=== PATIENT | male | born 1975 | race Hispanic/Latino ===

== ENCOUNTER → 2023-07-23 | Outpatient (CLI) | payer OTHER ==
[~2023-07-23] MED LIST: ACET-2079 PO; AEC81 PO; AMLO5TAB4 PO; AMOX500C2 PO; ATOR40TA69 PO; CLOP-31 PO; GABA100C PO; INSLAN SQ
== END | disposition home or self-care (01) ==
LOC: WHH 08:14
PROVIDERS: ATTEND Podiatrist Foot & Ankle Surgery
DX: T87.89 Other complications of amputation stump (principal); E11.621 Type 2 diabetes mellitus with foot ulcer; L97.519 Non-pressure chronic ulcer of other part of right foot with unspecified severity; I10 Essential (primary) hypertension; E11.69 Type 2 diabetes mellitus with other specified complication; M86.071 Acute hematogenous osteomyelitis, right ankle and foot; E11.65 Type 2 diabetes mellitus with hyperglycemia; E78.5 Hyperlipidemia, unspecified; E11.52 Type 2 diabetes mellitus with diabetic peripheral angiopathy with gangrene; I96 Gangrene, not elsewhere classified; E11.40 Type 2 diabetes mellitus with diabetic neuropathy, unspecified; Z79.82 Long term (current) use of aspirin; Z79.899 Other long term (current) drug therapy; Z79.01 Long term (current) use of anticoagulants; Z87.891 Personal history of nicotine dependence; Y83.5 Amputation of limb(s) as the cause of abnormal reaction of the patient, or of later complication, without mention of misadventure at the time of the procedure
CPT/HCPCS: 99215; A4450

== ENCOUNTER → 2023-08-13 | Outpatient (CLI) | payer OTHER | END | disposition home or self-care (01) | LOC: WHH 07:59 | PROVIDERS: ATTEND Podiatrist Foot & Ankle Surgery | DX: T87.89 Other complications of amputation stump (principal); E11.621 Type 2 diabetes mellitus with foot ulcer; L97.511 Non-pressure chronic ulcer of other part of right foot limited to breakdown of skin; E11.69 Type 2 diabetes mellitus with other specified complication; M86.071 Acute hematogenous osteomyelitis, right ankle and foot; E11.65 Type 2 diabetes mellitus with hyperglycemia; E11.52 Type 2 diabetes mellitus with diabetic peripheral angiopathy with gangrene; I96 Gangrene, not elsewhere classified; E11.40 Type 2 diabetes mellitus with diabetic neuropathy, unspecified; I10 Essential (primary) hypertension; E78.5 Hyperlipidemia, unspecified; Z79.82 Long term (current) use of aspirin; Z79.899 Other long term (current) drug therapy; Z79.01 Long term (current) use of anticoagulants; Z87.891 Personal history of nicotine dependence; Y83.5 Amputation of limb(s) as the cause of abnormal reaction of the patient, or of later complication, without mention of misadventure at the time of the procedure | CPT/HCPCS: 99214 ==

== ENCOUNTER 2025-05-24 09:43 | Inpatient (IN) | payer SELFPAY ==
[~2025-05-24] VITALS: Ht 175.3 cm; Wt 110.5 kg
[2025-05-24 10:48] LABS: NUCLEATED RED BLOOD CELLS 0.0 % (0.0-0.19); PLATELET COUNT (AUTO) 205.0 K/uL (130-400); RED BLOOD CELL COUNT(AUTO) 4.37 MIL/uL (4.50-6.20); RED CELL DISTRIBUTION WIDTH 11.9 % (11.0-15.5); WHITE BLOOD COUNT (AUTO) 7.0 K/uL (4.8-10.8)
--- NOTE | 2025-05-24 10:53 | ERN ---
General Chief Complaint: Lower Extremity Pain/Injury Stated Complaint: BLE PAIN, SWELLING, GBW Time Seen by MD: 09:47 Source: patient History of Present Illness Initial Comments Mr. Fabian, 49-year-old male with past medical history of diabetes and cu rrently on 30 units glargine and 10 units NovoLog 3 times a day presented to the ED with complaints of severe bilateral lower leg pain and increased blurred vision of both eyes since 2 days. He reports tingling, numbness, pins and needle sensation on both the legs which is making him difficult to walk. Reports pain on the lower back which is radiating to both the legs. On examin ation straight leg positive, point tenderness on the lower lumbar area, weakness and swelling of both the lower legs. Reports no nausea, vomiting, increased urination or diarrhea. Timing/Duration: constant Severity: moderate Associated Symptoms: other (Blurred vision) Allergies: Coded Allergies: No Known Allergies (Unverified Allergy, Unknown, 07/08/23) Home Meds Active Scripts Acetaminophen with Codeine (Acetaminophen-Cod #3 Tablet) 300 Mg-30 Mg Tablet, 1 EACH PO Q8HR PRN for PAIN LEVEL 6 TO 10 for 7 Days, #10 TAB Prov:HELDER MULLINSCNP 07/15/23 Amoxicillin (Amoxicillin) 500 Mg Capsule, 500 MG PO TID for 10 Days, #30 CAP Prov:HELDER MULLINSCNP 07/15/23 Insulin Glargine,Hum.rec.anlog (Lantus) 100 Unit/Ml Inj, 12 UNITS SQ BID for 30 Days, #1 VIAL 2 Refills Prov:HELDER MULLINSP 07/15/23 Gabapentin (Neurontin) 100 Mg Capsule, 100 MG PO TID for 30 Days, #90 CAP Prov:HELDER MULLINSCNP 07/15/23 Aspirin (ASPIRIN 81 MG ECTAB) 81 Mg Ectab, 81 MG PO DAILY for 30 Days, #30 TAB.EC 2 Refills Prov:HELDER MULLINSCNP 07/15/23 Clopidogrel Bisulfate (Plavix) 75 Mg Tablet, 75 MG PO DAILY for 30 Days, #30 TAB 2 Refills Prov:HELDER MULLINSP 07/15/23 Atorvastatin Calcium (LIPITOR) 40 Mg Tablet, 40 MG PO HS for 30 Days, #30 TAB Prov:HELDER MULLINS AGACNP 07/15/23 Amlodipine Besylate (Norvasc 5Mg Tab) 5 Mg Tablet, 10 MG PO Q24H for 30 Days, #30 TAB Prov:HELDER MULLINS AGACNP 07/15/23 Past Medical History Past Medical History: Diabetes-Type II Past Surgical History: Other Surgical History Other: RT FOOT GREAT TOE AMP Constitutional: (-) chills, (-) diaphoresis, (-) fever, (-) malaise, (-) weakness, (-) other documentation EENTM: (+) blurred vision Respiratory: (-) cough, (-) short of breath, (-) stridor, (-) wheezing, (-) other documentation Cardiovascular: (+) edema Gastrointestinal/Abdominal: (+) abdominal pain Musculoskeletal: (+) back pain Neuro: (+) numbness Review of Systems: was completed Physical Exam General Appearance: (+) moderate distress Orientation: (+) alert, (+) oriented x 3 Eye: bilateral eye normal inspection, bilateral eye EOMI, bilateral eye photophobia Heart: (+) regular, (+) no gallop Vascular: (+) edema Gastrointestinal: (+) soft, (+) bowel sound present, (+) tender Rectal: (+) deferred Back: (+) vertebral tenderness Back Comment Straight leg test positive, tenderness on the lower lumbar region that is radiating to bilateral lower limbs Extremities: (+) calf tenderness, (+) swelling Extremities Comment Right toe amputated Neurologic/Psychiatric: (+) normal speech Skin: (+) normal color Results Laboratory and Microbiology Lab and Micro Result MDM Differential diagnosis: Uncontrolled hyperglycemia due to diabetes mellitus associated with peripheral neuropathy, lumbar spondylosis, uncontrolled hypertension and peripheral vascular disease The patient is a 49M, with history of diabetes, peripheral vascular disease, hypertension presented initially with bilateral lower limb edema and pain, blurred vision. In the ED his blood glucose levels were in 474. We ordered CBC, CMP, HbA1c and urinalysis We ordered x-ray lumbar spine We started him on 5 units IV insulin and 1 L 0.9 NS bolus. He will be admitted inpatient for further workup under the care of hospitalist ED Course DX & DISP Disposition: Inpatient Decision to Admit Time: 14:18 Departure Impression: Primary Impression: Uncontrolled diabetes mellitus with peripheral autonomic neuropathy Critical Time: 45 minutes Condition: Stable Referrals: BENJAMIN STEWART MD (PCP) STACI DAVIS MD May 24, 2025 10:53 YOLANDA MIRELES MD May 24, 2025 14:18
[2025-05-24 11:01] LABS: CREATININE 1.8 mg/dL (0.5-1.3); GLOMERULAR FILTR. RATE CALC 45.0 mL/min (>90); SODIUM SERUM 127.0 mmol/L (136-145); UREA NITROGEN, BLOOD 30.0 mg/dL (7-18)
[2025-05-24] MEDS: 0.9%NACL 1000ML 1,000 ML IV ONE (11:08)
[2025-05-24 11:11] LABS: GLUCOSE,RANDOM 520.0 mg/dL (70-105)
--- NOTE | 2025-05-24 11:38 | HMCIMG ---
EXAM: CR Lumbar Spine, 3 View. CLINICAL HISTORY: straight leg positive and lumbar pain COMPARISON: None provided. FINDINGS: BONES: No acute fracture or aggressive appearing osseous lesion. ALIGNMENT: Alignment is within normal limits. No significant scoliosis. DISCS / DEGENERATIVE CHANGES: The disc spaces are preserved. SOFT TISSUES: The soft tissues are unremarkable. Left iliac vascular stent IMPRESSION: No acute lumbar spine abnormality evident. If there is clinical concern for nerve root compression, MRI is suggested. /[place]
--- NOTE | 2025-05-24 12:24 | HP ---
[facility] HISTORY AND PHYSICAL Date of Service: May 24, 2025 Time of Service: 12:24 HISTORY OF PRESENT ILLNESS: This is a 49-year-old male with past medical history of hypertension, diabetes mellitus type 2 presented to hospital secondary to blurry vision. Patient states he has noted that he has been having vision blurriness for the past two months. He is unable to see from his left eye and does symptoms got worse two days ago. The is able to somewhat see from from his right eye but is not able to see centrally. He wears glasses at home. He has not seen hand bobbin cleaner. He saw his primary care provider who is recommended him to go to the emergency room for further evaluation. Additionally has a history of hypertension and currently has not been prescribed any antihypertensives. He takes Lantus 30 units at night and NovoLog 10 units with meals. Additionally states that he has been having lower back pain and has noted swelling in the lower extremities bilaterally. He has noted indent kerr from his socks and shoes. Denies any shortness of breath, chest pain, fever, chills. He has a history of peripheral vascular disease and had a previous history of stent placement. He has not followed up with the Cardiology recently. Furthermore patient endorses episodes of unsteady gait at home. He currently ambulates independently and does not use a cane or a walker. Patient has noted pain in the left lower quadrant which has been present chronically. Denied any changes in his bowel. Denied any melena, hematochezia, hematemesis. Denied any changes in his urination. Secondary to non improving symptoms patient was thereafter referred to the ED for further evaluation. Labs were notable for white count of 7.0, hemoglobin was 13.8, platelet count was 205 K, sodium was 127, potassium was 4.8, creatinine was 1.8, blood glucose was 520, On presentation to the ED patient's temperature was 97.9, heart rate was in the 80s, respiratory rate was 18, blood pressure was 180/93 Patient underwent lumbar x-ray which showed no abnormality. ER physician tried contacting Ophthalmology but they were unable to reach the hand bobbin cleaner. REVIEW OF SYSTEMS CONSTITUTIONAL: Denies fevers, chills, or night sweats. No unintentional weight loss reported. NEUROLOGICAL: Denies headache, amaurosis fugax, motor weakness, sensory deficit, vertigo/spinning sensation, or tremors. Positive for gait abnormality ENT: No hearing loss, otalgia, otorrhea, rhinitis, rhinorrhea, hoarseness, or sore throat. CARDIOVASCULAR: Denies any exertional angina, dyspnea on exertion, orthopnea, paroxysmal nocturnal dyspnea, palpitations, life-threatening arrhythmias, claudication. PULMONARY: Denies any shortness of breath, cough, phlegm/sputum, hemoptysis, pleuritic chest pain. GASTROINTESTINAL: Denies any type of dysphagia to either liquids or solids. Denies nausea, vomiting, pyrosis, early satiety, abdominal pain, diarrhea, constipation, or changes in stool consistency or caliber. Denies coffee-ground emesis, hematemesis, hematochezia, or melanotic stools. GENITOURINARY: Denies frequency, urgency, nocturia, hematuria or incontinence (Storage/Irritative symptoms.) Low urinary stream, straining to void, urinary intermittency or hesitancy, splitting of the voiding stream, terminal dribbling. ENDOCRINOLOGIC: Denies polyuria, polydipsia, polyphagia or heat/cold intolerances. HEMATOLOGIC: Denies thrombophilia/previous clots, or coagulopathy/bleeding disorders. ONCOLOGIC: Denies personal history of malignancy. DERMATOLOGIC: Denies rashes or pruritus. PSYCHIATRIC: Denies any suicidal or homicidal ideation. Denies hallucinations. Musculoskeletal: positive for pain in the lower extremity, positive for lower back pain PAST MEDICAL HISTORY: Hypertension, diabetes mellitus type two PAST SURGICAL HISTORY: History of right foot great toe amputation, history of peripheral angiogram, history of iliac stent placement PAST SOCIAL HISTORY: Denied any smoking, alcohol, drug use. The patient works with [employer] FAMILY HISTORY: Denied any pertinent family history Coded Allergies: No Known Allergies (Unverified Allergy, Unknown, 07/08/23) PHYSICAL EXAM GENERAL APPEARANCE: The patient is awake, alert, and oriented, in no acute cardiopulmonary distress. NEUROLOGICAL: Cranial nerves II-XII grossly intact. Motor is 5/5 in bilateral upper and lower extremities proximal to distal. No sensory deficits. HEENT: Face is symmetric. Pupils are equal and reactive. Extraocular movements are intact. Patient was unable to see from the left eye. Visual acuity on the right eye was 20/40, visual acuity in both eyes was 20 NECK: Supple. No JVD. No thyromegaly. No submental, submandibular, pre- /postauricular, occipital or supraclavicular lymphadenopathy. CHEST: Normal chest expansion. No Telemetry. LUNGS: Absence of any rales, rhonchi or any wheezing. CARDIOVASCULAR: Regular. S1 and S2 normal. No appreciable rubs, murmurs or gallops. ABDOMEN: Soft, mild tenderness in the l left lower quadrant, and nondistended. There is no rebound, voluntary guarding, or rigidity. : Deferred. No Crowe. EXTREMITIES: Non-edematous and not cyanotic. No clubbing. Good capillary refill. SKIN: No skin breakdown. Vital Sign (Last 24 Hours) 05/24/25 12:17 Temp 97.9 Pulse 80 Resp 11 B/P (MAP) 197/112 Pulse Ox 99 O2 Delivery Room Air* O2 Flow Rate 0 FiO2 21 LABS: Laboratory: Test 05/24/25 10:34 05/24/25 09:48 Range/Units White Blood Count 7.0 4.8-10.8 K/uL Red Blood Count 4.37 L 4.50-6.20 MIL/uL Hemoglobin 13.8 L 14.0-18.0 g/dL Hematocrit 40.1 L 42-54 % Mean Corpuscular Volume 91.8 79-99 fL Mean Corpuscular Hemoglobin 31.6 27.0-33.0 pg Mean Corpuscular Hemoglobin Concent 34.4 32.0-36.0 g/dL Red Cell Distribution Width 11.9 11.0-15.5 % Platelet Count 205 130-400 K/uL Mean Platelet Volume 11.8 H 7.5-10.5 fL Nucleated Red Blood Cells 0.0 0.0-0.19 % Sodium Level 127 L 136-145 mmol/L Potassium Level 4.8 3.5-5.1 mmol/L Chloride Level 94 L 101-111 mmol/L Carbon Dioxide Level 30 21-32 mmol/L Blood Urea Nitrogen 30 H 7-18 mg/dL Creatinine 1.8 H 0.5-1.3 mg/dL Glomerular Filtration Rate Calc 45 >90 mL/min Random Glucose 520 *H 70-105 mg/dL Hemoglobin A1c 12.2 H 4.0-6.0 % Estimated Average Glucose (eAG) 303 H 70-126 mg/dL Total Calcium 8.0 L 8.5-10.1 mg/dL Whole Blood Glucose 476 *H 70-110 MG/DL Bedside Glucose Comment Notified Nurse Current Medications Medications (Trade) Dose Ordered Sig/Darcie Route PRN Reason Start Time Stop Time Status Last Admin Dose Admin Amlodipine Besylate (NorvASC 5MG TAB) 5 mg DAILY PO 05/25/25 09:00 06/24/25 08:59 UNV Famotidine (Pepcid 20mg Vial) 20 mg BID IV 05/24/25 21:00 06/23/25 20:59 UNV Hydralazine HCl (APRESOLine 20MG INJ) 10 mg Q6H PRN IV ADMINISTER FOR SBP > 180 05/24/25 12:30 06/23/25 12:29 UNV Hydromorphone HCl (DiLAUDid 0.5MG INJ) 0.5 mg Q6H PRN IVP SEVERE PAIN (7-10) 05/24/25 12:30 05/29/25 12:29 UNV Insulin Human Regular (humuLIN R 100 UNIT/ML 3ML) INSULIN SLIDING SCAL... 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 Patient will be started on sliding scale insulin and Lantus. We will request Endocrinology consultation. -in reference to hypertension. Patient to be started on amlodipine. Start hydralazine 10 mg q.6 hours for systolic blood pressure greater than 180. Obtain echocardiogram - in reference to lower extremity edema. Obtain a urine protein creatinine ratio to assess for nephrotic syndrome. Obtain echocardiogram. We will request consultation with the Nephrology -obtain patient's home medications which will be reconciled once available -Obtain a CT pelvis -obtain MRI of the lower lumbar spine -obtain PT evaluation -patient was instructed not to drive until he is evaluated by Ophthalmology. -further orders per hospitalization course -obtain a arterial Doppler of the lower Advanced Care Planning Which of the following were discussed: Hospice care: Yes __ No _x_ Therapeutic options: Yes __ No __ Advance directives: Yes __ No __ Other discussions: Discussed with who?: patient (Patient, family or surrogates) Voluntary nature of this service was explained to the patient? Yes _x_ No __ Amount of time spent: 25 minutes KILO Alanis MD, MD May 24, 2025 12:24
[2025-05-24 12:27] LABS: APPEARANCE,URINE CLEAR (CLEAR); GLUCOSE, URINE (UA) >=1000 mg/dL (NEGATIVE); LEUKOCYTE ESTERASE ,URINE NEGATIVE Leu/uL (NEGATIVE); NITRATE,URINE NEGATIVE (NEGATIVE); OCCULT BLOOD,URINE MODERATE (NEGATIVE)
[2025-05-24 12:33] LABS: ADD UA MICROSCOPIC YES; AMPHET/METH SCREEN,URINE NEGATIVE (NEGATIVE); BARBITURATE SCREEN, URINE NEGATIVE (NEGATIVE); CANNABINOID SCREEN,URINE NEGATIVE (NEGATIVE); COCAINE SCREEN,URINE NEGATIVE (NEGATIVE)
--- NOTE | 2025-05-24 12:57 | HMCIMG ---
EXAM: CT Head Without IV contrast. CLINICAL HISTORY: weakness TECHNIQUE: Axial computed tomography images of the head/brain without intravenous contrast. COMPARISON: None provided. FINDINGS: BRAIN: No evidence of acute hemorrhage. No mass lesion. No CT evidence for acute territorial infarct. No midline shift or extra-axial collections. VENTRICLES: No hydrocephalus. ORBITS: The orbits are unremarkable. SINUSES AND MASTOIDS: The paranasal sinuses and mastoid air cells are clear. BONES: No fracture. SOFT TISSUES: Unremarkable. IMPRESSION: No acute intracranial abnormality. /[place]
[2025-05-24] MEDS ORDERED: 0.9%NACL 1000ML 1,000 ML IV ONE (13:00)
--- NOTE | 2025-05-24 13:05 | HMCIMG ---
EXAM: CT SCAN OF THE ABDOMEN AND PELVIS WITHOUT CONTRAST Clinical statement: Left lower quadrant pain and lower back pain; evaluate abdomen and lumbar spine. STUDY PROTOCOL: CT radiation dose protocol was performed in accordance with the principles of ALARA. A multislice CT scan of the abdomen and pelvis was performed without intravenous contrast. Sections were obtained from the diaphragms to the inguinal region. RADIATION DOSE: CTDIvol 19.90 mGy; DLP 1365.70 mGycm. CONTRAST: No intravenous contrast administered. COMPARISON: None provided. FINDINGS: LUNG BASE: No pleural effusion, collapse, or consolidation in the visualized lung bases. Mild thickening of the posterior pleura of the left lower lobe. LIVER: Normal morphology and attenuation with smooth margins. No focal hepatic lesion or calcification. No intrahepatic or extrahepatic biliary dilatation. Vance hepatis structures are unremarkable. GALL BLADDER: Gallbladder wall thickness and contour are normal. The gallbladder is contracted with a possible tiny calculus measuring approximately 1 mm (series 2, image 28/129). No pericholecystic fat stranding is seen on this noncontrast study. The cystic duct and surrounding fat appear normal. PANCREAS: Normal in size, contour, and attenuation. No pancreatic ductal dilatation or peripancreatic inflammatory change. SPLEEN: Normal size and attenuation. A small accessory spleen is present. No acute splenic abnormality. KIDNEYS: Both kidneys are normal in size, shape, position, and attenuation. No renal mass, calculus, or hydronephrosis. Mild perinephric fat stranding bilaterally. A simple cyst measuring approximately 1.1 cm is noted in the lower pole of the left kidney. No evidence of obstructive uropathy. GIT /T/ PERITONEAL CAVITY: Stomach is distended but otherwise unremarkable. Gastroesophageal junction, pylorus, and duodenum appear normal. Jejunal and ileal loops are normal in caliber and distribution with preserved wall thickness and mucosal pattern. No CT evidence of acute appendicitis. Scattered sigmoid diverticulosis is present without adjacent inflammatory stranding or abscess. Rectum and colonic loops are well distended with fecal material, consistent with constipation. No free intraperitoneal fluid or free air. Mesenteric fat and omentum are unremarkable. LYMPHNODES: No pathologically enlarged abdominopelvic lymph nodes are identified. RETROPERITONEUM: Both adrenal glands are normal in morphology and attenuation. The abdominal aorta and IVC are normal in course and caliber with mild atherosclerotic calcification in the aortoiliac segment. A vascular stent is present in the left common iliac vein. PELVIS: Urinary bladder shows normal wall thickness and contour. Prostate appears normal on CT. No pelvic mass or free fluid. MUSCULOSKELETAL: Early degenerative changes in the dorsolumbar spine with multilevel endplate osteophytic spurring. Mild reduction in L5S1 disc height with a small posterior disc protrusion measuring approximately 3 mm at L5S1. No acute fracture or listhesis. OTHER: Extra-abdominal and paraspinal soft tissues are unremarkable. Tiny fat-containing umbilical hernia. IMPRESSION: * No CT evidence of acute intra-abdominal pathology such as appendicitis, diverticulitis, bowel obstruction, or obstructive uropathy to clearly explain left lower quadrant pain. Clinical management should be guided by examination and laboratory findings. * Scattered sigmoid diverticulosis without CT evidence of diverticulitis. These changes can be a source of chronic left-sided abdominal symptoms; if symptoms persist or there are red-flag features (e.g., anemia, change in bowel habits, weight loss), gastroenterology evaluation and consideration of colonoscopy are advised. * Constipation with fecal loading of the colon and rectum, which may contribute to the patients abdominal pain; treatment should be tailored to clinical assessment and bowel habit history. * Degenerative changes of the lower lumbar spine with mild L5S1 disc height loss and a small posterior disc protrusion at L5S1, which may contribute to lower back pain and possibly radicular symptoms if present. Correlation with neurologic examination is recommended, and lumbar spine MRI may be considered if there is radiculopathy or persistent, function-limiting pain. * Mild bilateral perinephric fat stranding with a small simple left renal cyst (1.1 cm) and no hydronephrosis or stones. Findings are nonspecific and more in keeping with mild chronic or incidental change; correlation with urine studies and clinical features is recommended if there is concern for renal infection. * Contracted gallbladder with a possible tiny calculus. There is no CT evidence of acute cholecystitis on this noncontrast study; if biliary-type symptoms develop, targeted right upper quadrant ultrasound could be considered for further evaluation. * Mild atherosclerotic calcification of the aortoiliac segment with a left common iliac vein stent, and tiny fat-containing umbilical hernia, both likely incidental in the context of the current presentation. /[place]
[2025-05-24 13:08] LABS: CREATININE,URINE RANDOM 65.49 mg/dL (30-135)
[2025-05-24 13:09] LABS: SQUAMOUS EPITHELIAL CELL,UR None Seen /HPF (0-2)
[2025-05-24 13:33] LABS: PROTEIN,URINE RANDOM 523.6 mg/dL (0-11.9)
[2025-05-24] MEDS: amLODIPine 5 MG TAB PO ONE (13:50)
[2025-05-24 14:45] VITALS: BP 182/105; PULSE 81; RESP 20; TEMP 98.1; O2SAT 98
[2025-05-24 15:12] LABS: ASPARTATE AMINOTRANSFERASE 19 U/L (10-37); TOTAL PROTEIN, SERUM 6.8 g/dL (6.0-8.3)
--- NOTE | 2025-05-24 15:21 | HMCIMG ---
EXAM: US for Deep Venous Thrombosis, bilateral Lower Extremity. CLINICAL HISTORY: Leg Pain and Swelling TECHNIQUE: Real-time ultrasound scan of the veins of the bilateral lower extremity with color Doppler flow, spectral waveform analysis and compression. COMPARISON: None provided. FINDINGS: DEEP VEINS: The common femoral, superficial femoral, and popliteal veins are echolucent and compressible. There is normal color Doppler flow throughout. The visualized calf veins appear patent. SOFT TISSUES: No popliteal fossa cyst or other abnormalities. IMPRESSION: 1. No evidence of deep venous thrombosis in the bilateral lower extremities. /[place]
--- NOTE | 2025-05-24 15:36 | HMCIMG ---
EXAM: US Duplex Bilateral Carotid and Vertebral Arteries. CLINICAL HISTORY: Assess for carotid stenosis. TECHNIQUE: Real-time ultrasound scan of the bilateral carotid and vertebral arteries, 2-D hutson scale, with color Doppler flow and spectral waveform analysis. COMPARISON: None provided. FINDINGS: RIGHT COMMON CAROTID ARTERY: Peak systolic velocity approximately 72 cm/s. No occlusion or hemodynamically significant stenosis. RIGHT INTERNAL CAROTID ARTERY: Peak systolic velocity approximately 70 cm/s with ICA/CCA ratio of 1.0. No occlusion or hemodynamically significant stenosis. RIGHT EXTERNAL CAROTID ARTERY: Peak systolic velocity approximately 108 cm/s. No occlusion. RIGHT VERTEBRAL ARTERY: Antegrade flow with peak systolic velocity approximately 32 cm/s. RIGHT ICA/CCA RATIO: Approximately 1.0. LEFT COMMON CAROTID ARTERY: Peak systolic velocity approximately 69 cm/s. No occlusion or hemodynamically significant stenosis. LEFT INTERNAL CAROTID ARTERY: Peak systolic velocity approximately 73 cm/s with ICA/CCA ratio of approximately 1.1. No occlusion or hemodynamically significant stenosis. LEFT EXTERNAL CAROTID ARTERY: Peak systolic velocity approximately 135 cm/s. No occlusion. LEFT VERTEBRAL ARTERY: Antegrade flow with peak systolic velocity approximately 39 cm/s. LEFT ICA/CCA RATIO: Approximately 1.1. SOFT TISSUES: No incidental abnormalities. IMPRESSION: * No hemodynamically significant carotid artery stenosis by Doppler velocity criteria or ICA/CCA ratios. * Bilateral vertebral arteries demonstrate normal antegrade flow without hemodynamically significant stenosis. /[place]
[2025-05-24 16:00] VITALS: BP 159/94; PULSE 81; RESP 22; TEMP 97.5
--- NOTE | 2025-05-24 16:02 | HMCIMG ---
EXAM: US Duplex bilateral Lower Extremity Arteries. CLINICAL HISTORY: Assess for peripheral vascular disease. TECHNIQUE: Real-time ultrasound scan of the arteries of the bilateral lower extremities with 2-D hutson scale, color Doppler flow and spectral waveform analysis. COMPARISON: None provided. FINDINGS: RIGHT LOWER EXTREMITY: COMMON FEMORAL ARTERY: Peak systolic velocity approximately 115 cm/sec with triphasic waveform. No occlusion or hemodynamically significant stenosis. SUPERFICIAL FEMORAL ARTERY: Proximal peak systolic velocity approximately 65 cm/sec and distal peak systolic velocity approximately 70 cm/sec with triphasic waveforms. No occlusion or hemodynamically significant stenosis. POPLITEAL ARTERY: Peak systolic velocity approximately 71 cm/sec with triphasic waveform. No occlusion or hemodynamically significant stenosis. CALF ARTERIES: Posterior tibial artery distal peak systolic velocity approximately 59 cm/sec with triphasic waveform. Dorsalis pedis artery peak systolic velocity approximately 79 cm/sec with triphasic waveform. No occlusion or hemodynamically significant stenosis. LEFT LOWER EXTREMITY: COMMON FEMORAL ARTERY: Peak systolic velocity approximately 103 cm/sec with triphasic waveform. No occlusion or hemodynamically significant stenosis. SUPERFICIAL FEMORAL ARTERY: Proximal peak systolic velocity approximately 109 cm/sec, mid peak systolic velocity approximately 121 cm/sec, and distal peak systolic velocity approximately 40 cm/sec with predominantly triphasic waveforms. No focal velocity elevation to suggest hemodynamically significant stenosis. POPLITEAL ARTERY: Proximal peak systolic velocity approximately 50 cm/sec and distal peak systolic velocity approximately 78 cm/sec with triphasic waveforms. No occlusion or hemodynamically significant stenosis. CALF ARTERIES: Posterior tibial artery peak systolic velocity approximately 53 cm/sec and anterior tibial/distal peak systolic velocity approximately 64 cm/sec with triphasic waveforms. Dorsalis pedis artery peak systolic velocity approximately 100 cm/sec with triphasic waveform. No occlusion or hemodynamically significant stenosis. IMPRESSION: * Multifocal atherosclerotic changes of the bilateral lower extremity arteries without duplex evidence of hemodynamically significant stenosis or occlusion. /[place]
[2025-05-24 19:52] VITALS: BP 132/78; PULSE 80; RESP 20; TEMP 98.5
[2025-05-24 20:00] VITALS: O2SAT 98
[2025-05-24] MEDS: FAMOTIDINE 20MG VIAL IV SCH (20:57)
[2025-05-24 23:42] VITALS: BP 155/89; PULSE 78; RESP 20; TEMP 98
[2025-05-25] VITALS (7 sets, daily range): BP systolic 113–182; BP diastolic 56–100; PULSE 76–87; RESP 18–22; TEMP 97.8–98.1; O2SAT 98
[2025-05-25 04:33] LABS: IMMATURE GRANULOCYTE ABSOLUTE 0.02 K/uL (0-1); NUCLEATED RED BLOOD CELLS 0.0 % (0.0-0.19); PLATELET COUNT (AUTO) 189 K/uL (130-400); RED BLOOD CELL COUNT(AUTO) 4.20 MIL/uL (4.50-6.20); RED CELL DISTRIBUTION WIDTH 11.6 % (11.0-15.5); WHITE BLOOD COUNT (AUTO) 6.8 K/uL (4.8-10.8)
[2025-05-25 05:05] LABS: ASPARTATE AMINOTRANSFERASE 15.0 U/L (10-37); CREATININE 1.4 mg/dL (0.5-1.3); GLOMERULAR FILTR. RATE CALC 61.0 mL/min (>90); GLUCOSE,RANDOM 192.0 mg/dL (70-105); PHOSPHORUS 4.1 mg/dL (2.5-4.9); SODIUM SERUM 137.0 mmol/L (136-145); TOTAL PROTEIN, SERUM 6.2 g/dL (6.0-8.3); UREA NITROGEN, BLOOD 25.0 mg/dL (7-18)
--- NOTE | 2025-05-25 05:14 | CONS ---
CONSULT NOTE: Endocrinology Consult Chief complaint:blurry vision Reason for consult:uncontrolled dm-2 DOS:05/25/25 HISTORY OF PRESENT ILLNESS: This is a 49-year-old male with past medical history of hypertension, diabetes mellitus type 2 presented to hospital secondary to blurry vision. Patient states he has noted that he has been having vision blurriness for the past two months. He is unable to see from his left eye and does symptoms got worse two days ago. The is able to somewhat see from from his right eye but is not able to see centrally. He wears glasses at home. He has not seen die finisher. He saw his primary care provider who is recommended him to go to the emergency room for further evaluation. Additionally has a history of hypertension and currently has not been taking antihypertensives. He takes Lantus 30 units at night and NovoLog 10 units with meals. Labs were notable for white count of 7.0, hemoglobin was 13.8, platelet count was 205 K, sodium was 127, potassium was 4.8, creatinine was 1.8, blood glucose was 520, On presentation to the ED patient's temperature was 97.9, heart rate was in the 80s, respiratory rate was 18, blood pressure was 180/93 Patient underwent lumbar x-ray which showed no abnormality. Home diabetic regimen: glargine 30 units daily and novolog 10 units qac before meals. Hba1c 12.2% reports that he was recently diagnosed with diabetic retinopathy and planning eye injections. glucose runs >200 mg/dl. REVIEW OF SYSTEMS CONSTITUTIONAL: Denies fevers, chills, or night sweats. No unintentional weight loss reported. NEUROLOGICAL: Denies headache, amaurosis fugax, motor weakness, sensory deficit, vertigo/spinning sensation, or tremors. Positive for gait abnormality ENT: No hearing loss, otalgia, otorrhea, rhinitis, rhinorrhea, hoarseness, or sore throat. CARDIOVASCULAR: Denies any exertional angina, dyspnea on exertion, orthopnea, paroxysmal nocturnal dyspnea, palpitations, life-threatening arrhythmias, claudication. PULMONARY: Denies any shortness of breath, cough, phlegm/sputum, hemoptysis, pleuritic chest pain. GASTROINTESTINAL: Denies any type of dysphagia to either liquids or solids. Denies nausea, vomiting, pyrosis, early satiety, abdominal pain, diarrhea, constipation, or changes in stool consistency or caliber. Denies coffee-ground emesis, hematemesis, hematochezia, or melanotic stools. GENITOURINARY: Denies frequency, urgency, nocturia, hematuria or incontinence (Storage/Irritative symptoms.) Low urinary stream, straining to void, urinary intermittency or hesitancy, splitting of the voiding stream, terminal dribbling. ENDOCRINOLOGIC: Denies polyuria, polydipsia, polyphagia or heat/cold intolerances. HEMATOLOGIC: Denies thrombophilia/previous clots, or coagulopathy/bleeding disorders. ONCOLOGIC: Denies personal history of malignancy. DERMATOLOGIC: Denies rashes or pruritus. PSYCHIATRIC: Denies any suicidal or homicidal ideation. Denies hallucinations. Musculoskeletal: positive for pain in the lower extremity, positive for lower back pain PAST MEDICAL HISTORY: Hypertension, diabetes mellitus type two PAST SURGICAL HISTORY: History of right foot great toe amputation, history of peripheral angiogram, history of iliac stent placement PAST SOCIAL HISTORY: Denied any smoking, alcohol, drug use. 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 NEUROLOGICAL: Cranial nerves II-XII grossly intact. Motor is 5/5 in bilateral upper and lower extremities proximal to distal. No sensory deficits. HEENT: Face is symmetric. Pupils are equal and reactive. Extraocular movements are intact. Patient was unable to see from the left eye. Visual acuity on the right eye was 20/40, visual acuity in both eyes was 20 NECK: Supple. No JVD. No thyromegaly. No submental, submandibular, pre- /postauricular, occipital or supraclavicular lymphadenopathy. CHEST: Normal chest expansion. No Telemetry. LUNGS: Absence of any rales, rhonchi or any wheezing. CARDIOVASCULAR: Regular. S1 and S2 normal. No appreciable rubs, murmurs or gallops. ABDOMEN: Soft, mild tenderness in the l left lower quadrant, and nondistended. There is no rebound, voluntary guarding, or rigidity. : Deferred. No Crowe. EXTREMITIES: Non-edematous and not cyanotic. No clubbing. Good capillary refill. SKIN: No skin breakdown. ASSESSMENT: Symptomatic hyperglycemia POA no dka. hyperglycemia is improving now and insulin adjusted. Home diabetic regimen: glargine 30 units daily and novolog 10 units qac before meals. Hba1c 12.2% reports that he was recently diagnosed with diabetic retinopathy and planning eye injections. glucose runs >200 mg/dl. Uncontrolled diabetes mellitus type 2 with hemoglobin A1c of 12.2 Lower back pain with concern for radiculopathy Proteinuria Acute kidney injury or underlying chronic kidney disease likely from diabetic nephropathy Bilateral lower extremities edema History of May-Thurner syndrome Blurred vision bilaterally differential secondary to diabetic retinopathy versus symptomatic hyperglycemia Hypertensive urgency PLAN: start Lantus 30 units daily and adjust for fasting glucose. start Regular insulin 8 units three times before meals and adjust for post- prandial glucose. adjust ssi to medium dose sliding scale insulin. Monitor glucose q x 6 hourly. Continue carb consistent diet. Keep glucose less than 180 mg/dl. Thanks for allowing me to participate in patient care and will continue to follow up. Vital Signs 05/24/25 20:00 O2 Flow Rate 0 FiO2 21 Hematology Labs: Test 05/25/25 04:22 Range/Units White Blood Count 6.8 4.8-10.8 K/uL Red Blood Count 4.20 L 4.50-6.20 MIL/uL Hemoglobin 13.2 L 14.0-18.0 g/dL Hematocrit 38.1 L 42-54 % Mean Corpuscular Volume 90.7 79-99 fL Mean Corpuscular Hemoglobin 31.4 27.0-33.0 pg Mean Corpuscular Hemoglobin Concent 34.6 32.0-36.0 g/dL Red Cell Distribution Width 11.6 11.0-15.5 % Platelet Count 189 130-400 K/uL Mean Platelet Volume 11.4 H 7.5-10.5 fL Immature Granulocyte % (Auto) 0.3 0-1 % Neutrophils (%) (Auto) 58.1 40.0-77.0 % Lymphocytes (%) (Auto) 22.2 21.0-51.0 % Monocytes (%) (Auto) 12.5 3.0-13.0 % Eosinophils (%) (Auto) 5.9 0.0-8.0 % Basophils (%) (Auto) 1.0 0.0-5.0 % Neutrophils # (Auto) 3.9 1.8-7.7 K/uL Lymphocytes # (Auto) 1.5 1.0-4.8 K/uL Monocytes # (Auto) 0.9 0.1-1.0 K/uL Eosinophils # (Auto) 0.40 0.00-0.70 K/uL Basophils # (Auto) 0.07 0.00-0.20 K/uL Absolute Immature Granulocyte (auto 0.02 0-1 K/uL Nucleated Red Blood Cells 0.0 0.0-0.19 % Chemistry Labs: Test 05/25/25 04:22 05/24/25 23:54 05/24/25 13:06 05/24/25 10:39 Range/Units Sodium Level 137 136-145 mmol/L Potassium Level 3.6 3.5-5.1 mmol/L Chloride Level 102 101-111 mmol/L Carbon Dioxide Level 29 21-32 mmol/L Blood Urea Nitrogen 25 H 7-18 mg/dL Creatinine 1.4 H 0.5-1.3 mg/dL Glomerular Filtration Rate Calc 61 >90 mL/min Random Glucose 192 #H 70-105 mg/dL Uric Acid 6.6 2.6-7.2 mg/dL Total Calcium 8.0 L 8.5-10.1 mg/dL Phosphorus Level 4.1 2.5-4.9 mg/dL Total Bilirubin 0.2 0.2-1.0 mg/dL Aspartate Amino Transf (AST/SGOT) 15 10-37 U/L Alanine Aminotransferase (ALT/SGPT) 19 # 12-78 U/L Alkaline Phosphatase 89 # 50-136 U/L Total Protein 6.2 6.0-8.3 g/dL Albumin 1.8 L 3.5-5.0 g/dL Thyroid Stimulating Hormone (TSH) 3.73 # 0.36-3.74 uIU/mL Whole Blood Glucose 332 H 70-110 MG/DL Bedside Glucose Comment Notified Nurse Whole Blood Ketones Quantitative 0.1 0.0-0.6 mmol/L Direct Bilirubin < 0.1 0.0-0.3 mg/dL Total Creatine Kinase 78 21-232 U/L B-Type Natriuretic Peptide 144 H 0-100 pg/mL Test 05/24/25 10:34 Range/Units Hemoglobin A1c 12.2 H 4.0-6.0 % Estimated Average Glucose (eAG) 303 H 70-126 mg/dL Current Medications Medications (Trade) Dose Ordered Sig/Darcie Route Start Time Stop Time Status Last Admin Dose Admin Amlodipine Besylate (NorvASC 5MG TAB) 5 mg DAILY PO 05/25/25 09:00 06/24/25 08:59 Famotidine (Pepcid 20mg Vial) 20 mg Q24H IV 05/24/25 21:00 06/23/25 20:59 05/24/25 20:57 20 MG Insulin Human Regular (humuLIN R 100 UNIT/ML 3ML) INSULIN SLIDING SCAL... Q6H6 SQ 05/24/25 18:00 06/23/25 17:59 05/25/25 00:07 7 UNIT Vitamin B Complex/ Vit C/Folic Acid (Nephrovite Tablet) 1 cap DAILY PO 05/25/25 09:00 06/24/25 08:59 ANITRA CARTER MD May 25, 2025 05:14
[2025-05-25] MEDS: PoTASSium chl 10% ELIXIR 20MEQ 20 MEQ/15 ML UDCUP PO ONE (06:37)
--- NOTE | 2025-05-25 07:55 | CONS ---
NEPHROLOGY CONSULTATION REASON FOR CONSULTATION: Acute renal failure, hyponatremia, and severe hypertension. HISTORY OF PRESENT ILLNESS: This patient has multiple medical problems, underlying diabetes, hypertension, admitted with blurry vision. He is found to have severe hypertension. He does not take his medicine. He has been on insulin also. The patient has unsteadiness also. The patient is generally weak. He has been found to have low sodium as well as multiple other comorbidities including blurry vision. PAST MEDICAL HISTORY: Diabetes, hypertension. PAST SURGICAL HISTORY: Right foot amputation, peripheral angiogram, and iliac stent. FAMILY HISTORY: Family history is negative for present contact. SOCIAL HISTORY: The patient has no smoking or alcohol abuse reported to me. REVIEW OF SYSTEMS: CONSTITUTIONAL: Generalized weakness. No fever, chills, or rigors. HEENT: With no headache. No oral ulcer, sore throat or difficulty swallowing. Has visual blurring though present. RESPIRATORY: No cough, expectoration, or hemoptysis. CARDIOVASCULAR: No orthopnea or PND. Shortness of breath has been present. GASTROINTESTINAL: Negative for nausea, vomiting. No diarrhea reported. GENITOURINARY: Negative for hematuria. DERMATOLOGIC: No rashes, pruritus or skin lesion. ENDOCRINE: No polyuria, polydipsia or polyphagia. PSYCHIATRIC: Negative for anxiety, depression, or hallucinations. LYMPHATIC AND HEMATOPOIETIC: No bleeding tendencies or swelling noted in lymph node areas. MUSCULOSKELETAL: With no joint swelling, redness, or inflammation. Other systemic review is unchanged, unremarkable from the past. PHYSICAL EXAMINATION: GENERAL: Pale, in no other distress or deformities, lying in bed. VITAL SIGNS: Blood pressure has been high up to 197/112, pulse 80, respiratory rate is 12. HEENT: Head is atraumatic, normocephalic. Pupils are round and reactive. Sclerae are anicteric. Conjunctivae not pale. Oral mucosa is not dry. NECK: Supple. No mass or bruits. No thyromegaly. Neck has no bruits. CHEST: Shows diminished breath sounds at both bases, prolonged respiration. Percussion note being resonant to percussion in all areas. No crackles. CARDIAC: Regular rhythm. No rub, no S3, no S4. No parasternal heave. There is a grade 2/6 ejection systolic murmur. ABDOMEN: Soft. No guarding or tenderness. Bowel sounds are present. No free fluid. EXTREMITIES: With no edema. No cyanosis, clubbing. BACK: No tenderness or back deformities. LYMPHATIC: With no lymph node swelling in the neck. NEUROLOGIC: Unchanged, nonfocal. No cranial nerve palsy. LABORATORY DATA: We have reviewed available labs in detail. Hemoglobin is 13.8, white cell count is 40, platelet count is normal. Sugar was elevated up to 400. Creatinine elevated up to 1.8, BUN elevated up to 130, sodium low up to 127. The patient has a very low albumin of 2.1 and urine has shown marked proteinuria. Old records have been reviewed. IMAGING STUDIES: Imaging studies are personally reviewed. The patient has undergone venous Doppler studies with no acute findings. The patient has a carotid artery ultrasound done with no significant stenosis. Abdominopelvic CT has been done with no acute finding. There is a lumbar spinal degenerative changes. There are some renal cysts detected. CT head was reviewed. PROBLEMS: * Acute renal failure. * Hyponatremia. * Severe hypertension with hypertensive urgency. * Diabetes with nephropathy. * Proteinuria. * Underlying noncompliance. * Uncontrolled diabetes. * Hypoalbuminemia. * Mild anemia. * Peripheral vascular disease. PLAN: * The patient will get a urine [id number] ratio. * The patient will be on insulin. * The patient will get control of hypertension. Amlodipine started meanwhile. * We will do uric acid, TSH for hyponatremia, and serum osmolality. * We will get further cardiac workup. * Continued monitoring of renal function and electrolytes. * IV Dilaudid 0.5 q. 6 h. can be used for pain. * Intake, output, and weight and electrolytes will be monitored. * Nonsteroidal drug will be avoided. * Dose of medicine to be adjusted. * Dietary consults should be done. Condition remains guarded. Overall prognosis is guarded. Thank you for the challenging consultation. We have discussed with the team physician. We have reviewed the old records, external records in detail, and we have ordered the followup labs and electrolytes. Thank you for this patient. TID: [id number] RECEIPT: [id number]
[2025-05-25] MEDS: Vitamin B Complex/Vit C/Folic Acid PO SCH (09:46)
[2025-05-25] MEDS: ENOXAPARIN SODIUM 30 MG/0.3 ML SQ SCH (09:49)
[2025-05-25] MEDS: amLODIPine 5 MG TAB PO SCH (09:49)
--- NOTE | 2025-05-25 11:20 | NUR ---
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 Pt states he is moving to [place] to live with cousin Cheyanne Bales at [place]. Will live at [id number]. Pt reports difficulty completing ADLS, legs are weak when ambulating. No DME or in home care services. No insurance, was screened by [facility]. PCP is Brendon Damon and uses [facility] for rx needs. DCP is home with cousin. Family to transport. SON RICKEY GOMEZ [phone]
--- NOTE | 2025-05-25 12:06 | PN ---
[facility] PROGRESS NOTE Date of Service: May 25, 2025 Time of Service: 12:02 SUBJECTIVE: 05/25 the patient has been seen and examined at bedside, case discussed with the RN, no acute events overnight, at the time my visit the patient is comfortably in bed, alert oriented x3, following commands, still admits blurry vision of the (per my discussion with the patient this has been ongoing for the last few weeks. He was seen at the office of sheet folder Dr. Donald Damon, as outpatient due to blurry vision to the left eye, he was advised to go to the emergency room, however the patient did not seek medical attention because he was afraid about COVID. Patient did not seek evaluation by weatherization installer as an outpatient). He denies headache, no chest pain, no shortness a breath, no nausea, no vomiting, no abdominal discomfort. At the time of admission blood glucose was greater than 400, patient placed on insulin glargine 20 units subcutaneously daily, blood glucose better, in the range of 180-200. Consultation with the pet care worker requested, input noted and appreciated. Patient with proteinuria, concern for nephrotic syndrome, nephrology c onsultation requested, follow input recommendation. Follow a.m. labs. We will downgraded the patient to the medical floor. Patient has been advised not to drive or use heavy machinery until he gets evaluated by weatherization installer upon discharge due to high risk for injuries and accidents secondary to his blurry vision. Patient alert oriented x3, he agreed and understood the information provided. Radiology tests reviewed, discussed findings with the patient. REVIEW OF SYSTEMS CONSTITUTIONAL: Denies fevers, chills, or night sweats. No unintentional weight loss reported. NEUROLOGICAL: Denies headache, amaurosis fugax, motor weakness, sensory deficit, vertigo/spinning sensation, or tremors. Positive for gait abnormality ENT: No hearing loss, otalgia, otorrhea, rhinitis, rhinorrhea, hoarseness, or sore throat. CARDIOVASCULAR: Denies any exertional angina, dyspnea on exertion, orthopnea, paroxysmal nocturnal dyspnea, palpitations, life-threatening arrhythmias, claudication. PULMONARY: Denies any shortness of breath, cough, phlegm/sputum, hemoptysis, pleuritic chest pain. GASTROINTESTINAL: Denies any type of dysphagia to either liquids or solids. Denies nausea, vomiting, pyrosis, early satiety, abdominal pain, diarrhea, constipation, or changes in stool consistency or caliber. Denies coffee-ground emesis, hematemesis, hematochezia, or melanotic stools. GENITOURINARY: Denies frequency, urgency, nocturia, hematuria or incontinence (Storage/Irritative symptoms.) Low urinary stream, straining to void, urinary intermittency or hesitancy, splitting of the voiding stream, terminal dribbling. ENDOCRINOLOGIC: Denies polyuria, polydipsia, polyphagia or heat/cold intolera nces. HEMATOLOGIC: Denies thrombophilia/previous clots, or coagulopathy/bleeding disorders. ONCOLOGIC: Denies personal history of malignancy. DERMATOLOGIC: Denies rashes or pruritus. PSYCHIATRIC: Denies any suicidal or homicidal ideation. Denies hallucinations. Musculoskeletal: positive for pain in the lower extremity, positive for lower back pain PHYSICAL EXAM GENERAL APPEARANCE: The patient is awake, alert, and oriented, in no acute cardiopulmonary distress. NEUROLOGICAL: Cranial nerves II-XII grossly intact. Motor is 5/5 in bilateral upper and lower extremities proximal to distal. No sensory deficits. HEENT: Face is symmetric. Pupils are equal and reactive. Extraocular movements are intact. Patient was unable to see from the left eye. Visual acuity on the right eye was 20/40, visual acuity in both eyes was 20 NECK: Supple. No JVD. No thyromegaly. No submental, submandibular, pre- /postauricular, occipital or supraclavicular lymphadenopathy. CHEST: Normal chest expansion. No Telemetry. LUNGS: Absence of any rales, rhonchi or any wheezing. CARDIOVASCULAR: Regular. S1 and S2 normal. No appreciable rubs, murmurs or gallops. ABDOMEN: Soft, mild tenderness in the l left lower quadrant, and nondistended. There is no rebound, voluntary guarding, or rigidity. : Deferred. No Crowe. EXTREMITIES: Non-edematous and not cyanotic. No clubbing. Good capillary refill. SKIN: No skin breakdown. Vital Signs (last 8hr) Date Time Temp Pulse Resp B/P (MAP) Pulse Ox O2 Delivery O2 Flow Rate FiO2 05/25/25 07:00 97.9 77 20 113/85 96 Room Air LABS: Laboratory: Test 05/25/25 11:56 05/25/25 04:22 05/24/25 23:54 05/24/25 13:06 Range/Units Whole Blood Glucose 223 H 70-110 MG/DL White Blood Count 6.8 4.8-10.8 K/uL Red Blood Count 4.20 L 4.50-6.20 MIL/uL Hemoglobin 13.2 L 14.0-18.0 g/dL Hematocrit 38.1 L 42-54 % Mean Corpuscular Volume 90.7 79-99 fL Mean Corpuscular Hemoglobin 31.4 27.0-33.0 pg Mean Corpuscular Hemoglobin Concent 34.6 32.0-36.0 g/dL Red Cell Distribution Width 11.6 11.0-15.5 % Platelet Count 189 130-400 K/uL Mean Platelet Volume 11.4 H 7.5-10.5 fL Immature Granulocyte % (Auto) 0.3 0-1 % Neutrophils (%) (Auto) 58.1 40.0-77.0 % Lymphocytes (%) (Auto) 22.2 21.0-51.0 % Monocytes (%) (Auto) 12.5 3.0-13.0 % Eosinophils (%) (Auto) 5.9 0.0-8.0 % Basophils (%) (Auto) 1.0 0.0-5.0 % Neutrophils # (Auto) 3.9 1.8-7.7 K/uL Lymphocytes # (Auto) 1.5 1.0-4.8 K/uL Monocytes # (Auto) 0.9 0.1-1.0 K/uL Eosinophils # (Auto) 0.40 0.00-0.70 K/uL Basophils # (Auto) 0.07 0.00-0.20 K/uL Absolute Immature Granulocyte (auto 0.02 0-1 K/uL Nucleated Red Blood Cells 0.0 0.0-0.19 % Sodium Level 137 136-145 mmol/L Potassium Level 3.6 3.5-5.1 mmol/L Chloride Level 102 101-111 mmol/L Carbon Dioxide Level 29 21-32 mmol/L Blood Urea Nitrogen 25 H 7-18 mg/dL Creatinine 1.4 H 0.5-1.3 mg/dL Glomerular Filtration Rate Calc 61 >90 mL/min Random Glucose 192 #H 70-105 mg/dL Uric Acid 6.6 2.6-7.2 mg/dL Total Calcium 8.0 L 8.5-10.1 mg/dL Phosphorus Level 4.1 2.5-4.9 mg/dL Total Bilirubin 0.2 0.2-1.0 mg/dL Aspartate Amino Transf (AST/SGOT) 15 10-37 U/L Alanine Aminotransferase (ALT/SGPT) 19 # 12-78 U/L Alkaline Phosphatase 89 # 50-136 U/L Total Protein 6.2 6.0-8.3 g/dL Albumin 1.8 L 3.5-5.0 g/dL Thyroid Stimulating Hormone (TSH) 3.73 # 0.36-3.74 uIU/mL Bedside Glucose Comment Notified Nurse Whole Blood Ketones Quantitative 0.1 0.0-0.6 mmol/L Direct Bilirubin < 0.1 0.0-0.3 mg/dL Test 05/24/25 11:59 05/24/25 10:39 05/24/25 10:34 Range/Units Urine Color YELLOW YELLOW Urine Appearance CLEAR CLEAR Urine pH 6.0 5.0-8.0 Urine Specific [place] 1.015 1.001-1.031 Urine Protein >=300 H NEGATIVE mg/dL Urine Glucose (UA) >=1000 H NEGATIVE mg/dL Urine Ketones NEGATIVE NEGATIVE mg/dL Urine Occult Blood MODERATE H NEGATIVE Urine Nitrate NEGATIVE NEGATIVE Urine Bilirubin NEGATIVE NEGATIVE mg/dL Urine Urobilinogen 0.2 0.2-1.0 mg/dL Urine Leukocyte Esterase NEGATIVE NEGATIVE Maria M/uL Urine RBC 6-10 H 0-1 /HPF Urine WBC 0-1 0-1 /HPF Urine Squamous Epithelial Cells None Seen 0-2 /HPF Urine Bacteria None Seen None Seen /HPF Urine Random Creatinine 65.49 30-135 mg/dL Urine Random Total Protein 523.6 H 0-11.9 mg/dL Urine Random Sodium 42 40-220 mmol/l Urine Random Potassium 30 25-125 mmol/L Urine Random Chloride 55 L 110-250 mmol/L Urine Opiates Screen NEGATIVE NEGATIVE Urine Barbiturates Screen NEGATIVE NEGATIVE Urine Phencyclidine Screen NEGATIVE NEGATIVE Urine Amphetamines Screen NEGATIVE NEGATIVE Urine Benzodiazepines Screen NEGATIVE NEGATIVE Urine Cocaine Screen NEGATIVE NEGATIVE Urine Marijuana (THC) Screen NEGATIVE NEGATIVE Total Creatine Kinase 78 21-232 U/L B-Type Natriuretic Peptide 144 H 0-100 pg/mL Hemoglobin A1c 12.2 H 4.0-6.0 % Estimated Average Glucose (eAG) 303 H 70-126 mg/dL Current Medications Medications (Trade) Dose Ordered Sig/Darcie Route PRN Reason Start Time Stop Time Status Last Admin Dose Admin Amlodipine Besylate (NorvASC 5MG TAB) 5 mg DAILY PO 05/25/25 09:00 06/24/25 08:59 05/25/25 09:49 5 MG Enoxaparin Sodium (Lovenox) 30 mg DAILY SQ 05/25/25 09:00 06/24/25 08:59 05/25/25 09:49 30 MG Famotidine (Pepcid 20mg Vial) 20 mg Q24H IV 05/24/25 21:00 06/23/25 20:59 05/24/25 20:57 20 MG Hydralazine HCl (APRESOLine 20MG INJ) 10 mg Q6H PRN IV ADMINISTER FOR SBP > 180 05/24/25 12:30 06/23/25 12:29 05/24/25 15:08 10 MG Hydromorphone HCl (DiLAUDid 0.5MG INJ) 0.5 mg Q6H PRN IVP SEVERE PAIN (7-10) 05/24/25 12:30 05/29/25 12:29 05/24/25 15:05 0.5 MG Insulin Glargine (LANtus 100 UNITS/ML 10 ML VIAL) 20 units DAILY SQ 05/25/25 09:00 06/24/25 08:59 05/25/25 09:47 20 UNITS Insulin Human Regular (humuLIN R 100 UNIT/ML 3ML) 5 unit TIDAC SQ 05/25/25 07:30 06/24/25 07:29 05/25/25 06:35 5 UNIT Insulin Human Regular (humuLIN R 100 UNIT/ML 3ML) INSULIN SLIDING SCAL... ACHS SQ 05/25/25 07:30 06/24/25 07:29 05/25/25 06:36 2 UNIT Insulin Human Regular (humuLIN R 100 UNIT/ML 3ML) INSULIN SLIDING SCAL... Q6H6 SQ 05/24/25 18:00 05/25/25 05:19 DC 05/25/25 00:07 7 UNIT Ondansetron HCl (zoFRAN 4MG INJ) 4 mg Q6H PRN IVP NAUSEA/VOMITING 05/24/25 12:30 1/1/26 12:29 Vitamin B Complex/ Vit C/Folic Acid (Nephrovite Tablet) 1 cap DAILY PO 05/25/25 09:00 06/24/25 08:59 05/25/25 09:46 1 CAP DIAGNOSTICS / RADIOLOGY: [ ] ASSESSMENT: Symptomatic hyperglycemia POA Uncontrolled diabetes mellitus type 2 with hemoglobin A1c of 12.2 Lower back pain with concern for radiculopathy Proteinuria Acute kidney injury or underlying chronic kidney disease likely from diabetic nephropathy Bilateral lower extremities edema 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 He was seen at the office of sheet folder Dr. Donald Damon, as outpatient due to blurry vision to the left eye, he was advised to go to the emergency room, however the patient did not seek medical attention because he was afraid about COVID. Patient did not seek evaluation by weatherization installer as an outpatient). He denies headache, no chest pain, no shortness a breath, no nausea, no vomiting, no abdominal discomfort. At the time of admission blood glucose was greater than 400, patient placed on insulin glargine 20 units subcutaneously daily, blood glucose better, in the range of 180-200. Consultation with the pet care worker requested, input noted and appreciated. Patient with proteinuria, concern for nephrotic syndrome, nephrology consultation requested, follow input recommendation. Follow a.m. labs. We will downgraded the patient to the medical floor. Patient has been advised not to drive or use heavy machinery until he gets evaluated by weatherization installer upon discharge due to high risk for injuries and accidents secondary to his blurry vision. Patient alert oriented x3, he agreed and understood the information provided. NEURO: Minimize central acting medications as possible. Fall Precautions. Well lighted room through the day and minimize interruptions through the night to prevent acute delirium. PULMONARY: Supplemental 02 as needed BiPAP as necessary, for respiratory distress Titrate Fio2 to keep Spo2 > or = 90% DuoNebs and CPT as needed IS hourly while awake for pulmonary hygiene prn Out of bed to chair as tolerated Maintain aspiration precautions at all times CARDIOVASCULAR: Follow hemodynamics. Vital signs per facility protocol GI & NUTRITION: Continue nutritional support Aspirations precautions Prokinetic agents and laxatives as needed KIDNEYS & ELECTROLYTES: Strict monitoring of intake and output Daily weights Avoid nephrotoxic agents Monitor electrolytes and replace as needed Goal urine output of 30mL/hr or 0.5mL/kg/hr Medications to be dosed according to renal function. Avoid contrast if possible ENDOCRINE: Maintain blood glucose between 100-180 at all times. Insulin sliding scale for blood glucose management Hypoglycemia and hyperglycemia protocol in place INFECTIOUS DISEASE: Trend temperature, WBC and procalcitonin level Follow cultures, deescalate antibiotics as soon as possible. Panculture if new onset fever HEMATOLOGY & COAGULATION: Monitor H&H. Keep Hgb > 7 Transfuse 1 unit of PRBC for Hgb < 7 Transfuse 1 pack of platelets of platelets < 20, 000 Watch for any signs and symptoms of bleeding SKIN: Pressure ulcer prevention per facility protocol Specialty mattress as needed ORTHO/REHAB Continue PT/OT PRN: MEDICATIONS Tylenol 650 mg po every 4 hrs for fever zofran 4 mg IV every 6 hrs for n/v Hydralazine 5 mg IV every 4 hrs systolic pressure > 160 bowel regiment: lactulose 20 gm PO BID PRN constipation Supportive measures: Continue GI and DVT prophylaxis Disposition: Pending improvement in clinical condition All questions answered time spent: > 35 min JANETTE THAYER MD May 25, 2025 12:06
--- NOTE | 2025-05-25 15:01 | PN ---
NEPHROLOGY PROGRESS NOTE Date/Time Patient Seen: May 25, 2025 SUBJECTIVE: This is a 49-year-old male with past medical history of hypertension, diabetes mellitus type 2 presented to hospital secondary to blurry vision He is found to have severe hypertension. He does not take his medicine. He has been on insulin also. The patient has unsteadiness also. The patient is generally weak. He has been found to have low sodium as well as multiple other comorbidities including blurry vision. Pending MRI of the lumbar spine. We has been consulted for renal failure Renal function is improving Electrolytes are stable. Imaging studies were noted He was seen in the medical floor, in no acute distress REVIEW OF SYSTEMS: GENERAL: Negative for any nausea, vomiting, fevers, chills, or weight loss. NEUROLOGIC: Negative for any blurry vision, blind spots, double vision, facial asymmetry, dysphagia, dysarthria, hemiparesis, hemisensory deficits, vertigo, ataxia. HEENT: Negative for any head trauma, neck trauma, neck stiffness, photophobia, phonophobia, sinusitis, rhinitis. CARDIAC: Negative for any chest pain, dyspnea on exertion, paroxysmal nocturnal dyspnea, peripheral edema. PULMONARY: Negative for any shortness of breath, wheezing, COPD, or TB exposure. GASTROINTESTINAL: Negative for any abdominal pain, nausea, vomiting, bright red blood per rectum, melena. GENITOURINARY: Negative for any dysuria, hematuria, incontinence. INTEGUMENTARY: Negative for any rashes, cuts, insect bites. RHEUMATOLOGIC: Negative for any joint pains, photosensitive rashes, history of vasculitis or kidney problems. HEMATOLOGIC: Negative for any abnormal bruising, frequent infections or bleeding. Vital Signs (last 8hr) Date Time Temp Pulse Resp B/P (MAP) Pulse Ox O2 Delivery O2 Flow Rate FiO2 05/25/25 13:37 98 Room Air* 0 21 05/25/25 12:13 98.1 81 20 182/98 98 Room Air 05/25/25 07:00 97.9 77 20 113/85 96 Room Air PHYSICAL EXAM: GENERAL: Alert and oriented x 3. No acute distress. Well-nourished. EYES: EOMI. Anicteric. HENT: Moist mucous membranes. No scleral icterus. No cervical lymphadenopathy. LUNGS: Clear to auscultation bilaterally. No accessory muscle use. CARDIOVASCULAR: Regular rate and rhythm. No murmur. No JVD. ABDOMEN: Soft, non-tender and non-distended. No palpable masses. EXTREMITIES: No edema. Non-tender. SKIN: No rashes or lesions. Warm. NEUROLOGIC: No focal neurological deficits. CN II-XII grossly intact, but not individually tested. PSYCHIATRIC: Cooperative. Appropriate mood and affect. Current Medications Medications (Trade) Dose Ordered Sig/Darcie Route PRN Reason Start Time Stop Time Status Last Admin Dose Admin Amlodipine Besylate (NorvASC 5MG TAB) 5 mg DAILY PO 05/25/25 09:00 06/24/25 08:59 05/25/25 09:49 5 MG Enoxaparin Sodium (Lovenox) 30 mg DAILY SQ 05/25/25 09:00 06/24/25 08:59 05/25/25 09:49 30 MG Famotidine (Pepcid 20mg Vial) 20 mg Q24H IV 05/24/25 21:00 06/23/25 20:59 05/24/25 20:57 20 MG Hydralazine HCl (APRESOLine 20MG INJ) 10 mg Q6H PRN IV ADMINISTER FOR SBP > 180 05/24/25 12:30 06/23/25 12:29 05/24/25 15:08 10 MG Hydromorphone HCl (DiLAUDid 0.5MG INJ) 0.5 mg Q6H PRN IVP SEVERE PAIN (7-10) 05/24/25 12:30 05/29/25 12:29 05/24/25 15:05 0.5 MG Insulin Glargine (LANtus 100 UNITS/ML 10 ML VIAL) 20 units DAILY SQ 05/25/25 09:00 06/24/25 08:59 05/25/25 09:47 20 UNITS Insulin Human Regular (humuLIN R 100 UNIT/ML 3ML) 5 unit TIDAC SQ 05/25/25 07:30 06/24/25 07:29 05/25/25 12:55 5 UNIT Insulin Human Regular (humuLIN R 100 UNIT/ML 3ML) INSULIN SLIDING SCAL... ACHS SQ 05/25/25 07:30 06/24/25 07:29 05/25/25 13:00 4 UNIT Insulin Human Regular (humuLIN R 100 UNIT/ML 3ML) INSULIN SLIDING SCAL... Q6H6 SQ 05/24/25 18:00 05/25/25 05:19 DC 05/25/25 00:07 7 UNIT Ondansetron HCl (zoFRAN 4MG INJ) 4 mg Q6H PRN IVP NAUSEA/VOMITING 05/24/25 12:30 06/23/25 12:29 Vitamin B Complex/ Vit C/Folic Acid (Nephrovite Tablet) 1 cap DAILY PO 05/25/25 09:00 06/24/25 08:59 05/25/25 09:46 1 [facility] LABORATORY: [ ] Hematology Labs: Test 05/25/25 04:22 Range/Units White Blood Count 6.8 4.8-10.8 K/uL Red Blood Count 4.20 L 4.50-6.20 MIL/uL Hemoglobin 13.2 L 14.0-18.0 g/dL Hematocrit 38.1 L 42-54 % Mean Corpuscular Volume 90.7 79-99 fL Mean Corpuscular Hemoglobin 31.4 27.0-33.0 pg Mean Corpuscular Hemoglobin Concent 34.6 32.0-36.0 g/dL Red Cell Distribution Width 11.6 11.0-15.5 % Platelet Count 189 130-400 K/uL Mean Platelet Volume 11.4 H 7.5-10.5 fL Immature Granulocyte % (Auto) 0.3 0-1 % Neutrophils (%) (Auto) 58.1 40.0-77.0 % Lymphocytes (%) (Auto) 22.2 21.0-51.0 % Monocytes (%) (Auto) 12.5 3.0-13.0 % Eosinophils (%) (Auto) 5.9 0.0-8.0 % Basophils (%) (Auto) 1.0 0.0-5.0 % Neutrophils # (Auto) 3.9 1.8-7.7 K/uL Lymphocytes # (Auto) 1.5 1.0-4.8 K/uL Monocytes # (Auto) 0.9 0.1-1.0 K/uL Eosinophils # (Auto) 0.40 0.00-0.70 K/uL Basophils # (Auto) 0.07 0.00-0.20 K/uL Absolute Immature Granulocyte (auto 0.02 0-1 K/uL Nucleated Red Blood Cells 0.0 0.0-0.19 % Chemistry Labs: Test 05/25/25 11:56 05/25/25 04:22 05/24/25 23:54 05/24/25 13:06 Range/Units Whole Blood Glucose 223 H 70-110 MG/DL Sodium Level 137 136-145 mmol/L Potassium Level 3.6 3.5-5.1 mmol/L Chloride Level 102 101-111 mmol/L Carbon Dioxide Level 29 21-32 mmol/L Blood Urea Nitrogen 25 H 7-18 mg/dL Creatinine 1.4 H 0.5-1.3 mg/dL Glomerular Filtration Rate Calc 61 >90 mL/min Random Glucose 192 #H 70-105 mg/dL Uric Acid 6.6 2.6-7.2 mg/dL Total Calcium 8.0 L 8.5-10.1 mg/dL Phosphorus Level 4.1 2.5-4.9 mg/dL Total Bilirubin 0.2 0.2-1.0 mg/dL Aspartate Amino Transf (AST/SGOT) 15 10-37 U/L Alanine Aminotransferase (ALT/SGPT) 19 # 12-78 U/L Alkaline Phosphatase 89 # 50-136 U/L Total Protein 6.2 6.0-8.3 g/dL Albumin 1.8 L 3.5-5.0 g/dL Thyroid Stimulating Hormone (TSH) 3.73 # 0.36-3.74 uIU/mL Bedside Glucose Comment Notified Nurse Whole Blood Ketones Quantitative 0.1 0.0-0.6 mmol/L Direct Bilirubin < 0.1 0.0-0.3 mg/dL Test 05/24/25 10:39 05/24/25 10:34 Range/Units Total Creatine Kinase 78 21-232 U/L B-Type Natriuretic Peptide 144 H 0-100 pg/mL Hemoglobin A1c 12.2 H 4.0-6.0 % Estimated Average Glucose (eAG) 303 H 70-126 mg/dL DIAGNOSTICS / RADIOLOGY: [address] [address] IMAGING REPORT Signed PATIENT: QASIM GOMEZ MR#: [id number] : 1975 SEX: M AGE: 49 LOCATION: [facility] ORDER 1217 [facility] REPORT#: [id number] SERVICE 1210 REASON: assess for DVT ORDERING PHYSICIAN: KILO MAHAN MD PROCEDURE: VENOUS MARIAJOSE - US VENOUS DOPPLER BILATERAL EXAM: US for Deep Venous Thrombosis, bilateral Lower Extremity. CLINICAL HISTORY: Leg Pain and Swelling TECHNIQUE: Real-time ultrasound scan of the veins of the bilateral lower extremity with color Doppler flow, spectral waveform analysis and compression. COMPARISON: None provided. FINDINGS: DEEP VEINS: The common femoral, superficial femoral, and popliteal veins are echolucent and compressible. There is normal color Doppler flow throughout. The visualized calf veins appear patent. SOFT TISSUES: No popliteal fossa cyst or other abnormalities. IMPRESSION: 1. No evidence of deep venous thrombosis in the bilateral lower extremities. /[place] DICTATED BY: JERICHO DICKERSON Jr., MD DATE: 05/24/251619 ELECTRONICALLY SIGNED BY: JERICHO DICKERSON Jr., MD DATE: 05/24/251619 PATIENT: QASIM GOMEZ MR#: [id number] : 1975 SEX: M AGE: 49 LOCATION: [facility] ORDER 16 STATUS: ADM IN [facility] REPORT#: [id number] SERVICE 1210 REASON: Assess for carotid stenosis ORDERING PHYSICIAN: KILO MAHAN MD PROCEDURE: CAROTID - US CAROTID DUPLEX EXAM: US Duplex Bilateral Carotid and Vertebral Arteries. CLINICAL HISTORY: Assess for carotid stenosis. TECHNIQUE: Real-time ultrasound scan of the bilateral carotid and vertebral arteries, 2-D hutson scale, with color Doppler flow and spectral waveform analysis. COMPARISON: None provided. FINDINGS: RIGHT COMMON CAROTID ARTERY: Peak systolic velocity approximately 72 cm/s. No occlusion or hemodynamically significant stenosis. RIGHT INTERNAL CAROTID ARTERY: Peak systolic velocity approximately 70 cm/s with ICA/CCA ratio of 1.0. No occlusion or hemodynamically significant stenosis. RIGHT EXTERNAL CAROTID ARTERY: Peak systolic velocity approximately 108 cm/s. No occlusion. RIGHT VERTEBRAL ARTERY: Antegrade flow with peak systolic velocity approximately 32 cm/s. RIGHT ICA/CCA RATIO: Approximately 1.0. LEFT COMMON CAROTID ARTERY: Peak systolic velocity approximately 69 cm/s. No occlusion or hemodynamically significant stenosis. LEFT INTERNAL CAROTID ARTERY: Peak systolic velocity approximately 73 cm/s with ICA/CCA ratio of approximately 1.1. No occlusion or hemodynamically significant stenosis. LEFT EXTERNAL CAROTID ARTERY: Peak systolic velocity approximately 135 cm/s. No occlusion. LEFT VERTEBRAL ARTERY: Antegrade flow with peak systolic velocity approximately 39 cm/s. LEFT ICA/CCA RATIO: Approximately 1.1. SOFT TISSUES: No incidental abnormalities. IMPRESSION: * No hemodynamically significant carotid artery stenosis by Doppler velocity criteria or ICA/CCA ratios. * Bilateral vertebral arteries demonstrate normal antegrade flow without hemodynamically significant stenosis. /[place] DICTATED BY: AIRAM BINGHAM DO DATE: 05/24/251634 ELECTRONICALLY SIGNED BY: AIRAM BINGHAM DO DATE: 05/24/251634 PATIENT: QASIM GOMEZ MR#: [id number] : 1975 SEX: M AGE: 49 LOCATION: [facility] ORDER 1217 STATUS: ADM IN [facility] REPORT#: [id number] SERVICE 1210 REASON: assess for PVD ORDERING PHYSICIAN: KILO MAHAN MD PROCEDURE: ART B LE - US ARTERIAL BILAT LOW EXT DUPL EXAM: US Duplex bilateral Lower Extremity Arteries. CLINICAL HISTORY: Assess for peripheral vascular disease. TECHNIQUE: Real-time ultrasound scan of the arteries of the bilateral lower extremities with 2-D hutson scale, color Doppler flow and spectral waveform analysis. COMPARISON: None provided. FINDINGS: RIGHT LOWER EXTREMITY: COMMON FEMORAL ARTERY: Peak systolic velocity approximately 115 cm/sec with triphasic waveform. No occlusion or hemodynamically significant stenosis. SUPERFICIAL FEMORAL ARTERY: Proximal peak systolic velocity approximately 65 cm/sec and distal peak systolic velocity approximately 70 cm/sec with triphasic waveforms. No occlusion or hemodynamically significant stenosis. POPLITEAL ARTERY: Peak systolic velocity approximately 71 cm/sec with triphasic waveform. No occlusion or hemodynamically significant stenosis. CALF ARTERIES: Posterior tibial artery distal peak systolic velocity approximately 59 cm/sec with triphasic waveform. Dorsalis pedis artery peak systolic velocity approximately 79 cm/sec with triphasic waveform. No occlusion or hemodynamically significant stenosis. LEFT LOWER EXTREMITY: COMMON FEMORAL ARTERY: Peak systolic velocity approximately 103 cm/sec with triphasic waveform. No occlusion or hemodynamically significant stenosis. SUPERFICIAL FEMORAL ARTERY: Proximal peak systolic velocity approximately 109 cm/sec, mid peak systolic velocity approximately 121 cm/sec, and distal peak systolic velocity approximately 40 cm/sec with predominantly triphasic waveforms. No focal velocity elevation to suggest hemodynamically significant stenosis. POPLITEAL ARTERY: Proximal peak systolic velocity approximately 50 cm/sec and distal peak systolic velocity approximately 78 cm/sec with triphasic waveforms. No occlusion or hemodynamically significant stenosis. CALF ARTERIES: Posterior tibial artery peak systolic velocity approximately 53 cm/sec and anterior tibial/distal peak systolic velocity approximately 64 cm/sec with triphasic waveforms. Dorsalis pedis artery peak systolic velocity approximately 100 cm/sec with triphasic waveform. No occlusion or hemodynamically significant stenosis. IMPRESSION: * Multifocal atherosclerotic changes of the bilateral lower extremity arteries without duplex evidence of hemodynamically significant stenosis or occlusion. /[place] DICTATED BY: THIERNO NEVILLE MD DATE: 05/24/251700 ELECTRONICALLY SIGNED BY: THIERNO NEVILLE MD DATE: 05/24/251700 PATIENT: QASIM GOMEZ MR#: [id number] : 1975 SEX: M AGE: 49 LOCATION: [facility] ORDER 1217 STATUS: ADM IN REPORT#: [id number] SERVICE 1210 REASON: LLQ pain. Also assess lumbar spine ORDERING PHYSICIAN: KILO MAHAN MD PROCEDURE: ABD PEL WO - CT ABDOMEN/PELVIS W/O CONTRAST EXAM: CT SCAN OF THE ABDOMEN AND PELVIS WITHOUT CONTRAST Clinical statement: Left lower quadrant pain and lower back pain; evaluate abdomen and lumbar spine. STUDY PROTOCOL: CT radiation dose protocol was performed in accordance with the principles of ALARA. A multislice CT scan of the abdomen and pelvis was performed without intravenous contrast. Sections were obtained from the diaphragms to the inguinal region. RADIATION DOSE: CTDIvol 19.90 mGy; DLP 1365.70 mGycm. CONTRAST: No intravenous contrast administered. COMPARISON: None provided. FINDINGS: LUNG BASE: No pleural effusion, collapse, or consolidation in the visualized lung bases. Mild thickening of the posterior pleura of the left lower lobe. LIVER: Normal morphology and attenuation with smooth margins. No focal hepatic lesion or calcification. No intrahepatic or extrahepatic biliary dilatation. Vance hepatis structures are unremarkable. GALL BLADDER: Gallbladder wall thickness and contour are normal. The gallbladder is contracted with a possible tiny calculus measuring approximately 1 mm (series 2, image 28/129). No pericholecystic fat stranding is seen on this noncontrast study. The cystic duct and surrounding fat appear normal. PANCREAS: Normal in size, contour, and attenuation. No pancreatic ductal dilatation or peripancreatic inflammatory change. SPLEEN: Normal size and attenuation. A small accessory spleen is present. No acute splenic abnormality. KIDNEYS: Both kidneys are normal in size, shape, position, and attenuation. No renal mass, calculus, or hydronephrosis. Mild perinephric fat stranding bilaterally. A simple cyst measuring approximately 1.1 cm is noted in the lower pole of the left kidney. No evidence of obstructive uropathy. GIT /T/ PERITONEAL CAVITY: Stomach is distended but otherwise unremarkable. Gastroesophageal junction, pylorus, and duodenum appear normal. Jejunal and ileal loops are normal in caliber and distribution with preserved wall thickness and mucosal pattern. No CT evidence of acute appendicitis. Scattered sigmoid diverticulosis is present without adjacent inflammatory stranding or abscess. Rectum and colonic loops are well distended with fecal material, consistent with constipation. No free intraperitoneal fluid or free air. Mesenteric fat and omentum are unremarkable. LYMPHNODES: No pathologically enlarged abdominopelvic lymph nodes are identified. RETROPERITONEUM: Both adrenal glands are normal in morphology and attenuation. The abdominal aorta and IVC are normal in course and caliber with mild atherosclerotic calcification in the aortoiliac segment. A vascular stent is present in the left common iliac vein. PELVIS: Urinary bladder shows normal wall thickness and contour. Prostate appears normal on CT. No pelvic mass or free fluid. MUSCULOSKELETAL: Early degenerative changes in the dorsolumbar spine with multilevel endplate osteophytic spurring. Mild reduction in L5S1 disc height with a small posterior disc protrusion measuring approximately 3 mm at L5S1. No acute fracture or listhesis. OTHER: Extra-abdominal and paraspinal soft tissues are unremarkable. Tiny fat-containing umbilical hernia. IMPRESSION: * No CT evidence of acute intra-abdominal pathology such as appendicitis, diverticulitis, bowel obstruction, or obstructive uropathy to clearly explain left lower quadrant pain. Clinical management should be guided by examination and laboratory findings. * Scattered sigmoid diverticulosis without CT evidence of diverticulitis. These changes can be a source of chronic left-sided abdominal symptoms; if symptoms persist or there are red-flag features (e.g., anemia, change in bowel habits, weight loss), gastroenterology evaluation and consideration of colonoscopy are advised. * Constipation with fecal loading of the colon and rectum, which may contribute to the patients abdominal pain; treatment should be tailored to clinical assessment and bowel habit history. * Degenerative changes of the lower lumbar spine with mild L5S1 disc height loss and a small posterior disc protrusion at L5S1, which may contribute to lower back pain and possibly radicular symptoms if present. Correlation with neurologic examination is recommended, and lumbar spine MRI may be considered if there is radiculopathy or persistent, function-limiting pain. * Mild bilateral perinephric fat stranding with a small simple left renal cyst (1.1 cm) and no hydronephrosis or stones. Findings are nonspecific and more in keeping with mild chronic or incidental change; correlation with urine studies and clinical features is recommended if there is concern for renal infection. * Contracted gallbladder with a possible tiny calculus. There is no CT evidence of acute cholecystitis on this noncontrast study; if biliary-type symptoms develop, targeted right upper quadrant ultrasound could be considered for further evaluation. * Mild atherosclerotic calcification of the aortoiliac segment with a left common iliac vein stent, and tiny fat-containing umbilical hernia, both likely incidental in the context of the current presentation. /[place] DICTATED BY: AUSTIN DOMINGUEZ MD DATE: 05/24/251403 ELECTRONICALLY SIGNED BY: AUSTIN DOMINGUEZ MD DATE: 05/24/251403 PATIENT: QASIM GOMEZ MR#: [id number] : 1975 SEX: M AGE: 49 LOCATION: [facility] ORDER 1154 STATUS: ADM IN REPORT#: [id number] SERVICE 1153 REASON: weakness ORDERING PHYSICIAN: KILO MAHAN MD PROCEDURE: HEAD WO - CT HEAD/BRAIN W/O CONTRAST EXAM: CT Head Without IV contrast. CLINICAL HISTORY: weakness TECHNIQUE: Axial computed tomography images of the head/brain without intravenous contrast. COMPARISON: None provided. FINDINGS: BRAIN: No evidence of acute hemorrhage. No mass lesion. No CT evidence for acute territorial infarct. No midline shift or extra-axial collections. VENTRICLES: No hydrocephalus. ORBITS: The orbits are unremarkable. SINUSES AND MASTOIDS: The paranasal sinuses and mastoid air cells are clear. BONES: No fracture. SOFT TISSUES: Unremarkable. IMPRESSION: No acute intracranial abnormality. /[place] DICTATED BY: AIRAM BINGHAM DO DATE: 05/24/25 135 ELECTRONICALLY SIGNED BY: AIRAM BINGHAM DO DATE: 05/24/25 135 PATIENT: QASIM GOMEZ MR#: [id number] : 1975 SEX: M AGE: 49 LOCATION: [facility] ORDER 1038 STATUS: REG ER REPORT#: [id number] SERVICE 1032 REASON: straight leg positive and lumbar pain ORDERING PHYSICIAN: STACI DAVIS MD PROCEDURE: LUMB 2 3VW - LUMBAR SPINE 2-3VWS EXAM: CR Lumbar Spine, 3 View. CLINICAL HISTORY: straight leg positive and lumbar pain COMPARISON: None provided. FINDINGS: BONES: No acute fracture or aggressive appearing osseous lesion. ALIGNMENT: Alignment is within normal limits. No significant scoliosis. DISCS / DEGENERATIVE CHANGES: The disc spaces are preserved. SOFT TISSUES: The soft tissues are unremarkable. Left iliac vascular stent IMPRESSION: No acute lumbar spine abnormality evident. If there is clinical concern for nerve root compression, MRI is suggested. 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 We have reviewed external records in detail Require close monitoring of renal function and electrolytes Order CBC, CMP, plasma renin activity, aldosterone and electrolytes in am BiPAP as necessary, for respiratory distress Monitor blood pressure adjust medication doses as needed Avoid hypotensive episodes May use Dilaudid 0.5 mg IV every 6 hours as needed for severe pain Monitor blood sugars Strict intake, output, and daily weight should be monitored Please renally adjust medications Avoid nephrotoxic and nonsteroidal drugs Avoid contrast if possible Will continue to monitor renal function, anemia, electrolytes Treatment plan discussed with patient Questions were answered We have discussed with the other team physicians in detail about the care plan We will continue to monitor the patient closely ATTESTATION BY PHYSICIAN I have seen and examined the patient. I reviewed the documentation, medical decision making, and treatment plan as noted by the mid-level provider above. I agree with the findings and plan of care. EMA LOERA MD, [facility] May 25, 2025 15:01
--- NOTE | 2025-05-25 23:04 | HMCSR ---
APPROVED REPORT EXAM: Two-dimensional and M-mode echocardiogram with Doppler and color Doppler. INDICATION ICD: Assess for congestive heart failure 2D Dimensions RVDd 3.9 cm LVEF(%) 40.6 (>50%) LVED Vol(simp.) 113.0 mL IVSd 1.6 (0.7-1.1cm) FS(%) 20 % LVES Vol(simp.) 53.0 mL LVDd 4.9 (3.8-5.6cm) LA (2D) 4.6 (1.6-4.0cm) LVEF(%, simp.) 53 % PWd 1.2 (0.7-1.1cm) Ao Root(2D) 3.2 (2.0-3.7cm) LA ESV INDEX (BP) 30.26 mL/m2 IVSs 1.5 cm LVOT diam 2.4 (1.8-2.4cm) LVDs 3.9 (2.5-4.0cm) IVC diam 2.2 cm PWs 2.0 cm Deformation Strain Apical 4 -18.2 % Apical 2 -18.1 % Apical 3 -17.1 % Global Strain -17.8 % M-Mode Dimensions EPSS 1.1 cm LA (MM) 5.3 (1.6-4.0cm) Ao Root(MM) 3.8 (2.0-3.7cm) Aortic Valve AoV Vmax 1.1 m/s Ao Peak GR 5.2 mmHg LVOT Vmax 1.0 m/s AoV VTI 0.2 m Ao Mean GR 3.0 mmHg LVOT VTI 0.17 m JOSHUA (VMAX) 4.06 cm2 JOSHUA (VTI) 3.6 cm2 Mitral Valve MV E Vmax 64.9 cm/s DECEL Time 230 ms MV A Vmax 110.6 cm/s P 1/2 T 56 ms E/A ratio 0.6 MVA (PHT) 3.9 cm2 TDI E/E' Medial 12.8 E/E' Lateral 16.9 Medial E' Peak V 5.09 cm/s Lateral E' Peak V 3.85 cm/s Pulmonary Valve PV Vmax 1.4 m/s PV Mean GR 4.4 mmHg PV Peak GR 7.7 mmHg Tricuspid Valve TR Vmax 1.0 m/s RAP (EST) 3 mmHg RVSP 6.9 mmHg TR Peak GR 3.9 mmHg Left Ventricle The left ventricle is normal size. No regional wall motion abnormalities noted. Mild concentric left ventricular hypertrophy. Left ventricle systolic function is low normal, estimated LVEF is 50 to 55%. Stage I diastolic dysfunction. Right Ventricle The right ventricle is normal size. The right ventricular systolic function is normal. Atria The left atrium size is normal. The right atrium size is normal. Aortic Valve Aortic valve is trileaflet. The leaflets are mildly thickened and calcified. No aortic regurgitation is present. There is no aortic valvular stenosis. Mitral Valve Mild mitral annular calcification is noted. The leaflets are mildly thickened and calcified. Trace mitral regurgitation. There is no mitral valve stenosis. Tricuspid Valve The tricuspid valve is normal in structure. Trace tricuspid regurgitation. RVSP is normal. Pulmonic Valve Pulmonic valve is not well visualized. Great Vessels The aortic root is normal in size. The IVC is normal in size and collapses >50% with inspiration. Pericardium There is no pericardial effusion. Other Information Quality : Adequate Conclusion Mild concentric left ventricular hypertrophy. No regional wall motion abnormalities noted. Left ventricle systolic function is low normal, estimated LVEF is 50 to 55%. Stage I diastolic dysfunction. Trace mitral regurgitation. Trace tricuspid regurgitation. PASP is normal. There is no pericardial effusion.
[2025-05-26] VITALS (8 sets, daily range): BP systolic 137–169; BP diastolic 76–99; PULSE 77–84; RESP 18–20; TEMP 97.6–98.2; O2SAT 93–97
[2025-05-26 05:33] LABS: NUCLEATED RED BLOOD CELLS 0.0 % (0.0-0.19); PLATELET COUNT (AUTO) 183 K/uL (130-400); RED BLOOD CELL COUNT(AUTO) 4.14 MIL/uL (4.50-6.20); RED CELL DISTRIBUTION WIDTH 11.8 % (11.0-15.5); WHITE BLOOD COUNT (AUTO) 5.9 K/uL (4.8-10.8)
--- NOTE | 2025-05-26 05:34 | HMCIMG ---
EXAM: MR Lumbar Spine Without Intravenous Contrast. CLINICAL HISTORY: Assess for lumbar stenosis. TECHNIQUE: Magnetic resonance images of the lumbar spine in multiple planes. CONTRAST: None. COMPARISON: Radiograph dated 05/24/25. FINDINGS: For this examination, spinal levels were labeled assuming five non-rib bearing, lumbar-type vertebrae with the inferior labeled L5. No acute fracture. Normal lordotic curvature. Mild multilevel spondylosis is evident by small marginal osteophytes. Disc desiccation at the L5-S1 level. Normal vertebral body and disc heights. Normal marrow signal of the vertebrae. Conus medullaris terminates at the T12 level. No abnormal epidural masses. Small, simple cortical cyst in the lower pole of left kidney. Mild subcutaneous edema in the lower back. Individual spinal levels are described as follows: T12-L1: No disc bulge or herniation. No neural foraminal, lateral recess or spinal canal stenosis. L1-L2: No disc bulge or herniation. No neural foraminal, lateral recess or spinal canal stenosis. L2-L3: No disc bulge or herniation. No neural foraminal, lateral recess or spinal canal stenosis. L3-L4: No disc bulge or herniation. No neural foraminal, lateral recess or spinal canal stenosis. L4-L5: No disc bulge or herniation. No neural foraminal, lateral recess or spinal canal stenosis. L5-S1: 4 mm disc osteophyte complex bulge causing mild indentation on the anterior thecal sac. No neural foraminal or lateral recess stenosis. IMPRESSION: Mild multilevel spondylosis. Disc desiccation at the L5-S1 level. Mild indentation on the anterior thecal sac at the L5-S1 level. /[place]
[2025-05-26 05:49] LABS: ASPARTATE AMINOTRANSFERASE 17.0 U/L (10-37); CREATININE 1.3 mg/dL (0.5-1.3); GLOMERULAR FILTR. RATE CALC 67.0 mL/min (>90); GLUCOSE,RANDOM 219.0 mg/dL (70-105); SODIUM SERUM 136.0 mmol/L (136-145); TOTAL PROTEIN, SERUM 6.1 g/dL (6.0-8.3); UREA NITROGEN, BLOOD 22.0 mg/dL (7-18)
[2025-05-26 05:54] LABS: BASOPHILS % (MANUAL) 1 % (0-2); EOSINOPHILS % (MANUAL) 7 % (1-6); LYMPHOCYTES % (MANUAL) 20 % (22-44); MAN.DIFF COMMENT-IMPRESSION MANUAL DIFFERENTIAL; MONOCYTES % (MANUAL) 13 % (2-9); SEGMENTED NEUTROPHILS % 59 % (40-70)
--- NOTE | 2025-05-26 13:00 | PN ---
[facility] PROGRESS NOTE Date of Service: May 26, 2025 Time of Service: 12:58 SUBJECTIVE: 05/25 the patient has been seen and examined at bedside, case discussed with the RN, no acute events overnight, at the time my visit the patient is comfortably in bed, alert oriented x3, following commands, still admits blurry vision of the (per my discussion with the patient this has been ongoing for the last few weeks. He was seen at the office of executor of estate Dr. Donald Damon, as outpatient due to blurry vision to the left eye, he was advised to go to the emergency room, however the patient did not seek medical attention because he was afraid about COVID. Patient did not seek evaluation by coke loader as an outpatient). He denies headache, no chest pain, no shortness a breath, no nausea, no vomiting, no abdominal discomfort. At the time of admission blood glucose was greater than 400, patient placed on insulin glargine 20 units subcutaneously daily, blood glucose better, in the range of 180-200. Consultation with the head of business development requested, input noted and appreciated. Patient with proteinuria, concern for nephrotic syndrome, nephrology c onsultation requested, follow input recommendation. Follow a.m. labs. We will downgraded the patient to the medical floor. Patient has been advised not to drive or use heavy machinery until he gets evaluated by coke loader upon discharge due to high risk for injuries and accidents secondary to his blurry vision. Patient alert oriented x3, he agreed and understood the information provided. Radiology tests reviewed, discussed findings with the patient. 05/26 the patient has been seen and examined at bedside, discussed with the RN, no acute events overnight, patient admitted with hyperglycemia, blurry vision for last few weeks, at the time of my visit comfortably in bed, he feels very weak. No worsening of blurry vision noted. Complaining of mild headache. BP 151/98, afebrile, saturating normal on room air. All imaging tests to include echocardiogram, venous Doppler, carotid artery, CT head as well as CT abdomen and pelvis and lumbar spine MRI no major acute findings noted. Home medications reviewed and reconciled. Insulin Lantus increased to 30 units subcutaneously daily, continue insulin sliding scale. Anticipate discharge home in the next 24 hours. If patient goes home, advised not to drive or use heavy machines to two blurry vision, he needs to follow up as an outpatient with coke loader. Patient agreed and understood the information provided. REVIEW OF SYSTEMS CONSTITUTIONAL: Denies fevers, chills, or night sweats. No unintentional weight loss reported. NEUROLOGICAL: Denies headache, amaurosis fugax, motor weakness, sensory deficit, vertigo/spinning sensation, or tremors. Positive for gait abnormality ENT: No hearing loss, otalgia, otorrhea, rhinitis, rhinorrhea, hoarseness, or sore throat. CARDIOVASCULAR: Denies any exertional angina, dyspnea on exertion, orthopnea, paroxysmal nocturnal dyspnea, palpitations, life-threatening arrhythmias, claudication. PULMONARY: Denies any shortness of breath, cough, phlegm/sputum, hemoptysis, pleuritic chest pain. GASTROINTESTINAL: Denies any type of dysphagia to either liquids or solids. D enies nausea, vomiting, pyrosis, early satiety, abdominal pain, diarrhea, constipation, or changes in stool consistency or caliber. Denies coffee-ground emesis, hematemesis, hematochezia, or melanotic stools. GENITOURINARY: Denies frequency, urgency, nocturia, hematuria or incontinence (Storage/Irritative symptoms.) Low urinary stream, straining to void, urinary intermittency or hesitancy, splitting of the voiding stream, terminal dribbling. ENDOCRINOLOGIC: Denies polyuria, polydipsia, polyphagia or heat/cold intolerances. HEMATOLOGIC: Denies thrombophilia/previous clots, or coagulopathy/bleeding disorders. ONCOLOGIC: Denies personal history of malignancy. DERMATOLOGIC: Denies rashes or pruritus. PSYCHIATRIC: Denies any suicidal or homicidal ideation. Denies hallucinations. Musculoskeletal: positive for pain in the lower extremity, positive for lower back pain PHYSICAL EXAM GENERAL APPEARANCE: The patient is awake, alert, and oriented, in no acute cardiopulmonary distress. NEUROLOGICAL: Cranial nerves II-XII grossly intact. Motor is 5/5 in bilateral upper and lower extremities proximal to distal. No sensory deficits. HEENT: Face is symmetric. Pupils are equal and reactive. Extraocular movements are intact. Patient was unable to see from the left eye. Visual acuity on the right eye was 20/40, visual acuity in both eyes was 20 NECK: Supple. No JVD. No thyromegaly. No submental, submandibular, pre- /postauricular, occipital or supraclavicular lymphadenopathy. CHEST: Normal chest expansion. No Telemetry. LUNGS: Absence of any rales, rhonchi or any wheezing. CARDIOVASCULAR: Regular. S1 and S2 normal. No appreciable rubs, murmurs or gallops. ABDOMEN: Soft, mild tenderness in the l left lower quadrant, and nondistended. There is no rebound, voluntary guarding, or rigidity. : Deferred. No Crowe. EXTREMITIES: Non-edematous and not cyanotic. No clubbing. Good capillary refill. SKIN: No skin breakdown. Vital Signs (last 8hr) Date Time Temp Pulse Resp B/P (MAP) Pulse Ox O2 Delivery O2 Flow Rate FiO2 05/26/25 12:37 93 Room Air* 0 21 05/26/25 12:00 98.2 83 18 151/98 94 Room Air 21 05/26/25 08:00 97.9 82 19 155/91 93 Room Air 21 LABS: Laboratory: Test 05/26/25 12:29 05/26/25 05:28 05/25/25 04:22 05/24/25 23:54 Range/Units Whole Blood Glucose 309 H 70-110 MG/DL White Blood Count 5.9 4.8-10.8 K/uL Red Blood Count 4.14 L 4.50-6.20 MIL/uL Hemoglobin 13.0 L 14.0-18.0 g/dL Hematocrit 38.2 L 42-54 % Mean Corpuscular Volume 92.3 79-99 fL Mean Corpuscular Hemoglobin 31.4 27.0-33.0 pg Mean Corpuscular Hemoglobin Concent 34.0 32.0-36.0 g/dL Red Cell Distribution Width 11.8 11.0-15.5 % Platelet Count 183 130-400 K/uL Mean Platelet Volume 11.1 H 7.5-10.5 fL Segmented Neutrophils % 59 40-70 % Lymphocytes % (Manual) 20 L 22-44 % Monocytes % (Manual) 13 H 2-9 % Eosinophils % (Manual) 7 H 1-6 % Basophils % (Manual) 1 0-2 % Nucleated Red Blood Cells 0.0 0.0-0.19 % Differential Comment MANUAL DIFFERENTIAL White Cell Morphology Comment Platelet Morphology Comment See comments Red Blood Cell Morphology ANISO 1+ Sodium Level 136 136-145 mmol/L Potassium Level 3.7 3.5-5.1 mmol/L Chloride Level 102 101-111 mmol/L Carbon Dioxide Level 30 21-32 mmol/L Blood Urea Nitrogen 22 H 7-18 mg/dL Creatinine 1.3 0.5-1.3 mg/dL Glomerular Filtration Rate Calc 67 >90 mL/min Random Glucose 219 H 70-105 mg/dL Total Calcium 8.0 L 8.5-10.1 mg/dL Magnesium Level 1.80 1.80-2.40 mg/dL Total Bilirubin 0.3 0.2-1.0 mg/dL Aspartate Amino Transf (AST/SGOT) 17 10-37 U/L Alanine Aminotransferase (ALT/SGPT) 24 12-78 U/L Alkaline Phosphatase 85 50-136 U/L Total Protein 6.1 6.0-8.3 g/dL Albumin 1.9 L 3.5-5.0 g/dL Immature Granulocyte % (Auto) 0.3 0-1 % Neutrophils (%) (Auto) 58.1 40.0-77.0 % Lymphocytes (%) (Auto) 22.2 21.0-51.0 % Monocytes (%) (Auto) 12.5 3.0-13.0 % Eosinophils (%) (Auto) 5.9 0.0-8.0 % Basophils (%) (Auto) 1.0 0.0-5.0 % Neutrophils # (Auto) 3.9 1.8-7.7 K/uL Lymphocytes # (Auto) 1.5 1.0-4.8 K/uL Monocytes # (Auto) 0.9 0.1-1.0 K/uL Eosinophils # (Auto) 0.40 0.00-0.70 K/uL Basophils # (Auto) 0.07 0.00-0.20 K/uL Absolute Immature Granulocyte (auto 0.02 0-1 K/uL Uric Acid 6.6 2.6-7.2 mg/dL Phosphorus Level 4.1 2.5-4.9 mg/dL Thyroid Stimulating Hormone (TSH) 3.73 # 0.36-3.74 uIU/mL Bedside Glucose Comment Notified Nurse Test 05/24/25 13:06 Range/Units Whole Blood Ketones Quantitative 0.1 0.0-0.6 mmol/L Direct Bilirubin < 0.1 0.0-0.3 mg/dL Current Medications Medications (Trade) Dose Ordered Sig/Darcie Route PRN Reason Start Time Stop Time Status Last Admin Dose Admin Acetaminophen/ Codeine Phosphate (TYLenol-coDEINE TAB) 1 tab Q6H6 PRN PO PAIN6-10 05/26/25 13:00 06/25/25 12:59 UNV Amlodipine Besylate (NorvASC 5MG TAB) 5 mg DAILY PO 05/25/25 09:00 05/26/25 12:57 DC 05/26/25 09:10 5 MG Amlodipine Besylate (NorvASC 5MG TAB) 10 mg Q24H PO 05/26/25 13:00 06/25/25 12:59 UNV Amoxicillin (Amoxicillin 500mg Cap) 500 mg TID PO 05/26/25 14:00 06/05/25 13:59 UNV Aspirin (Aspirin 81mg Ec Tab) 81 mg DAILY PO 05/27/25 09:00 06/26/25 08:59 UNV Atorvastatin Calcium (LIPItor 40MG) 40 mg HS PO 05/26/25 21:00 06/25/25 20:59 UNV Clopidogrel Bisulfate (plaVIX 75MG) 75 mg DAILY PO 05/27/25 09:00 06/26/25 08:59 UNV Enoxaparin Sodium (Lovenox) 30 mg DAILY SQ 05/25/25 09:00 06/24/25 08:59 05/26/25 09:11 30 MG Famotidine (Pepcid 20mg Vial) 20 mg Q24H IV 05/24/25 21:00 06/23/25 20:59 05/25/25 20:36 20 MG Gabapentin (NEURontin 100 mg CAP) 100 mg TID PO 05/26/25 14:00 06/25/25 13:59 UNV Hydralazine HCl (APRESOLine 20MG INJ) 10 mg Q6H PRN IV ADMINISTER FOR SBP > 180 05/24/25 12:30 06/23/25 12:29 05/24/25 15:08 10 MG Hydromorphone HCl (DiLAUDid 0.5MG INJ) 0.5 mg Q6H PRN IVP SEVERE PAIN (7-10) 05/24/25 12:30 05/29/25 12:29 05/26/25 09:18 0.5 MG Insulin Glargine (LANtus 100 UNITS/ML 10 ML VIAL) 20 units DAILY SQ 05/25/25 09:00 05/25/25 19:40 DC 05/25/25 09:47 20 UNITS Insulin Glargine (LANtus 100 UNITS/ML 10 ML VIAL) 30 units DAILY SQ 05/26/25 09:00 06/25/25 08:59 05/26/25 09:14 30 UNITS Insulin Human Regular (humuLIN R 100 UNIT/ML 3ML) 5 unit TIDAC SQ 05/25/25 07:30 05/25/25 19:40 DC 05/25/25 16:50 5 UNIT Insulin Human Regular (humuLIN R 100 UNIT/ML 3ML) 8 unit TIDAC SQ 05/26/25 07:30 05/26/25 12:55 DC 05/26/25 12:36 8 UNIT Insulin Human Regular (humuLIN R 100 UNIT/ML 3ML) 12 unit TIDAC SQ 05/26/25 17:00 06/25/25 16:59 Insulin Human Regular (humuLIN R 100 UNIT/ML 3ML) INSULIN SLIDING SCAL... ACHS SQ 05/25/25 07:30 06/24/25 07:29 05/26/25 12:35 12 UNIT Insulin Human Regular (humuLIN R 100 UNIT/ML 3ML) INSULIN SLIDING SCAL... Q6H6 SQ 05/24/25 18:00 05/25/25 05:19 DC 05/25/25 00:07 7 UNIT Ondansetron HCl (zoFRAN 4MG INJ) 4 mg Q6H PRN IVP NAUSEA/VOMITING 05/24/25 12:30 06/23/25 12:29 Vitamin B Complex/ Vit C/Folic Acid (Nephrovite Tablet) 1 cap DAILY PO 05/25/25 09:00 06/24/25 08:59 05/26/25 09:10 1 CAP DIAGNOSTICS / RADIOLOGY: [ ] ASSESSMENT: Symptomatic hyperglycemia POA Uncontrolled diabetes mellitus type 2 with hemoglobin A1c of 12.2 Lower back pain with concern for radiculopathy Proteinuria Acute kidney injury or underlying chronic kidney disease likely from diabetic nephropathy Bilateral lower extremities edema 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 No worsening of blurry vision noted. Complaining of mild headache. BP 151/98, afebrile, saturating normal on room air. All imaging tests to include echocardiogram, venous Doppler, carotid artery, CT head as well as CT abdomen and pelvis and lumbar spine MRI no major acute findings noted. Home medications reviewed and reconciled. Insulin Lantus increased to 30 units subcutaneously daily, continue insulin sliding scale. Anticipate discharge home in the next 24 hours. If patient goes home, advised not to drive or use heavy machines to two blurry vision, he needs to follow up as an outpatient with coke loader. Patient agreed and understood the information provided. NEURO: Minimize central acting medications as possible. Fall Precautions. Well lighted room through the day and minimize interruptions through the night to prevent acute delirium. PULMONARY: Supplemental 02 as needed BiPAP as necessary, for respiratory distress Titrate Fio2 to keep Spo2 > or = 90% DuoNebs and CPT as needed IS hourly while awake for pulmonary hygiene prn Out of bed to chair as tolerated Maintain aspiration precautions at all times CARDIOVASCULAR: Follow hemodynamics. Vital signs per facility protocol GI & NUTRITION: Continue nutritional support Aspirations precautions Prokinetic agents and laxatives as needed KIDNEYS & ELECTROLYTES: Strict monitoring of intake and output Daily weights Avoid nephrotoxic agents Monitor electrolytes and replace as needed Goal urine output of 30mL/hr or 0.5mL/kg/hr Medications to be dosed according to renal function. Avoid contrast if possible ENDOCRINE: Maintain blood glucose between 100-180 at all times. Insulin sliding scale for blood glucose management Hypoglycemia and hyperglycemia protocol in place INFECTIOUS DISEASE: Trend temperature, WBC and procalcitonin level Follow cultures, deescalate antibiotics as soon as possible. Panculture if new onset fever HEMATOLOGY & COAGULATION: Monitor H&H. Keep Hgb > 7 Transfuse 1 unit of PRBC for Hgb < 7 Transfuse 1 pack of platelets of platelets < 20, 000 Watch for any signs and symptoms of bleeding SKIN: Pressure ulcer prevention per facility protocol Specialty mattress as needed ORTHO/REHAB Continue PT/OT PRN: MEDICATIONS Tylenol 650 mg po every 4 hrs for fever zofran 4 mg IV every 6 hrs for n/v Hydralazine 5 mg IV every 4 hrs systolic pressure > 160 bowel regiment: lactulose 20 gm PO BID PRN constipation Supportive measures: Continue GI and DVT prophylaxis Disposition: Pending improvement in clinical condition All questions answered time spent: > 35 min JANETTE THAYER MD May 26, 2025 13:00
[2025-05-26] MEDS ORDERED: AMOXICILLIN 500 MG CAPSULE PO SCH (14:00)
--- NOTE | 2025-05-26 14:34 | PN ---
NEPHROLOGY PROGRESS NOTE Date/Time Patient Seen: May 26, 2025 SUBJECTIVE: This is a 49-year-old male with past medical history of hypertension, diabetes mellitus type 2 presented to hospital secondary to blurry vision He is found to have severe hypertension. He does not take his medicine. He has been on insulin also. The patient has unsteadiness also. The patient is generally weak. He has been found to have low sodium as well as multiple other comorbidities including blurry vision. We has been consulted for renal failure Renal function and electrolytes are stable. UPCR noted He continues to be followed by endocrinology Imaging studies were noted He was seen in the medical floor, in no acute distress REVIEW OF SYSTEMS: GENERAL: Negative for any nausea, vomiting, fevers, chills, or weight loss. NEUROLOGIC: Negative for any blurry vision, blind spots, double vision, facial asymmetry, dysphagia, dysarthria, hemiparesis, hemisensory deficits, vertigo, ataxia. HEENT: Negative for any head trauma, neck trauma, neck stiffness, photophobia, phonophobia, sinusitis, rhinitis. CARDIAC: Negative for any chest pain, dyspnea on exertion, paroxysmal nocturnal dyspnea, peripheral edema. PULMONARY: Negative for any shortness of breath, wheezing, COPD, or TB exposure. GASTROINTESTINAL: Negative for any abdominal pain, nausea, vomiting, bright red blood per rectum, melena. GENITOURINARY: Negative for any dysuria, hematuria, incontinence. INTEGUMENTARY: Negative for any rashes, cuts, insect bites. RHEUMATOLOGIC: Negative for any joint pains, photosensitive rashes, history of vasculitis or kidney problems. HEMATOLOGIC: Negative for any abnormal bruising, frequent infections or bleeding. Vital Signs (last 8hr) Date Time Temp Pulse Resp B/P (MAP) Pulse Ox O2 Delivery O2 Flow Rate FiO2 05/26/25 12:37 93 Room Air* 0 21 05/26/25 12:00 98.2 83 18 151/98 94 Room Air 21 05/26/25 08:00 97.9 82 19 155/91 93 Room Air 21 PHYSICAL EXAM: GENERAL: Alert and oriented x 3. No acute distress. Well-nourished. EYES: EOMI. Anicteric. HENT: Moist mucous membranes. No scleral icterus. No cervical lymphadenopathy. LUNGS: Clear to auscultation bilaterally. No accessory muscle use. CARDIOVASCULAR: Regular rate and rhythm. No murmur. No JVD. ABDOMEN: Soft, non-tender and non-distended. No palpable masses. EXTREMITIES: No edema. Non-tender. SKIN: No rashes or lesions. Warm. NEUROLOGIC: No focal neurological deficits. CN II-XII grossly intact, but not individually tested. PSYCHIATRIC: Cooperative. Appropriate mood and affect. Current Medications Medications (Trade) Dose Ordered Sig/Darcie Route PRN Reason Start Time Stop Time Status Last Admin Dose Admin Amlodipine Besylate (NorvASC 5MG TAB) 5 mg DAILY PO 05/25/25 09:00 06/24/25 08:59 05/25/25 09:49 5 MG Enoxaparin Sodium (Lovenox) 30 mg DAILY SQ 05/25/25 09:00 06/24/25 08:59 05/25/25 09:49 30 MG Famotidine (Pepcid 20mg Vial) 20 mg Q24H IV 05/24/25 21:00 06/23/25 20:59 05/24/25 20:57 20 MG Hydralazine HCl (APRESOLine 20MG INJ) 10 mg Q6H PRN IV ADMINISTER FOR SBP > 180 05/24/25 12:30 06/23/25 12:29 05/24/25 15:08 10 MG Hydromorphone HCl (DiLAUDid 0.5MG INJ) 0.5 mg Q6H PRN IVP SEVERE PAIN (7-10) 05/24/25 12:30 05/29/25 12:29 05/24/25 15:05 0.5 MG Insulin Glargine (LANtus 100 UNITS/ML 10 ML VIAL) 20 units DAILY SQ 05/25/25 09:00 06/24/25 08:59 05/25/25 09:47 20 UNITS Insulin Human Regular (humuLIN R 100 UNIT/ML 3ML) 5 unit TIDAC SQ 05/25/25 07:30 06/24/25 07:29 05/25/25 12:55 5 UNIT Insulin Human Regular (humuLIN R 100 UNIT/ML 3ML) INSULIN SLIDING SCAL... ACHS SQ 05/25/25 07:30 06/24/25 07:29 05/25/25 13:00 4 UNIT Insulin Human Regular (humuLIN R 100 UNIT/ML 3ML) INSULIN SLIDING SCAL... Q6H6 SQ 05/24/25 18:00 05/25/25 05:19 DC 05/25/25 00:07 7 UNIT Ondansetron HCl (zoFRAN 4MG INJ) 4 mg Q6H PRN IVP NAUSEA/VOMITING 05/24/25 12:30 06/23/25 12:29 Vitamin B Complex/ Vit C/Folic Acid (Nephrovite Tablet) 1 cap DAILY PO 05/25/25 09:00 06/24/25 08:59 05/25/25 09:46 1 CAP LABORATORY: [ ] Hematology Labs: Test 05/26/25 05:28 05/25/25 04:22 Range/Units White Blood Count 5.9 4.8-10.8 K/uL Red Blood Count 4.14 L 4.50-6.20 MIL/uL Hemoglobin 13.0 L 14.0-18.0 g/dL Hematocrit 38.2 L 42-54 % Mean Corpuscular Volume 92.3 79-99 fL Mean Corpuscular Hemoglobin 31.4 27.0-33.0 pg Mean Corpuscular Hemoglobin Concent 34.0 32.0-36.0 g/dL Red Cell Distribution Width 11.8 11.0-15.5 % Platelet Count 183 130-400 K/uL Mean Platelet Volume 11.1 H 7.5-10.5 fL Segmented Neutrophils % 59 40-70 % Lymphocytes % (Manual) 20 L 22-44 % Monocytes % (Manual) 13 H 2-9 % Eosinophils % (Manual) 7 H 1-6 % Basophils % (Manual) 1 0-2 % Nucleated Red Blood Cells 0.0 0.0-0.19 % Differential Comment MANUAL DIFFERENTIAL White Cell Morphology Comment Platelet Morphology Comment See comments Red Blood Cell Morphology ANISO 1+ Immature Granulocyte % (Auto) 0.3 0-1 % Neutrophils (%) (Auto) 58.1 40.0-77.0 % Lymphocytes (%) (Auto) 22.2 21.0-51.0 % Monocytes (%) (Auto) 12.5 3.0-13.0 % Eosinophils (%) (Auto) 5.9 0.0-8.0 % Basophils (%) (Auto) 1.0 0.0-5.0 % Neutrophils # (Auto) 3.9 1.8-7.7 K/uL Lymphocytes # (Auto) 1.5 1.0-4.8 K/uL Monocytes # (Auto) 0.9 0.1-1.0 K/uL Eosinophils # (Auto) 0.40 0.00-0.70 K/uL Basophils # (Auto) 0.07 0.00-0.20 K/uL Absolute Immature Granulocyte (auto 0.02 0-1 K/uL Chemistry Labs: Test 05/26/25 12:29 05/26/25 05:28 05/25/25 04:22 05/24/25 23:54 Range/Units Whole Blood Glucose 309 H 70-110 MG/DL Sodium Level 136 136-145 mmol/L Potassium Level 3.7 3.5-5.1 mmol/L Chloride Level 102 101-111 mmol/L Carbon Dioxide Level 30 21-32 mmol/L Blood Urea Nitrogen 22 H 7-18 mg/dL Creatinine 1.3 0.5-1.3 mg/dL Glomerular Filtration Rate Calc 67 >90 mL/min Random Glucose 219 H 70-105 mg/dL Total Calcium 8.0 L 8.5-10.1 mg/dL Magnesium Level 1.80 1.80-2.40 mg/dL Total Bilirubin 0.3 0.2-1.0 mg/dL Aspartate Amino Transf (AST/SGOT) 17 10-37 U/L Alanine Aminotransferase (ALT/SGPT) 24 12-78 U/L Alkaline Phosphatase 85 50-136 U/L Total Protein 6.1 6.0-8.3 g/dL Albumin 1.9 L 3.5-5.0 g/dL Uric Acid 6.6 2.6-7.2 mg/dL Phosphorus Level 4.1 2.5-4.9 mg/dL Thyroid Stimulating Hormone (TSH) 3.73 # 0.36-3.74 uIU/mL Bedside Glucose Comment Notified Nurse DIAGNOSTICS / RADIOLOGY: [place] [id number] [address] IMAGING REPORT Signed PATIENT: QASIM GOMEZ MR#: [id number] : 1975 SEX: M AGE: 49 LOCATION: [facility] ORDER 1217 STATUS: ADM IN [facility] REPORT#: [id number] SERVICE 1210 REASON: Asssess for lumbar stenosis ORDERING PHYSICIAN: KILO MAHAN MD PROCEDURE: L SPN WO - MR SPINAL CANAL, LUMBAR WO CON EXAM: MR Lumbar Spine Without Intravenous Contrast. CLINICAL HISTORY: Assess for lumbar stenosis. TECHNIQUE: Magnetic resonance images of the lumbar spine in multiple planes. CONTRAST: None. COMPARISON: Radiograph dated 05/24/25. FINDINGS: For this examination, spinal levels were labeled assuming five non-rib bearing, lumbar-type vertebrae with the inferior labeled L5. No acute fracture. Normal lordotic curvature. Mild multilevel spondylosis is evident by small marginal osteophytes. Disc desiccation at the L5-S1 level. Normal vertebral body and disc heights. Normal marrow signal of the vertebrae. Conus medullaris terminates at the T12 level. No abnormal epidural masses. Small, simple cortical cyst in the lower pole of left kidney. Mild subcutaneous edema in the lower back. Individual spinal levels are described as follows: T12-L1: No disc bulge or herniation. No neural foraminal, lateral recess or spinal canal stenosis. L1-L2: No disc bulge or herniation. No neural foraminal, lateral recess or spinal canal stenosis. L2-L3: No disc bulge or herniation. No neural foraminal, lateral recess or spinal canal stenosis. L3-L4: No disc bulge or herniation. No neural foraminal, lateral recess or spinal canal stenosis. L4-L5: No disc bulge or herniation. No neural foraminal, lateral recess or spinal canal stenosis. L5-S1: 4 mm disc osteophyte complex bulge causing mild indentation on the anterior thecal sac. No neural foraminal or lateral recess stenosis. IMPRESSION: Mild multilevel spondylosis. Disc desiccation at the L5-S1 level. Mild indentation on the anterior thecal sac at the L5-S1 level. /[place] DICTATED BY: JERICHO DICKERSON Jr., MD DATE: 05/26/25632 ELECTRONICALLY SIGNED BY: JERICHO DICKERSON Jr., MD DATE: 05/26/25632 PATIENT: QASIM GOMEZ MR#: [id number] : 1975 SEX: M AGE: 49 LOCATION: [facility] ORDER 1217 STATUS: ADM IN [facility] REPORT#: [id number] SERVICE 0000 REASON: assess for CHF ORDERING PHYSICIAN: KILO MAHAN MD PROCEDURE: ECHO CMP - ECHO 2-D COMPLETE APPROVED REPORT EXAM: Two-dimensional and M-mode echocardiogram with Doppler and color Doppler. INDICATION ICD: Assess for congestive heart failure 2D Dimensions RVDd 3.9 cm LVEF(%) 40.6 (>50%) LVED Vol(simp.) 113.0 mL IVSd 1.6 (0.7-1.1cm) FS(%) 20 % LVES Vol(simp.) 53.0 mL LVDd 4.9 (3.8-5.6cm) LA (2D) 4.6 (1.6-4.0cm) LVEF(%, simp.) 53 % PWd 1.2 (0.7-1.1cm) Ao Root(2D) 3.2 (2.0-3.7cm) LA ESV INDEX (BP) 30.26 mL/m2 IVSs 1.5 cm LVOT diam 2.4 (1.8-2.4cm) LVDs 3.9 (2.5-4.0cm) IVC diam 2.2 cm PWs 2.0 cm Deformation Strain Apical 4 -18.2 % Apical 2 -18.1 % Apical 3 -17.1 % Global Strain -17.8 % M-Mode Dimensions EPSS 1.1 cm LA (MM) 5.3 (1.6-4.0cm) Ao Root(MM) 3.8 (2.0-3.7cm) Aortic Valve AoV Vmax 1.1 m/s Ao Peak GR 5.2 mmHg LVOT Vmax 1.0 m/s AoV VTI 0.2 m Ao Mean GR 3.0 mmHg LVOT VTI 0.17 m JOSHUA (VMAX) 4.06 cm2 JOSHUA (VTI) 3.6 cm2 Mitral Valve MV E Vmax 64.9 cm/s DECEL Time 230 ms MV A Vmax 110.6 cm/s P 1/2 T 56 ms E/A ratio 0.6 MVA (PHT) 3.9 cm2 TDI E/E' Medial 12.8 E/E' Lateral 16.9 Medial E' Peak V 5.09 cm/s Lateral E' Peak V 3.85 cm/s Pulmonary Valve PV Vmax 1.4 m/s PV Mean GR 4.4 mmHg PV Peak GR 7.7 mmHg Tricuspid Valve TR Vmax 1.0 m/s RAP (EST) 3 mmHg RVSP 6.9 mmHg TR Peak GR 3.9 mmHg Left Ventricle The left ventricle is normal size. No regional wall motion abnormalities noted. Mild concentric left ventricular hypertrophy. Left ventricle systolic function is low normal, estimated LVEF is 50 to 55%. Stage I diastolic dysfunction. Right Ventricle The right ventricle is normal size. The right ventricular systolic function is normal. Atria The left atrium size is normal. The right atrium size is normal. Aortic Valve Aortic valve is trileaflet. The leaflets are mildly thickened and calcified. No aortic regurgitation is present. There is no aortic valvular stenosis. Mitral Valve Mild mitral annular calcification is noted. The leaflets are mildly thickened and calcified. Trace mitral regurgitation. There is no mitral valve stenosis. Tricuspid Valve The tricuspid valve is normal in structure. Trace tricuspid regurgitation. RVSP is normal. Pulmonic Valve Pulmonic valve is not well visualized. Great Vessels The aortic root is normal in size. The IVC is normal in size and collapses >50% with inspiration. Pericardium There is no pericardial effusion. Other Information Quality : Adequate Conclusion Mild concentric left ventricular hypertrophy. No regional wall motion abnormalities noted. Left ventricle systolic function is low normal, estimated LVEF is 50 to 55%. Stage I diastolic dysfunction. Trace mitral regurgitation. Trace tricuspid regurgitation. PASP is normal. There is no pericardial effusion. DICTATED BY: HUMBERTO CABALLERO MD DATE: 05/25/25912 ELECTRONICALLY SIGNED BY: HUMBERTO CABALLERO MD DATE: 05/25/252303 PATIENT: QASIM GOMEZ MR#: [id number] : 1975 SEX: M AGE: 49 LOCATION: [facility] ORDER 1217 STATUS: ADM IN [facility] REPORT#: [id number] SERVICE 1210 REASON: assess for DVT ORDERING PHYSICIAN: KILO MAHAN MD PROCEDURE: VENOUS MARIAJOSE - US VENOUS DOPPLER BILATERAL EXAM: US for Deep Venous Thrombosis, bilateral Lower Extremity. CLINICAL HISTORY: Leg Pain and Swelling TECHNIQUE: Real-time ultrasound scan of the veins of the bilateral lower extremity with color Doppler flow, spectral waveform analysis and compression. COMPARISON: None provided. FINDINGS: DEEP VEINS: The common femoral, superficial femoral, and popliteal veins are echolucent and compressible. There is normal color Doppler flow throughout. The visualized calf veins appear patent. SOFT TISSUES: No popliteal fossa cyst or other abnormalities. IMPRESSION: 1. No evidence of deep venous thrombosis in the bilateral lower extremities. /[place] DICTATED BY: JERICHO DICKERSON Jr., MD DATE: 05/24/251619 ELECTRONICALLY SIGNED BY: JERICHO DICKERSON Jr., MD DATE: 05/24/251619 PATIENT: QASIM GOMEZ MR#: [id number] : 1975 SEX: M AGE: 49 LOCATION: [facility] ORDER 16 STATUS: ADM IN [facility] REPORT#: [id number] SERVICE 1210 REASON: Assess for carotid stenosis ORDERING PHYSICIAN: KILO MAHAN MD PROCEDURE: CAROTID - US CAROTID DUPLEX EXAM: US Duplex Bilateral Carotid and Vertebral Arteries. CLINICAL HISTORY: Assess for carotid stenosis. TECHNIQUE: Real-time ultrasound scan of the bilateral carotid and vertebral arteries, 2-D hutson scale, with color Doppler flow and spectral waveform analysis. COMPARISON: None provided. FINDINGS: RIGHT COMMON CAROTID ARTERY: Peak systolic velocity approximately 72 cm/s. No occlusion or hemodynamically significant stenosis. RIGHT INTERNAL CAROTID ARTERY: Peak systolic velocity approximately 70 cm/s with ICA/CCA ratio of 1.0. No occlusion or hemodynamically significant stenosis. RIGHT EXTERNAL CAROTID ARTERY: Peak systolic velocity approximately 108 cm/s. No occlusion. RIGHT VERTEBRAL ARTERY: Antegrade flow with peak systolic velocity approximately 32 cm/s. RIGHT ICA/CCA RATIO: Approximately 1.0. LEFT COMMON CAROTID ARTERY: Peak systolic velocity approximately 69 cm/s. No occlusion or hemodynamically significant stenosis. LEFT INTERNAL CAROTID ARTERY: Peak systolic velocity approximately 73 cm/s with ICA/CCA ratio of approximately 1.1. No occlusion or hemodynamically significant stenosis. LEFT EXTERNAL CAROTID ARTERY: Peak systolic velocity approximately 135 cm/s. No occlusion. LEFT VERTEBRAL ARTERY: Antegrade flow with peak systolic velocity approximately 39 cm/s. LEFT ICA/CCA RATIO: Approximately 1.1. SOFT TISSUES: No incidental abnormalities. IMPRESSION: * No hemodynamically significant carotid artery stenosis by Doppler velocity criteria or ICA/CCA ratios. * Bilateral vertebral arteries demonstrate normal antegrade flow without hemodynamically significant stenosis. /[place] DICTATED BY: AIRAM BINGHAM DO DATE: 05/24/251634 ELECTRONICALLY SIGNED BY: AIRAM BINGHAM DO DATE: 05/24/251634 PATIENT: QASIM GOEMZ MR#: [id number] : 1975 SEX: M AGE: 49 LOCATION: [facility] ORDER 1217 STATUS: ADM IN [facility] REPORT#: [id number] SERVICE 1210 REASON: assess for PVD ORDERING PHYSICIAN: KILO MAHAN MD PROCEDURE: ART B LE - US ARTERIAL BILAT LOW EXT DUPL EXAM: US Duplex bilateral Lower Extremity Arteries. CLINICAL HISTORY: Assess for peripheral vascular disease. TECHNIQUE: Real-time ultrasound scan of the arteries of the bilateral lower extremities with 2-D hutson scale, color Doppler flow and spectral waveform analysis. COMPARISON: None provided. FINDINGS: RIGHT LOWER EXTREMITY: COMMON FEMORAL ARTERY: Peak systolic velocity approximately 115 cm/sec with triphasic waveform. No occlusion or hemodynamically significant stenosis. SUPERFICIAL FEMORAL ARTERY: Proximal peak systolic velocity approximately 65 cm/sec and distal peak systolic velocity approximately 70 cm/sec with triphasic waveforms. No occlusion or hemodynamically significant stenosis. POPLITEAL ARTERY: Peak systolic velocity approximately 71 cm/sec with triphasic waveform. No occlusion or hemodynamically significant stenosis. CALF ARTERIES: Posterior tibial artery distal peak systolic velocity approximately 59 cm/sec with triphasic waveform. Dorsalis pedis artery peak systolic velocity approximately 79 cm/sec with triphasic waveform. No occlusion or hemodynamically significant stenosis. LEFT LOWER EXTREMITY: COMMON FEMORAL ARTERY: Peak systolic velocity approximately 103 cm/sec with triphasic waveform. No occlusion or hemodynamically significant stenosis. SUPERFICIAL FEMORAL ARTERY: Proximal peak systolic velocity approximately 109 cm/sec, mid peak systolic velocity approximately 121 cm/sec, and distal peak systolic velocity approximately 40 cm/sec with predominantly triphasic waveforms. No focal velocity elevation to suggest hemodynamically significant stenosis. POPLITEAL ARTERY: Proximal peak systolic velocity approximately 50 cm/sec and distal peak systolic velocity approximately 78 cm/sec with triphasic waveforms. No occlusion or hemodynamically significant stenosis. CALF ARTERIES: Posterior tibial artery peak systolic velocity approximately 53 cm/sec and anterior tibial/distal peak systolic velocity approximately 64 cm/sec with triphasic waveforms. Dorsalis pedis artery peak systolic velocity approximately 100 cm/sec with triphasic waveform. No occlusion or hemodynamically significant stenosis. IMPRESSION: * Multifocal atherosclerotic changes of the bilateral lower extremity arteries without duplex evidence of hemodynamically significant stenosis or occlusion. /[place] DICTATED BY: THIERNO NEVILLE MD DATE: 05/24/251700 ELECTRONICALLY SIGNED BY: THIERNO NEVILLE MD DATE: 05/24/251700 PATIENT: QASIM GOMEZ MR#: [id number] : 1975 SEX: M AGE: 49 LOCATION: [facility] ORDER 1217 STATUS: ADM IN REPORT#: [id number] SERVICE 1210 REASON: LLQ pain. Also assess lumbar spine ORDERING PHYSICIAN: KILO MAHAN MD PROCEDURE: ABD PEL WO - CT ABDOMEN/PELVIS W/O CONTRAST EXAM: CT SCAN OF THE ABDOMEN AND PELVIS WITHOUT CONTRAST Clinical statement: Left lower quadrant pain and lower back pain; evaluate abdomen and lumbar spine. STUDY PROTOCOL: CT radiation dose protocol was performed in accordance with the principles of ALARA. A multislice CT scan of the abdomen and pelvis was performed without intravenous contrast. Sections were obtained from the diaphragms to the inguinal region. RADIATION DOSE: CTDIvol 19.90 mGy; DLP 1365.70 mGycm. CONTRAST: No intravenous contrast administered. COMPARISON: None provided. FINDINGS: LUNG BASE: No pleural effusion, collapse, or consolidation in the visualized lung bases. Mild thickening of the posterior pleura of the left lower lobe. LIVER: Normal morphology and attenuation with smooth margins. No focal hepatic lesion or calcification. No intrahepatic or extrahepatic biliary dilatation. Vance hepatis structures are unremarkable. GALL BLADDER: Gallbladder wall thickness and contour are normal. The gallbladder is contracted with a possible tiny calculus measuring approximately 1 mm (series 2, image 28/129). No pericholecystic fat stranding is seen on this noncontrast study. The cystic duct and surrounding fat appear normal. PANCREAS: Normal in size, contour, and attenuation. No pancreatic ductal dilatation or peripancreatic inflammatory change. SPLEEN: Normal size and attenuation. A small accessory spleen is present. No acute splenic abnormality. KIDNEYS: Both kidneys are normal in size, shape, position, and attenuation. No renal mass, calculus, or hydronephrosis. Mild perinephric fat stranding bilaterally. A simple cyst measuring approximately 1.1 cm is noted in the lower pole of the left kidney. No evidence of obstructive uropathy. GIT /T/ PERITONEAL CAVITY: Stomach is distended but otherwise unremarkable. Gastroesophageal junction, pylorus, and duodenum appear normal. Jejunal and ileal loops are normal in caliber and distribution with preserved wall thickness and mucosal pattern. No CT evidence of acute appendicitis. Scattered sigmoid diverticulosis is present without adjacent inflammatory stranding or abscess. Rectum and colonic loops are well distended with fecal material, consistent with constipation. No free intraperitoneal fluid or free air. Mesenteric fat and omentum are unremarkable. LYMPHNODES: No pathologically enlarged abdominopelvic lymph nodes are identified. RETROPERITONEUM: Both adrenal glands are normal in morphology and attenuation. The abdominal aorta and IVC are normal in course and caliber with mild atherosclerotic calcification in the aortoiliac segment. A vascular stent is present in the left common iliac vein. PELVIS: Urinary bladder shows normal wall thickness and contour. Prostate appears normal on CT. No pelvic mass or free fluid. MUSCULOSKELETAL: Early degenerative changes in the dorsolumbar spine with multilevel endplate osteophytic spurring. Mild reduction in L5S1 disc height with a small posterior disc protrusion measuring approximately 3 mm at L5S1. No acute fracture or listhesis. OTHER: Extra-abdominal and paraspinal soft tissues are unremarkable. Tiny fat-containing umbilical hernia. IMPRESSION: * No CT evidence of acute intra-abdominal pathology such as appendicitis, diverticulitis, bowel obstruction, or obstructive uropathy to clearly explain left lower quadrant pain. Clinical management should be guided by examination and laboratory findings. * Scattered sigmoid diverticulosis without CT evidence of diverticulitis. These changes can be a source of chronic left-sided abdominal symptoms; if symptoms persist or there are red-flag features (e.g., anemia, change in bowel habits, weight loss), gastroenterology evaluation and consideration of colonoscopy are advised. * Constipation with fecal loading of the colon and rectum, which may contribute to the patients abdominal pain; treatment should be tailored to clinical assessment and bowel habit history. * Degenerative changes of the lower lumbar spine with mild L5S1 disc height loss and a small posterior disc protrusion at L5S1, which may contribute to lower back pain and possibly radicular symptoms if present. Correlation with neurologic examination is recommended, and lumbar spine MRI may be considered if there is radiculopathy or persistent, function-limiting pain. * Mild bilateral perinephric fat stranding with a small simple left renal cyst (1.1 cm) and no hydronephrosis or stones. Findings are nonspecific and more in keeping with mild chronic or incidental change; correlation with urine studies and clinical features is recommended if there is concern for renal infection. * Contracted gallbladder with a possible tiny calculus. There is no CT evidence of acute cholecystitis on this noncontrast study; if biliary-type symptoms develop, targeted right upper quadrant ultrasound could be considered for further evaluation. * Mild atherosclerotic calcification of the aortoiliac segment with a left common iliac vein stent, and tiny fat-containing umbilical hernia, both likely incidental in the context of the current presentation. /[place] DICTATED BY: AUSTIN DOMINGUEZ MD DATE: 05/24/251403 ELECTRONICALLY SIGNED BY: AUSTIN DOMINGUEZ MD DATE: 05/24/251403 PATIENT: QASIM GOMEZ MR#: [id number] : 1975 SEX: M AGE: 49 LOCATION: [facility] ORDER 1154 STATUS: ADM IN REPORT#: [id number] SERVICE 1153 REASON: weakness ORDERING PHYSICIAN: KILO MAHAN MD PROCEDURE: HEAD WO - CT HEAD/BRAIN W/O CONTRAST EXAM: CT Head Without IV contrast. CLINICAL HISTORY: weakness TECHNIQUE: Axial computed tomography images of the head/brain without intravenous contrast. COMPARISON: None provided. FINDINGS: BRAIN: No evidence of acute hemorrhage. No mass lesion. No CT evidence for acute territorial infarct. No midline shift or extra-axial collections. VENTRICLES: No hydrocephalus. ORBITS: The orbits are unremarkable. SINUSES AND MASTOIDS: The paranasal sinuses and mastoid air cells are clear. BONES: No fracture. SOFT TISSUES: Unremarkable. IMPRESSION: No acute intracranial abnormality. /[place] DICTATED BY: AIRAM BINGHAM DO DATE: 05/24/25 1356 ELECTRONICALLY SIGNED BY: AIRAM BINGHAM DO DATE: 05/24/25 1356 PATIENT: QASIM GOMEZ MR#: [id number] : 1975 SEX: M AGE: 49 LOCATION: [facility] ORDER 1038 STATUS: REG REPORT#: [id number] SERVICE 1032 REASON: straight leg positive and lumbar pain ORDERING PHYSICIAN: STACI DAVIS MD PROCEDURE: LUMB 2 3VW - LUMBAR SPINE 2-3VWS EXAM: CR Lumbar Spine, 3 View. CLINICAL HISTORY: straight leg positive and lumbar pain COMPARISON: None provided. FINDINGS: BONES: No acute fracture or aggressive appearing osseous lesion. ALIGNMENT: Alignment is within normal limits. No significant scoliosis. DISCS / DEGENERATIVE CHANGES: The disc spaces are preserved. SOFT TISSUES: The soft tissues are unremarkable. Left iliac vascular stent IMPRESSION: No acute lumbar spine abnormality evident. If there is clinical concern for nerve root compression, MRI is suggested. /[place] DICTATED BY: AIRAM BINGHAM DO DATE: 05/24/25 1238 ELECTRONICALLY SIGNED BY: AIRAM BINGHAM DO DATE: 05/24/25 1238 ASSESSMENT: Symptomatic hyperglycemia Uncontrolled diabetes mellitus type 2 Lower back pain Proteinuria Acute on chronic kidney disease Diabetic nephropathy Bilateral lower extremities edema History of May-Thurner syndrome Blurred vision bilaterally Hypertensive urgency PLAN: Labs, diagnostic, radiologic exams reviewed and interpreted by myself and supervising physician. We have reviewed external records in detail Check orthostatic vital signs daily Pending plasma renin activity and aldosterone Require close monitoring of renal function and electrolytes Order CBC, CMP, and electrolytes in am BiPAP as necessary, for respiratory distress Monitor blood pressure adjust medication doses as needed Avoid hypotensive episodes May use Dilaudid 0.5 mg IV every 6 hours as needed for severe pain Monitor blood sugars Strict intake, output, and daily weight should be monitored Please renally adjust medications Avoid nephrotoxic and nonsteroidal drugs Avoid contrast if possible Will continue to monitor renal function, anemia, electrolytes Treatment plan discussed with patient Questions were answered We have discussed with the other team physicians in detail about the care plan We will continue to monitor the patient closely ATTESTATION BY PHYSICIAN I have seen and examined the patient. I reviewed the documentation, medical decision making, and treatment plan as noted by the mid-level provider above. I agree with the findings and plan of care. EMA LOERA MD, [facility] May 26, 2025 14:34
--- NOTE | 2025-05-26 17:36 | NUR ---
REFUSED MED PT WAS OFFERED PEPCID WITH SCHEDULED MEDICATIONS BUT REFUSED. THE PT WAS EDUCATED ON PURPOSE OF MEDICATION.
--- NOTE | 2025-05-26 20:31 | PN ---
Endocrinology progress note DOS:05/26/25 subjective: Home diabetic regimen: glargine 30 units daily and novolog 10 units qac before meals. Hba1c 12.2% reports that he was recently diagnosed with diabetic retinopathy and planning eye injections. glucose runs >200 mg/dl. PAST MEDICAL HISTORY: Hypertension, diabetes mellitus type two PAST SURGICAL HISTORY: History of right foot great toe amputation, history of peripheral angiogram, history of iliac stent placement PAST SOCIAL HISTORY: Denied any smoking, alcohol, drug use. 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 hyperglycemia is improving now and insulin adjusted. Home diabetic regimen: glargine 30 units daily and novolog 10 units qac before meals. Hba1c 12.2% reports that he was recently diagnosed with diabetic retinopathy and planning eye injections. glucose runs >200 mg/dl. Uncontrolled diabetes mellitus type 2 with hemoglobin A1c of 12.2 Lower back pain with concern for radiculopathy Proteinuria Acute kidney injury or underlying chronic kidney disease likely from diabetic nephropathy Bilateral lower extremities edema History of May-Thurner syndrome Blurred vision bilaterally differential secondary to diabetic retinopathy versus symptomatic hyperglycemia Hypertensive urgency PLAN: adjust Lantus to 40 units daily and adjust for fasting glucose. adjust Regular insulin to 12 units three times before meals and adjust for post-prandial glucose. adjust ssi to medium dose sliding scale insulin. Monitor glucose q x 6 hourly. Continue carb consistent diet. Keep glucose less than 180 mg/dl. Vitals/Labs Vital Signs Date Time Temp Pulse Resp B/P (MAP) Pulse Ox O2 Delivery O2 Flow Rate FiO2 05/26/25 20:00 98.1 77 18 147/88 97 Room Air 05/26/25 16:00 21 05/26/25 12:37 0 Laboratory Tests 05/26/25 05:28 Medications Current Medications Insulin Human Regular 5 unit ONCE ONCE IV Last administered on 05/24/25at 11:17; Start 05/24/25 at 11:00; Stop 05/24/25 at 11:01; Status DC Sodium Chloride 1,000 ml @ 0 mls/hr ONCE ONCE IV Last administered on 05/24/25at 11:08; Start 05/24/25 at 11:00; Stop 05/24/25 at 11:01; Status DC Famotidine 20 mg Q24H IV Last administered on 05/25/25at 20:36; Start 05/24/25 at 21:00; Stop 06/23/25 at 20:59 Amlodipine Besylate 5 mg ONCE ONCE PO Last administered on 05/24/25at 13:50; Start 05/24/25 at 12:30; Stop 05/24/25 at 12:31; Status DC Amlodipine Besylate 5 mg DAILY PO Last administered on 05/26/25at 09:10; Start 05/25/25 at 09:00; Stop 05/26/25 at 12:57; Status DC Hydralazine HCl 10 mg Q6H PRN IV Last administered on 05/24/25at 15:08; Start 05/24/25 at 12:30; Stop 06/23/25 at 12:29 Insulin Human Regular INSULIN SLIDING SCAL... Q6H6 SQ Last administered on 05/25/25at 00:07; Start 05/24/25 at 18:00; Stop 05/25/25 at 05:19; Status DC Hydromorphone HCl 0.5 mg Q6H PRN IVP Last administered on 05/26/25at 09:18; Start 05/24/25 at 12:30; Stop 05/29/25 at 12:29 Ondansetron HCl 4 mg Q6H PRN IVP; Start 05/24/25 at 12:30; Stop 06/23/25 at 12:29 Sodium Chloride 1,000 ml @ 75 mls/hr [id number] ONCE IV; Start 05/24/25 at 13:00; Stop 05/24/25 at 12:41; Status DC Insulin Glargine 15 units ONCE ONCE SQ Last administered on 05/24/25at 13:52; Start 05/24/25 at 13:30; Stop 05/24/25 at 13:31; Status DC Vitamin B Complex/ Vit C/Folic Acid 1 cap DAILY PO Last administered on 05/26/25at 09:10; Start 05/25/25 at 09:00; Stop 06/24/25 at 08:59 Insulin Glargine 20 units DAILY SQ Last administered on 05/25/25at 09:47; Start 05/25/25 at 09:00; Stop 05/25/25 at 19:40; Status DC Insulin Human Regular 5 unit TIDAC SQ Last administered on 05/25/25at 16:50; Start 05/25/25 at 07:30; Stop 05/25/25 at 19:40; Status DC Insulin Human Regular INSULIN SLIDING SCAL... ACHS SQ Last administered on 05/26/25at 20:26; Start 05/25/25 at 07:30; Stop 06/24/25 at 07:29 Potassium Chloride 20 meq ONCE ONCE PO Last administered on 05/25/25at 06:37; Start 05/25/25 at 06:00; Stop 05/25/25 at 06:01; Status DC Enoxaparin Sodium 30 mg DAILY SQ Last administered on 05/26/25at 09:11; Start 05/25/25 at 09:00; Stop 06/24/25 at 08:59 Insulin Glargine 30 units DAILY SQ Last administered on 05/26/25at 09:14; Start 05/26/25 at 09:00; Stop 06/25/25 at 08:59 Insulin Human Regular 8 unit TIDAC SQ Last administered on 05/26/25at 12:36; Start 05/26/25 at 07:30; Stop 05/26/25 at 12:55; Status DC Insulin Human Regular 12 unit TIDAC SQ Last administered on 05/26/25at 17:36; Start 05/26/25 at 17:00; Stop 06/25/25 at 16:59 Acetaminophen/ Codeine Phosphate 1 tab Q6H PRN PO; Start 05/26/25 at 13:00; Stop 06/25/25 at 12:59 Amlodipine Besylate 10 mg DAILY PO; Start 05/27/25 at 09:00; Stop 06/26/25 at 08:59 Amoxicillin 500 mg TID PO; Start 05/26/25 at 14:00; Stop 05/26/25 at 13:20; Status DC Aspirin 81 mg DAILY PO; Start 05/27/25 at 09:00; Stop 06/26/25 at 08:59 Atorvastatin Calcium 40 mg HS PO Last administered on 05/26/25at 20:17; Start 05/26/25 at 21:00; Stop 06/25/25 at 20:59 Clopidogrel Bisulfate 75 mg DAILY PO; Start 05/27/25 at 09:00; Stop 06/26/25 at 08:59 Gabapentin 100 mg TID PO Last administered on 05/26/25at 20:14; Start 05/26/25 at 14:00; Stop 06/25/25 at 13:59 Hydralazine HCl 5 mg Q6H PRN IV; Start 05/26/25 at 13:00; Stop 06/25/25 at 12:59 ANITRA CARTER MD May 26, 2025 20:31
[2025-05-27] VITALS (10 sets, daily range): BP systolic 136–173; BP diastolic 76–99; PULSE 58–85; RESP 17–18; TEMP 97.5–98.5; O2SAT 94–98
--- NOTE | 2025-05-27 00:14 | NUR ---
ELEVATED BLOOD PRESSURE BLOOD PRESSURE AT 2400 WAS 169/104. HYDRALAZINE 5 MG WAS GIVEN WITH A RECHECK OF BLOOD PRESSURE OF 142/86.
[2025-05-27 04:01] LABS: NUCLEATED RED BLOOD CELLS 0.0 % (0.0-0.19); PLATELET COUNT (AUTO) 186.0 K/uL (130-400); RED BLOOD CELL COUNT(AUTO) 4.23 MIL/uL (4.50-6.20); RED CELL DISTRIBUTION WIDTH 11.9 % (11.0-15.5); WHITE BLOOD COUNT (AUTO) 6.3 K/uL (4.8-10.8)
[2025-05-27 04:16] LABS: PHOSPHORUS 4.2 mg/dL (2.5-4.9)
[2025-05-27] MEDS: ASPIRIN 81 MG EC TAB PO SCH (09:11)
[2025-05-27] MEDS: amLODIPine 5 MG TAB PO SCH (09:11)
--- NOTE | 2025-05-27 12:43 | PN ---
NEPHROLOGY PROGRESS NOTE Date/Time Patient Seen: May 27, 2025 SUBJECTIVE: This is a 49-year-old male with past medical history of hypertension, diabetes mellitus type 2 presented to hospital secondary to blurry vision He is found to have severe hypertension. He does not take his medicine. He has been on insulin also. The patient has unsteadiness also. The patient is generally weak. He has been found to have low sodium as well as multiple other comorbidities including blurry vision. We has been consulted for renal failure Renal function and electrolytes are stable. Continues to complain of lower extremity edema UPCR noted He continues to be followed by endocrinology Imaging studies were noted He was seen in the medical floor, in no acute distress REVIEW OF SYSTEMS: GENERAL: Negative for any nausea, vomiting, fevers, chills, or weight loss. NEUROLOGIC: Negative for any blurry vision, blind spots, double vision, facial asymmetry, dysphagia, dysarthria, hemiparesis, hemisensory deficits, vertigo, ataxia. HEENT: Negative for any head trauma, neck trauma, neck stiffness, photophobia, phonophobia, sinusitis, rhinitis. CARDIAC: Negative for any chest pain, dyspnea on exertion, paroxysmal nocturnal dyspnea, peripheral edema. PULMONARY: Negative for any shortness of breath, wheezing, COPD, or TB exposure. GASTROINTESTINAL: Negative for any abdominal pain, nausea, vomiting, bright red blood per rectum, melena. GENITOURINARY: Negative for any dysuria, hematuria, incontinence. INTEGUMENTARY: Negative for any rashes, cuts, insect bites. RHEUMATOLOGIC: Negative for any joint pains, photosensitive rashes, history of vasculitis or kidney problems. HEMATOLOGIC: Negative for any abnormal bruising, frequent infections or bleeding. Vital Signs (last 8hr) Date Time Temp Pulse Resp B/P (MAP) Pulse Ox O2 Delivery O2 Flow Rate FiO2 05/27/25 12:39 97.5 76 18 144/89 93 Room Air 05/27/25 12:24 97.5 76 18 144/89 93 Room Air 05/27/25 08:03 94 Room Air* 0 21 05/27/25 07:00 97.7 79 18 146/93 94 Room Air PHYSICAL EXAM: GENERAL: Alert and oriented x 3. No acute distress. Well-nourished. EYES: EOMI. Anicteric. HENT: Moist mucous membranes. No scleral icterus. No cervical lymphadenopathy. LUNGS: Clear to auscultation bilaterally. No accessory muscle use. CARDIOVASCULAR: Regular rate and rhythm. No murmur. No JVD. ABDOMEN: Soft, non-tender and non-distended. No palpable masses. EXTREMITIES: No edema. Non-tender. SKIN: No rashes or lesions. Warm. NEUROLOGIC: No focal neurological deficits. CN II-XII grossly intact, but not individually tested. PSYCHIATRIC: Cooperative. Appropriate mood and affect. Current Medications Medications (Trade) Dose Ordered Sig/Darcie Route PRN Reason Start Time Stop Time Status Last Admin Dose Admin Amlodipine Besylate (NorvASC 5MG TAB) 5 mg DAILY PO 05/25/25 09:00 06/24/25 08:59 05/25/25 09:49 5 MG Enoxaparin Sodium (Lovenox) 30 mg DAILY SQ 05/25/25 09:00 06/24/25 08:59 05/25/25 09:49 30 MG Famotidine (Pepcid 20mg Vial) 20 mg Q24H IV 05/24/25 21:00 06/23/25 20:59 05/24/25 20:57 20 MG Hydralazine HCl (APRESOLine 20MG INJ) 10 mg Q6H PRN IV ADMINISTER FOR SBP > 180 05/24/25 12:30 06/23/25 12:29 05/24/25 15:08 10 MG Hydromorphone HCl (DiLAUDid 0.5MG INJ) 0.5 mg Q6H PRN IVP SEVERE PAIN (7-10) 05/24/25 12:30 05/29/25 12:29 05/24/25 15:05 0.5 MG Insulin Glargine (LANtus 100 UNITS/ML 10 ML VIAL) 20 units DAILY SQ 05/25/25 09:00 06/24/25 08:59 05/25/25 09:47 20 UNITS Insulin Human Regular (humuLIN R 100 UNIT/ML 3ML) 5 unit TIDAC SQ 05/25/25 07:30 06/24/25 07:29 05/25/25 12:55 5 UNIT Insulin Human Regular (humuLIN R 100 UNIT/ML 3ML) INSULIN SLIDING SCAL... ACHS SQ 05/25/25 07:30 06/24/25 07:29 05/25/25 13:00 4 UNIT Insulin Human Regular (humuLIN R 100 UNIT/ML 3ML) INSULIN SLIDING SCAL... Q6H6 SQ 05/24/25 18:00 05/25/25 05:19 DC 05/25/25 00:07 7 UNIT Ondansetron HCl (zoFRAN 4MG INJ) 4 mg Q6H PRN IVP NAUSEA/VOMITING 05/24/25 12:30 06/23/25 12:29 Vitamin B Complex/ Vit C/Folic Acid (Nephrovite Tablet) 1 cap DAILY PO 05/25/25 09:00 06/24/25 08:59 05/25/25 09:46 1 CAP LABORATORY: [ ] Hematology Labs: Test 05/27/25 03:47 05/26/25 05:28 Range/Units White Blood Count 6.3 4.8-10.8 K/uL Red Blood Count 4.23 L 4.50-6.20 MIL/uL Hemoglobin 13.2 L 14.0-18.0 g/dL Hematocrit 38.2 L 42-54 % Mean Corpuscular Volume 90.3 79-99 fL Mean Corpuscular Hemoglobin 31.2 27.0-33.0 pg Mean Corpuscular Hemoglobin Concent 34.6 32.0-36.0 g/dL Red Cell Distribution Width 11.9 11.0-15.5 % Platelet Count 186 130-400 K/uL Mean Platelet Volume 11.3 H 7.5-10.5 fL Nucleated Red Blood Cells 0.0 0.0-0.19 % Segmented Neutrophils % 59 40-70 % Lymphocytes % (Manual) 20 L 22-44 % Monocytes % (Manual) 13 H 2-9 % Eosinophils % (Manual) 7 H 1-6 % Basophils % (Manual) 1 0-2 % Differential Comment MANUAL DIFFERENTIAL White Cell Morphology Comment Platelet Morphology Comment See comments Red Blood Cell Morphology ANISO 1+ Chemistry Labs: Test 05/27/25 11:21 05/27/25 03:47 05/26/25 05:28 Range/Units Whole Blood Glucose 249 H 70-110 MG/DL Phosphorus Level 4.2 2.5-4.9 mg/dL Magnesium Level 1.90 1.80-2.40 mg/dL Sodium Level 136 136-145 mmol/L Potassium Level 3.7 3.5-5.1 mmol/L Chloride Level 102 101-111 mmol/L Carbon Dioxide Level 30 21-32 mmol/L Blood Urea Nitrogen 22 H 7-18 mg/dL Creatinine 1.3 0.5-1.3 mg/dL Glomerular Filtration Rate Calc 67 >90 mL/min Random Glucose 219 H 70-105 mg/dL Total Calcium 8.0 L 8.5-10.1 mg/dL Total Bilirubin 0.3 0.2-1.0 mg/dL Aspartate Amino Transf (AST/SGOT) 17 10-37 U/L Alanine Aminotransferase (ALT/SGPT) 24 12-78 U/L Alkaline Phosphatase 85 50-136 U/L Total Protein 6.1 6.0-8.3 g/dL Albumin 1.9 L 3.5-5.0 g/dL DIAGNOSTICS / RADIOLOGY: [address] [place] [id number] IMAGING REPORT Signed PATIENT: QASIM GOMEZ MR#: [id number] : 1975 SEX: M AGE: 49 LOCATION: [facility] ORDER 1217 STATUS: ADM IN HEALTH - [facility] REPORT#: [id number] SERVICE 1210 REASON: Asssess for lumbar stenosis ORDERING PHYSICIAN: KILO MAHAN MD PROCEDURE: L SPN WO - MR SPINAL CANAL, LUMBAR WO CON EXAM: MR Lumbar Spine Without Intravenous Contrast. CLINICAL HISTORY: Assess for lumbar stenosis. TECHNIQUE: Magnetic resonance images of the lumbar spine in multiple planes. CONTRAST: None. COMPARISON: Radiograph dated 05/24/25. FINDINGS: For this examination, spinal levels were labeled assuming five non-rib bearing, lumbar-type vertebrae with the inferior labeled L5. No acute fracture. Normal lordotic curvature. Mild multilevel spondylosis is evident by small marginal osteophytes. Disc desiccation at the L5-S1 level. Normal vertebral body and disc heights. Normal marrow signal of the vertebrae. Conus medullaris terminates at the T12 level. No abnormal epidural masses. Small, simple cortical cyst in the lower pole of left kidney. Mild subcutaneous edema in the lower back. Individual spinal levels are described as follows: T12-L1: No disc bulge or herniation. No neural foraminal, lateral recess or spinal canal stenosis. L1-L2: No disc bulge or herniation. No neural foraminal, lateral recess or spinal canal stenosis. L2-L3: No disc bulge or herniation. No neural foraminal, lateral recess or spinal canal stenosis. L3-L4: No disc bulge or herniation. No neural foraminal, lateral recess or spinal canal stenosis. L4-L5: No disc bulge or herniation. No neural foraminal, lateral recess or spinal canal stenosis. L5-S1: 4 mm disc osteophyte complex bulge causing mild indentation on the anterior thecal sac. No neural foraminal or lateral recess stenosis. IMPRESSION: Mild multilevel spondylosis. Disc desiccation at the L5-S1 level. Mild indentation on the anterior thecal sac at the L5-S1 level. /[place] DICTATED BY: JERICHO DICKERSON Jr., MD DATE: 05/26/25632 ELECTRONICALLY SIGNED BY: JERICHO DICKERSON Jr., MD DATE: 05/26/25632 PATIENT: QASIM GOMEZ MR#: [id number] : 1975 SEX: M AGE: 49 LOCATION: [facility] ORDER 16 STATUS: ADM IN HEALTH - [facility] REPORT#: [id number] SERVICE 0000 REASON: assess for CHF ORDERING PHYSICIAN: KILO MAHAN MD PROCEDURE: ECHO CMP - ECHO 2-D COMPLETE APPROVED REPORT EXAM: Two-dimensional and M-mode echocardiogram with Doppler and color Doppler. INDICATION ICD: Assess for congestive heart failure 2D Dimensions RVDd 3.9 cm LVEF(%) 40.6 (>50%) LVED Vol(simp.) 113.0 mL IVSd 1.6 (0.7-1.1cm) FS(%) 20 % LVES Vol(simp.) 53.0 mL LVDd 4.9 (3.8-5.6cm) LA (2D) 4.6 (1.6-4.0cm) LVEF(%, simp.) 53 % PWd 1.2 (0.7-1.1cm) Ao Root(2D) 3.2 (2.0-3.7cm) LA ESV INDEX (BP) 30.26 mL/m2 IVSs 1.5 cm LVOT diam 2.4 (1.8-2.4cm) LVDs 3.9 (2.5-4.0cm) IVC diam 2.2 cm PWs 2.0 cm Deformation Strain Apical 4 -18.2 % Apical 2 -18.1 % Apical 3 -17.1 % Global Strain -17.8 % M-Mode Dimensions EPSS 1.1 cm LA (MM) 5.3 (1.6-4.0cm) Ao Root(MM) 3.8 (2.0-3.7cm) Aortic Valve AoV Vmax 1.1 m/s Ao Peak GR 5.2 mmHg LVOT Vmax 1.0 m/s AoV VTI 0.2 m Ao Mean GR 3.0 mmHg LVOT VTI 0.17 m JOSHUA (VMAX) 4.06 cm2 JOSHUA (VTI) 3.6 cm2 Mitral Valve MV E Vmax 64.9 cm/s DECEL Time 230 ms MV A Vmax 110.6 cm/s P 1/2 T 56 ms E/A ratio 0.6 MVA (PHT) 3.9 cm2 TDI E/E' Medial 12.8 E/E' Lateral 16.9 Medial E' Peak V 5.09 cm/s Lateral E' Peak V 3.85 cm/s Pulmonary Valve PV Vmax 1.4 m/s PV Mean GR 4.4 mmHg PV Peak GR 7.7 mmHg Tricuspid Valve TR Vmax 1.0 m/s RAP (EST) 3 mmHg RVSP 6.9 mmHg TR Peak GR 3.9 mmHg Left Ventricle The left ventricle is normal size. No regional wall motion abnormalities noted. Mild concentric left ventricular hypertrophy. Left ventricle systolic function is low normal, estimated LVEF is 50 to 55%. Stage I diastolic dysfunction. Right Ventricle The right ventricle is normal size. The right ventricular systolic function is normal. Atria The left atrium size is normal. The right atrium size is normal. Aortic Valve Aortic valve is trileaflet. The leaflets are mildly thickened and calcified. No aortic regurgitation is present. There is no aortic valvular stenosis. Mitral Valve Mild mitral annular calcification is noted. The leaflets are mildly thickened and calcified. Trace mitral regurgitation. There is no mitral valve stenosis. Tricuspid Valve The tricuspid valve is normal in structure. Trace tricuspid regurgitation. RVSP is normal. Pulmonic Valve Pulmonic valve is not well visualized. Great Vessels The aortic root is normal in size. The IVC is normal in size and collapses >50% with inspiration. Pericardium There is no pericardial effusion. Other Information Quality : Adequate Conclusion Mild concentric left ventricular hypertrophy. No regional wall motion abnormalities noted. Left ventricle systolic function is low normal, estimated LVEF is 50 to 55%. Stage I diastolic dysfunction. Trace mitral regurgitation. Trace tricuspid regurgitation. PASP is normal. There is no pericardial effusion. DICTATED BY: HUMBERTO CABALLERO MD DATE: 05/25/25912 ELECTRONICALLY SIGNED BY: HUMBERTO CABALLERO MD DATE: 05/25/252303 PATIENT: QASIM GOMEZ MR#: [id number] : 1975 SEX: M AGE: 49 LOCATION: [facility] ORDER 1217 STATUS: ADM IN HEALTH - [facility] REPORT#: [id number] SERVICE 1210 REASON: assess for DVT ORDERING PHYSICIAN: KILO MAHAN MD PROCEDURE: VENOUS MARIAJOSE - US VENOUS DOPPLER BILATERAL EXAM: US for Deep Venous Thrombosis, bilateral Lower Extremity. CLINICAL HISTORY: Leg Pain and Swelling TECHNIQUE: Real-time ultrasound scan of the veins of the bilateral lower extremity with color Doppler flow, spectral waveform analysis and compression. COMPARISON: None provided. FINDINGS: DEEP VEINS: The common femoral, superficial femoral, and popliteal veins are echolucent and compressible. There is normal color Doppler flow throughout. The visualized calf veins appear patent. SOFT TISSUES: No popliteal fossa cyst or other abnormalities. IMPRESSION: 1. No evidence of deep venous thrombosis in the bilateral lower extremities. /[place] DICTATED BY: JERICHO DICKERSON Jr., MD DATE: 05/24/251619 ELECTRONICALLY SIGNED BY: JERICHO DICKERSON Jr., MD DATE: 05/24/251619 PATIENT: QASIM GOMEZ MR#: [id number] : 1975 SEX: M AGE: 49 LOCATION: [facility] ORDER 16 STATUS: ADM IN HEALTH - [facility] REPORT#: [id number] SERVICE 1210 REASON: Assess for carotid stenosis ORDERING PHYSICIAN: KILO MAHAN MD PROCEDURE: CAROTID - US CAROTID DUPLEX EXAM: US Duplex Bilateral Carotid and Vertebral Arteries. CLINICAL HISTORY: Assess for carotid stenosis. TECHNIQUE: Real-time ultrasound scan of the bilateral carotid and vertebral arteries, 2-D hutson scale, with color Doppler flow and spectral waveform analysis. COMPARISON: None provided. FINDINGS: RIGHT COMMON CAROTID ARTERY: Peak systolic velocity approximately 72 cm/s. No occlusion or hemodynamically significant stenosis. RIGHT INTERNAL CAROTID ARTERY: Peak systolic velocity approximately 70 cm/s with ICA/CCA ratio of 1.0. No occlusion or hemodynamically significant stenosis. RIGHT EXTERNAL CAROTID ARTERY: Peak systolic velocity approximately 108 cm/s. No occlusion. RIGHT VERTEBRAL ARTERY: Antegrade flow with peak systolic velocity approximately 32 cm/s. RIGHT ICA/CCA RATIO: Approximately 1.0. LEFT COMMON CAROTID ARTERY: Peak systolic velocity approximately 69 cm/s. No occlusion or hemodynamically significant stenosis. LEFT INTERNAL CAROTID ARTERY: Peak systolic velocity approximately 73 cm/s with ICA/CCA ratio of approximately 1.1. No occlusion or hemodynamically significant stenosis. LEFT EXTERNAL CAROTID ARTERY: Peak systolic velocity approximately 135 cm/s. No occlusion. LEFT VERTEBRAL ARTERY: Antegrade flow with peak systolic velocity approximately 39 cm/s. LEFT ICA/CCA RATIO: Approximately 1.1. SOFT TISSUES: No incidental abnormalities. IMPRESSION: * No hemodynamically significant carotid artery stenosis by Doppler velocity criteria or ICA/CCA ratios. * Bilateral vertebral arteries demonstrate normal antegrade flow without hemodynamically significant stenosis. /[place] DICTATED BY: AIRAM BINGHAM DO DATE: 05/24/251634 ELECTRONICALLY SIGNED BY: AIRAM BINGHAM DO DATE: 05/24/251634 PATIENT: QASIM GOMEZ MR#: [id number] : 1975 SEX: M AGE: 49 LOCATION: [facility] ORDER 1217 STATUS: ADM IN HEALTH - [facility] REPORT#: [id number] SERVICE 1210 REASON: assess for PVD ORDERING PHYSICIAN: KILO MAHAN MD PROCEDURE: ART B LE - US ARTERIAL BILAT LOW EXT DUPL EXAM: US Duplex bilateral Lower Extremity Arteries. CLINICAL HISTORY: Assess for peripheral vascular disease. TECHNIQUE: Real-time ultrasound scan of the arteries of the bilateral lower extremities with 2-D hutson scale, color Doppler flow and spectral waveform analysis. COMPARISON: None provided. FINDINGS: RIGHT LOWER EXTREMITY: COMMON FEMORAL ARTERY: Peak systolic velocity approximately 115 cm/sec with triphasic waveform. No occlusion or hemodynamically significant stenosis. SUPERFICIAL FEMORAL ARTERY: Proximal peak systolic velocity approximately 65 cm/sec and distal peak systolic velocity approximately 70 cm/sec with triphasic waveforms. No occlusion or hemodynamically significant stenosis. POPLITEAL ARTERY: Peak systolic velocity approximately 71 cm/sec with triphasic waveform. No occlusion or hemodynamically significant stenosis. CALF ARTERIES: Posterior tibial artery distal peak systolic velocity approximately 59 cm/sec with triphasic waveform. Dorsalis pedis artery peak systolic velocity approximately 79 cm/sec with triphasic waveform. No occlusion or hemodynamically significant stenosis. LEFT LOWER EXTREMITY: COMMON FEMORAL ARTERY: Peak systolic velocity approximately 103 cm/sec with triphasic waveform. No occlusion or hemodynamically significant stenosis. SUPERFICIAL FEMORAL ARTERY: Proximal peak systolic velocity approximately 109 cm/sec, mid peak systolic velocity approximately 121 cm/sec, and distal peak systolic velocity approximately 40 cm/sec with predominantly triphasic waveforms. No focal velocity elevation to suggest hemodynamically significant stenosis. POPLITEAL ARTERY: Proximal peak systolic velocity approximately 50 cm/sec and distal peak systolic velocity approximately 78 cm/sec with triphasic waveforms. No occlusion or hemodynamically significant stenosis. CALF ARTERIES: Posterior tibial artery peak systolic velocity approximately 53 cm/sec and anterior tibial/distal peak systolic velocity approximately 64 cm/sec with triphasic waveforms. Dorsalis pedis artery peak systolic velocity approximately 100 cm/sec with triphasic waveform. No occlusion or hemodynamically significant stenosis. IMPRESSION: * Multifocal atherosclerotic changes of the bilateral lower extremity arteries without duplex evidence of hemodynamically significant stenosis or occlusion. /[place] DICTATED BY: THIERNO NEVILLE MD DATE: 05/24/251700 ELECTRONICALLY SIGNED BY: THIERNO NEVILLE MD DATE: 05/24/251700 PATIENT: QASIM GOMEZ MR#: [id number] : 1975 SEX: M AGE: 49 LOCATION: [facility] ORDER 1217 STATUS: ADM IN REPORT#: [id number] SERVICE 1210 REASON: LLQ pain. Also assess lumbar spine ORDERING PHYSICIAN: KILO MAHAN MD PROCEDURE: ABD PEL WO - CT ABDOMEN/PELVIS W/O CONTRAST EXAM: CT SCAN OF THE ABDOMEN AND PELVIS WITHOUT CONTRAST Clinical statement: Left lower quadrant pain and lower back pain; evaluate abdomen and lumbar spine. STUDY PROTOCOL: CT radiation dose protocol was performed in accordance with the principles of ALARA. A multislice CT scan of the abdomen and pelvis was performed without intravenous contrast. Sections were obtained from the diaphragms to the inguinal region. RADIATION DOSE: CTDIvol 19.90 mGy; DLP 1365.70 mGycm. CONTRAST: No intravenous contrast administered. COMPARISON: None provided. FINDINGS: LUNG BASE: No pleural effusion, collapse, or consolidation in the visualized lung bases. Mild thickening of the posterior pleura of the left lower lobe. LIVER: Normal morphology and attenuation with smooth margins. No focal hepatic lesion or calcification. No intrahepatic or extrahepatic biliary dilatation. Vance hepatis structures are unremarkable. GALL BLADDER: Gallbladder wall thickness and contour are normal. The gallbladder is contracted with a possible tiny calculus measuring approximately 1 mm (series 2, image 28/129). No pericholecystic fat stranding is seen on this noncontrast study. The cystic duct and surrounding fat appear normal. PANCREAS: Normal in size, contour, and attenuation. No pancreatic ductal dilatation or peripancreatic inflammatory change. SPLEEN: Normal size and attenuation. A small accessory spleen is present. No acute splenic abnormality. KIDNEYS: Both kidneys are normal in size, shape, position, and attenuation. No renal mass, calculus, or hydronephrosis. Mild perinephric fat stranding bilaterally. A simple cyst measuring approximately 1.1 cm is noted in the lower pole of the left kidney. No evidence of obstructive uropathy. GIT /T/ PERITONEAL CAVITY: Stomach is distended but otherwise unremarkable. Gastroesophageal junction, pylorus, and duodenum appear normal. Jejunal and ileal loops are normal in caliber and distribution with preserved wall thickness and mucosal pattern. No CT evidence of acute appendicitis. Scattered sigmoid diverticulosis is present without adjacent inflammatory stranding or abscess. Rectum and colonic loops are well distended with fecal material, consistent with constipation. No free intraperitoneal fluid or free air. Mesenteric fat and omentum are unremarkable. LYMPHNODES: No pathologically enlarged abdominopelvic lymph nodes are identified. RETROPERITONEUM: Both adrenal glands are normal in morphology and attenuation. The abdominal aorta and IVC are normal in course and caliber with mild atherosclerotic calcification in the aortoiliac segment. A vascular stent is present in the left common iliac vein. PELVIS: Urinary bladder shows normal wall thickness and contour. Prostate appears normal on CT. No pelvic mass or free fluid. MUSCULOSKELETAL: Early degenerative changes in the dorsolumbar spine with multilevel endplate osteophytic spurring. Mild reduction in L5S1 disc height with a small posterior disc protrusion measuring approximately 3 mm at L5S1. No acute fracture or listhesis. OTHER: Extra-abdominal and paraspinal soft tissues are unremarkable. Tiny fat-containing umbilical hernia. IMPRESSION: * No CT evidence of acute intra-abdominal pathology such as appendicitis, diverticulitis, bowel obstruction, or obstructive uropathy to clearly explain left lower quadrant pain. Clinical management should be guided by examination and laboratory findings. * Scattered sigmoid diverticulosis without CT evidence of diverticulitis. These changes can be a source of chronic left-sided abdominal symptoms; if symptoms persist or there are red-flag features (e.g., anemia, change in bowel habits, weight loss), gastroenterology evaluation and consideration of colonoscopy are advised. * Constipation with fecal loading of the colon and rectum, which may contribute to the patients abdominal pain; treatment should be tailored to clinical assessment and bowel habit history. * Degenerative changes of the lower lumbar spine with mild L5S1 disc height loss and a small posterior disc protrusion at L5S1, which may contribute to lower back pain and possibly radicular symptoms if present. Correlation with neurologic examination is recommended, and lumbar spine MRI may be considered if there is radiculopathy or persistent, function-limiting pain. * Mild bilateral perinephric fat stranding with a small simple left renal cyst (1.1 cm) and no hydronephrosis or stones. Findings are nonspecific and more in keeping with mild chronic or incidental change; correlation with urine studies and clinical features is recommended if there is concern for renal infection. * Contracted gallbladder with a possible tiny calculus. There is no CT evidence of acute cholecystitis on this noncontrast study; if biliary-type symptoms develop, targeted right upper quadrant ultrasound could be considered for further evaluation. * Mild atherosclerotic calcification of the aortoiliac segment with a left common iliac vein stent, and tiny fat-containing umbilical hernia, both likely incidental in the context of the current presentation. /[place] DICTATED BY: AUSTIN DOMINGUEZ MD DATE: 05/24/251403 ELECTRONICALLY SIGNED BY: AUSTIN DOMINGUEZ MD DATE: 05/24/251403 PATIENT: QASIM GOMEZ MR#: [id number] : 1975 SEX: M AGE: 49 LOCATION: [facility] ORDER 53 STATUS: ADM IN REPORT#: [id number] SERVICE 1153 REASON: weakness ORDERING PHYSICIAN: KILO MAHAN MD PROCEDURE: HEAD WO - CT HEAD/BRAIN W/O CONTRAST EXAM: CT Head Without IV contrast. CLINICAL HISTORY: weakness TECHNIQUE: Axial computed tomography images of the head/brain without intravenous contrast. COMPARISON: None provided. FINDINGS: BRAIN: No evidence of acute hemorrhage. No mass lesion. No CT evidence for acute territorial infarct. No midline shift or extra-axial collections. VENTRICLES: No hydrocephalus. ORBITS: The orbits are unremarkable. SINUSES AND MASTOIDS: The paranasal sinuses and mastoid air cells are clear. BONES: No fracture. SOFT TISSUES: Unremarkable. IMPRESSION: No acute intracranial abnormality. /[place] DICTATED BY: AIRAM BINGHAM DO DATE: 05/24/25 135 ELECTRONICALLY SIGNED BY: AIRAM BINGHAM DO DATE: 05/24/251355 PATIENT: QASIM GOMEZ MR#: [id number] : 1975 SEX: M AGE: 49 LOCATION: [facility] ORDER 1038 STATUS: REG ER REPORT#: [id number] SERVICE 1032 REASON: straight leg positive and lumbar pain ORDERING PHYSICIAN: STACI DAVIS MD PROCEDURE: LUMB 2 3VW - LUMBAR SPINE 2-3VWS EXAM: CR Lumbar Spine, 3 View. CLINICAL HISTORY: straight leg positive and lumbar pain COMPARISON: None provided. FINDINGS: BONES: No acute fracture or aggressive appearing osseous lesion. ALIGNMENT: Alignment is within normal limits. No significant scoliosis. DISCS / DEGENERATIVE CHANGES: The disc spaces are preserved. SOFT TISSUES: The soft tissues are unremarkable. Left iliac vascular stent IMPRESSION: No acute lumbar spine abnormality evident. If there is clinical concern for nerve root compression, MRI is suggested. /[place] DICTATED BY: AIRAM BINGHAM DO DATE: 05/24/25 1238 ELECTRONICALLY SIGNED BY: AIRAM BINGHAM DO DATE: 05/24/25 1238 ASSESSMENT: Symptomatic hyperglycemia Uncontrolled diabetes mellitus type 2 Lower back pain Proteinuria Acute on chronic kidney disease Diabetic nephropathy Bilateral lower extremities edema History of May-Thurner syndrome Blurred vision bilaterally Hypertensive urgency PLAN: Labs, diagnostic, radiologic exams reviewed and interpreted by myself and supervising physician. We have reviewed external records in detail Start torsemide 20 mg po daily Check orthostatic vital signs daily Pending plasma renin activity and aldosterone Require close monitoring of renal function and electrolytes Order CBC, CMP, and electrolytes in am BiPAP as necessary, for respiratory distress Monitor blood pressure adjust medication doses as needed Avoid hypotensive episodes May use Dilaudid 0.5 mg IV every 6 hours as needed for severe pain Monitor blood sugars Strict intake, output, and daily weight should be monitored Please renally adjust medications Avoid nephrotoxic and nonsteroidal drugs Avoid contrast if possible Will continue to monitor renal function, anemia, electrolytes Treatment plan discussed with patient Questions were answered We have discussed with the other team physicians in detail about the care plan We will continue to monitor the patient closely ATTESTATION BY PHYSICIAN I have seen and examined the patient. I reviewed the documentation, medical decision making, and treatment plan as noted by the mid-level provider above. I agree with the findings and plan of care. EMA LOERA MD, [facility] May 27, 2025 12:43
--- NOTE | 2025-05-27 17:04 | PN ---
[facility] PROGRESS NOTE Date of Service: May 27, 2025 Time of Service: 16:59 SUBJECTIVE: Patient was evaluated today at bedside with his present. He continues to report inability to see from the left eye and blurred vision in the right eye, which has been ongoing for several weeks. He states he was recently diagnosed with diabetic retinopathy and is planning to start eye injections. He reports his home glucose readings have been consistently >200 mg/dL. He describes persistent bilateral lower extremity edema and numbness in both legs, and continues to feel very weak. He denies chest pain, shortness of breath, or abdominal discomfort, but does complain of mild headache. He is aware of his recent admission for symptomatic hyperglycemia and understands that his diabetes remains uncontrolled (recent hemoglobin A1c 12.2%). He acknowledges his history of hypertension, May-Thurner syndrome, proteinuria, and recent findings of acute kidney injury or possible underlying chronic kidney disease, likely secondary to diabetic nephropathy. He is aware of his prior right great toe amputation, peripheral angiogram, and iliac stent placement. He denies any smoking, alcohol, or drug use. 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 He understands the importance of not driving or operating heavy machinery due to his visual impairment and agrees to follow up with ophthalmology after discharge. All questions were addressed with both patient and at bedside. REVIEW OF SYSTEMS CONSTITUTIONAL: Denies fevers, chills, or night sweats. No unintentional weight loss reported. NEUROLOGICAL: Denies headache, amaurosis fugax, motor weakness, sensory deficit, vertigo/spinning sensation, or tremors. Positive for gait abnormality ENT: No hearing loss, otalgia, otorrhea, rhinitis, rhinorrhea, hoarseness, or sore throat. CARDIOVASCULAR: Denies any exertional angina, dyspnea on exertion, orthopnea, paroxysmal nocturnal dyspnea, palpitations, life-threatening arrhythmias, claudication. PULMONARY: Denies any shortness of breath, cough, phlegm/sputum, hemoptysis, pleuritic chest pain. GASTROINTESTINAL: Denies any type of dysphagia to either liquids or solids. Denies nausea, vomiting, pyrosis, early satiety, abdominal pain, diarrhea, constipation, or changes in stool consistency or caliber. Denies coffee-ground emesis, hematemesis, hematochezia, or melanotic stools. GENITOURINARY: Denies frequency, urgency, nocturia, hematuria or incontinence (Storage/Irritative symptoms.) Low urinary stream, straining to void, urinary intermittency or hesitancy, splitting of the voiding stream, terminal dribbling. ENDOCRINOLOGIC: Denies polyuria, polydipsia, polyphagia or heat/cold intolerances. HEMATOLOGIC: Denies thrombophilia/previous clots, or coagulopathy/bleeding disorders. ONCOLOGIC: Denies personal history of malignancy. DERMATOLOGIC: Denies rashes or pruritus. PSYCHIATRIC: Denies any suicidal or homicidal ideation. Denies hallucinations. Musculoskeletal: positive for pain in the lower extremity, positive for lower back pain PHYSICAL EXAM GENERAL APPEARANCE: The patient is awake, alert, and oriented, in no acute cardiopulmonary distress. NEUROLOGICAL: Cranial nerves II-XII grossly intact. Motor is 5/5 in bilateral upper and lower extremities proximal to distal. No sensory deficits. HEENT: Face is symmetric. Pupils are equal and reactive. Extraocular movements are intact. Patient was unable to see from the left eye. Visual acuity on the right eye was 20/40, visual acuity in both eyes was 20 NECK: Supple. No JVD. No thyromegaly. No submental, submandibular, pre-/postauricular, occipital or supraclavicular lymphadenopathy. CHEST: Normal chest expansion. No Telemetry. LUNGS: Absence of any rales, rhonchi or any wheezing. CARDIOVASCULAR: Regular. S1 and S2 normal. No appreciable rubs, murmurs or gallops. ABDOMEN: Soft, mild tenderness in the l left lower quadrant, and nondistended. There is no rebound, voluntary guarding, or rigidity. : Deferred. No Crowe. EXTREMITIES: Non-edematous and not cyanotic. No clubbing. Good capillary refill. SKIN: No skin breakdown. Vital Signs (last 8hr) Date Time Temp Pulse Resp B/P (MAP) Pulse Ox O2 Delivery O2 Flow Rate FiO2 05/27/25 12:39 97.5 76 18 144/89 93 Room Air 05/27/25 12:24 97.5 76 18 144/89 93 Room Air LABS: Laboratory: Test 05/27/25 11:21 05/27/25 03:47 05/26/25 05:28 Range/Units Whole Blood Glucose 249 H 70-110 MG/DL White Blood Count 6.3 4.8-10.8 K/uL Red Blood Count 4.23 L 4.50-6.20 MIL/uL Hemoglobin 13.2 L 14.0-18.0 g/dL Hematocrit 38.2 L 42-54 % Mean Corpuscular Volume 90.3 79-99 fL Mean Corpuscular Hemoglobin 31.2 27.0-33.0 pg Mean Corpuscular Hemoglobin Concent 34.6 32.0-36.0 g/dL Red Cell Distribution Width 11.9 11.0-15.5 % Platelet Count 186 130-400 K/uL Mean Platelet Volume 11.3 H 7.5-10.5 fL Nucleated Red Blood Cells 0.0 0.0-0.19 % Phosphorus Level 4.2 2.5-4.9 mg/dL Magnesium Level 1.90 1.80-2.40 mg/dL Segmented Neutrophils % 59 40-70 % Lymphocytes % (Manual) 20 L 22-44 % Monocytes % (Manual) 13 H 2-9 % Eosinophils % (Manual) 7 H 1-6 % Basophils % (Manual) 1 0-2 % Differential Comment MANUAL DIFFERENTIAL White Cell Morphology Comment Platelet Morphology Comment See comments Red Blood Cell Morphology ANISO 1+ Sodium Level 136 136-145 mmol/L Potassium Level 3.7 3.5-5.1 mmol/L Chloride Level 102 101-111 mmol/L Carbon Dioxide Level 30 21-32 mmol/L Blood Urea Nitrogen 22 H 7-18 mg/dL Creatinine 1.3 0.5-1.3 mg/dL Glomerular Filtration Rate Calc 67 >90 mL/min Random Glucose 219 H 70-105 mg/dL Total Calcium 8.0 L 8.5-10.1 mg/dL Total Bilirubin 0.3 0.2-1.0 mg/dL Aspartate Amino Transf (AST/SGOT) 17 10-37 U/L Alanine Aminotransferase (ALT/SGPT) 24 12-78 U/L Alkaline Phosphatase 85 50-136 U/L Total Protein 6.1 6.0-8.3 g/dL Albumin 1.9 L 3.5-5.0 g/dL Current Medications Medications (Trade) Dose Ordered Sig/Darcie Route PRN Reason Start Time Stop Time Status Last Admin Dose Admin Acetaminophen/ Codeine Phosphate (TYLenol-coDEINE TAB) 1 tab Q6H PRN PO MODERATE PAIN (4-6) 05/26/25 13:00 06/25/25 12:59 05/27/25 09:12 1 TAB Amlodipine Besylate (NorvASC 5MG TAB) 5 mg DAILY PO 05/25/25 09:00 05/26/25 12:57 DC 05/26/25 09:10 5 MG Amlodipine Besylate (NorvASC 5MG TAB) 10 mg DAILY PO 05/27/25 09:00 06/26/25 08:59 05/27/25 09:11 10 MG Amoxicillin (Amoxicillin 500mg Cap) 500 mg TID PO 05/26/25 14:00 05/26/25 13:20 DC Aspirin (Aspirin 81mg Ec Tab) 81 mg DAILY PO 05/27/25 09:00 06/26/25 08:59 05/27/25 09:11 81 MG Atorvastatin Calcium (LIPItor 40MG) 40 mg HS PO 05/26/25 21:00 06/25/25 20:59 05/26/25 20:17 40 MG Clopidogrel Bisulfate (plaVIX 75MG) 75 mg DAILY PO 05/27/25 09:00 06/26/25 08:59 05/27/25 09:11 75 MG Enoxaparin Sodium (Lovenox) 30 mg DAILY SQ 05/25/25 09:00 06/24/25 08:59 05/27/25 09:13 30 MG Famotidine (Pepcid 20mg Vial) 20 mg Q24H IV 05/24/25 21:00 06/23/25 20:59 05/25/25 20:36 20 MG Furosemide (LASix 20MG TAB) 20 mg DAILY PO 05/28/25 09:00 06/27/25 08:59 Gabapentin (NEURontin 100 mg CAP) 100 mg TID PO 05/26/25 14:00 06/25/25 13:59 05/27/25 15:24 100 MG Hydralazine HCl (APRESOLine 20MG INJ) 5 mg Q6H PRN IV ADMINISTER FOR SBP > 160 05/26/25 13:00 06/25/25 12:59 05/27/25 00:14 5 MG Hydralazine HCl (APRESOLine 20MG INJ) 10 mg Q6H PRN IV ADMINISTER FOR SBP > 180 05/24/25 12:30 06/23/25 12:29 05/24/25 15:08 10 MG Hydromorphone HCl (DiLAUDid 0.5MG INJ) 0.5 mg Q6H PRN IVP SEVERE PAIN (7-10) 05/24/25 12:30 05/29/25 12:29 05/27/25 05:51 0.5 MG Insulin Glargine (LANtus 100 UNITS/ML 10 ML VIAL) 20 units DAILY SQ 05/25/25 09:00 05/25/25 19:40 DC 05/25/25 09:47 20 UNITS Insulin Glargine (LANtus 100 UNITS/ML 10 ML VIAL) 30 units DAILY SQ 05/26/25 09:00 06/25/25 08:59 05/27/25 09:19 30 UNITS Insulin Human Regular (humuLIN R 100 UNIT/ML 3ML) 5 unit TIDAC SQ 05/25/25 07:30 05/25/25 19:40 DC 05/25/25 16:50 5 UNIT Insulin Human Regular (humuLIN R 100 UNIT/ML 3ML) 8 unit TIDAC SQ 05/26/25 07:30 05/26/25 12:55 DC 05/26/25 12:36 8 UNIT Insulin Human Regular (humuLIN R 100 UNIT/ML 3ML) 12 unit TIDAC SQ 05/26/25 17:00 06/25/25 16:59 05/27/25 11:52 12 UNIT Insulin Human Regular (humuLIN R 100 UNIT/ML 3ML) INSULIN SLIDING SCAL... ACHS SQ 05/25/25 07:30 06/24/25 07:29 05/27/25 11:52 6 UNIT Insulin Human Regular (humuLIN R 100 UNIT/ML 3ML) INSULIN SLIDING SCAL... Q6H6 SQ 05/24/25 18:00 05/25/25 05:19 DC 05/25/25 00:07 7 UNIT Ondansetron HCl (zoFRAN 4MG INJ) 4 mg Q6H PRN IVP NAUSEA/VOMITING 05/24/25 12:30 06/23/25 12:29 Vitamin B Complex/ Vit C/Folic Acid (Nephrovite Tablet) 1 cap DAILY PO 05/25/25 09:00 06/24/25 08:59 05/27/25 09:11 1 CAP DIAGNOSTICS / RADIOLOGY: [Imaging: CT Head: No acute abnormality. CT Lumbar Spine: No acute abnormality. MRI Lumbar Spine: Mild multilevel spondylosis, disc desiccation at least at L5- S1, mild bulging indenting the anterior thecal sac at L5-S1. ] ASSESSMENT: 1. Symptomatic hyperglycemia, POA No DKA. Hyperglycemia is improving with insulin adjustments. 2. Uncontrolled diabetes mellitus type 2 HgbA1c 12.2%. Home regimen: glargine 30 units daily, insulin aspart 10 units before meals. Glucose >200 mg/dL. Endocrinology recommends further insulin titration. 3. Diabetic retinopathy Recently diagnosed, planning for eye injections. Bilateral blurred vision, left eye with profound vision loss. 4. Lower back pain with concern for radiculopathy MRI shows mild multilevel spondylosis, disc desiccation at L5-S1, mild bulging indenting the anterior thecal sac at L5-S1. 5. Proteinuria 6. Acute kidney injury or underlying chronic kidney disease Likely from diabetic nephropathy. 7. Bilateral lower extremity edema and numbness Multifactorial: consider diabetic neuropathy, mild nerve root impingement at L5-S1, and history of May- Thurner syndrome. 8. Hypertensive urgency 9. History of right great toe amputation, peripheral angiogram, and iliac stent placement 10. No known drug allergies PLAN 1. Symptomatic Hyperglycemia / Uncontrolled Diabetes Mellitus (A1c 12.2%) - Increase insulin glargine (Lantus) to 40 units SQ daily; titrate based on fasting glucose. - Regular insulin 12 units TID before meals; titrate for post-prandial glucose. - Medium-dose sliding scale insulin; monitor glucose every 6 hours. - Continue carb-consistent diet; goal glucose <180 mg/dL. - Educate patient on insulin regimen and signs/symptoms of hypo/hyperglycemia. 2. Diabetic Retinopathy / Bilateral Blurred Vision - No driving or heavy machinery due to visual impairment. - Outpatient ophthalmology follow-up for planned eye injections. - Reinforce need for strict glycemic control to slow retinopathy progression. 3. Lower Back Pain with Concern for Radiculopathy - Continue pain management as needed (acetaminophen/codeine, gabapentin). - MRI lumbar spine: mild multilevel spondylosis, mild thecal sac indentation at L5-S1. - Continue PT/OT; monitor for progression of neurological symptoms. 4. Proteinuria / Acute Kidney Injury or Underlying CKD (likely diabetic nephropathy) - Strict I&O, daily weights. - Avoid nephrotoxic agents; dose medications per renal function. - Monitor renal function and electrolytes; avoid contrast. - Nephrology consult as indicated. 5. Bilateral Lower Extremity Edema and Numbness - Continue DVT prophylaxis (enoxaparin). - Elevate legs, encourage mobility as tolerated. - Monitor for skin breakdown; specialty mattress as needed. - Assess for progression of neuropathy. 6. History of May-Thurner Syndrome - Continue DVT prophylaxis. - Monitor for signs of venous insufficiency or new DVT. 7. Hypertensive Urgency - Continue antihypertensive therapy (amlodipine, hydralazine PRN for SBP >160). - Monitor BP closely; adjust regimen as needed. 8. Other Supportive/Preventive Measures - Continue GI prophylaxis (famotidine). - Continue statin and antiplatelet therapy as indicated. - Monitor for infection: trend temp, WBC, procalcitonin; deescalate antibiotics as appropriate. - Pressure ulcer prevention; maintain skin integrity. - Educate patient and family on all aspects of care and discharge planning. Disposition: Anticipate discharge home in next 24 hours if stable. All questions addressed with patient and . ATTESTATION BY PHYSICIAN I have seen and examined the patient. I reviewed the documentation, medical decision making, and treatment plan as noted by the mid-level provider above. I agree with the findings and plan of care. CALISTA VICKERS MD, [facility] May 27, 2025 17:03
[2025-05-27] MEDS: TORSEMIDE 20 MG TAB PO SCH (18:29)
--- NOTE | 2025-05-27 20:49 | PN ---
Endocrinology progress note DOS:05/27/25 subjective: Home diabetic regimen: glargine 30 units daily and novolog 10 units qac before meals. Hba1c 12.2% reports that he was recently diagnosed with diabetic retinopathy and planning eye injections. glucose runs >160 mg/dl. PAST MEDICAL HISTORY: Hypertension, diabetes mellitus type two PAST SURGICAL HISTORY: History of right foot great toe amputation, history of peripheral angiogram, history of iliac stent placement PAST SOCIAL HISTORY: Denied any smoking, alcohol, drug use. 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 hyperglycemia is improving now and insulin adjusted. Home diabetic regimen: glargine 30 units daily and novolog 10 units qac before meals. Hba1c 12.2% reports that he was recently diagnosed with diabetic retinopathy and planning eye injections. glucose runs >200 mg/dl. 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 decrease Regular insulin to 10 units three times before meals due to hypoglycemia and adjust for post-prandial glucose. adjust ssi to medium dose sliding scale insulin. Monitor glucose q x 6 hourly. Continue carb consistent diet. Keep glucose less than 180 mg/dl. Vitals/Labs Vital Signs Date Time Temp Pulse Resp B/P (MAP) Pulse Ox O2 Delivery O2 Flow Rate FiO2 05/27/25 19:57 98.1 58 17 136/76 93 Room Air 05/27/25 08:03 0 21 Laboratory Tests 05/27/25 03:47 Medications Current Medications Insulin Human Regular 5 unit ONCE ONCE IV Last administered on 05/24/25at 11:17; Start 05/24/25 at 11:00; Stop 05/24/25 at 11:01; Status DC Sodium Chloride 1,000 ml @ 0 mls/hr ONCE ONCE IV Last administered on 05/24/25at 11:08; Start 05/24/25 at 11:00; Stop 05/24/25 at 11:01; Status DC Famotidine 20 mg Q24H IV Last administered on 05/25/25at 20:36; Start 05/24/25 at 21:00; Stop 06/23/25 at 20:59 Amlodipine Besylate 5 mg ONCE ONCE PO Last administered on 05/24/25at 13:50; Start 05/24/25 at 12:30; Stop 05/24/25 at 12:31; Status DC Amlodipine Besylate 5 mg DAILY PO Last administered on 05/26/25at 09:10; Start 05/25/25 at 09:00; Stop 05/26/25 at 12:57; Status DC Hydralazine HCl 10 mg Q6H PRN IV Last administered on 05/24/25at 15:08; Start 05/24/25 at 12:30; Stop 06/23/25 at 12:29 Insulin Human Regular INSULIN SLIDING SCAL... Q6H6 SQ Last administered on 05/25/25at 00:07; Start 05/24/25 at 18:00; Stop 05/25/25 at 05:19; Status DC Hydromorphone HCl 0.5 mg Q6H PRN IVP Last administered on 05/27/25at 05:51; Start 05/24/25 at 12:30; Stop 05/29/25 at 12:29 Ondansetron HCl 4 mg Q6H PRN IVP; Start 05/24/25 at 12:30; Stop 06/23/25 at 12:29 Sodium Chloride 1,000 ml @ 75 mls/hr [id number] ONCE IV; Start 05/24/25 at 13:00; Stop 05/24/25 at 12:41; Status DC Insulin Glargine 15 units ONCE ONCE SQ Last administered on 05/24/25at 13:52; Start 05/24/25 at 13:30; Stop 05/24/25 at 13:31; Status DC Vitamin B Complex/ Vit C/Folic Acid 1 cap DAILY PO Last administered on 05/27/25at 09:11; Start 05/25/25 at 09:00; Stop 06/24/25 at 08:59 Insulin Glargine 20 units DAILY SQ Last administered on 05/25/25at 09:47; Start 05/25/25 at 09:00; Stop 05/25/25 at 19:40; Status DC Insulin Human Regular 5 unit TIDAC SQ Last administered on 05/25/25at 16:50; Start 05/25/25 at 07:30; Stop 05/25/25 at 19:40; Status DC Insulin Human Regular INSULIN SLIDING SCAL... ACHS SQ Last administered on 05/27/25at 11:52; Start 05/25/25 at 07:30; Stop 06/24/25 at 07:29 Potassium Chloride 20 meq ONCE ONCE PO Last administered on 05/25/25at 06:37; Start 05/25/25 at 06:00; Stop 05/25/25 at 06:01; Status DC Enoxaparin Sodium 30 mg DAILY SQ Last administered on 05/27/25at 09:13; Start 05/25/25 at 09:00; Stop 06/24/25 at 08:59 Insulin Glargine 30 units DAILY SQ Last administered on 05/27/25at 09:19; Start 05/26/25 at 09:00; Stop 06/25/25 at 08:59 Insulin Human Regular 8 unit TIDAC SQ Last administered on 05/26/25at 12:36; Start 05/26/25 at 07:30; Stop 05/26/25 at 12:55; Status DC Insulin Human Regular 12 unit TIDAC SQ Last administered on 05/27/25at 11:52; Start 05/26/25 at 17:00; Stop 06/25/25 at 16:59 Acetaminophen/ Codeine Phosphate 1 tab Q6H PRN PO Last administered on 05/27/25at 09:12; Start 05/26/25 at 13:00; Stop 06/25/25 at 12:59 Amlodipine Besylate 10 mg DAILY PO Last administered on 05/27/25at 09:11; Start 05/27/25 at 09:00; Stop 06/26/25 at 08:59 Amoxicillin 500 mg TID PO; Start 05/26/25 at 14:00; Stop 05/26/25 at 13:20; Status DC Aspirin 81 mg DAILY PO Last administered on 05/27/25at 09:11; Start 05/27/25 at 09:00; Stop 06/26/25 at 08:59 Atorvastatin Calcium 40 mg HS PO Last administered on 05/26/25at 20:17; Start 05/26/25 at 21:00; Stop 06/25/25 at 20:59 Clopidogrel Bisulfate 75 mg DAILY PO Last administered on 05/27/25at 09:11; Start 05/27/25 at 09:00; Stop 06/26/25 at 08:59 Gabapentin 100 mg TID PO Last administered on 05/27/25at 15:24; Start 05/26/25 at 14:00; Stop 06/25/25 at 13:59 Hydralazine HCl 5 mg Q6H PRN IV Last administered on 05/27/25at 00:14; Start 05/26/25 at 13:00; Stop 06/25/25 at 12:59 Furosemide 20 mg DAILY PO; Start 05/28/25 at 09:00; Stop 05/27/25 at 17:57; Status DC Furosemide 20 mg ONCE ONCE PO; Start 05/27/25 at 16:30; Stop 05/27/25 at 16:31; Status DC Torsemide 20 mg DAILY PO Last administered on 05/27/25at 18:29; Start 05/27/25 at 18:00; Stop 06/26/25 at 17:59 ANITRA CARTER MD May 27, 2025 20:49
[2025-05-28] VITALS (8 sets, daily range): BP systolic 131–169; BP diastolic 67–96; PULSE 70–81; RESP 18–20; TEMP 97.6–98.5; O2SAT 95
[2025-05-28 04:47] LABS: IMMATURE GRANULOCYTE ABSOLUTE 0.01 K/uL (0-1); NUCLEATED RED BLOOD CELLS 0.0 % (0.0-0.19); PLATELET COUNT (AUTO) 164 K/uL (130-400); RED BLOOD CELL COUNT(AUTO) 3.89 MIL/uL (4.50-6.20); RED CELL DISTRIBUTION WIDTH 11.7 % (11.0-15.5); WHITE BLOOD COUNT (AUTO) 4.9 K/uL (4.8-10.8)
[2025-05-28 04:56] LABS: ASPARTATE AMINOTRANSFERASE 16.0 U/L (10-37); CREATININE 1.6 mg/dL (0.5-1.3); GLOMERULAR FILTR. RATE CALC 52.0 mL/min (>90); GLUCOSE,RANDOM 265.0 mg/dL (70-105); PHOSPHORUS 4.0 mg/dL (2.5-4.9); SODIUM SERUM 137.0 mmol/L (136-145); TOTAL PROTEIN, SERUM 6.0 g/dL (6.0-8.3); UREA NITROGEN, BLOOD 19.0 mg/dL (7-18)
--- NOTE | 2025-05-28 09:34 | PN ---
[facility] PROGRESS NOTE Date of Service: May 28, 2025 Time of Service: 09:28 SUBJECTIVE: Patient was evaluated today at bedside with his present. He continues to report inability to see from the left eye and blurred vision in the right eye, which has been ongoing for several weeks. He states he was recently diagnosed with diabetic retinopathy and is planning to start eye injections. He reports his home glucose readings have been consistently >200 mg/dL. He describes persistent bilateral lower extremity edema and numbness in both legs, and continues to feel very weak. He denies chest pain, shortness of breath, or abdominal discomfort, but does complain of mild headache. He is aware of his recent admission for symptomatic hyperglycemia and understands that his diabetes remains uncontrolled (recent hemoglobin A1c 12.2%). He acknowledges his history of hypertension, May-Thurner syndrome, proteinuria, and recent findings of acute kidney injury or possible underlying chronic kidney disease, likely secondary to diabetic nephropathy. He is aware of his prior right great toe amputation, peripheral angiogram, and iliac stent placement. He denies any smoking, alcohol, or drug use. 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 He understands the importance of not driving or operating heavy machinery due to his visual impairment and agrees to follow up with ophthalmology after discharge. All questions were addressed with both patient and at bedside. 05/28/2025: Over the past 24 hours no major events reported. Patient continues to experience some blurred vision to bilateral eyes. Continues to complain of BLE edema, initiated on p.o. torsemide. He is being followed closely by Nephrology and Endocrinology. Morning labs reviewed, serum creatinine 1.6, glucometers ranging 206-256. REVIEW OF SYSTEMS CONSTITUTIONAL: Denies fevers, chills, or night sweats. No unintentional weight loss reported. NEUROLOGICAL: Denies headache, amaurosis fugax, motor weakness, sensory deficit, vertigo/spinning sensation, or tremors. Positive for gait abnormality ENT: No hearing loss, otalgia, otorrhea, rhinitis, rhinorrhea, hoarseness, or sore throat. CARDIOVASCULAR: Denies any exertional angina, dyspnea on exertion, orthopnea, paroxysmal nocturnal dyspnea, palpitations, life-threatening arrhythmias, claudication. PULMONARY: Denies any shortness of breath, cough, phlegm/sputum, hemoptysis, pleuritic chest pain. GASTROINTESTINAL: Denies any type of dysphagia to either liquids or solids. Denies nausea, vomiting, pyrosis, early satiety, abdominal pain, diarrhea, constipation, or changes in stool consistency or caliber. Denies coffee-ground emesis, hematemesis, hematochezia, or melanotic stools. GENITOURINARY: Denies frequency, urgency, nocturia, hematuria or incontinence (Storage/Irritative symptoms.) Low urinary stream, straining to void, urinary intermittency or hesitancy, splitting of the voiding stream, terminal dribbling. ENDOCRINOLOGIC: Denies polyuria, polydipsia, polyphagia or heat/cold intolerances. HEMATOLOGIC: Denies thrombophilia/previous clots, or coagulopathy/bleeding disorders. ONCOLOGIC: Denies personal history of malignancy. DERMATOLOGIC: Denies rashes or pruritus. PSYCHIATRIC: Denies any suicidal or homicidal ideation. Denies hallucinations. Musculoskeletal: positive for pain in the lower extremity, positive for lower back pain PHYSICAL EXAM GENERAL APPEARANCE: The patient is awake, alert, and oriented, in no acute cardiopulmonary distress. NEUROLOGICAL: Cranial nerves II-XII grossly intact. Motor is 5/5 in bilateral upper and lower extremities proximal to distal. No sensory deficits. HEENT: Face is symmetric. Pupils are equal and reactive. Extraocular movements are intact. Patient was unable to see from the left eye. Visual acuity on the right eye was 20/40, visual acuity in both eyes was 20 NECK: Supple. No JVD. No thyromegaly. No submental, submandibular, pre- /postauricular, occipital or supraclavicular lymphadenopathy. CHEST: Normal chest expansion. No Telemetry. LUNGS: Absence of any rales, rhonchi or any wheezing. CARDIOVASCULAR: Regular. S1 and S2 normal. No appreciable rubs, murmurs or gallops. ABDOMEN: Soft, mild tenderness in the l left lower quadrant, and nondistended. There is no rebound, voluntary guarding, or rigidity. : Deferred. No Crowe. EXTREMITIES: Non-edematous and not cyanotic. No clubbing. Good capillary refill. SKIN: No skin breakdown. Vital Signs (last 8hr) Date Time Temp Pulse Resp B/P (MAP) Pulse Ox O2 Delivery O2 Flow Rate FiO2 05/28/25 07:52 97.5 74 18 131/78 92 Room Air 05/28/25 04:24 97.9 70 18 164/93 97 Room Air LABS: Laboratory: Test 05/28/25 06:44 05/28/25 04:28 05/27/25 03:47 Range/Units Whole Blood Glucose 206 H 70-110 MG/DL Bedside Glucose Comment Notified Nurse White Blood Count 4.9 4.8-10.8 K/uL Red Blood Count 3.89 L 4.50-6.20 MIL/uL Hemoglobin 12.3 L 14.0-18.0 g/dL Hematocrit 36.1 L 42-54 % Mean Corpuscular Volume 92.8 79-99 fL Mean Corpuscular Hemoglobin 31.6 27.0-33.0 pg Mean Corpuscular Hemoglobin Concent 34.1 32.0-36.0 g/dL Red Cell Distribution Width 11.7 11.0-15.5 % Platelet Count 164 130-400 K/uL Mean Platelet Volume 11.3 H 7.5-10.5 fL Immature Granulocyte % (Auto) 0.2 0-1 % Neutrophils (%) (Auto) 54.9 40.0-77.0 % Lymphocytes (%) (Auto) 26.1 21.0-51.0 % Monocytes (%) (Auto) 13.1 H 3.0-13.0 % Eosinophils (%) (Auto) 4.9 0.0-8.0 % Basophils (%) (Auto) 0.8 0.0-5.0 % Neutrophils # (Auto) 2.7 1.8-7.7 K/uL Lymphocytes # (Auto) 1.3 1.0-4.8 K/uL Monocytes # (Auto) 0.6 0.1-1.0 K/uL Eosinophils # (Auto) 0.24 0.00-0.70 K/uL Basophils # (Auto) 0.04 0.00-0.20 K/uL Absolute Immature Granulocyte (auto 0.01 0-1 K/uL Nucleated Red Blood Cells 0.0 0.0-0.19 % Sodium Level 137 136-145 mmol/L Potassium Level 3.9 3.5-5.1 mmol/L Chloride Level 102 101-111 mmol/L Carbon Dioxide Level 31 21-32 mmol/L Blood Urea Nitrogen 19 H 7-18 mg/dL Creatinine 1.6 H 0.5-1.3 mg/dL Glomerular Filtration Rate Calc 52 >90 mL/min Random Glucose 265 H 70-105 mg/dL Total Calcium 8.0 L 8.5-10.1 mg/dL Phosphorus Level 4.0 2.5-4.9 mg/dL Total Bilirubin 0.2 0.2-1.0 mg/dL Aspartate Amino Transf (AST/SGOT) 16 10-37 U/L Alanine Aminotransferase (ALT/SGPT) 19 12-78 U/L Alkaline Phosphatase 86 50-136 U/L Total Protein 6.0 6.0-8.3 g/dL Albumin 1.8 L 3.5-5.0 g/dL Magnesium Level 1.90 1.80-2.40 mg/dL Current Medications Medications (Trade) Dose Ordered Sig/Darcie Route PRN Reason Start Time Stop Time Status Last Admin Dose Admin Acetaminophen/ Codeine Phosphate (TYLenol-coDEINE TAB) 1 tab Q6H PRN PO MODERATE PAIN (4-6) 05/26/25 13:00 06/25/25 12:59 05/27/25 09:12 1 TAB Amlodipine Besylate (NorvASC 5MG TAB) 5 mg DAILY PO 05/25/25 09:00 05/26/25 12:57 DC 05/26/25 09:10 5 MG Amlodipine Besylate (NorvASC 5MG TAB) 10 mg DAILY PO 05/27/25 09:00 06/26/25 08:59 05/28/25 08:09 10 MG Amoxicillin (Amoxicillin 500mg Cap) 500 mg TID PO 05/26/25 14:00 05/26/25 13:20 DC Aspirin (Aspirin 81mg Ec Tab) 81 mg DAILY PO 05/27/25 09:00 06/26/25 08:59 05/28/25 08:09 81 MG Atorvastatin Calcium (LIPItor 40MG) 40 mg HS PO 05/26/25 21:00 06/25/25 20:59 05/27/25 20:42 40 MG Clopidogrel Bisulfate (plaVIX 75MG) 75 mg DAILY PO 05/27/25 09:00 06/26/25 08:59 05/28/25 08:10 75 MG Enoxaparin Sodium (Lovenox) 30 mg DAILY SQ 05/25/25 09:00 06/24/25 08:59 05/28/25 08:21 30 MG Famotidine (Pepcid 20mg Vial) 20 mg Q24H IV 05/24/25 21:00 06/23/25 20:59 05/27/25 20:42 20 MG Furosemide (LASix 20MG TAB) 20 mg DAILY PO 05/28/25 09:00 05/27/25 17:57 DC Gabapentin (NEURontin 100 mg CAP) 100 mg TID PO 05/26/25 14:00 06/25/25 13:59 05/28/25 08:12 100 MG Hydralazine HCl (APRESOLine 20MG INJ) 5 mg Q6H PRN IV ADMINISTER FOR SBP > 160 05/26/25 13:00 06/25/25 12:59 05/27/25 00:14 5 MG Hydralazine HCl (APRESOLine 20MG INJ) 10 mg Q6H PRN IV ADMINISTER FOR SBP > 180 05/24/25 12:30 06/23/25 12:29 05/24/25 15:08 10 MG Hydromorphone HCl (DiLAUDid 0.5MG INJ) 0.5 mg Q6H PRN IVP SEVERE PAIN (7-10) 05/24/25 12:30 05/29/25 12:29 05/28/25 03:28 0.5 MG Insulin Glargine (LANtus 100 UNITS/ML 10 ML VIAL) 20 units DAILY SQ 05/25/25 09:00 05/25/25 19:40 DC 05/25/25 09:47 20 UNITS Insulin Glargine (LANtus 100 UNITS/ML 10 ML VIAL) 30 units DAILY SQ 05/26/25 09:00 05/28/25 07:17 DC 05/27/25 09:19 30 UNITS Insulin Glargine (LANtus 100 UNITS/ML 10 ML VIAL) 35 units DAILY SQ 05/28/25 09:00 06/27/25 08:59 05/28/25 08:09 35 UNITS Insulin Human Regular (humuLIN R 100 UNIT/ML 3ML) 5 unit TIDAC SQ 05/25/25 07:30 05/25/25 19:40 DC 05/25/25 16:50 5 UNIT Insulin Human Regular (humuLIN R 100 UNIT/ML 3ML) 8 unit TIDAC SQ 05/26/25 07:30 05/26/25 12:55 DC 05/26/25 12:36 8 UNIT Insulin Human Regular (humuLIN R 100 UNIT/ML 3ML) 10 unit TIDAC SQ 05/28/25 07:30 06/27/25 07:29 05/28/25 08:08 10 UNIT Insulin Human Regular (humuLIN R 100 UNIT/ML 3ML) 12 unit TIDAC SQ 05/26/25 17:00 05/27/25 20:50 DC 05/27/25 11:52 12 UNIT Insulin Human Regular (humuLIN R 100 UNIT/ML 3ML) INSULIN SLIDING SCAL... ACHS SQ 05/25/25 07:30 06/24/25 07:29 05/28/25 06:52 4 UNIT Insulin Human Regular (humuLIN R 100 UNIT/ML 3ML) INSULIN SLIDING SCAL... Q6H6 SQ 05/24/25 18:00 05/25/25 05:19 DC 05/25/25 00:07 7 UNIT Ondansetron HCl (zoFRAN 4MG INJ) 4 mg Q6H PRN IVP NAUSEA/VOMITING 05/24/25 12:30 06/23/25 12:29 Torsemide (Demadex) 20 mg DAILY PO 05/27/25 18:00 06/26/25 17:59 05/28/25 08:09 20 MG Vitamin B Complex/ Vit C/Folic Acid (Nephrovite Tablet) 1 cap DAILY PO 05/25/25 09:00 06/24/25 08:59 05/28/25 08:09 1 CAP DIAGNOSTICS / RADIOLOGY: [ ] ASSESSMENT: 1. Symptomatic hyperglycemia, POA No DKA. Hyperglycemia is improving with insulin adjustments. 2. Uncontrolled diabetes mellitus type 2 HgbA1c 12.2%. Home regimen: glargine 30 units daily, insulin aspart 10 units before meals. Glucose >200 mg/dL. Endocrinology recommends further insulin titration. 3. Diabetic retinopathy Recently diagnosed, planning for eye injections. Bilateral blurred vision, left eye with profound vision loss. 4. Lower back pain with concern for radiculopathy MRI shows mild multilevel spondylosis, disc desiccation at L5-S1, mild bulging indenting the anterior thecal sac at L5-S1. 5. Proteinuria 6. Acute kidney injury or underlying chronic kidney disease Likely from diabet ic nephropathy. 7. Bilateral lower extremity edema and numbness Multifactorial: consider diabetic neuropathy, mild nerve root impingement at L5-S1, and history of May- Thurner syndrome. 8. Hypertensive urgency 9. History of right great toe amputation, peripheral angiogram, and iliac stent placement 10. No known drug allergies PLAN 1. Symptomatic Hyperglycemia / Uncontrolled Diabetes Mellitus (A1c 12.2%) - continue Lantus 35 units SQ daily; titrate based on fasting glucose. - Regular insulin 10 units TID before meals; titrate for post-prandial glucose. - Medium-dose sliding scale insulin; monitor glucose every 6 hours. - Continue carb-consistent diet; goal glucose <180 mg/dL. - Educate patient on insulin regimen and signs/symptoms of hypo/hyperglycemia. - consultation with Endocrinology obtained, follow up with recommendations 2. Diabetic Retinopathy / Bilateral Blurred Vision - No driving or heavy machinery due to visual impairment. - Outpatient ophthalmology follow-up for planned eye injections. - Reinforce need for strict glycemic control to slow retinopathy progression. 3. Lower Back Pain with Concern for Radiculopathy - Continue pain management as needed (acetaminophen/codeine, gabapentin). - MRI lumbar spine: mild multilevel spondylosis, mild thecal sac indentation at L5-S1. - Continue PT/OT; monitor for progression of neurological symptoms. 4. Proteinuria / Acute Kidney Injury or Underlying CKD (likely diabetic nephropathy) - Strict I&O, daily weights. - Avoid nephrotoxic agents; dose medications per renal function. - Monitor renal function and electrolytes; avoid contrast. - Nephrology consult as indicated. 5. Bilateral Lower Extremity Edema and Numbness - continue p.o. torsemide - Continue DVT prophylaxis (enoxaparin). - Elevate legs, encourage mobility as tolerated. - Monitor for skin breakdown; specialty mattress as needed. - Assess for progression of neuropathy. 6. History of May-Thurner Syndrome - Continue DVT prophylaxis. - Monitor for signs of venous insufficiency or new DVT. 7. Hypertensive Urgency - Continue antihypertensive therapy (amlodipine, hydralazine PRN for SBP >160). - Monitor BP closely; adjust regimen as needed. 8. Other Supportive/Preventive Measures - Continue GI prophylaxis (famotidine). - Continue statin and antiplatelet therapy as indicated. - Monitor for infection: trend temp, WBC, procalcitonin; deescalate antibiotics as appropriate. - Pressure ulcer prevention; maintain skin integrity. - Educate patient and family on all aspects of care and discharge planning. LENNY BRINK PAC May 28, 2025 09:34
--- NOTE | 2025-05-28 14:47 | PN ---
NEPHROLOGY PROGRESS NOTE Date/Time Patient Seen: May 28, 2025 SUBJECTIVE: This is a 49-year-old male with past medical history of hypertension, diabetes mellitus type 2 presented to hospital secondary to blurry vision He is found to have severe hypertension. He does not take his medicine. He has been on insulin also. The patient has unsteadiness also. The patient is generally weak. He has been found to have low sodium as well as multiple other comorbidities including blurry vision. We has been consulted for renal failure Renal function and electrolytes are stable. Continues torsemide 20 mg PO daily UPCR noted He continues to be followed by endocrinology Imaging studies were noted He was seen in the medical floor, in no acute distress REVIEW OF SYSTEMS: GENERAL: Negative for any nausea, vomiting, fevers, chills, or weight loss. NEUROLOGIC: Negative for any blurry vision, blind spots, double vision, facial asymmetry, dysphagia, dysarthria, hemiparesis, hemisensory deficits, vertigo, ataxia. HEENT: Negative for any head trauma, neck trauma, neck stiffness, photophobia, phonophobia, sinusitis, rhinitis. CARDIAC: Negative for any chest pain, dyspnea on exertion, paroxysmal nocturnal dyspnea, peripheral edema. PULMONARY: Negative for any shortness of breath, wheezing, COPD, or TB exposure. GASTROINTESTINAL: Negative for any abdominal pain, nausea, vomiting, bright red blood per rectum, melena. GENITOURINARY: Negative for any dysuria, hematuria, incontinence. INTEGUMENTARY: Negative for any rashes, cuts, insect bites. RHEUMATOLOGIC: Negative for any joint pains, photosensitive rashes, history of vasculitis or kidney problems. HEMATOLOGIC: Negative for any abnormal bruising, frequent infections or bleeding. Vital Signs (last 8hr) Date Time Temp Pulse Resp B/P (MAP) Pulse Ox O2 Delivery O2 Flow Rate FiO2 05/28/25 12:17 98.1 80 18 138/67 100 Room Air 05/28/25 07:52 97.5 74 18 131/78 92 Room Air 05/28/25 07:10 95 Room Air* 0 21 PHYSICAL EXAM: GENERAL: Alert and oriented x 3. No acute distress. Well-nourished. EYES: EOMI. Anicteric. HENT: Moist mucous membranes. No scleral icterus. No cervical lymphadenopathy. LUNGS: Clear to auscultation bilaterally. No accessory muscle use. CARDIOVASCULAR: Regular rate and rhythm. No murmur. No JVD. ABDOMEN: Soft, non-tender and non-distended. No palpable masses. EXTREMITIES: No edema. Non-tender. SKIN: No rashes or lesions. Warm. NEUROLOGIC: No focal neurological deficits. CN II-XII grossly intact, but not individually tested. PSYCHIATRIC: Cooperative. Appropriate mood and affect. Current Medications Medications (Trade) Dose Ordered Sig/Darcie Route Start Time Stop Time Status Last Admin Dose Admin Amlodipine Besylate (NorvASC 5MG TAB) 5 mg DAILY PO 05/25/25 09:00 05/26/25 12:57 DC 05/26/25 09:10 5 MG Amlodipine Besylate (NorvASC 5MG TAB) 10 mg DAILY PO 05/27/25 09:00 06/26/25 08:59 05/28/25 08:09 10 MG Amoxicillin (Amoxicillin 500mg Cap) 500 mg TID PO 05/26/25 14:00 05/26/25 13:20 DC Aspirin (Aspirin 81mg Ec Tab) 81 mg DAILY PO 05/27/25 09:00 06/26/25 08:59 05/28/25 08:09 81 MG Atorvastatin Calcium (LIPItor 40MG) 40 mg HS PO 05/26/25 21:00 06/25/25 20:59 05/27/25 20:42 40 MG Clopidogrel Bisulfate (plaVIX 75MG) 75 mg DAILY PO 05/27/25 09:00 06/26/25 08:59 05/28/25 08:10 75 MG Enoxaparin Sodium (Lovenox) 30 mg DAILY SQ 05/25/25 09:00 06/24/25 08:59 05/28/25 08:21 30 MG Famotidine (Pepcid 20mg Vial) 20 mg Q24H IV 05/24/25 21:00 06/23/25 20:59 05/27/25 20:42 20 MG Furosemide (LASix 20MG TAB) 20 mg DAILY PO 05/28/25 09:00 05/27/25 17:57 DC Gabapentin (NEURontin 100 mg CAP) 100 mg TID PO 05/26/25 14:00 06/25/25 13:59 05/28/25 13:18 100 MG Insulin Glargine (LANtus 100 UNITS/ML 10 ML VIAL) 20 units DAILY SQ 05/25/25 09:00 05/25/25 19:40 DC 05/25/25 09:47 20 UNITS Insulin Glargine (LANtus 100 UNITS/ML 10 ML VIAL) 30 units DAILY SQ 05/26/25 09:00 05/28/25 07:17 DC 05/27/25 09:19 30 UNITS Insulin Glargine (LANtus 100 UNITS/ML 10 ML VIAL) 35 units DAILY SQ 05/28/25 09:00 06/27/25 08:59 05/28/25 08:09 35 UNITS Insulin Human Regular (humuLIN R 100 UNIT/ML 3ML) 5 unit TIDAC SQ 05/25/25 07:30 05/25/25 19:40 DC 05/25/25 16:50 5 UNIT Insulin Human Regular (humuLIN R 100 UNIT/ML 3ML) 8 unit TIDAC SQ 05/26/25 07:30 05/26/25 12:55 DC 05/26/25 12:36 8 UNIT Insulin Human Regular (humuLIN R 100 UNIT/ML 3ML) 10 unit TIDAC SQ 05/28/25 07:30 06/27/25 07:29 05/28/25 08:08 10 UNIT Insulin Human Regular (humuLIN R 100 UNIT/ML 3ML) 12 unit TIDAC SQ 05/26/25 17:00 05/27/25 20:50 DC 05/27/25 11:52 12 UNIT Insulin Human Regular (humuLIN R 100 UNIT/ML 3ML) INSULIN SLIDING SCAL... ACHS SQ 05/25/25 07:30 06/24/25 07:29 05/28/25 06:52 4 UNIT Insulin Human Regular (humuLIN R 100 UNIT/ML 3ML) INSULIN SLIDING SCAL... Q6H6 SQ 05/24/25 18:00 05/25/25 05:19 DC 05/25/25 00:07 7 UNIT Torsemide (Demadex) 20 mg DAILY PO 05/27/25 18:00 06/26/25 17:59 05/28/25 08:09 20 MG Vitamin B Complex/ Vit C/Folic Acid (Nephrovite Tablet) 1 cap DAILY PO 05/25/25 09:00 06/24/25 08:59 05/28/25 08:09 1 CAP LABORATORY: [ ] Hematology Labs: Test 05/28/25 04:28 Range/Units White Blood Count 4.9 4.8-10.8 K/uL Red Blood Count 3.89 L 4.50-6.20 MIL/uL Hemoglobin 12.3 L 14.0-18.0 g/dL Hematocrit 36.1 L 42-54 % Mean Corpuscular Volume 92.8 79-99 fL Mean Corpuscular Hemoglobin 31.6 27.0-33.0 pg Mean Corpuscular Hemoglobin Concent 34.1 32.0-36.0 g/dL Red Cell Distribution Width 11.7 11.0-15.5 % Platelet Count 164 130-400 K/uL Mean Platelet Volume 11.3 H 7.5-10.5 fL Immature Granulocyte % (Auto) 0.2 0-1 % Neutrophils (%) (Auto) 54.9 40.0-77.0 % Lymphocytes (%) (Auto) 26.1 21.0-51.0 % Monocytes (%) (Auto) 13.1 H 3.0-13.0 % Eosinophils (%) (Auto) 4.9 0.0-8.0 % Basophils (%) (Auto) 0.8 0.0-5.0 % Neutrophils # (Auto) 2.7 1.8-7.7 K/uL Lymphocytes # (Auto) 1.3 1.0-4.8 K/uL Monocytes # (Auto) 0.6 0.1-1.0 K/uL Eosinophils # (Auto) 0.24 0.00-0.70 K/uL Basophils # (Auto) 0.04 0.00-0.20 K/uL Absolute Immature Granulocyte (auto 0.01 0-1 K/uL Nucleated Red Blood Cells 0.0 0.0-0.19 % Chemistry Labs: Test 05/28/25 11:08 05/28/25 06:44 05/28/25 04:28 05/27/25 03:47 Range/Units Whole Blood Glucose 114 H 70-110 MG/DL Bedside Glucose Comment Notified Nurse Sodium Level 137 136-145 mmol/L Potassium Level 3.9 3.5-5.1 mmol/L Chloride Level 102 101-111 mmol/L Carbon Dioxide Level 31 21-32 mmol/L Blood Urea Nitrogen 19 H 7-18 mg/dL Creatinine 1.6 H 0.5-1.3 mg/dL Glomerular Filtration Rate Calc 52 >90 mL/min Random Glucose 265 H 70-105 mg/dL Total Calcium 8.0 L 8.5-10.1 mg/dL Phosphorus Level 4.0 2.5-4.9 mg/dL Total Bilirubin 0.2 0.2-1.0 mg/dL Aspartate Amino Transf (AST/SGOT) 16 10-37 U/L Alanine Aminotransferase (ALT/SGPT) 19 12-78 U/L Alkaline Phosphatase 86 50-136 U/L Total Protein 6.0 6.0-8.3 g/dL Albumin 1.8 L 3.5-5.0 g/dL Magnesium Level 1.90 1.80-2.40 mg/dL DIAGNOSTICS / RADIOLOGY: [address] [address] IMAGING REPORT Signed PATIENT: QASIM GOMEZ MR#: [id number] : 1975 SEX: M AGE: 49 LOCATION: LOCATED WITHIN [facility] ORDER 1217 STATUS: [facility] REPORT#: [id number] SERVICE 1210 REASON: Asssess for lumbar stenosis ORDERING PHYSICIAN: KILO MAHAN MD PROCEDURE: L SPN WO - MR SPINAL CANAL, LUMBAR WO CON EXAM: MR Lumbar Spine Without Intravenous Contrast. CLINICAL HISTORY: Assess for lumbar stenosis. TECHNIQUE: Magnetic resonance images of the lumbar spine in multiple planes. CONTRAST: None. COMPARISON: Radiograph dated 05/24/25. FINDINGS: For this examination, spinal levels were labeled assuming five non-rib bearing, lumbar-type vertebrae with the inferior labeled L5. No acute fracture. Normal lordotic curvature. Mild multilevel spondylosis is evident by small marginal osteophytes. Disc desiccation at the L5-S1 level. Normal vertebral body and disc heights. Normal marrow signal of the vertebrae. Conus medullaris terminates at the T12 level. No abnormal epidural masses. Small, simple cortical cyst in the lower pole of left kidney. Mild subcutaneous edema in the lower back. Individual spinal levels are described as follows: T12-L1: No disc bulge or herniation. No neural foraminal, lateral recess or spinal canal stenosis. L1-L2: No disc bulge or herniation. No neural foraminal, lateral recess or spinal canal stenosis. L2-L3: No disc bulge or herniation. No neural foraminal, lateral recess or spinal canal stenosis. L3-L4: No disc bulge or herniation. No neural foraminal, lateral recess or spinal canal stenosis. L4-L5: No disc bulge or herniation. No neural foraminal, lateral recess or spinal canal stenosis. L5-S1: 4 mm disc osteophyte complex bulge causing mild indentation on the anterior thecal sac. No neural foraminal or lateral recess stenosis. IMPRESSION: Mild multilevel spondylosis. Disc desiccation at the L5-S1 level. Mild indentation on the anterior thecal sac at the L5-S1 level. /[place] DICTATED BY: JERICHO DICKERSON Jr., MD DATE: 05/26/25632 ELECTRONICALLY SIGNED BY: JERICHO DICKERSON Jr., MD DATE: 05/26/25632 PATIENT: QASIM GOMEZ MR#: [id number] : 1975 SEX: M AGE: 49 LOCATION: [facility] ORDER 16 STATUS: [facility] REPORT#: [id number] SERVICE 0000 REASON: assess for CHF ORDERING PHYSICIAN: KILO MAHAN MD PROCEDURE: ECHO CMP - ECHO 2-D COMPLETE APPROVED REPORT EXAM: Two-dimensional and M-mode echocardiogram with Doppler and color Doppler. INDICATION ICD: Assess for congestive heart failure 2D Dimensions RVDd 3.9 cm LVEF(%) 40.6 (>50%) LVED Vol(simp.) 113.0 mL IVSd 1.6 (0.7-1.1cm) FS(%) 20 % LVES Vol(simp.) 53.0 mL LVDd 4.9 (3.8-5.6cm) LA (2D) 4.6 (1.6-4.0cm) LVEF(%, simp.) 53 % PWd 1.2 (0.7-1.1cm) Ao Root(2D) 3.2 (2.0-3.7cm) LA ESV INDEX (BP) 30.26 mL/m2 IVSs 1.5 cm LVOT diam 2.4 (1.8-2.4cm) LVDs 3.9 (2.5-4.0cm) IVC diam 2.2 cm PWs 2.0 cm Deformation Strain Apical 4 -18.2 % Apical 2 -18.1 % Apical 3 -17.1 % Global Strain -17.8 % M-Mode Dimensions EPSS 1.1 cm LA (MM) 5.3 (1.6-4.0cm) Ao Root(MM) 3.8 (2.0-3.7cm) Aortic Valve AoV Vmax 1.1 m/s Ao Peak GR 5.2 mmHg LVOT Vmax 1.0 m/s AoV VTI 0.2 m Ao Mean GR 3.0 mmHg LVOT VTI 0.17 m JOSHUA (VMAX) 4.06 cm2 JOSHUA (VTI) 3.6 cm2 Mitral Valve MV E Vmax 64.9 cm/s DECEL Time 230 ms MV A Vmax 110.6 cm/s P 1/2 T 56 ms E/A ratio 0.6 MVA (PHT) 3.9 cm2 TDI E/E' Medial 12.8 E/E' Lateral 16.9 Medial E' Peak V 5.09 cm/s Lateral E' Peak V 3.85 cm/s Pulmonary Valve PV Vmax 1.4 m/s PV Mean GR 4.4 mmHg PV Peak GR 7.7 mmHg Tricuspid Valve TR Vmax 1.0 m/s RAP (EST) 3 mmHg RVSP 6.9 mmHg TR Peak GR 3.9 mmHg Left Ventricle The left ventricle is normal size. No regional wall motion abnormalities noted. Mild concentric left ventricular hypertrophy. Left ventricle systolic function is low normal, estimated LVEF is 50 to 55%. Stage I diastolic dysfunction. Right Ventricle The right ventricle is normal size. The right ventricular systolic function is normal. Atria The left atrium size is normal. The right atrium size is normal. Aortic Valve Aortic valve is trileaflet. The leaflets are mildly thickened and calcified. No aortic regurgitation is present. There is no aortic valvular stenosis. Mitral Valve Mild mitral annular calcification is noted. The leaflets are mildly thickened and calcified. Trace mitral regurgitation. There is no mitral valve stenosis. Tricuspid Valve The tricuspid valve is normal in structure. Trace tricuspid regurgitation. RVSP is normal. Pulmonic Valve Pulmonic valve is not well visualized. Great Vessels The aortic root is normal in size. The IVC is normal in size and collapses >50% with inspiration. Pericardium There is no pericardial effusion. Other Information Quality : Adequate Conclusion Mild concentric left ventricular hypertrophy. No regional wall motion abnormalities noted. Left ventricle systolic function is low normal, estimated LVEF is 50 to 55%. Stage I diastolic dysfunction. Trace mitral regurgitation. Trace tricuspid regurgitation. PASP is normal. There is no pericardial effusion. DICTATED BY: HUMBERTO CABALLERO MD DATE: 05/25/25912 ELECTRONICALLY SIGNED BY: HUMBERTO CABALLERO MD DATE: 05/25/252303 PATIENT: QASIM GOMEZ MR#: [id number] : 1975 SEX: M AGE: 49 LOCATION: [facility] ORDER 1217 STATUS: [facility] REPORT#: [id number] SERVICE 1210 REASON: assess for DVT ORDERING PHYSICIAN: KILO MAHAN MD PROCEDURE: VENOUS MARIAJOSE - US VENOUS DOPPLER BILATERAL EXAM: US for Deep Venous Thrombosis, bilateral Lower Extremity. CLINICAL HISTORY: Leg Pain and Swelling TECHNIQUE: Real-time ultrasound scan of the veins of the bilateral lower extremity with color Doppler flow, spectral waveform analysis and compression. COMPARISON: None provided. FINDINGS: DEEP VEINS: The common femoral, superficial femoral, and popliteal veins are echolucent and compressible. There is normal color Doppler flow throughout. The visualized calf veins appear patent. SOFT TISSUES: No popliteal fossa cyst or other abnormalities. IMPRESSION: 1. No evidence of deep venous thrombosis in the bilateral lower extremities. /[place] DICTATED BY: JERICHO DICKERSON Jr., MD DATE: 05/24/251619 ELECTRONICALLY SIGNED BY: JERICHO DICKERSON Jr., MD DATE: 05/24/251619 PATIENT: QASIM GOMEZ MR#: [id number] : 1975 SEX: M AGE: 49 LOCATION: [facility] ORDER 16 STATUS: [facility] REPORT#: [id number] SERVICE 1210 REASON: Assess for carotid stenosis ORDERING PHYSICIAN: KILO MAHAN MD PROCEDURE: CAROTID - US CAROTID DUPLEX EXAM: US Duplex Bilateral Carotid and Vertebral Arteries. CLINICAL HISTORY: Assess for carotid stenosis. TECHNIQUE: Real-time ultrasound scan of the bilateral carotid and vertebral arteries, 2-D hutson scale, with color Doppler flow and spectral waveform analysis. COMPARISON: None provided. FINDINGS: RIGHT COMMON CAROTID ARTERY: Peak systolic velocity approximately 72 cm/s. No occlusion or hemodynamically significant stenosis. RIGHT INTERNAL CAROTID ARTERY: Peak systolic velocity approximately 70 cm/s with ICA/CCA ratio of 1.0. No occlusion or hemodynamically significant stenosis. RIGHT EXTERNAL CAROTID ARTERY: Peak systolic velocity approximately 108 cm/s. No occlusion. RIGHT VERTEBRAL ARTERY: Antegrade flow with peak systolic velocity approximately 32 cm/s. RIGHT ICA/CCA RATIO: Approximately 1.0. LEFT COMMON CAROTID ARTERY: Peak systolic velocity approximately 69 cm/s. No occlusion or hemodynamically significant stenosis. LEFT INTERNAL CAROTID ARTERY: Peak systolic velocity approximately 73 cm/s with ICA/CCA ratio of approximately 1.1. No occlusion or hemodynamically significant stenosis. LEFT EXTERNAL CAROTID ARTERY: Peak systolic velocity approximately 135 cm/s. No occlusion. LEFT VERTEBRAL ARTERY: Antegrade flow with peak systolic velocity approximately 39 cm/s. LEFT ICA/CCA RATIO: Approximately 1.1. SOFT TISSUES: No incidental abnormalities. IMPRESSION: * No hemodynamically significant carotid artery stenosis by Doppler velocity criteria or ICA/CCA ratios. * Bilateral vertebral arteries demonstrate normal antegrade flow without hemodynamically significant stenosis. /[place] DICTATED BY: AIRAM BINGHAM DO DATE: 05/24/251634 ELECTRONICALLY SIGNED BY: AIRAM BINGHAM DO DATE: 05/24/251634 PATIENT: QASIM GOMEZ MR#: [id number] : 1975 SEX: M AGE: 49 LOCATION: [facility] ORDER 1217 STATUS: [facility] REPORT#: [id number] SERVICE 1210 REASON: assess for PVD ORDERING PHYSICIAN: KILO MAHAN MD PROCEDURE: ART B LE - US ARTERIAL BILAT LOW EXT DUPL EXAM: US Duplex bilateral Lower Extremity Arteries. CLINICAL HISTORY: Assess for peripheral vascular disease. TECHNIQUE: Real-time ultrasound scan of the arteries of the bilateral lower extremities with 2-D hutson scale, color Doppler flow and spectral waveform analysis. COMPARISON: None provided. FINDINGS: RIGHT LOWER EXTREMITY: COMMON FEMORAL ARTERY: Peak systolic velocity approximately 115 cm/sec with triphasic waveform. No occlusion or hemodynamically significant stenosis. SUPERFICIAL FEMORAL ARTERY: Proximal peak systolic velocity approximately 65 cm/sec and distal peak systolic velocity approximately 70 cm/sec with triphasic waveforms. No occlusion or hemodynamically significant stenosis. POPLITEAL ARTERY: Peak systolic velocity approximately 71 cm/sec with triphasic waveform. No occlusion or hemodynamically significant stenosis. CALF ARTERIES: Posterior tibial artery distal peak systolic velocity approximately 59 cm/sec with triphasic waveform. Dorsalis pedis artery peak systolic velocity approximately 79 cm/sec with triphasic waveform. No occlusion or hemodynamically significant stenosis. LEFT LOWER EXTREMITY: COMMON FEMORAL ARTERY: Peak systolic velocity approximately 103 cm/sec with triphasic waveform. No occlusion or hemodynamically significant stenosis. SUPERFICIAL FEMORAL ARTERY: Proximal peak systolic velocity approximately 109 cm/sec, mid peak systolic velocity approximately 121 cm/sec, and distal peak systolic velocity approximately 40 cm/sec with predominantly triphasic waveforms. No focal velocity elevation to suggest hemodynamically significant stenosis. POPLITEAL ARTERY: Proximal peak systolic velocity approximately 50 cm/sec and distal peak systolic velocity approximately 78 cm/sec with triphasic waveforms. No occlusion or hemodynamically significant stenosis. CALF ARTERIES: Posterior tibial artery peak systolic velocity approximately 53 cm/sec and anterior tibial/distal peak systolic velocity approximately 64 cm/sec with triphasic waveforms. Dorsalis pedis artery peak systolic velocity approximately 100 cm/sec with triphasic waveform. No occlusion or hemodynamically significant stenosis. IMPRESSION: * Multifocal atherosclerotic changes of the bilateral lower extremity arteries without duplex evidence of hemodynamically significant stenosis or occlusion. /[place] DICTATED BY: THIERNO NEVILLE MD DATE: 05/24/251700 ELECTRONICALLY SIGNED BY: THIERNO NEVILLE MD DATE: 05/24/251700 PATIENT: QASIM GOMEZ MR#: [id number] : 1975 SEX: M AGE: 49 LOCATION: [facility] ORDER 1217 STATUS: ADM IN REPORT#: [id number] SERVICE 1210 REASON: LLQ pain. Also assess lumbar spine ORDERING PHYSICIAN: KILO MAHAN MD PROCEDURE: ABD PEL WO - CT ABDOMEN/PELVIS W/O CONTRAST EXAM: CT SCAN OF THE ABDOMEN AND PELVIS WITHOUT CONTRAST Clinical statement: Left lower quadrant pain and lower back pain; evaluate abdomen and lumbar spine. STUDY PROTOCOL: CT radiation dose protocol was performed in accordance with the principles of ALARA. A multislice CT scan of the abdomen and pelvis was performed without intravenous contrast. Sections were obtained from the diaphragms to the inguinal region. RADIATION DOSE: CTDIvol 19.90 mGy; DLP 1365.70 mGycm. CONTRAST: No intravenous contrast administered. COMPARISON: None provided. FINDINGS: LUNG BASE: No pleural effusion, collapse, or consolidation in the visualized lung bases. Mild thickening of the posterior pleura of the left lower lobe. LIVER: Normal morphology and attenuation with smooth margins. No focal hepatic lesion or calcification. No intrahepatic or extrahepatic biliary dilatation. Vance hepatis structures are unremarkable. GALL BLADDER: Gallbladder wall thickness and contour are normal. The gallbladder is contracted with a possible tiny calculus measuring approximately 1 mm (series 2, image 28/129). No pericholecystic fat stranding is seen on this noncontrast study. The cystic duct and surrounding fat appear normal. PANCREAS: Normal in size, contour, and attenuation. No pancreatic ductal dilatation or peripancreatic inflammatory change. SPLEEN: Normal size and attenuation. A small accessory spleen is present. No acute splenic abnormality. KIDNEYS: Both kidneys are normal in size, shape, position, and attenuation. No renal mass, calculus, or hydronephrosis. Mild perinephric fat stranding bilaterally. A simple cyst measuring approximately 1.1 cm is noted in the lower pole of the left kidney. No evidence of obstructive uropathy. GIT /T/ PERITONEAL CAVITY: Stomach is distended but otherwise unremarkable. Gastroesophageal junction, pylorus, and duodenum appear normal. Jejunal and ileal loops are normal in caliber and distribution with preserved wall thickness and mucosal pattern. No CT evidence of acute appendicitis. Scattered sigmoid diverticulosis is present without adjacent inflammatory stranding or abscess. Rectum and colonic loops are well distended with fecal material, consistent with constipation. No free intraperitoneal fluid or free air. Mesenteric fat and omentum are unremarkable. LYMPHNODES: No pathologically enlarged abdominopelvic lymph nodes are identified. RETROPERITONEUM: Both adrenal glands are normal in morphology and attenuation. The abdominal aorta and IVC are normal in course and caliber with mild atherosclerotic calcification in the aortoiliac segment. A vascular stent is present in the left common iliac vein. PELVIS: Urinary bladder shows normal wall thickness and contour. Prostate appears normal on CT. No pelvic mass or free fluid. MUSCULOSKELETAL: Early degenerative changes in the dorsolumbar spine with multilevel endplate osteophytic spurring. Mild reduction in L5S1 disc height with a small posterior disc protrusion measuring approximately 3 mm at L5S1. No acute fracture or listhesis. OTHER: Extra-abdominal and paraspinal soft tissues are unremarkable. Tiny fat-containing umbilical hernia. IMPRESSION: * No CT evidence of acute intra-abdominal pathology such as appendicitis, diverticulitis, bowel obstruction, or obstructive uropathy to clearly explain left lower quadrant pain. Clinical management should be guided by examination and laboratory findings. * Scattered sigmoid diverticulosis without CT evidence of diverticulitis. These changes can be a source of chronic left-sided abdominal symptoms; if symptoms persist or there are red-flag features (e.g., anemia, change in bowel habits, weight loss), gastroenterology evaluation and consideration of colonoscopy are advised. * Constipation with fecal loading of the colon and rectum, which may contribute to the patients abdominal pain; treatment should be tailored to clinical assessment and bowel habit history. * Degenerative changes of the lower lumbar spine with mild L5S1 disc height loss and a small posterior disc protrusion at L5S1, which may contribute to lower back pain and possibly radicular symptoms if present. Correlation with neurologic examination is recommended, and lumbar spine MRI may be considered if there is radiculopathy or persistent, function-limiting pain. * Mild bilateral perinephric fat stranding with a small simple left renal cyst (1.1 cm) and no hydronephrosis or stones. Findings are nonspecific and more in keeping with mild chronic or incidental change; correlation with urine studies and clinical features is recommended if there is concern for renal infection. * Contracted gallbladder with a possible tiny calculus. There is no CT evidence of acute cholecystitis on this noncontrast study; if biliary-type symptoms develop, targeted right upper quadrant ultrasound could be considered for further evaluation. * Mild atherosclerotic calcification of the aortoiliac segment with a left common iliac vein stent, and tiny fat-containing umbilical hernia, both likely incidental in the context of the current presentation. /[place] DICTATED BY: AUSTIN DOMINGUEZ MD DATE: 05/24/251403 ELECTRONICALLY SIGNED BY: AUSTIN DOMINGUEZ MD DATE: 05/24/251403 PATIENT: QASIM GOMEZ MR#: [id number] : 1975 SEX: M AGE: 49 LOCATION: [facility] ORDER 53 STATUS: ADM IN REPORT#: [id number] SERVICE 1153 REASON: weakness ORDERING PHYSICIAN: KILO MAHAN MD PROCEDURE: HEAD WO - CT HEAD/BRAIN W/O CONTRAST EXAM: CT Head Without IV contrast. CLINICAL HISTORY: weakness TECHNIQUE: Axial computed tomography images of the head/brain without intravenous contrast. COMPARISON: None provided. FINDINGS: BRAIN: No evidence of acute hemorrhage. No mass lesion. No CT evidence for acute territorial infarct. No midline shift or extra-axial collections. VENTRICLES: No hydrocephalus. ORBITS: The orbits are unremarkable. SINUSES AND MASTOIDS: The paranasal sinuses and mastoid air cells are clear. BONES: No fracture. SOFT TISSUES: Unremarkable. IMPRESSION: No acute intracranial abnormality. /[place] DICTATED BY: AIRAM BINGHAM DO DATE: 05/24/251355 ELECTRONICALLY SIGNED BY: AIRAM BINGHAM DO DATE: 05/24/251355 PATIENT: QASIM GOMEZ MR#: [id number] : 1975 SEX: M AGE: 49 LOCATION: [facility] ORDER 1038 STATUS: REG ER REPORT#: [id number] SERVICE 1032 REASON: straight leg positive and lumbar pain ORDERING PHYSICIAN: STACI DAVIS MD PROCEDURE: LUMB 2 3VW - LUMBAR SPINE 2-3VWS EXAM: CR Lumbar Spine, 3 View. CLINICAL HISTORY: straight leg positive and lumbar pain COMPARISON: None provided. FINDINGS: BONES: No acute fracture or aggressive appearing osseous lesion. ALIGNMENT: Alignment is within normal limits. No significant scoliosis. DISCS / DEGENERATIVE CHANGES: The disc spaces are preserved. SOFT TISSUES: The soft tissues are unremarkable. Left iliac vascular stent IMPRESSION: No acute lumbar spine abnormality evident. If there is clinical concern for nerve root compression, MRI is suggested. /[place] DICTATED BY: AIRAM BINGHAM DO DATE: 05/24/25 1238 ELECTRONICALLY SIGNED BY: AIRAM BINGHAM DO DATE: 05/24/25 1238 ASSESSMENT: Symptomatic hyperglycemia Uncontrolled diabetes mellitus type 2 Lower back pain Proteinuria Acute on chronic kidney disease Diabetic nephropathy Bilateral lower extremities edema History of May-Thurner syndrome Blurred vision bilaterally Hypertensive urgency PLAN: Labs, diagnostic, radiologic exams reviewed and interpreted by myself and supervising physician. We have reviewed external records in detail Continue with torsemide 20 mg po daily Check orthostatic vital signs daily Pending plasma renin activity and aldosterone Require close monitoring of renal function and electrolytes Order CBC, CMP, and electrolytes in am BiPAP as necessary, for respiratory distress Monitor blood pressure adjust medication doses as needed Avoid hypotensive episodes May use Dilaudid 0.5 mg IV every 6 hours as needed for severe pain Monitor blood sugars Strict intake, output, and daily weight should be monitored Please renally adjust medications Avoid nephrotoxic and nonsteroidal drugs Avoid contrast if possible Will continue to monitor renal function, anemia, electrolytes Treatment plan discussed with patient Questions were answered We have discussed with the other team physicians in detail about the care plan We will continue to monitor the patient closely ATTESTATION BY PHYSICIAN I have seen and examined the patient. I reviewed the documentation, medical decision making, and treatment plan as noted by the mid-level provider above. I agree with the findings and plan of care. EMA LOERA MD, [facility] May 28, 2025 14:47
--- NOTE | 2025-05-28 20:24 | PN ---
Endocrinology progress note DOS:05/28/25 subjective: Home diabetic regimen: glargine 30 units daily and novolog 10 units qac before meals. Hba1c 12.2% reports that he was recently diagnosed with diabetic retinopathy and planning eye injections. glucose are improving. PAST MEDICAL HISTORY: Hypertension, diabetes mellitus type two PAST SURGICAL HISTORY: History of right foot great toe amputation, history of peripheral angiogram, history of iliac stent placement PAST SOCIAL HISTORY: Denied any smoking, alcohol, drug use. The patient works with [employer] FAMILY HISTORY: Denied any pertinent family history Coded Allergies: No Known Allergies (Unverified Allergy, Unknown, 07/08/23) ASSESSMENT: Symptomatic hyperglycemia POA no dka. hyperglycemia is improving now and insulin adjusted. Home diabetic regimen: glargine 30 units daily and novolog 10 units qac before meals. Hba1c 12.2% reports that he was recently diagnosed with diabetic retinopathy and planning eye injections. glucose runs >200 mg/dl. 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 continue Regular insulin 10 units three times before meals adjust ssi to medium dose sliding scale insulin. Monitor glucose q x 6 hourly. Continue carb consistent diet. Keep glucose less than 180 mg/dl. Vitals/Labs Vital Signs Date Time Temp Pulse Resp B/P (MAP) Pulse Ox O2 Delivery O2 Flow Rate FiO2 05/28/25 16:00 98.4 81 18 148/79 97 Room Air 05/28/25 07:10 0 21 Laboratory Tests 05/28/25 04:28 Medications Current Medications Insulin Human Regular 5 unit ONCE ONCE IV Last administered on 05/24/25at 11:17; Start 05/24/25 at 11:00; Stop 05/24/25 at 11:01; Status DC Sodium Chloride 1,000 ml @ 0 mls/hr ONCE ONCE IV Last administered on 05/24/25at 11:08; Start 05/24/25 at 11:00; Stop 05/24/25 at 11:01; Status DC Famotidine 20 mg Q24H IV Last administered on 05/27/25at 20:42; Start 05/24/25 at 21:00; Stop 06/23/25 at 20:59 Amlodipine Besylate 5 mg ONCE ONCE PO Last administered on 05/24/25at 13:50; Start 05/24/25 at 12:30; Stop 05/24/25 at 12:31; Status DC Amlodipine Besylate 5 mg DAILY PO Last administered on 05/26/25at 09:10; Start 05/25/25 at 09:00; Stop 05/26/25 at 12:57; Status DC Hydralazine HCl 10 mg Q6H PRN IV Last administered on 05/24/25at 15:08; Start 05/24/25 at 12:30; Stop 06/23/25 at 12:29 Insulin Human Regular INSULIN SLIDING SCAL... Q6H6 SQ Last administered on 05/25/25at 00:07; Start 05/24/25 at 18:00; Stop 05/25/25 at 05:19; Status DC Hydromorphone HCl 0.5 mg Q6H PRN IVP Last administered on 05/28/25at 03:28; Start 05/24/25 at 12:30; Stop 05/29/25 at 12:29 Ondansetron HCl 4 mg Q6H PRN IVP; Start 05/24/25 at 12:30; Stop 06/23/25 at 12:29 Sodium Chloride 1,000 ml @ 75 mls/hr [id number] ONCE IV; Start 05/24/25 at 13:00; Stop 05/24/25 at 12:41; Status DC Insulin Glargine 15 units ONCE ONCE SQ Last administered on 05/24/25at 13:52; Start 05/24/25 at 13:30; Stop 05/24/25 at 13:31; Status DC Vitamin B Complex/ Vit C/Folic Acid 1 cap DAILY PO Last administered on 05/28/25at 08:09; Start 05/25/25 at 09:00; Stop 06/24/25 at 08:59 Insulin Glargine 20 units DAILY SQ Last administered on 05/25/25at 09:47; Start 05/25/25 at 09:00; Stop 05/25/25 at 19:40; Status DC Insulin Human Regular 5 unit TIDAC SQ Last administered on 05/25/25at 16:50; Start 05/25/25 at 07:30; Stop 05/25/25 at 19:40; Status DC Insulin Human Regular INSULIN SLIDING SCAL... ACHS SQ Last administered on 05/28/25at 06:52; Start 05/25/25 at 07:30; Stop 06/24/25 at 07:29 Potassium Chloride 20 meq ONCE ONCE PO Last administered on 05/25/25at 06:37; Start 05/25/25 at 06:00; Stop 05/25/25 at 06:01; Status DC Enoxaparin Sodium 30 mg DAILY SQ Last administered on 05/28/25at 08:21; Start 05/25/25 at 09:00; Stop 06/24/25 at 08:59 Insulin Glargine 30 units DAILY SQ Last administered on 05/27/25at 09:19; Start 05/26/25 at 09:00; Stop 05/28/25 at 07:17; Status DC Insulin Human Regular 8 unit TIDAC SQ Last administered on 05/26/25at 12:36; Start 05/26/25 at 07:30; Stop 05/26/25 at 12:55; Status DC Insulin Human Regular 12 unit TIDAC SQ Last administered on 05/27/25at 11:52; Start 05/26/25 at 17:00; Stop 05/27/25 at 20:50; Status DC Acetaminophen/ Codeine Phosphate 1 tab Q6H PRN PO Last administered on 05/28/25at 13:21; Start 05/26/25 at 13:00; Stop 06/25/25 at 12:59 Amlodipine Besylate 10 mg DAILY PO Last administered on 05/28/25at 08:09; Start 05/27/25 at 09:00; Stop 06/26/25 at 08:59 Amoxicillin 500 mg TID PO; Start 05/26/25 at 14:00; Stop 05/26/25 at 13:20; Status DC Aspirin 81 mg DAILY PO Last administered on 05/28/25at 08:09; Start 05/27/25 at 09:00; Stop 06/26/25 at 08:59 Atorvastatin Calcium 40 mg HS PO Last administered on 05/27/25at 20:42; Start 05/26/25 at 21:00; Stop 06/25/25 at 20:59 Clopidogrel Bisulfate 75 mg DAILY PO Last administered on 05/28/25at 08:10; Start 05/27/25 at 09:00; Stop 06/26/25 at 08:59 Gabapentin 100 mg TID PO Last administered on 05/28/25at 13:18; Start 05/26/25 at 14:00; Stop 06/25/25 at 13:59 Hydralazine HCl 5 mg Q6H PRN IV Last administered on 05/27/25at 00:14; Start 05/26/25 at 13:00; Stop 06/25/25 at 12:59 Furosemide 20 mg DAILY PO; Start 05/28/25 at 09:00; Stop 05/27/25 at 17:57; Status DC Furosemide 20 mg ONCE ONCE PO; Start 05/27/25 at 16:30; Stop 05/27/25 at 16:31; Status DC Torsemide 20 mg DAILY PO Last administered on 05/28/25at 08:09; Start 05/27/25 at 18:00; Stop 06/26/25 at 17:59 Insulin Human Regular 10 unit TIDAC SQ Last administered on 05/28/25at 08:08; Start 05/28/25 at 07:30; Stop 06/27/25 at 07:29 Insulin Glargine 35 units DAILY SQ Last administered on 05/28/25at 08:09; Start 05/28/25 at 09:00; Stop 06/27/25 at 08:59 ANITRA CARTER MD May 28, 2025 20:24
[2025-05-29] VITALS (8 sets, daily range): BP systolic 140–159; BP diastolic 71–108; PULSE 77–87; RESP 17–18; TEMP 97.8–98.3; O2SAT 97
[2025-05-29 05:46] LABS: CREATININE 1.4 mg/dL (0.5-1.3); GLOMERULAR FILTR. RATE CALC 61.0 mL/min (>90); GLUCOSE,RANDOM 165.0 mg/dL (70-105); SODIUM SERUM 138.0 mmol/L (136-145); UREA NITROGEN, BLOOD 20.0 mg/dL (7-18)
[2025-05-29 05:55] LABS: IMMATURE GRANULOCYTE ABSOLUTE 0.02 K/uL (0-1); NUCLEATED RED BLOOD CELLS 0.0 % (0.0-0.19); PLATELET COUNT (AUTO) 183 K/uL (130-400); RED BLOOD CELL COUNT(AUTO) 4.04 MIL/uL (4.50-6.20); RED CELL DISTRIBUTION WIDTH 11.7 % (11.0-15.5); WHITE BLOOD COUNT (AUTO) 7.0 K/uL (4.8-10.8)
--- NOTE | 2025-05-29 11:00 | PN ---
[facility] PROGRESS NOTE Date of Service: May 29, 2025 Time of Service: 10:58 SUBJECTIVE: Patient was evaluated today at bedside with his present. He continues to report inability to see from the left eye and blurred vision in the right eye, which has been ongoing for several weeks. He states he was recently diagnosed with diabetic retinopathy and is planning to start eye injections. He reports his home glucose readings have been consistently >200 mg/dL. He describes persistent bilateral lower extremity edema and numbness in both legs, and continues to feel very weak. He denies chest pain, shortness of breath, or abdominal discomfort, but does complain of mild headache. He is aware of his recent admission for symptomatic hyperglycemia and understands that his diabetes remains uncontrolled (recent hemoglobin A1c 12.2%). He acknowledges his history of hypertension, May-Thurner syndrome, proteinuria, and recent findings of acute kidney injury or possible underlying chronic kidney disease, likely secondary to diabetic nephropathy. He is aware of his prior right great toe amputation, peripheral angiogram, and iliac stent placement. He denies any smoking, alcohol, or drug use. 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 He understands the importance of not driving or operating heavy machinery due to his visual impairment and agrees to follow up with ophthalmology after discharge. All questions were addressed with both patient and at bedside. 05/28/2025: Over the past 24 hours no major events reported. Patient continues to experience some blurred vision to bilateral eyes. Continues to complain of BLE edema, initiated on p.o. torsemide. He is being followed closely by Nephrology and Endocrinology. Morning labs reviewed, serum creatinine 1.6, glucometers ranging 206-256. 05/29/2025: Patient reports improvement in BLE edema, remains on p.o. torsemide. Patient continues to be followed closely by Nephrology and Endocrinology. Morning labs serum creatinine improved to 1.4. REVIEW OF SYSTEMS CONSTITUTIONAL: Denies fevers, chills, or night sweats. No unintentional weight loss reported. NEUROLOGICAL: Denies headache, amaurosis fugax, motor weakness, sensory deficit, vertigo/spinning sensation, or tremors. Positive for gait abnormality ENT: No hearing loss, otalgia, otorrhea, rhinitis, rhinorrhea, hoarseness, or sore throat. CARDIOVASCULAR: Denies any exertional angina, dyspnea on exertion, orthopnea, paroxysmal nocturnal dyspnea, palpitations, life-threatening arrhythmias, claudication. PULMONARY: Denies any shortness of breath, cough, phlegm/sputum, hemoptysis, pleuritic chest pain. GASTROINTESTINAL: Denies any type of dysphagia to either liquids or solids. Denies nausea, vomiting, pyrosis, early satiety, abdominal pain, diarrhea, const ipation, or changes in stool consistency or caliber. Denies coffee-ground emesis, hematemesis, hematochezia, or melanotic stools. GENITOURINARY: Denies frequency, urgency, nocturia, hematuria or incontinence (Storage/Irritative symptoms.) Low urinary stream, straining to void, urinary intermittency or hesitancy, splitting of the voiding stream, terminal dribbling. ENDOCRINOLOGIC: Denies polyuria, polydipsia, polyphagia or heat/cold intolerances. HEMATOLOGIC: Denies thrombophilia/previous clots, or coagulopathy/bleeding disorders. ONCOLOGIC: Denies personal history of malignancy. DERMATOLOGIC: Denies rashes or pruritus. PSYCHIATRIC: Denies any suicidal or homicidal ideation. Denies hallucinations. Musculoskeletal: positive for pain in the lower extremity, positive for lower back pain PHYSICAL EXAM GENERAL APPEARANCE: The patient is awake, alert, and oriented, in no acute cardiopulmonary distress. NEUROLOGICAL: Cranial nerves II-XII grossly intact. Motor is 5/5 in bilateral upper and lower extremities proximal to distal. No sensory deficits. HEENT: Face is symmetric. Pupils are equal and reactive. Extraocular movements are intact. Patient was unable to see from the left eye. Visual acuity on the right eye was 20/40, visual acuity in both eyes was 20 NECK: Supple. No JVD. No thyromegaly. No submental, submandibular, pre- /postauricular, occipital or supraclavicular lymphadenopathy. CHEST: Normal chest expansion. No Telemetry. LUNGS: Absence of any rales, rhonchi or any wheezing. CARDIOVASCULAR: Regular. S1 and S2 normal. No appreciable rubs, murmurs or g allops. ABDOMEN: Soft, mild tenderness in the l left lower quadrant, and nondistended. There is no rebound, voluntary guarding, or rigidity. : Deferred. No Crowe. EXTREMITIES: Non-edematous and not cyanotic. No clubbing. Good capillary refill. SKIN: No skin breakdown. Vital Signs (last 8hr) Date Time Temp Pulse Resp B/P (MAP) Pulse Ox O2 Delivery O2 Flow Rate FiO2 05/29/25 08:00 97.9 87 18 159/108 97 Room Air 05/29/25 04:57 98.2 85 18 147/94 95 Room Air LABS: Laboratory: Test 05/29/25 10:50 05/29/25 05:16 05/29/25 04:59 05/28/25 04:28 Range/Units Whole Blood Glucose 212 H 70-110 MG/DL Bedside Glucose Comment Notified Nurse White Blood Count 7.0 4.8-10.8 K/uL Red Blood Count 4.04 L 4.50-6.20 MIL/uL Hemoglobin 12.8 L 14.0-18.0 g/dL Hematocrit 37.1 L 42-54 % Mean Corpuscular Volume 91.8 79-99 fL Mean Corpuscular Hemoglobin 31.7 27.0-33.0 pg Mean Corpuscular Hemoglobin Concent 34.5 32.0-36.0 g/dL Red Cell Distribution Width 11.7 11.0-15.5 % Platelet Count 183 130-400 K/uL Mean Platelet Volume 12.0 H 7.5-10.5 fL Immature Granulocyte % (Auto) 0.3 0-1 % Neutrophils (%) (Auto) 62.6 40.0-77.0 % Lymphocytes (%) (Auto) 20.2 L 21.0-51.0 % Monocytes (%) (Auto) 11.3 3.0-13.0 % Eosinophils (%) (Auto) 5.0 0.0-8.0 % Basophils (%) (Auto) 0.6 0.0-5.0 % Neutrophils # (Auto) 4.4 1.8-7.7 K/uL Lymphocytes # (Auto) 1.4 1.0-4.8 K/uL Monocytes # (Auto) 0.8 0.1-1.0 K/uL Eosinophils # (Auto) 0.35 0.00-0.70 K/uL Basophils # (Auto) 0.04 0.00-0.20 K/uL Absolute Immature Granulocyte (auto 0.02 0-1 K/uL Nucleated Red Blood Cells 0.0 0.0-0.19 % Sodium Level 138 136-145 mmol/L Potassium Level 3.7 3.5-5.1 mmol/L Chloride Level 102 101-111 mmol/L Carbon Dioxide Level 33 H 21-32 mmol/L Blood Urea Nitrogen 20 H 7-18 mg/dL Creatinine 1.4 H 0.5-1.3 mg/dL Glomerular Filtration Rate Calc 61 >90 mL/min Random Glucose 165 H 70-105 mg/dL Total Calcium 8.1 L 8.5-10.1 mg/dL Phosphorus Level 4.0 2.5-4.9 mg/dL Total Bilirubin 0.2 0.2-1.0 mg/dL Aspartate Amino Transf (AST/SGOT) 16 10-37 U/L Alanine Aminotransferase (ALT/SGPT) 19 12-78 U/L Alkaline Phosphatase 86 50-136 U/L Total Protein 6.0 6.0-8.3 g/dL Albumin 1.8 L 3.5-5.0 g/dL Current Medications Medications (Trade) Dose Ordered Sig/Darcie Route PRN Reason Start Time Stop Time Status Last Admin Dose Admin Acetaminophen/ Codeine Phosphate (TYLenol-coDEINE TAB) 1 tab Q6H PRN PO MODERATE PAIN (4-6) 05/26/25 13:00 06/25/25 12:59 05/28/25 13:21 1 TAB Amlodipine Besylate (NorvASC 5MG TAB) 5 mg DAILY PO 05/25/25 09:00 05/26/25 12:57 DC 05/26/25 09:10 5 MG Amlodipine Besylate (NorvASC 5MG TAB) 10 mg DAILY PO 05/27/25 09:00 06/26/25 08:59 05/29/25 08:56 10 MG Amoxicillin (Amoxicillin 500mg Cap) 500 mg TID PO 05/26/25 14:00 05/26/25 13:20 DC Aspirin (Aspirin 81mg Ec Tab) 81 mg DAILY PO 05/27/25 09:00 06/26/25 08:59 05/29/25 08:57 81 MG Atorvastatin Calcium (LIPItor 40MG) 40 mg HS PO 05/26/25 21:00 06/25/25 20:59 05/28/25 21:29 40 MG Clopidogrel Bisulfate (plaVIX 75MG) 75 mg DAILY PO 05/27/25 09:00 06/26/25 08:59 05/29/25 08:57 75 MG Enoxaparin Sodium (Lovenox) 30 mg DAILY SQ 05/25/25 09:00 06/24/25 08:59 05/29/25 08:57 30 MG Famotidine (Pepcid 20mg Vial) 20 mg Q24H IV 05/24/25 21:00 06/23/25 20:59 05/28/25 21:29 20 MG Furosemide (LASix 20MG TAB) 20 mg DAILY PO 05/28/25 09:00 05/27/25 17:57 DC Gabapentin (NEURontin 100 mg CAP) 100 mg TID PO 05/26/25 14:00 06/25/25 13:59 05/29/25 08:56 100 MG Hydralazine HCl (APRESOLine 20MG INJ) 5 mg Q6H PRN IV ADMINISTER FOR SBP > 160 05/26/25 13:00 06/25/25 12:59 05/27/25 00:14 5 MG Hydralazine HCl (APRESOLine 20MG INJ) 10 mg Q6H PRN IV ADMINISTER FOR SBP > 180 05/24/25 12:30 06/23/25 12:29 05/24/25 15:08 10 MG Hydromorphone HCl (DiLAUDid 0.5MG INJ) 0.5 mg Q6H PRN IVP SEVERE PAIN (7-10) 05/24/25 12:30 05/29/25 12:29 05/29/25 08:54 0.5 MG Insulin Glargine (LANtus 100 UNITS/ML 10 ML VIAL) 20 units DAILY SQ 05/25/25 09:00 05/25/25 19:40 DC 05/25/25 09:47 20 UNITS Insulin Glargine (LANtus 100 UNITS/ML 10 ML VIAL) 30 units DAILY SQ 05/26/25 09:00 05/28/25 07:17 DC 05/27/25 09:19 30 UNITS Insulin Glargine (LANtus 100 UNITS/ML 10 ML VIAL) 35 units DAILY SQ 05/28/25 09:00 06/27/25 08:59 05/29/25 08:48 35 UNITS Insulin Human Regular (humuLIN R 100 UNIT/ML 3ML) 5 unit TIDAC SQ 05/25/25 07:30 05/25/25 19:40 DC 05/25/25 16:50 5 UNIT Insulin Human Regular (humuLIN R 100 UNIT/ML 3ML) 8 unit TIDAC SQ 05/26/25 07:30 05/26/25 12:55 DC 05/26/25 12:36 8 UNIT Insulin Human Regular (humuLIN R 100 UNIT/ML 3ML) 8 unit TIDAC SQ 05/29/25 07:30 06/28/25 07:29 05/29/25 08:46 8 UNIT Insulin Human Regular (humuLIN R 100 UNIT/ML 3ML) 10 unit TIDAC SQ 05/28/25 07:30 05/29/25 06:36 DC 05/28/25 08:08 10 UNIT Insulin Human Regular (humuLIN R 100 UNIT/ML 3ML) 12 unit TIDAC SQ 05/26/25 17:00 05/27/25 20:50 DC 05/27/25 11:52 12 UNIT Insulin Human Regular (humuLIN R 100 UNIT/ML 3ML) INSULIN SLIDING SCAL... ACHS SQ 05/25/25 07:30 06/24/25 07:29 05/28/25 21:37 4 UNIT Insulin Human Regular (humuLIN R 100 UNIT/ML 3ML) INSULIN SLIDING SCAL... Q6H6 SQ 05/24/25 18:00 05/25/25 05:19 DC 05/25/25 00:07 7 UNIT Ondansetron HCl (zoFRAN 4MG INJ) 4 mg Q6H PRN IVP NAUSEA/VOMITING 05/24/25 12:30 06/23/25 12:29 Torsemide (Demadex) 20 mg DAILY PO 05/27/25 18:00 06/26/25 17:59 05/29/25 08:56 20 MG Vitamin B Complex/ Vit C/Folic Acid (Nephrovite Tablet) 1 cap DAILY PO 05/25/25 09:00 06/24/25 08:59 05/29/25 08:56 1 CAP DIAGNOSTICS / RADIOLOGY: [ ] ASSESSMENT: 1. Symptomatic hyperglycemia, POA No DKA. Hyperglycemia is improving with insulin adjustments. 2. Uncontrolled diabetes mellitus type 2 HgbA1c 12.2%. Home regimen: glargine 30 units daily, insulin aspart 10 units before meals. Glucose >200 mg/dL. Endocrinology recommends further insulin titration. 3. Diabetic retinopathy Recently diagnosed, planning for eye injections. Bilateral blurred vision, left eye with profound vision loss. 4. Lower back pain with concern for radiculopathy MRI shows mild multilevel spondylosis, disc desiccation at L5-S1, mild bulging indenting the anterior thecal sac at L5-S1. 5. Proteinuria 6. Acute kidney injury or underlying chronic kidney disease Likely from diabetic nephropathy. 7. Bilateral lower extremity edema and numbness Multifactorial: consider diabetic neuropathy, mild nerve root impingement at L5-S1, and history of May- Thurner syndrome. 8. Hypertensive urgency 9. History of right great toe amputation, peripheral angiogram, and iliac stent placement 10. No known drug allergies PLAN 1. Symptomatic Hyperglycemia / Uncontrolled Diabetes Mellitus (A1c 12.2%) - continue Lantus 35 units SQ daily; titrate based on fasting glucose. - Regular insulin 8 units TID before meals; titrate for post-prandial glucose. - Medium-dose sliding scale insulin; monitor glucose every 6 hours. - Continue carb-consistent diet; goal glucose <180 mg/dL. - Educate patient on insulin regimen and signs/symptoms of hypo/hyperglycemia. - consultation with Endocrinology obtained, follow up with recommendations 2. Diabetic Retinopathy / Bilateral Blurred Vision - No driving or heavy machinery due to visual impairment. - Outpatient ophthalmology follow-up for planned eye injections. - Reinforce need for strict glycemic control to slow retinopathy progression. 3. Lower Back Pain with Concern for Radiculopathy - Continue pain management as needed (acetaminophen/codeine, gabapentin). - MRI lumbar spine: mild multilevel spondylosis, mild thecal sac indentation at L5-S1. - Continue PT/OT; monitor for progression of neurological symptoms. 4. Proteinuria / Acute Kidney Injury or Underlying CKD (likely diabetic nephropathy) - Strict I&O, daily weights. - Avoid nephrotoxic agents; dose medications per renal function. - Monitor renal function and electrolytes; avoid contrast. - Nephrology consult as indicated. 5. Bilateral Lower Extremity Edema and Numbness - continue p.o. torsemide - Continue DVT prophylaxis (enoxaparin). - Elevate legs, encourage mobility as tolerated. - Monitor for skin breakdown; specialty mattress as needed. - Assess for progression of neuropathy. 6. History of May-Thurner Syndrome - Continue DVT prophylaxis. - Monitor for signs of venous insufficiency or new DVT. 7. Hypertensive Urgency - Continue antihypertensive therapy (amlodipine, hydralazine PRN for SBP >160). - Monitor BP closely; adjust regimen as needed. 8. Other Supportive/Preventive Measures - Continue GI prophylaxis (famotidine). - Continue statin and antiplatelet therapy as indicated. - Monitor for infection: trend temp, WBC, procalcitonin; deescalate antibiotics as appropriate. - Pressure ulcer prevention; maintain skin integrity. - Educate patient and family on all aspects of care and discharge planning. LENNY BRINK [facility] May 29, 2025 11:00
--- NOTE | 2025-05-29 11:25 | PN ---
Endocrinology progress note DOS:05/29/25 subjective: Home diabetic regimen: glargine 30 units daily and novolog 10 units qac before meals. Hba1c 12.2% reports that he was recently diagnosed with diabetic retinopathy and planning eye injections. glucose are improving. PAST MEDICAL HISTORY: Hypertension, diabetes mellitus type two PAST SURGICAL HISTORY: History of right foot great toe amputation, history of peripheral angiogram, history of iliac stent placement PAST SOCIAL HISTORY: Denied any smoking, alcohol, drug use. The patient works with [employer] FAMILY HISTORY: Denied any pertinent family history Coded Allergies: No Known Allergies (Unverified Allergy, Unknown, 07/08/23) ASSESSMENT: Symptomatic hyperglycemia POA no dka. hyperglycemia is improving now and insulin adjusted. Home diabetic regimen: glargine 30 units daily and novolog 10 units qac before meals. Hba1c 12.2% reports that he was recently diagnosed with diabetic retinopathy and planning eye injections. glucose runs >200 mg/dl. 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 continue Regular insulin 8 units three times before meals adjust ssi to medium dose sliding scale insulin. Monitor glucose q x 6 hourly. Continue carb consistent diet. Keep glucose less than 180 mg/dl. Vitals/Labs Vital Signs Date Time Temp Pulse Resp B/P (MAP) Pulse Ox O2 Delivery O2 Flow Rate FiO2 05/29/25 08:00 97.9 87 18 159/108 97 Room Air 05/28/25 20:00 0 21 Laboratory Tests 05/29/25 04:59 Medications Current Medications Insulin Human Regular 5 unit ONCE ONCE IV Last administered on 05/24/25at 11:17; Start 05/24/25 at 11:00; Stop 05/24/25 at 11:01; Status DC Sodium Chloride 1,000 ml @ 0 mls/hr ONCE ONCE IV Last administered on 05/24/25at 11:08; Start 05/24/25 at 11:00; Stop 05/24/25 at 11:01; Status DC Famotidine 20 mg Q24H IV Last administered on 05/28/25at 21:29; Start 05/24/25 at 21:00; Stop 06/23/25 at 20:59 Amlodipine Besylate 5 mg ONCE ONCE PO Last administered on 05/24/25at 13:50; Start 05/24/25 at 12:30; Stop 05/24/25 at 12:31; Status DC Amlodipine Besylate 5 mg DAILY PO Last administered on 05/26/25at 09:10; Start 05/25/25 at 09:00; Stop 05/26/25 at 12:57; Status DC Hydralazine HCl 10 mg Q6H PRN IV Last administered on 05/24/25at 15:08; Start 05/24/25 at 12:30; Stop 06/23/25 at 12:29 Insulin Human Regular INSULIN SLIDING SCAL... Q6H6 SQ Last administered on 05/25/25at 00:07; Start 05/24/25 at 18:00; Stop 05/25/25 at 05:19; Status DC Hydromorphone HCl 0.5 mg Q6H PRN IVP Last administered on 05/29/25at 08:54; Start 05/24/25 at 12:30; Stop 05/29/25 at 12:29 Ondansetron HCl 4 mg Q6H PRN IVP; Start 05/24/25 at 12:30; Stop 06/23/25 at 12:29 Sodium Chloride 1,000 ml @ 75 mls/hr [id number] ONCE IV; Start 05/24/25 at 13:00; Stop 05/24/25 at 12:41; Status DC Insulin Glargine 15 units ONCE ONCE SQ Last administered on 05/24/25at 13:52; Start 05/24/25 at 13:30; Stop 05/24/25 at 13:31; Status DC Vitamin B Complex/ Vit C/Folic Acid 1 cap DAILY PO Last administered on 05/29/25at 08:56; Start 05/25/25 at 09:00; Stop 06/24/25 at 08:59 Insulin Glargine 20 units DAILY SQ Last administered on 05/25/25at 09:47; Start 05/25/25 at 09:00; Stop 05/25/25 at 19:40; Status DC Insulin Human Regular 5 unit TIDAC SQ Last administered on 05/25/25at 16:50; Start 05/25/25 at 07:30; Stop 05/25/25 at 19:40; Status DC Insulin Human Regular INSULIN SLIDING SCAL... ACHS SQ Last administered on 05/28/25at 21:37; Start 05/25/25 at 07:30; Stop 06/24/25 at 07:29 Potassium Chloride 20 meq ONCE ONCE PO Last administered on 05/25/25at 06:37; Start 05/25/25 at 06:00; Stop 05/25/25 at 06:01; Status DC Enoxaparin Sodium 30 mg DAILY SQ Last administered on 05/29/25at 08:57; Start 05/25/25 at 09:00; Stop 06/24/25 at 08:59 Insulin Glargine 30 units DAILY SQ Last administered on 05/27/25at 09:19; Start 05/26/25 at 09:00; Stop 05/28/25 at 07:17; Status DC Insulin Human Regular 8 unit TIDAC SQ Last administered on 05/26/25at 12:36; Start 05/26/25 at 07:30; Stop 05/26/25 at 12:55; Status DC Insulin Human Regular 12 unit TIDAC SQ Last administered on 05/27/25at 11:52; Start 05/26/25 at 17:00; Stop 05/27/25 at 20:50; Status DC Acetaminophen/ Codeine Phosphate 1 tab Q6H PRN PO Last administered on 05/28/25at 13:21; Start 05/26/25 at 13:00; Stop 06/25/25 at 12:59 Amlodipine Besylate 10 mg DAILY PO Last administered on 05/29/25at 08:56; Start 05/27/25 at 09:00; Stop 06/26/25 at 08:59 Amoxicillin 500 mg TID PO; Start 05/26/25 at 14:00; Stop 05/26/25 at 13:20; Status DC Aspirin 81 mg DAILY PO Last administered on 05/29/25at 08:57; Start 05/27/25 at 09:00; Stop 06/26/25 at 08:59 Atorvastatin Calcium 40 mg HS PO Last administered on 05/28/25at 21:29; Start 05/26/25 at 21:00; Stop 06/25/25 at 20:59 Clopidogrel Bisulfate 75 mg DAILY PO Last administered on 05/29/25at 08:57; Start 05/27/25 at 09:00; Stop 06/26/25 at 08:59 Gabapentin 100 mg TID PO Last administered on 05/29/25at 08:56; Start 05/26/25 at 14:00; Stop 06/25/25 at 13:59 Hydralazine HCl 5 mg Q6H PRN IV Last administered on 05/27/25at 00:14; Start 05/26/25 at 13:00; Stop 06/25/25 at 12:59 Furosemide 20 mg DAILY PO; Start 05/28/25 at 09:00; Stop 05/27/25 at 17:57; Status DC Furosemide 20 mg ONCE ONCE PO; Start 05/27/25 at 16:30; Stop 05/27/25 at 16:31; Status DC Torsemide 20 mg DAILY PO Last administered on 05/29/25at 08:56; Start 05/27/25 at 18:00; Stop 06/26/25 at 17:59 Insulin Human Regular 10 unit TIDAC SQ Last administered on 05/28/25at 08:08; Start 05/28/25 at 07:30; Stop 05/29/25 at 06:36; Status DC Insulin Glargine 35 units DAILY SQ Last administered on 05/29/25at 08:48; Start 05/28/25 at 09:00; Stop 06/27/25 at 08:59 Insulin Human Regular 8 unit TIDAC SQ Last administered on 05/29/25at 08:46; Start 05/29/25 at 07:30; Stop 06/28/25 at 07:29 ANITRA CARTER MD May 29, 2025 11:25
--- NOTE | 2025-05-29 14:23 | PN ---
NEPHROLOGY PROGRESS NOTE Date/Time Patient Seen: May 29, 2025 SUBJECTIVE: This is a 49-year-old male with past medical history of hypertension, diabetes mellitus type 2 presented to hospital secondary to blurry vision He is found to have severe hypertension. He does not take his medicine. He has been on insulin also. The patient has unsteadiness also. The patient is generally weak. He has been found to have low sodium as well as multiple other comorbidities including blurry vision. We has been consulted for renal failure Renal function and electrolytes are stable. Continues torsemide 20 mg PO daily Urine output was noted Daily weights are noted He continues to be followed by endocrinology Imaging studies were noted He was seen in the medical floor, in no acute distress REVIEW OF SYSTEMS: GENERAL: Positive for lower extremity edema NEUROLOGIC: Negative for any blurry vision, blind spots, double vision, facial asymmetry, dysphagia, dysarthria, hemiparesis, hemisensory deficits, vertigo, ataxia. HEENT: Negative for any head trauma, neck trauma, neck stiffness, photophobia, phonophobia, sinusitis, rhinitis. CARDIAC: Negative for any chest pain, dyspnea on exertion, paroxysmal nocturnal dyspnea, peripheral edema. PULMONARY: Negative for any shortness of breath, wheezing, COPD, or TB exposure. GASTROINTESTINAL: Negative for any abdominal pain, nausea, vomiting, bright red blood per rectum, melena. GENITOURINARY: Negative for any dysuria, hematuria, incontinence. INTEGUMENTARY: Negative for any rashes, cuts, insect bites. RHEUMATOLOGIC: Negative for any joint pains, photosensitive rashes, history of vasculitis or kidney problems. HEMATOLOGIC: Negative for any abnormal bruising, frequent infections or bleeding. Vital Signs (last 8hr) Date Time Temp Pulse Resp B/P (MAP) Pulse Ox O2 Delivery O2 Flow Rate FiO2 05/28/25 12:17 98.1 80 18 138/67 100 Room Air 05/28/25 07:52 97.5 74 18 131/78 92 Room Air 05/28/25 07:10 95 Room Air* 0 21 PHYSICAL EXAM: GENERAL: Alert and oriented x 3. No acute distress. Well-nourished. EYES: EOMI. Anicteric. HENT: Moist mucous membranes. No scleral icterus. No cervical lymphadenopathy. LUNGS: Clear to auscultation bilaterally. No accessory muscle use. CARDIOVASCULAR: Regular rate and rhythm. No murmur. No JVD. ABDOMEN: Soft, non-tender and non-distended. No palpable masses. EXTREMITIES: 2+ edema. Non-tender. SKIN: No rashes or lesions. Warm. NEUROLOGIC: No focal neurological deficits. CN II-XII grossly intact, but not individually tested. PSYCHIATRIC: Cooperative. Appropriate mood and affect. Current Medications Medications (Trade) Dose Ordered Sig/Darcie Route Start Time Stop Time Status Last Admin Dose Admin Amlodipine Besylate (NorvASC 5MG TAB) 5 mg DAILY PO 05/25/25 09:00 05/26/25 12:57 DC 05/26/25 09:10 5 MG Amlodipine Besylate (NorvASC 5MG TAB) 10 mg DAILY PO 05/27/25 09:00 06/26/25 08:59 05/28/25 08:09 10 MG Amoxicillin (Amoxicillin 500mg Cap) 500 mg TID PO 05/26/25 14:00 05/26/25 13:20 DC Aspirin (Aspirin 81mg Ec Tab) 81 mg DAILY PO 05/27/25 09:00 06/26/25 08:59 05/28/25 08:09 81 MG Atorvastatin Calcium (LIPItor 40MG) 40 mg HS PO 05/26/25 21:00 06/25/25 20:59 05/27/25 20:42 40 MG Clopidogrel Bisulfate (plaVIX 75MG) 75 mg DAILY PO 05/27/25 09:00 06/26/25 08:59 05/28/25 08:10 75 MG Enoxaparin Sodium (Lovenox) 30 mg DAILY SQ 05/25/25 09:00 06/24/25 08:59 05/28/25 08:21 30 MG Famotidine (Pepcid 20mg Vial) 20 mg Q24H IV 05/24/25 21:00 06/23/25 20:59 05/27/25 20:42 20 MG Furosemide (LASix 20MG TAB) 20 mg DAILY PO 05/28/25 09:00 05/27/25 17:57 DC Gabapentin (NEURontin 100 mg CAP) 100 mg TID PO 05/26/25 14:00 06/25/25 13:59 05/28/25 13:18 100 MG Insulin Glargine (LANtus 100 UNITS/ML 10 ML VIAL) 20 units DAILY SQ 05/25/25 09:00 05/25/25 19:40 DC 05/25/25 09:47 20 UNITS Insulin Glargine (LANtus 100 UNITS/ML 10 ML VIAL) 30 units DAILY SQ 05/26/25 09:00 05/28/25 07:17 DC 05/27/25 09:19 30 UNITS Insulin Glargine (LANtus 100 UNITS/ML 10 ML VIAL) 35 units DAILY SQ 05/28/25 09:00 06/27/25 08:59 05/28/25 08:09 35 UNITS Insulin Human Regular (humuLIN R 100 UNIT/ML 3ML) 5 unit TIDAC SQ 05/25/25 07:30 05/25/25 19:40 DC 05/25/25 16:50 5 UNIT Insulin Human Regular (humuLIN R 100 UNIT/ML 3ML) 8 unit TIDAC SQ 05/26/25 07:30 05/26/25 12:55 DC 05/26/25 12:36 8 UNIT Insulin Human Regular (humuLIN R 100 UNIT/ML 3ML) 10 unit TIDAC SQ 05/28/25 07:30 06/27/25 07:29 05/28/25 08:08 10 UNIT Insulin Human Regular (humuLIN R 100 UNIT/ML 3ML) 12 unit TIDAC SQ 05/26/25 17:00 05/27/25 20:50 DC 05/27/25 11:52 12 UNIT Insulin Human Regular (humuLIN R 100 UNIT/ML 3ML) INSULIN SLIDING SCAL... ACHS SQ 05/25/25 07:30 06/24/25 07:29 05/28/25 06:52 4 UNIT Insulin Human Regular (humuLIN R 100 UNIT/ML 3ML) INSULIN SLIDING SCAL... Q6H6 SQ 05/24/25 18:00 05/25/25 05:19 DC 05/25/25 00:07 7 UNIT Torsemide (Demadex) 20 mg DAILY PO 05/27/25 18:00 06/26/25 17:59 05/28/25 08:09 20 MG Vitamin B Complex/ Vit C/Folic Acid (Nephrovite Tablet) 1 cap DAILY PO 05/25/25 09:00 06/24/25 08:59 05/28/25 08:09 1 CAP LABORATORY: [ ] Hematology Labs: Test 05/29/25 04:59 Range/Units White Blood Count 7.0 4.8-10.8 K/uL Red Blood Count 4.04 L 4.50-6.20 MIL/uL Hemoglobin 12.8 L 14.0-18.0 g/dL Hematocrit 37.1 L 42-54 % Mean Corpuscular Volume 91.8 79-99 fL Mean Corpuscular Hemoglobin 31.7 27.0-33.0 pg Mean Corpuscular Hemoglobin Concent 34.5 32.0-36.0 g/dL Red Cell Distribution Width 11.7 11.0-15.5 % Platelet Count 183 130-400 K/uL Mean Platelet Volume 12.0 H 7.5-10.5 fL Immature Granulocyte % (Auto) 0.3 0-1 % Neutrophils (%) (Auto) 62.6 40.0-77.0 % Lymphocytes (%) (Auto) 20.2 L 21.0-51.0 % Monocytes (%) (Auto) 11.3 3.0-13.0 % Eosinophils (%) (Auto) 5.0 0.0-8.0 % Basophils (%) (Auto) 0.6 0.0-5.0 % Neutrophils # (Auto) 4.4 1.8-7.7 K/uL Lymphocytes # (Auto) 1.4 1.0-4.8 K/uL Monocytes # (Auto) 0.8 0.1-1.0 K/uL Eosinophils # (Auto) 0.35 0.00-0.70 K/uL Basophils # (Auto) 0.04 0.00-0.20 K/uL Absolute Immature Granulocyte (auto 0.02 0-1 K/uL Nucleated Red Blood Cells 0.0 0.0-0.19 % Chemistry Labs: Test 05/29/25 10:50 05/29/25 05:16 05/29/25 04:59 05/28/25 04:28 Range/Units Whole Blood Glucose 212 H 70-110 MG/DL Bedside Glucose Comment Notified Nurse Sodium Level 138 136-145 mmol/L Potassium Level 3.7 3.5-5.1 mmol/L Chloride Level 102 101-111 mmol/L Carbon Dioxide Level 33 H 21-32 mmol/L Blood Urea Nitrogen 20 H 7-18 mg/dL Creatinine 1.4 H 0.5-1.3 mg/dL Glomerular Filtration Rate Calc 61 >90 mL/min Random Glucose 165 H 70-105 mg/dL Total Calcium 8.1 L 8.5-10.1 mg/dL Phosphorus Level 4.0 2.5-4.9 mg/dL Total Bilirubin 0.2 0.2-1.0 mg/dL Aspartate Amino Transf (AST/SGOT) 16 10-37 U/L Alanine Aminotransferase (ALT/SGPT) 19 12-78 U/L Alkaline Phosphatase 86 50-136 U/L Total Protein 6.0 6.0-8.3 g/dL Albumin 1.8 L 3.5-5.0 g/dL DIAGNOSTICS / RADIOLOGY: [place] [address] [place] [id number] IMAGING REPORT Signed PATIENT: QASIM GOMEZ MR#: [id number] : 1975 SEX: M AGE: 49 LOCATION: [facility] ORDER 1217 STATUS: ADM IN [facility] REPORT#: [id number] SERVICE 1210 REASON: Asssess for lumbar stenosis ORDERING PHYSICIAN: KILO MAHAN MD PROCEDURE: L SPN WO - MR SPINAL CANAL, LUMBAR WO CON EXAM: MR Lumbar Spine Without Intravenous Contrast. CLINICAL HISTORY: Assess for lumbar stenosis. TECHNIQUE: Magnetic resonance images of the lumbar spine in multiple planes. CONTRAST: None. COMPARISON: Radiograph dated 05/24/25. FINDINGS: For this examination, spinal levels were labeled assuming five non-rib bearing, lumbar-type vertebrae with the inferior labeled L5. No acute fracture. Normal lordotic curvature. Mild multilevel spondylosis is evident by small marginal osteophytes. Disc desiccation at the L5-S1 level. Normal vertebral body and disc heights. Normal marrow signal of the vertebrae. Conus medullaris terminates at the T12 level. No abnormal epidural masses. Small, simple cortical cyst in the lower pole of left kidney. Mild subcutaneous edema in the lower back. Individual spinal levels are described as follows: T12-L1: No disc bulge or herniation. No neural foraminal, lateral recess or spinal canal stenosis. L1-L2: No disc bulge or herniation. No neural foraminal, lateral recess or spinal canal stenosis. L2-L3: No disc bulge or herniation. No neural foraminal, lateral recess or spinal canal stenosis. L3-L4: No disc bulge or herniation. No neural foraminal, lateral recess or spinal canal stenosis. L4-L5: No disc bulge or herniation. No neural foraminal, lateral recess or spinal canal stenosis. L5-S1: 4 mm disc osteophyte complex bulge causing mild indentation on the anterior thecal sac. No neural foraminal or lateral recess stenosis. IMPRESSION: Mild multilevel spondylosis. Disc desiccation at the L5-S1 level. Mild indentation on the anterior thecal sac at the L5-S1 level. /[place] DICTATED BY: JERICHO DICKERSON Jr., MD DATE: 05/26/25632 ELECTRONICALLY SIGNED BY: JERICHO DICKERSON Jr., MD DATE: 05/26/25632 PATIENT: QASIM GOMEZ MR#: [id number] : 1975 SEX: M AGE: 49 LOCATION: [facility] ORDER 16 STATUS: ADM IN [facility] REPORT#: [id number] SERVICE 0000 REASON: assess for CHF ORDERING PHYSICIAN: KILO MAHAN MD PROCEDURE: ECHO CMP - ECHO 2-D COMPLETE APPROVED REPORT EXAM: Two-dimensional and M-mode echocardiogram with Doppler and color Doppler. INDICATION ICD: Assess for congestive heart failure 2D Dimensions RVDd 3.9 cm LVEF(%) 40.6 (>50%) LVED Vol(simp.) 113.0 mL IVSd 1.6 (0.7-1.1cm) FS(%) 20 % LVES Vol(simp.) 53.0 mL LVDd 4.9 (3.8-5.6cm) LA (2D) 4.6 (1.6-4.0cm) LVEF(%, simp.) 53 % PWd 1.2 (0.7-1.1cm) Ao Root(2D) 3.2 (2.0-3.7cm) LA ESV INDEX (BP) 30.26 mL/m2 IVSs 1.5 cm LVOT diam 2.4 (1.8-2.4cm) LVDs 3.9 (2.5-4.0cm) IVC diam 2.2 cm PWs 2.0 cm Deformation Strain Apical 4 -18.2 % Apical 2 -18.1 % Apical 3 -17.1 % Global Strain -17.8 % M-Mode Dimensions EPSS 1.1 cm LA (MM) 5.3 (1.6-4.0cm) Ao Root(MM) 3.8 (2.0-3.7cm) Aortic Valve AoV Vmax 1.1 m/s Ao Peak GR 5.2 mmHg LVOT Vmax 1.0 m/s AoV VTI 0.2 m Ao Mean GR 3.0 mmHg LVOT VTI 0.17 m JOSHUA (VMAX) 4.06 cm2 JOSHUA (VTI) 3.6 cm2 Mitral Valve MV E Vmax 64.9 cm/s DECEL Time 230 ms MV A Vmax 110.6 cm/s P 1/2 T 56 ms E/A ratio 0.6 MVA (PHT) 3.9 cm2 TDI E/E' Medial 12.8 E/E' Lateral 16.9 Medial E' Peak V 5.09 cm/s Lateral E' Peak V 3.85 cm/s Pulmonary Valve PV Vmax 1.4 m/s PV Mean GR 4.4 mmHg PV Peak GR 7.7 mmHg Tricuspid Valve TR Vmax 1.0 m/s RAP (EST) 3 mmHg RVSP 6.9 mmHg TR Peak GR 3.9 mmHg Left Ventricle The left ventricle is normal size. No regional wall motion abnormalities noted. Mild concentric left ventricular hypertrophy. Left ventricle systolic function is low normal, estimated LVEF is 50 to 55%. Stage I diastolic dysfunction. Right Ventricle The right ventricle is normal size. The right ventricular systolic function is normal. Atria The left atrium size is normal. The right atrium size is normal. Aortic Valve Aortic valve is trileaflet. The leaflets are mildly thickened and calcified. No aortic regurgitation is present. There is no aortic valvular stenosis. Mitral Valve Mild mitral annular calcification is noted. The leaflets are mildly thickened and calcified. Trace mitral regurgitation. There is no mitral valve stenosis. Tricuspid Valve The tricuspid valve is normal in structure. Trace tricuspid regurgitation. RVSP is normal. Pulmonic Valve Pulmonic valve is not well visualized. Great Vessels The aortic root is normal in size. The IVC is normal in size and collapses >50% with inspiration. Pericardium There is no pericardial effusion. Other Information Quality : Adequate Conclusion Mild concentric left ventricular hypertrophy. No regional wall motion abnormalities noted. Left ventricle systolic function is low normal, estimated LVEF is 50 to 55%. Stage I diastolic dysfunction. Trace mitral regurgitation. Trace tricuspid regurgitation. PASP is normal. There is no pericardial effusion. DICTATED BY: HUMBERTO CABALLERO MD DATE: 05/25/25 0913 ELECTRONICALLY SIGNED BY: HUMBERTO CABALLERO MD DATE: 05/25/25 230 PATIENT: QASIM GOMEZ MR#: [id number] : 1975 SEX: M AGE: 49 LOCATION: 2A ORDER 1217 STATUS: ADM IN [facility] REPORT#: [id number] SERVICE 1210 REASON: assess for DVT ORDERING PHYSICIAN: KILO MAHAN MD PROCEDURE: VENOUS MARIAJOSE - US VENOUS DOPPLER BILATERAL EXAM: US for Deep Venous Thrombosis, bilateral Lower Extremity. CLINICAL HISTORY: Leg Pain and Swelling TECHNIQUE: Real-time ultrasound scan of the veins of the bilateral lower extremity with color Doppler flow, spectral waveform analysis and compression. COMPARISON: None provided. FINDINGS: DEEP VEINS: The common femoral, superficial femoral, and popliteal veins are echolucent and compressible. There is normal color Doppler flow throughout. The visualized calf veins appear patent. SOFT TISSUES: No popliteal fossa cyst or other abnormalities. IMPRESSION: 1. No evidence of deep venous thrombosis in the bilateral lower extremities. /[place] DICTATED BY: JERICHO DICKERSON Jr., MD DATE: 05/24/251619 ELECTRONICALLY SIGNED BY: JERICHO DICKERSON Jr., MD DATE: 05/24/251619 PATIENT: QASIM GOMEZ MR#: [id number] : 1975 SEX: M AGE: 49 LOCATION: 2AH ORDER 16 STATUS: ADM IN [facility] REPORT#: [id number] SERVICE 1210 REASON: Assess for carotid stenosis ORDERING PHYSICIAN: KILO MAHAN MD PROCEDURE: CAROTID - US CAROTID DUPLEX EXAM: US Duplex Bilateral Carotid and Vertebral Arteries. CLINICAL HISTORY: Assess for carotid stenosis. TECHNIQUE: Real-time ultrasound scan of the bilateral carotid and vertebral arteries, 2-D hutson scale, with color Doppler flow and spectral waveform analysis. COMPARISON: None provided. FINDINGS: RIGHT COMMON CAROTID ARTERY: Peak systolic velocity approximately 72 cm/s. No occlusion or hemodynamically significant stenosis. RIGHT INTERNAL CAROTID ARTERY: Peak systolic velocity approximately 70 cm/s with ICA/CCA ratio of 1.0. No occlusion or hemodynamically significant stenosis. RIGHT EXTERNAL CAROTID ARTERY: Peak systolic velocity approximately 108 cm/s. No occlusion. RIGHT VERTEBRAL ARTERY: Antegrade flow with peak systolic velocity approximately 32 cm/s. RIGHT ICA/CCA RATIO: Approximately 1.0. LEFT COMMON CAROTID ARTERY: Peak systolic velocity approximately 69 cm/s. No occlusion or hemodynamically significant stenosis. LEFT INTERNAL CAROTID ARTERY: Peak systolic velocity approximately 73 cm/s with ICA/CCA ratio of approximately 1.1. No occlusion or hemodynamically significant stenosis. LEFT EXTERNAL CAROTID ARTERY: Peak systolic velocity approximately 135 cm/s. No occlusion. LEFT VERTEBRAL ARTERY: Antegrade flow with peak systolic velocity approximately 39 cm/s. LEFT ICA/CCA RATIO: Approximately 1.1. SOFT TISSUES: No incidental abnormalities. IMPRESSION: * No hemodynamically significant carotid artery stenosis by Doppler velocity criteria or ICA/CCA ratios. * Bilateral vertebral arteries demonstrate normal antegrade flow without hemodynamically significant stenosis. /[place] DICTATED BY: AIRAM BINGHAM DO DATE: 05/24/251634 ELECTRONICALLY SIGNED BY: AIRAM BINGHAM DO DATE: 05/24/251634 PATIENT: QASIM GOMEZ MR#: [id number] : 1975 SEX: M AGE: 49 LOCATION: 2AH ORDER 1217 STATUS: ADM IN [facility] REPORT#: [id number] SERVICE 1210 REASON: assess for PVD ORDERING PHYSICIAN: KILO MAHAN MD PROCEDURE: ART B LE - US ARTERIAL BILAT LOW EXT DUPL EXAM: US Duplex bilateral Lower Extremity Arteries. CLINICAL HISTORY: Assess for peripheral vascular disease. TECHNIQUE: Real-time ultrasound scan of the arteries of the bilateral lower extremities with 2-D hutson scale, color Doppler flow and spectral waveform analysis. COMPARISON: None provided. FINDINGS: RIGHT LOWER EXTREMITY: COMMON FEMORAL ARTERY: Peak systolic velocity approximately 115 cm/sec with triphasic waveform. No occlusion or hemodynamically significant stenosis. SUPERFICIAL FEMORAL ARTERY: Proximal peak systolic velocity approximately 65 cm/sec and distal peak systolic velocity approximately 70 cm/sec with triphasic waveforms. No occlusion or hemodynamically significant stenosis. POPLITEAL ARTERY: Peak systolic velocity approximately 71 cm/sec with triphasic waveform. No occlusion or hemodynamically significant stenosis. CALF ARTERIES: Posterior tibial artery distal peak systolic velocity approximately 59 cm/sec with triphasic waveform. Dorsalis pedis artery peak systolic velocity approximately 79 cm/sec with triphasic waveform. No occlusion or hemodynamically significant stenosis. LEFT LOWER EXTREMITY: COMMON FEMORAL ARTERY: Peak systolic velocity approximately 103 cm/sec with triphasic waveform. No occlusion or hemodynamically significant stenosis. SUPERFICIAL FEMORAL ARTERY: Proximal peak systolic velocity approximately 109 cm/sec, mid peak systolic velocity approximately 121 cm/sec, and distal peak systolic velocity approximately 40 cm/sec with predominantly triphasic waveforms. No focal velocity elevation to suggest hemodynamically significant stenosis. POPLITEAL ARTERY: Proximal peak systolic velocity approximately 50 cm/sec and distal peak systolic velocity approximately 78 cm/sec with triphasic waveforms. No occlusion or hemodynamically significant stenosis. CALF ARTERIES: Posterior tibial artery peak systolic velocity approximately 53 cm/sec and anterior tibial/distal peak systolic velocity approximately 64 cm/sec with triphasic waveforms. Dorsalis pedis artery peak systolic velocity approximately 100 cm/sec with triphasic waveform. No occlusion or hemodynamically significant stenosis. IMPRESSION: * Multifocal atherosclerotic changes of the bilateral lower extremity arteries without duplex evidence of hemodynamically significant stenosis or occlusion. /[place] DICTATED BY: THIERNO NEVILLE MD DATE: 05/24/251700 ELECTRONICALLY SIGNED BY: THIERNO NEVILLE MD DATE: 05/24/25 170 PATIENT: QASIM GOMEZ MR#: [id number] : 1975 SEX: M AGE: 49 LOCATION: [facility] ORDER 1217 STATUS: ADM IN REPORT#: [id number] SERVICE 1210 REASON: LLQ pain. Also assess lumbar spine ORDERING PHYSICIAN: KILO MAHAN MD PROCEDURE: ABD PEL WO - CT ABDOMEN/PELVIS W/O CONTRAST EXAM: CT SCAN OF THE ABDOMEN AND PELVIS WITHOUT CONTRAST Clinical statement: Left lower quadrant pain and lower back pain; evaluate abdomen and lumbar spine. STUDY PROTOCOL: CT radiation dose protocol was performed in accordance with the principles of ALARA. A multislice CT scan of the abdomen and pelvis was performed without intravenous contrast. Sections were obtained from the diaphragms to the inguinal region. RADIATION DOSE: CTDIvol 19.90 mGy; DLP 1365.70 mGycm. CONTRAST: No intravenous contrast administered. COMPARISON: None provided. FINDINGS: LUNG BASE: No pleural effusion, collapse, or consolidation in the visualized lung bases. Mild thickening of the posterior pleura of the left lower lobe. LIVER: Normal morphology and attenuation with smooth margins. No focal hepatic lesion or calcification. No intrahepatic or extrahepatic biliary dilatation. Vance hepatis structures are unremarkable. GALL BLADDER: Gallbladder wall thickness and contour are normal. The gallbladder is contracted with a possible tiny calculus measuring approximately 1 mm (series 2, image 28/129). No pericholecystic fat stranding is seen on this noncontrast study. The cystic duct and surrounding fat appear normal. PANCREAS: Normal in size, contour, and attenuation. No pancreatic ductal dilatation or peripancreatic inflammatory change. SPLEEN: Normal size and attenuation. A small accessory spleen is present. No acute splenic abnormality. KIDNEYS: Both kidneys are normal in size, shape, position, and attenuation. No renal mass, calculus, or hydronephrosis. Mild perinephric fat stranding bilaterally. A simple cyst measuring approximately 1.1 cm is noted in the lower pole of the left kidney. No evidence of obstructive uropathy. GIT /T/ PERITONEAL CAVITY: Stomach is distended but otherwise unremarkable. Gastroesophageal junction, pylorus, and duodenum appear normal. Jejunal and ileal loops are normal in caliber and distribution with preserved wall thickness and mucosal pattern. No CT evidence of acute appendicitis. Scattered sigmoid diverticulosis is present without adjacent inflammatory stranding or abscess. Rectum and colonic loops are well distended with fecal material, consistent with constipation. No free intraperitoneal fluid or free air. Mesenteric fat and omentum are unremarkable. LYMPHNODES: No pathologically enlarged abdominopelvic lymph nodes are identified. RETROPERITONEUM: Both adrenal glands are normal in morphology and attenuation. The abdominal aorta and IVC are normal in course and caliber with mild atherosclerotic calcification in the aortoiliac segment. A vascular stent is present in the left common iliac vein. PELVIS: Urinary bladder shows normal wall thickness and contour. Prostate appears normal on CT. No pelvic mass or free fluid. MUSCULOSKELETAL: Early degenerative changes in the dorsolumbar spine with multilevel endplate osteophytic spurring. Mild reduction in L5S1 disc height with a small posterior disc protrusion measuring approximately 3 mm at L5S1. No acute fracture or listhesis. OTHER: Extra-abdominal and paraspinal soft tissues are unremarkable. Tiny fat-containing umbilical hernia. IMPRESSION: * No CT evidence of acute intra-abdominal pathology such as appendicitis, diverticulitis, bowel obstruction, or obstructive uropathy to clearly explain left lower quadrant pain. Clinical management should be guided by examination and laboratory findings. * Scattered sigmoid diverticulosis without CT evidence of diverticulitis. These changes can be a source of chronic left-sided abdominal symptoms; if symptoms persist or there are red-flag features (e.g., anemia, change in bowel habits, weight loss), gastroenterology evaluation and consideration of colonoscopy are advised. * Constipation with fecal loading of the colon and rectum, which may contribute to the patients abdominal pain; treatment should be tailored to clinical assessment and bowel habit history. * Degenerative changes of the lower lumbar spine with mild L5S1 disc height loss and a small posterior disc protrusion at L5S1, which may contribute to lower back pain and possibly radicular symptoms if present. Correlation with neurologic examination is recommended, and lumbar spine MRI may be considered if there is radiculopathy or persistent, function-limiting pain. * Mild bilateral perinephric fat stranding with a small simple left renal cyst (1.1 cm) and no hydronephrosis or stones. Findings are nonspecific and more in keeping with mild chronic or incidental change; correlation with urine studies and clinical features is recommended if there is concern for renal infection. * Contracted gallbladder with a possible tiny calculus. There is no CT evidence of acute cholecystitis on this noncontrast study; if biliary-type symptoms develop, targeted right upper quadrant ultrasound could be considered for further evaluation. * Mild atherosclerotic calcification of the aortoiliac segment with a left common iliac vein stent, and tiny fat-containing umbilical hernia, both likely incidental in the context of the current presentation. /[place] DICTATED BY: AUSTIN DOMINGUEZ MD DATE: 05/24/251403 ELECTRONICALLY SIGNED BY: AUSTIN DOMINGUEZ MD DATE: 05/24/251403 PATIENT: QASIM GOMEZ MR#: [id number] : 1975 SEX: M AGE: 49 LOCATION: [facility] ORDER 53 STATUS: ADM IN REPORT#: [id number] SERVICE 1153 REASON: weakness ORDERING PHYSICIAN: KILO MAHAN MD PROCEDURE: HEAD WO - CT HEAD/BRAIN W/O CONTRAST EXAM: CT Head Without IV contrast. CLINICAL HISTORY: weakness TECHNIQUE: Axial computed tomography images of the head/brain without intravenous contrast. COMPARISON: None provided. FINDINGS: BRAIN: No evidence of acute hemorrhage. No mass lesion. No CT evidence for acute territorial infarct. No midline shift or extra-axial collections. VENTRICLES: No hydrocephalus. ORBITS: The orbits are unremarkable. SINUSES AND MASTOIDS: The paranasal sinuses and mastoid air cells are clear. BONES: No fracture. SOFT TISSUES: Unremarkable. IMPRESSION: No acute intracranial abnormality. /[place] DICTATED BY: AIRAM BINGHAM DO DATE: 05/24/251355 ELECTRONICALLY SIGNED BY: AIRAM BINGHAM DO DATE: 05/24/251355 PATIENT: QASIM GOMEZ MR#: [id number] : 1975 SEX: M AGE: 49 LOCATION: [facility] ORDER 1038 STATUS: REG ER REPORT#: [id number] SERVICE 1032 REASON: straight leg positive and lumbar pain ORDERING PHYSICIAN: STACI DAVIS MD PROCEDURE: LUMB 2 3VW - LUMBAR SPINE 2-3VWS EXAM: CR Lumbar Spine, 3 View. CLINICAL HISTORY: straight leg positive and lumbar pain COMPARISON: None provided. FINDINGS: BONES: No acute fracture or aggressive appearing osseous lesion. ALIGNMENT: Alignment is within normal limits. No significant scoliosis. DISCS / DEGENERATIVE CHANGES: The disc spaces are preserved. SOFT TISSUES: The soft tissues are unremarkable. Left iliac vascular stent IMPRESSION: No acute lumbar spine abnormality evident. If there is clinical concern for nerve root compression, MRI is suggested. /[place] DICTATED BY: AIRAM BINGHAM DO DATE: 05/24/25 1238 ELECTRONICALLY SIGNED BY: AIRAM BINGHAM DO DATE: 05/24/25 1238 ASSESSMENT: Symptomatic hyperglycemia Uncontrolled diabetes mellitus type 2 Lower back pain Proteinuria Acute on chronic kidney disease Diabetic nephropathy Bilateral lower extremities edema History of May-Thurner syndrome Blurred vision bilaterally Hypertensive urgency PLAN: Labs, diagnostic, radiologic exams reviewed and interpreted by myself and supervising physician. We have reviewed external records in detail Continue with torsemide 20 mg po daily Order dietary consult for renal diabetic diet Pending plasma renin activity and aldosterone Require close monitoring of renal function and electrolytes Order CBC, CMP, and electrolytes in am BiPAP as necessary, for respiratory distress Monitor blood pressure adjust medication doses as needed Avoid hypotensive episodes May use Dilaudid 0.5 mg IV every 6 hours as needed for severe pain Monitor blood sugars Strict intake, output, and daily weight should be monitored Please renally adjust medications Avoid nephrotoxic and nonsteroidal drugs Avoid contrast if possible Will continue to monitor renal function, anemia, electrolytes Treatment plan discussed with patient Questions were answered We have discussed with the other team physicians in detail about the care plan We will continue to monitor the patient closely ATTESTATION BY PHYSICIAN I have seen and examined the patient. I reviewed the documentation, medical decision making, and treatment plan as noted by the mid-level provider above. I agree with the findings and plan of care. EMA LOERA MD, [facility] May 29, 2025 14:23
[2025-05-30 03:33] VITALS: BP 145/90; PULSE 86; RESP 16; TEMP 97.8
[2025-05-30 03:38] LABS: IMMATURE GRANULOCYTE ABSOLUTE 0.01 K/uL (0-1); NUCLEATED RED BLOOD CELLS 0.0 % (0.0-0.19); PLATELET COUNT (AUTO) 177 K/uL (130-400); RED BLOOD CELL COUNT(AUTO) 4.01 MIL/uL (4.50-6.20); RED CELL DISTRIBUTION WIDTH 11.4 % (11.0-15.5); WHITE BLOOD COUNT (AUTO) 5.4 K/uL (4.8-10.8)
[2025-05-30 04:33] LABS: ASPARTATE AMINOTRANSFERASE 24.0 U/L (10-37); CREATININE 1.5 mg/dL (0.5-1.3); GLOMERULAR FILTR. RATE CALC 56.0 mL/min (>90); GLUCOSE,RANDOM 261.0 mg/dL (70-105); PHOSPHORUS 3.7 mg/dL (2.5-4.9); SODIUM SERUM 136.0 mmol/L (136-145); TOTAL PROTEIN, SERUM 6.0 g/dL (6.0-8.3); UREA NITROGEN, BLOOD 20.0 mg/dL (7-18)
[2025-05-30 07:41] VITALS: BP 121/74; PULSE 70; RESP 16; TEMP 98.9
[2025-05-30 09:32] VITALS: O2SAT 99
--- NOTE | 2025-05-30 12:41 | PN ---
[facility] PROGRESS NOTE Date of Service: May 30, 2025 Time of Service: 12:38 SUBJECTIVE: Patient was evaluated today at bedside with his present. He continues to report inability to see from the left eye and blurred vision in the right eye, which has been ongoing for several weeks. He states he was recently diagnosed with diabetic retinopathy and is planning to start eye injections. He reports his home glucose readings have been consistently >200 mg/dL. He describes persistent bilateral lower extremity edema and numbness in both legs, and continues to feel very weak. He denies chest pain, shortness of breath, or abdominal discomfort, but does complain of mild headache. He is aware of his recent admission for symptomatic hyperglycemia and understands that his diabetes remains uncontrolled (recent hemoglobin A1c 12.2%). He acknowledges his history of hypertension, May-Thurner syndrome, proteinuria, and recent findings of acute kidney injury or possible underlying chronic kidney disease, likely secondary to diabetic nephropathy. He is aware of his prior right great toe amputation, peripheral angiogram, and iliac stent placement. He denies any smoking, alcohol, or drug use. 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 He understands the importance of not driving or operating heavy machinery due to his visual impairment and agrees to follow up with ophthalmology after discharge. All questions were addressed with both patient and at bedside. 05/28/2025: Over the past 24 hours no major events reported. Patient continues to experience some blurred vision to bilateral eyes. Continues to complain of BLE edema, initiated on p.o. torsemide. He is being followed closely by Nephrology and Endocrinology. Morning labs reviewed, serum creatinine 1.6, glucometers ranging 206-256. 05/29/2025: Patient reports improvement in BLE edema, remains on p.o. torsemide. Patient continues to be followed closely by Nephrology and Endocrinology. Morning labs serum creatinine improved to 1.4. 05/30 patient remains admitted to the medical floor, comfortably in bed, alert oriented x3, still complaining of left lower quadrant pain.CT abdomen and pelvis done 05/24/2025 scattered sigmoid diverticulosis without CT evidence of diverticulitis, this changes can be a source of chronic left-sided abdominal sy mptoms. We will repeat CT abdomen and pelvis without oral or IV contrast, we will request GI consultation. The meantime continue with torsemide 20 mg p.o. daily. Continue daily weight, monitor intake and output, monitor creatinine a.m.. Discussed with the patient, in agreement. REVIEW OF SYSTEMS CONSTITUTIONAL: Denies fevers, chills, or night sweats. No unintentional weight loss reported. NEUROLOGICAL: Denies headache, amaurosis fugax, motor weakness, sensory deficit, vertigo/spinning sensation, or tremors. Positive for gait abnormality ENT: No hearing loss, otalgia, otorrhea, rhinitis, rhinorrhea, hoarseness, or sore throat. CARDIOVASCULAR: Denies any exertional angina, dyspnea on exertion, orthopnea, paroxysmal nocturnal dyspnea, palpitations, life-threatening arrhythmias, claudication. PULMONARY: Denies any shortness of breath, cough, phlegm/sputum, hemoptysis, pleuritic chest pain. GASTROINTESTINAL: Denies any type of dysphagia to either liquids or solids. Denies nausea, vomiting, pyrosis, early satiety, abdominal pain, diarrhea, constipation, or changes in stool consistency or caliber. Denies coffee-ground emesis, hematemesis, hematochezia, or melanotic stools. GENITOURINARY: Denies frequency, urgency, nocturia, hematuria or incontinence (Storage/Irritative symptoms.) Low urinary stream, straining to void, urinary intermittency or hesitancy, splitting of the voiding stream, terminal dribbling. ENDOCRINOLOGIC: Denies polyuria, polydipsia, polyphagia or heat/cold intolerances. HEMATOLOGIC: Denies thrombophilia/previous clots, or coagulopathy/bleeding disorders. ONCOLOGIC: Denies personal history of malignancy. DERMATOLOGIC: Denies rashes or pruritus. PSYCHIATRIC: Denies any suicidal or homicidal ideation. Denies hallucinations. Musculoskeletal: positive for pain in the lower extremity, positive for lower back pain PHYSICAL EXAM GENERAL APPEARANCE: The patient is awake, alert, and oriented, in no acute cardiopulmonary distress. NEUROLOGICAL: Cranial nerves II-XII grossly intact. Motor is 5/5 in bilateral upper and lower extremities proximal to distal. No sensory deficits. HEENT: Face is symmetric. Pupils are equal and reactive. Extraocular movements are intact. Patient was unable to see from the left eye. Visual acuity on the right eye was 20/40, visual acuity in both eyes was 20 NECK: Supple. No JVD. No thyromegaly. No submental, submandibular, pre- /postauricular, occipital or supraclavicular lymphadenopathy. CHEST: Normal chest expansion. No Telemetry. LUNGS: Absence of any rales, rhonchi or any wheezing. CARDIOVASCULAR: Regular. S1 and S2 normal. No appreciable rubs, murmurs or gallops. ABDOMEN: Soft, mild tenderness in the l left lower quadrant, and nondistended. There is no rebound, voluntary guarding, or rigidity. : Deferred. No Crowe. EXTREMITIES: Non-edematous and not cyanotic. No clubbing. Good capillary refill. SKIN: No skin breakdown. Vital Signs (last 8hr) Date Time Temp Pulse Resp B/P (MAP) Pulse Ox O2 Delivery O2 Flow Rate FiO2 05/30/25 07:41 99.0 70 16 121/74 97 Room Air LABS: Laboratory: Test 05/30/25 10:32 05/30/25 03:21 05/29/25 05:16 Range/Units Whole Blood Glucose 94 # 70-110 MG/DL White Blood Count 5.4 4.8-10.8 K/uL Red Blood Count 4.01 L 4.50-6.20 MIL/uL Hemoglobin 12.4 L 14.0-18.0 g/dL Hematocrit 37.6 L 42-54 % Mean Corpuscular Volume 93.8 79-99 fL Mean Corpuscular Hemoglobin 30.9 27.0-33.0 pg Mean Corpuscular Hemoglobin Concent 33.0 32.0-36.0 g/dL Red Cell Distribution Width 11.4 11.0-15.5 % Platelet Count 177 130-400 K/uL Mean Platelet Volume 11.1 H 7.5-10.5 fL Immature Granulocyte % (Auto) 0.2 0-1 % Neutrophils (%) (Auto) 56.8 40.0-77.0 % Lymphocytes (%) (Auto) 23.6 21.0-51.0 % Monocytes (%) (Auto) 13.0 3.0-13.0 % Eosinophils (%) (Auto) 5.8 0.0-8.0 % Basophils (%) (Auto) 0.6 0.0-5.0 % Neutrophils # (Auto) 3.1 1.8-7.7 K/uL Lymphocytes # (Auto) 1.3 1.0-4.8 K/uL Monocytes # (Auto) 0.7 0.1-1.0 K/uL Eosinophils # (Auto) 0.31 0.00-0.70 K/uL Basophils # (Auto) 0.03 0.00-0.20 K/uL Absolute Immature Granulocyte (auto 0.01 0-1 K/uL Nucleated Red Blood Cells 0.0 0.0-0.19 % Sodium Level 136 136-145 mmol/L Potassium Level 3.8 3.5-5.1 mmol/L Chloride Level 100 L 101-111 mmol/L Carbon Dioxide Level 30 21-32 mmol/L Blood Urea Nitrogen 20 H 7-18 mg/dL Creatinine 1.5 H 0.5-1.3 mg/dL Glomerular Filtration Rate Calc 56 >90 mL/min Random Glucose 261 #H 70-105 mg/dL Total Calcium 8.0 L 8.5-10.1 mg/dL Phosphorus Level 3.7 2.5-4.9 mg/dL Total Bilirubin 0.2 0.2-1.0 mg/dL Aspartate Amino Transf (AST/SGOT) 24 10-37 U/L Alanine Aminotransferase (ALT/SGPT) 32 12-78 U/L Alkaline Phosphatase 97 50-136 U/L Total Protein 6.0 6.0-8.3 g/dL Albumin 1.9 L 3.5-5.0 g/dL Bedside Glucose Comment Notified Nurse Current Medications Medications (Trade) Dose Ordered Sig/Darcie Route PRN Reason Start Time Stop Time Status Last Admin Dose Admin Acetaminophen/ Codeine Phosphate (TYLenol-coDEINE TAB) 1 tab Q6H PRN PO MODERATE PAIN (4-6) 05/26/25 13:00 06/25/25 12:59 05/30/25 03:24 1 TAB Amlodipine Besylate (NorvASC 5MG TAB) 5 mg DAILY PO 05/25/25 09:00 05/26/25 12:57 DC 05/26/25 09:10 5 MG Amlodipine Besylate (NorvASC 5MG TAB) 10 mg DAILY PO 05/27/25 09:00 06/26/25 08:59 05/30/25 10:55 10 MG Amoxicillin (Amoxicillin 500mg Cap) 500 mg TID PO 05/26/25 14:00 05/26/25 13:20 DC Aspirin (Aspirin 81mg Ec Tab) 81 mg DAILY PO 05/27/25 09:00 06/26/25 08:59 05/30/25 10:55 81 MG Atorvastatin Calcium (LIPItor 40MG) 40 mg HS PO 05/26/25 21:00 06/25/25 20:59 05/29/25 21:09 40 MG Clopidogrel Bisulfate (plaVIX 75MG) 75 mg DAILY PO 05/27/25 09:00 06/26/25 08:59 05/30/25 10:55 75 MG Enoxaparin Sodium (Lovenox) 30 mg DAILY SQ 05/25/25 09:00 06/24/25 08:59 05/30/25 10:54 30 MG Famotidine (Pepcid 20mg Vial) 20 mg Q24H IV 05/24/25 21:00 06/23/25 20:59 05/29/25 21:09 20 MG Furosemide (LASix 20MG TAB) 20 mg DAILY PO 05/28/25 09:00 05/27/25 17:57 DC Gabapentin (NEURontin 100 mg CAP) 100 mg TID PO 05/26/25 14:00 06/25/25 13:59 05/30/25 11:03 100 MG Hydralazine HCl (APRESOLine 20MG INJ) 5 mg Q6H PRN IV ADMINISTER FOR SBP > 160 05/26/25 13:00 06/25/25 12:59 05/27/25 00:14 5 MG Hydralazine HCl (APRESOLine 20MG INJ) 10 mg Q6H PRN IV ADMINISTER FOR SBP > 180 05/24/25 12:30 06/23/25 12:29 05/24/25 15:08 10 MG Hydromorphone HCl (DiLAUDid 0.5MG INJ) 0.5 mg Q6H PRN IVP SEVERE PAIN (7-10) 05/24/25 12:30 05/29/25 12:29 DC 05/29/25 08:54 0.5 MG Insulin Glargine (LANtus 100 UNITS/ML 10 ML VIAL) 20 units DAILY SQ 05/25/25 09:00 05/25/25 19:40 DC 05/25/25 09:47 20 UNITS Insulin Glargine (LANtus 100 UNITS/ML 10 ML VIAL) 30 units DAILY SQ 05/26/25 09:00 05/28/25 07:17 DC 05/27/25 09:19 30 UNITS Insulin Glargine (LANtus 100 UNITS/ML 10 ML VIAL) 35 units DAILY SQ 05/28/25 09:00 06/27/25 08:59 05/29/25 08:48 35 UNITS Insulin Human Regular (humuLIN R 100 UNIT/ML 3ML) 5 unit TIDAC SQ 05/25/25 07:30 05/25/25 19:40 DC 05/25/25 16:50 5 UNIT Insulin Human Regular (humuLIN R 100 UNIT/ML 3ML) 8 unit TIDAC SQ 05/26/25 07:30 05/26/25 12:55 DC 05/26/25 12:36 8 UNIT Insulin Human Regular (humuLIN R 100 UNIT/ML 3ML) 8 unit TIDAC SQ 05/29/25 07:30 06/28/25 07:29 05/30/25 06:42 8 UNIT Insulin Human Regular (humuLIN R 100 UNIT/ML 3ML) 10 unit TIDAC SQ 05/28/25 07:30 05/29/25 06:36 DC 05/28/25 08:08 10 UNIT Insulin Human Regular (humuLIN R 100 UNIT/ML 3ML) 12 unit TIDAC SQ 05/26/25 17:00 05/27/25 20:50 DC 05/27/25 11:52 12 UNIT Insulin Human Regular (humuLIN R 100 UNIT/ML 3ML) INSULIN SLIDING SCAL... ACHS SQ 05/25/25 07:30 06/24/25 07:29 05/30/25 06:41 4 UNIT Insulin Human Regular (humuLIN R 100 UNIT/ML 3ML) INSULIN SLIDING SCAL... Q6H6 SQ 05/24/25 18:00 05/25/25 05:19 DC 05/25/25 00:07 7 UNIT Ondansetron HCl (zoFRAN 4MG INJ) 4 mg Q6H PRN IVP NAUSEA/VOMITING 05/24/25 12:30 06/23/25 12:29 Torsemide (Demadex) 20 mg DAILY PO 05/27/25 18:00 06/26/25 17:59 05/30/25 10:55 20 MG Vitamin B Complex/ Vit C/Folic Acid (Nephrovite Tablet) 1 cap DAILY PO 05/25/25 09:00 06/24/25 08:59 05/30/25 10:55 1 CAP DIAGNOSTICS / RADIOLOGY: [ ] ASSESSMENT: 1. Symptomatic hyperglycemia, POA No DKA. Hyperglycemia is improving with insulin adjustments. 2. Uncontrolled diabetes mellitus type 2 HgbA1c 12.2%. Home regimen: glargine 30 units daily, insulin aspart 10 units before meals. Glucose >200 mg/dL. Endocrinology recommends further insulin titration. 3. Diabetic retinopathy Recently diagnosed, planning for eye injections. B ilateral blurred vision, left eye with profound vision loss. 4. Lower back pain with concern for radiculopathy MRI shows mild multilevel spondylosis, disc desiccation at L5-S1, mild bulging indenting the anterior thecal sac at L5-S1. 5. Proteinuria 6. Acute kidney injury or underlying chronic kidney disease Likely from diabetic nephropathy. 7. Bilateral lower extremity edema and numbness Multifactorial: consider diabetic neuropathy, mild nerve root impingement at L5-S1, and history of May- Thurner syndrome. 8. Hypertensive urgency 9. History of right great toe amputation, peripheral angiogram, and iliac stent placement PLAN: patient remains admitted to the medical floor, comfortably in bed, alert oriented x3, still complaining of left lower quadrant pain.CT abdomen and pelvis done 05/24/2025 scattered sigmoid diverticulosis without CT evidence of diverticulitis, this changes can be a source of chronic left-sided abdominal symptoms. We will repeat CT abdomen and pelvis without oral or IV contrast, we will request GI consultation. The meantime continue with torsemide 20 mg p.o. daily. Continue daily weight, monitor intake and output, monitor creatinine a.m.. Discussed with the patient, in agreement. NEURO: Minimize central acting medications as possible. Fall Precautions. Well lighted room through the day and minimize interruptions through the night to prevent acute delirium. PULMONARY: Supplemental 02 as needed BiPAP as necessary, for respiratory distress Titrate Fio2 to keep Spo2 > or = 90% DuoNebs and CPT as needed IS hourly while awake for pulmonary hygiene prn Out of bed to chair as tolerated Maintain aspiration precautions at all times CARDIOVASCULAR: Follow hemodynamics. Vital signs per facility protocol GI & NUTRITION: Continue nutritional support Aspirations precautions Prokinetic agents and laxatives as needed KIDNEYS & ELECTROLYTES: Strict monitoring of intake and output Daily weights Avoid nephrotoxic agents Monitor electrolytes and replace as needed Goal urine output of 30mL/hr or 0.5mL/kg/hr Medications to be dosed according to renal function. Avoid contrast if possible ENDOCRINE: Maintain blood glucose between 100-180 at all times. Insulin sliding scale for blood glucose management Hypoglycemia and hyperglycemia protocol in place INFECTIOUS DISEASE: Trend temperature, WBC and procalcitonin level Follow cultures, deescalate antibiotics as soon as possible. Panculture if new onset fever HEMATOLOGY & COAGULATION: Monitor H&H. Keep Hgb > 7 Transfuse 1 unit of PRBC for Hgb < 7 Transfuse 1 pack of platelets of platelets < 20, 000 Watch for any signs and symptoms of bleeding SKIN: Pressure ulcer prevention per facility protocol Specialty mattress as needed ORTHO/REHAB Continue PT/OT PRN: MEDICATIONS Tylenol 650 mg po every 4 hrs for fever zofran 4 mg IV every 6 hrs for n/v Hydralazine 5 mg IV every 4 hrs systolic pressure > 160 bowel regiment: lactulose 20 gm PO BID PRN constipation Supportive measures: Continue GI and DVT prophylaxis Disposition: Pending improvement in clinical condition All questions answered time spent: > 35 min JANETTE THAYER MD May 30, 2025 12:41
--- NOTE | 2025-05-30 12:45 | CONS ---
GASTROENTEROLOGY CONSULTATION NOTE Date of Consultation: May 30, 2025 Time of Consultation: 12:45 History of Present Illness: This is a 49-year-old male with past medical history of hypertension, diabetes who presented due to blurry vision. He has a history of PVD with previous stent placement. He reports lower abdominal pain. CT revealing scattered sigmoid diverticulosis without evidence of diverticulitis. Review of Systems: CONSTITUTIONAL: No malaise or change in sensation of wellbeing. ENMT: No rhinorrhea, otorrhea, sinus pain, ear ache. CARDIOVASCULAR: No angina, palpitations, orthopnea or paroxysmal dyspnea. RESPIRATORY: No SOB. GASTROINTESTINAL: No abdominal pain, nausea, vomiting, diarrhea, hematemesis, melena or change in the patient's habitual bowel movements consistency/number. GENITOURINARY: No dysuria, hematuria or change in bladder continence. MUSCULOSKELETAL: No new muscle pain or decrease in muscular strength. No new joint swelling, redness or tenderness. SKIN: No new rash. Past Medical History: PAST MEDICAL HISTORY: Hypertension, diabetes mellitus type two PAST SURGICAL HISTORY: History of right foot great toe amputation, history of peripheral angiogram, history of iliac stent placement PAST SOCIAL HISTORY: Denied any smoking, alcohol, drug use. 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 HEENT: No sinus tenderness. Tympanic membranes were not examined. No rhinorrhea. Oral pharyngeal mucosa is pink, moist and within normal limits. Neck is supple with no cervical lymphadenopathy, thyromegaly or JVD. CHEST: Inspection, palpation and percussion of the chest were unremarkable. Lung auscultation revealed normal breath sounds bilaterally. CARDIAC: PMI is within normal limits. Heart sounds are regular. Normal S1, S2. No gallop or murmur. ABD: Soft, non-tender and not distended. No peritoneal signs on palpation. No organomegaly. Normal bowel sounds. EXT: No cyanosis or clubbing. No edema. SKIN: Intact. No rashes. JOINTS: No evidence of synovitis or acute arthritis. NEURO: Alert and oriented to name, place and person. Cranial nerve examination is unremarkable. No focal motor deficits. Normal speech. Gait is normal. Strength is normal. Vital Sign (Last 24 Hours) 05/29/25 05/30/25 21:56 07:41 Temp 99.0 Pulse 70 Resp 16 B/P (MAP) 121/74 Pulse Ox 97 O2 Delivery Room Air O2 Flow Rate 0 FiO2 21 Intake & Output (last 24hrs) 05/29/25 05/29/25 05/30/25 15:00 23:00 07:00 Intake Total 1500 ml Output Total 900 ml 950 ml Balance -900 ml 550 ml Laboratory: [ ] Laboratory: Test 05/30/25 10:32 05/30/25 03:21 05/29/25 05:16 Range/Units Whole Blood Glucose 94 # 70-110 MG/DL White Blood Count 5.4 4.8-10.8 K/uL Red Blood Count 4.01 L 4.50-6.20 MIL/uL Hemoglobin 12.4 L 14.0-18.0 g/dL Hematocrit 37.6 L 42-54 % Mean Corpuscular Volume 93.8 79-99 fL Mean Corpuscular Hemoglobin 30.9 27.0-33.0 pg Mean Corpuscular Hemoglobin Concent 33.0 32.0-36.0 g/dL Red Cell Distribution Width 11.4 11.0-15.5 % Platelet Count 177 130-400 K/uL Mean Platelet Volume 11.1 H 7.5-10.5 fL Immature Granulocyte % (Auto) 0.2 0-1 % Neutrophils (%) (Auto) 56.8 40.0-77.0 % Lymphocytes (%) (Auto) 23.6 21.0-51.0 % Monocytes (%) (Auto) 13.0 3.0-13.0 % Eosinophils (%) (Auto) 5.8 0.0-8.0 % Basophils (%) (Auto) 0.6 0.0-5.0 % Neutrophils # (Auto) 3.1 1.8-7.7 K/uL Lymphocytes # (Auto) 1.3 1.0-4.8 K/uL Monocytes # (Auto) 0.7 0.1-1.0 K/uL Eosinophils # (Auto) 0.31 0.00-0.70 K/uL Basophils # (Auto) 0.03 0.00-0.20 K/uL Absolute Immature Granulocyte (auto 0.01 0-1 K/uL Nucleated Red Blood Cells 0.0 0.0-0.19 % Sodium Level 136 136-145 mmol/L Potassium Level 3.8 3.5-5.1 mmol/L Chloride Level 100 L 101-111 mmol/L Carbon Dioxide Level 30 21-32 mmol/L Blood Urea Nitrogen 20 H 7-18 mg/dL Creatinine 1.5 H 0.5-1.3 mg/dL Glomerular Filtration Rate Calc 56 >90 mL/min Random Glucose 261 #H 70-105 mg/dL Total Calcium 8.0 L 8.5-10.1 mg/dL Phosphorus Level 3.7 2.5-4.9 mg/dL Total Bilirubin 0.2 0.2-1.0 mg/dL Aspartate Amino Transf (AST/SGOT) 24 10-37 U/L Alanine Aminotransferase (ALT/SGPT) 32 12-78 U/L Alkaline Phosphatase 97 50-136 U/L Total Protein 6.0 6.0-8.3 g/dL Albumin 1.9 L 3.5-5.0 g/dL Bedside Glucose Comment Notified Nurse Current Medications Medications (Trade) Dose Ordered Sig/Darcie Route PRN Reason Start Time Stop Time Status Last Admin Dose Admin Acetaminophen/ Codeine Phosphate (TYLenol-coDEINE TAB) 1 tab Q6H PRN PO MODERATE PAIN (4-6) 05/26/25 13:00 06/25/25 12:59 05/30/25 12:39 1 TAB Amlodipine Besylate (NorvASC 5MG TAB) 5 mg DAILY PO 05/25/25 09:00 05/26/25 12:57 DC 05/26/25 09:10 5 MG Amlodipine Besylate (NorvASC 5MG TAB) 10 mg DAILY PO 05/27/25 09:00 06/26/25 08:59 05/30/25 10:55 10 MG Amoxicillin (Amoxicillin 500mg Cap) 500 mg TID PO 05/26/25 14:00 05/26/25 13:20 DC Aspirin (Aspirin 81mg Ec Tab) 81 mg DAILY PO 05/27/25 09:00 06/26/25 08:59 05/30/25 10:55 81 MG Atorvastatin Calcium (LIPItor 40MG) 40 mg HS PO 05/26/25 21:00 06/25/25 20:59 05/29/25 21:09 40 MG Clopidogrel Bisulfate (plaVIX 75MG) 75 mg DAILY PO 05/27/25 09:00 06/26/25 08:59 05/30/25 10:55 75 MG Enoxaparin Sodium (Lovenox) 30 mg DAILY SQ 05/25/25 09:00 06/24/25 08:59 05/30/25 10:54 30 MG Famotidine (Pepcid 20mg Vial) 20 mg Q24H IV 05/24/25 21:00 06/23/25 20:59 05/29/25 21:09 20 MG Furosemide (LASix 20MG TAB) 20 mg DAILY PO 05/28/25 09:00 05/27/25 17:57 DC Gabapentin (NEURontin 100 mg CAP) 100 mg TID PO 05/26/25 14:00 06/25/25 13:59 05/30/25 11:03 100 MG Hydralazine HCl (APRESOLine 20MG INJ) 5 mg Q6H PRN IV ADMINISTER FOR SBP > 160 05/26/25 13:00 06/25/25 12:59 05/27/25 00:14 5 MG Hydralazine HCl (APRESOLine 20MG INJ) 10 mg Q6H PRN IV ADMINISTER FOR SBP > 180 05/24/25 12:30 06/23/25 12:29 05/24/25 15:08 10 MG Hydromorphone HCl (DiLAUDid 0.5MG INJ) 0.5 mg Q6H PRN IVP SEVERE PAIN (7-10) 05/24/25 12:30 05/29/25 12:29 AL 05/29/25 08:54 0.5 MG Insulin Glargine (LANtus 100 UNITS/ML 10 ML VIAL) 20 units DAILY SQ 05/25/25 09:00 05/25/25 19:40 DC 05/25/25 09:47 20 UNITS Insulin Glargine (LANtus 100 UNITS/ML 10 ML VIAL) 30 units DAILY SQ 05/26/25 09:00 05/28/25 07:17 DC 05/27/25 09:19 30 UNITS Insulin Glargine (LANtus 100 UNITS/ML 10 ML VIAL) 35 units DAILY SQ 05/28/25 09:00 06/27/25 08:59 05/30/25 12:40 35 UNITS Insulin Human Regular (humuLIN R 100 UNIT/ML 3ML) 5 unit TIDAC SQ 05/25/25 07:30 05/25/25 19:40 DC 05/25/25 16:50 5 UNIT Insulin Human Regular (humuLIN R 100 UNIT/ML 3ML) 8 unit TIDAC SQ 05/26/25 07:30 05/26/25 12:55 DC 05/26/25 12:36 8 UNIT Insulin Human Regular (humuLIN R 100 UNIT/ML 3ML) 8 unit TIDAC SQ 05/29/25 07:30 06/28/25 07:29 05/30/25 06:42 8 UNIT Insulin Human Regular (humuLIN R 100 UNIT/ML 3ML) 10 unit TIDAC SQ 05/28/25 07:30 05/29/25 06:36 DC 05/28/25 08:08 10 UNIT Insulin Human Regular (humuLIN R 100 UNIT/ML 3ML) 12 unit TIDAC SQ 05/26/25 17:00 05/27/25 20:50 DC 05/27/25 11:52 12 UNIT Insulin Human Regular (humuLIN R 100 UNIT/ML 3ML) INSULIN SLIDING SCAL... ACHS SQ 05/25/25 07:30 06/24/25 07:29 05/30/25 06:41 4 UNIT Insulin Human Regular (humuLIN R 100 UNIT/ML 3ML) INSULIN SLIDING SCAL... Q6H6 SQ 05/24/25 18:00 05/25/25 05:19 DC 05/25/25 00:07 7 UNIT Ondansetron HCl (zoFRAN 4MG INJ) 4 mg Q6H PRN IVP NAUSEA/VOMITING 05/24/25 12:30 06/23/25 12:29 Torsemide (Demadex) 20 mg DAILY PO 05/27/25 18:00 06/26/25 17:59 05/30/25 10:55 20 MG Vitamin B Complex/ Vit C/Folic Acid (Nephrovite Tablet) 1 cap DAILY PO 05/25/25 09:00 06/24/25 08:59 05/30/25 10:55 1 CAP Diagnostics / Radiology: [COPY/PASTE HERE IF NO REPORTS PLEASE DELETE SECTION] Assessment: Lower abdominal pain Diverticulosis HTN DM Plan: 1. NPO after MN 2. Colonoscopy in AM. I have discussed the risks, benefits, alternatives and potential complications. Questions were answered and the patient agrees to proceed. 3. Golytely 4 L po starting at 1700 4. Clear liquid diet avoiding red and purple colored liquids 5. Tap water enema in AM as needed 6. Please check Hg every 6 hours and transfuse to goal Hg 7-8. Please do not overtransfuse Thank you for allowing us to participate in the care of this patient! KWABENA CHISHOLM [facility] May 30, 2025 12:45
[2025-05-30 16:50] VITALS: BP 139/88; PULSE 80; RESP 16; TEMP 97.5
[2025-05-30] MEDS: PEG 3350/NA SULF,BICARB,CL/KCL 4000 ML SOLN PO ONE (18:45)
[2025-05-30 19:58] VITALS: BP 138/78; PULSE 59; RESP 18; TEMP 97.6
--- NOTE | 2025-05-30 20:02 | PN ---
Endocrinology progress note DOS:05/30/25 subjective: Home diabetic regimen: glargine 30 units daily and novolog 10 units qac before meals. Hba1c 12.2% reports that he was recently diagnosed with diabetic retinopathy and planning eye injections. glucose are improving. PAST MEDICAL HISTORY: Hypertension, diabetes mellitus type two PAST SURGICAL HISTORY: History of right foot great toe amputation, history of peripheral angiogram, history of iliac stent placement PAST SOCIAL HISTORY: Denied any smoking, alcohol, drug use. The patient works with [employer] FAMILY HISTORY: Denied any pertinent family history Coded Allergies: No Known Allergies (Unverified Allergy, Unknown, 07/08/23) ASSESSMENT: Symptomatic hyperglycemia POA no dka. hyperglycemia is improving now and insulin adjusted. Home diabetic regimen: glargine 30 units daily and novolog 10 units qac before meals. Hba1c 12.2% reports that he was recently diagnosed with diabetic retinopathy and planning eye injections. glucose runs >200 mg/dl. 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 continue Regular insulin 8 units three times before meals adjust ssi to medium dose sliding scale insulin. Monitor glucose q x 6 hourly. Continue carb consistent diet. Keep glucose less than 180 mg/dl. Vitals/Labs Vital Signs Date Time Temp Pulse Resp B/P (MAP) Pulse Ox O2 Delivery O2 Flow Rate FiO2 05/30/25 19:58 97.5 59 18 138/78 96 Room Air 05/29/25 21:56 0 21 Laboratory Tests 05/30/25 03:21 Medications Current Medications Insulin Human Regular 5 unit ONCE ONCE IV Last administered on 05/24/25at 11:17; Start 05/24/25 at 11:00; Stop 05/24/25 at 11:01; Status DC Sodium Chloride 1,000 ml @ 0 mls/hr ONCE ONCE IV Last administered on 05/24/25at 11:08; Start 05/24/25 at 11:00; Stop 05/24/25 at 11:01; Status DC Famotidine 20 mg Q24H IV Last administered on 05/29/25at 21:09; Start 05/24/25 at 21:00; Stop 06/23/25 at 20:59 Amlodipine Besylate 5 mg ONCE ONCE PO Last administered on 05/24/25at 13:50; Start 05/24/25 at 12:30; Stop 05/24/25 at 12:31; Status DC Amlodipine Besylate 5 mg DAILY PO Last administered on 05/26/25at 09:10; Start 05/25/25 at 09:00; Stop 05/26/25 at 12:57; Status DC Hydralazine HCl 10 mg Q6H PRN IV Last administered on 05/24/25at 15:08; Start 05/24/25 at 12:30; Stop 06/23/25 at 12:29 Insulin Human Regular INSULIN SLIDING SCAL... Q6H6 SQ Last administered on 05/25/25at 00:07; Start 05/24/25 at 18:00; Stop 05/25/25 at 05:19; Status DC Hydromorphone HCl 0.5 mg Q6H PRN IVP Last administered on 05/29/25at 08:54; Start 05/24/25 at 12:30; Stop 05/29/25 at 12:29; Status DC Ondansetron HCl 4 mg Q6H PRN IVP; Start 05/24/25 at 12:30; Stop 06/23/25 at 12:29 Sodium Chloride 1,000 ml @ 75 mls/hr [id number] ONCE IV; Start 05/24/25 at 13:00; Stop 05/24/25 at 12:41; Status DC Insulin Glargine 15 units ONCE ONCE SQ Last administered on 05/24/25at 13:52; Start 05/24/25 at 13:30; Stop 05/24/25 at 13:31; Status DC Vitamin B Complex/ Vit C/Folic Acid 1 cap DAILY PO Last administered on 05/30/25at 10:55; Start 05/25/25 at 09:00; Stop 06/24/25 at 08:59 Insulin Glargine 20 units DAILY SQ Last administered on 05/25/25at 09:47; Start 05/25/25 at 09:00; Stop 05/25/25 at 19:40; Status DC Insulin Human Regular 5 unit TIDAC SQ Last administered on 05/25/25at 16:50; Start 05/25/25 at 07:30; Stop 05/25/25 at 19:40; Status DC Insulin Human Regular INSULIN SLIDING SCAL... ACHS SQ Last administered on 05/30/25at 18:51; Start 05/25/25 at 07:30; Stop 06/24/25 at 07:29 Potassium Chloride 20 meq ONCE ONCE PO Last administered on 05/25/25at 06:37; Start 05/25/25 at 06:00; Stop 05/25/25 at 06:01; Status DC Enoxaparin Sodium 30 mg DAILY SQ Last administered on 05/30/25at 10:54; Start 05/25/25 at 09:00; Stop 06/24/25 at 08:59 Insulin Glargine 30 units DAILY SQ Last administered on 05/27/25at 09:19; Start 05/26/25 at 09:00; Stop 05/28/25 at 07:17; Status DC Insulin Human Regular 8 unit TIDAC SQ Last administered on 05/26/25at 12:36; Start 05/26/25 at 07:30; Stop 05/26/25 at 12:55; Status DC Insulin Human Regular 12 unit TIDAC SQ Last administered on 05/27/25at 11:52; Start 05/26/25 at 17:00; Stop 05/27/25 at 20:50; Status DC Acetaminophen/ Codeine Phosphate 1 tab Q6H PRN PO Last administered on 05/30/25at 12:39; Start 05/26/25 at 13:00; Stop 06/25/25 at 12:59 Amlodipine Besylate 10 mg DAILY PO Last administered on 05/30/25at 10:55; Start 05/27/25 at 09:00; Stop 06/26/25 at 08:59 Amoxicillin 500 mg TID PO; Start 05/26/25 at 14:00; Stop 05/26/25 at 13:20; Status DC Aspirin 81 mg DAILY PO Last administered on 05/30/25at 10:55; Start 05/27/25 at 09:00; Stop 06/26/25 at 08:59 Atorvastatin Calcium 40 mg HS PO Last administered on 05/29/25at 21:09; Start 05/26/25 at 21:00; Stop 06/25/25 at 20:59 Clopidogrel Bisulfate 75 mg DAILY PO Last administered on 05/30/25at 10:55; Start 05/27/25 at 09:00; Stop 06/26/25 at 08:59 Gabapentin 100 mg TID PO Last administered on 05/30/25at 15:43; Start 05/26/25 at 14:00; Stop 06/25/25 at 13:59 Hydralazine HCl 5 mg Q6H PRN IV Last administered on 05/27/25at 00:14; Start 05/26/25 at 13:00; Stop 06/25/25 at 12:59 Furosemide 20 mg DAILY PO; Start 05/28/25 at 09:00; Stop 05/27/25 at 17:57; Status DC Furosemide 20 mg ONCE ONCE PO; Start 05/27/25 at 16:30; Stop 05/27/25 at 16:31; Status DC Torsemide 20 mg DAILY PO Last administered on 05/30/25at 10:55; Start 05/27/25 at 18:00; Stop 06/26/25 at 17:59 Insulin Human Regular 10 unit TIDAC SQ Last administered on 05/28/25at 08:08; Start 05/28/25 at 07:30; Stop 05/29/25 at 06:36; Status DC Insulin Glargine 35 units DAILY SQ Last administered on 05/30/25at 12:40; Start 05/28/25 at 09:00; Stop 06/27/25 at 08:59 Insulin Human Regular 8 unit TIDAC SQ Last administered on 05/30/25at 18:52; Start 05/29/25 at 07:30; Stop 06/28/25 at 07:29 Polyethylene Glycol/ Electrolytes 4,000 ml ONCE ONCE PO Last administered on 05/30/25at 18:45; Start 05/30/25 at 16:00; Stop 05/30/25 at 16:01; Status DC ANITRA CARTER MD May 30, 2025 20:02
--- NOTE | 2025-05-30 22:00 | NUR ---
NPO Patient informed of nothing to eat or drink past midnight, verbalized understanding.
[2025-05-30] MEDS: DEXTROSE 50%-WATER 50 ML DISP.SYRIN IV ONE (23:38)
[2025-05-30 23:53] VITALS: BP 125/75; PULSE 82; RESP 18; TEMP 98
[2025-05-31] VITALS (7 sets, daily range): BP systolic 133–166; BP diastolic 68–94; PULSE 56–86; RESP 18–20; TEMP 97.5–98.4; O2SAT 98
--- NOTE | 2025-05-31 | NUR ---
Glucose Patient states feeling jittery and drowsy. Sugar at 53, snacks provided but sugar still felt sugar dropping. Administered 1 amp of Dextrose and sugar is now at 113.
--- NOTE | 2025-05-31 02:29 | HMCIMG ---
EXAM: CT Abdomen and Pelvis without Intravenous Contrast CLINICAL HISTORY: Left lower quadrant pain. TECHNIQUE: Axial computed tomography images of the abdomen and pelvis without intravenous contrast. Dose reduction technique was used including one or more of the following: automated exposure control, adjustment of mA and kV according to patient size, and/or iterative reconstruction. Total exam DLP is 1565. Total CTDI: 39.3. CONTRAST: Without. COMPARISON: Prior CT scan of the abdomen and pelvis without contrast dated 05/24/2025. FINDINGS: LUNG BASES: No basilar airspace consolidation or pleural effusion. LIVER: Unremarkable. GALLBLADDER AND BILE DUCTS: Unremarkable. No calcified stone. No ductal dilation. PANCREAS: Unremarkable. SPLEEN: Unremarkable. There is a splenule measuring 1.3 cm. ADRENAL GLANDS: Unremarkable. KIDNEYS, URETERS, AND BLADDER: No renal or ureteric calculi, or hydroureteronephrosis. There is mild prostatomegaly with diffuse thickening of the urinary bladder wall measuring up to 5 mm, which may represent sequelae of chronic bladder outflow obstruction. STOMACH AND BOWEL: No obstruction. No wall thickening. A moderate amount of fecal material is present in the colon. There are scattered colonic diverticula, without diverticulitis. No CT evidence of colitis. APPENDIX: The appendix is unremarkable, series 2, image [id number]. PERITONEUM: No free fluid. No free air. LYMPH NODES: No lymphadenopathy. REPRODUCTIVE: Unremarkable as visualized. VASCULATURE: There is minimal coronary arterial calcifications. There are aortic valve annulus calcifications. The abdominal aorta demonstrates atheromatous calcification without aneurysm or dissection. There is a left common iliac vein stent metallic stent visualized. ABDOMINAL WALL AND SOFT TISSUES: There is a tiny fat containing umbilical hernia, defect measuring 0.7 cm. BONES: Degenerative changes in the spine. No fracture or suspicious osseous abnormality. IMPRESSION: 1. No acute intra-abdominal or pelvic abnormality. 2. Mild prostatomegaly with diffuse urinary bladder wall thickening measuring up to 5 mm, which may represent sequelae of chronic bladder outflow obstruction. 3. Scattered colonic diverticula, without diverticulitis. 4. Tiny fat-containing umbilical hernia, defect measuring 0.7 cm. 5. As compared to the prior CT scan of the abdomen and pelvis dated May 24, 2025, there is no interval change. /[place]
--- NOTE | 2025-05-31 04:41 | PN ---
NEPHROLOGY NOTE SUBJECTIVE: This patient has multiple medical problems. The patient has diabetes, diabetic retinopathy, hypertension, peripheral angiogram, stent placement, diabetes and diabetic retinopathy. Other comorbidities are present. No other associated findings. No other aggravating or relieving factor. The patient is critically ill. The patient has mild anemia. The patient also has elevated BUN and creatinine. No other associated findings. The patient is weak. PHYSICAL EXAMINATION: GENERAL: Pale, in no other distress or deformity, lying in bed. VITAL SIGNS: Blood pressure is 138/78, pulse is 59, respiratory rate is 18. Afebrile. HEENT: Head is atraumatic, normocephalic. Pupils are round and reactive to light. Sclerae are anicteric. Conjunctivae not pale. Oral mucosa is not dry. NECK: Supple, no masses or bruits. Thyroid is palpable. Neck has no bruits. CHEST: Shows equal thoracic percussion note being resonant in all areas. CARDIAC: Regular rhythm. No rubs, no S3, no S4. ABDOMEN: No guarding or tenderness. Bowel sounds present. LABORATORY DATA: Labs have been reviewed and old records reviewed. IMAGING STUDIES: Imaging studies are personally reviewed. PROBLEMS: * Renal failure. * Anemia. * Multiple other comorbidities. * Diabetes with nephropathy. PLAN: To continue monitoring. Follow up on renal function, electrolytes, sugar monitoring, control of diabetes. Dietary consult done. Intake, output, weight will be monitored. The patient has blurry vision, need Ophthalmology followup. Diverticulitis is present and will follow up with GI. IV Dilaudid can be used for pain. The patient has multiple comorbidities. TID: [id number] RECEIPT: [id number]
[2025-05-31 09:06] LABS: NUCLEATED RED BLOOD CELLS 0.0 % (0.0-0.19); PLATELET COUNT (AUTO) 196.0 K/uL (130-400); RED BLOOD CELL COUNT(AUTO) 4.19 MIL/uL (4.50-6.20); RED CELL DISTRIBUTION WIDTH 11.8 % (11.0-15.5); WHITE BLOOD COUNT (AUTO) 6.8 K/uL (4.8-10.8)
[2025-05-31 09:24] LABS: ASPARTATE AMINOTRANSFERASE 30.0 U/L (10-37); CREATININE 1.4 mg/dL (0.5-1.3); GLOMERULAR FILTR. RATE CALC 61.0 mL/min (>90); GLUCOSE,RANDOM 109.0 mg/dL (70-105); PHOSPHORUS 3.6 mg/dL (2.5-4.9); SODIUM SERUM 138.0 mmol/L (136-145); TOTAL PROTEIN, SERUM 6.7 g/dL (6.0-8.3); UREA NITROGEN, BLOOD 18.0 mg/dL (7-18)
--- NOTE | 2025-05-31 11:55 | NUR ---
PER DR. CARTER, HOLD SCHEDULED LANTUS OF 30 UNITS AND HUMILIN REGULAR 7 UNITS FOR LUNCH FOR TODAY. OKAYED TO GIVE SCHEDULED 7 UNITS BEFORE DINNER.
[2025-05-31] MEDS: MAGNESIUM 2GM PREMIX 50ML 50 ML IV SCH (11:57)
--- NOTE | 2025-05-31 12:34 | PN ---
[facility] PROGRESS NOTE Date of Service: May 31, 2025 Time of Service: 12:32 SUBJECTIVE: Patient was evaluated today at bedside with his present. He continues to report inability to see from the left eye and blurred vision in the right eye, which has been ongoing for several weeks. He states he was recently diagnosed with diabetic retinopathy and is planning to start eye injections. He reports his home glucose readings have been consistently >200 mg/dL. He describes persistent bilateral lower extremity edema and numbness in both legs, and continues to feel very weak. He denies chest pain, shortness of breath, or abdominal discomfort, but does complain of mild headache. He is aware of his recent admission for symptomatic hyperglycemia and understands that his diabetes remains uncontrolled (recent hemoglobin A1c 12.2%). He acknowledges his history of hypertension, May-Thurner syndrome, proteinuria, and recent findings of acute kidney injury or possible underlying chronic kidney disease, likely secondary to diabetic nephropathy. He is aware of his prior right great toe amputation, peripheral angiogram, and iliac stent placement. He denies any smoking, alcohol, or drug use. 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 He understands the importance of not driving or operating heavy machinery due to his visual impairment and agrees to follow up with ophthalmology after discharge. All questions were addressed with both patient and at bedside. 05/28/2025: Over the past 24 hours no major events reported. Patient continues to experience some blurred vision to bilateral eyes. Continues to complain of BLE edema, initiated on p.o. torsemide. He is being followed closely by Nephrology and Endocrinology. Morning labs reviewed, serum creatinine 1.6, glucometers ranging 206-256. 05/29/2025: Patient reports improvement in BLE edema, remains on p.o. torsemide. Patient continues to be followed closely by Nephrology and Endocrinology. Morning labs serum creatinine improved to 1.4. 05/30 patient remains admitted to the medical floor, comfortably in bed, alert oriented x3, still complaining of left lower quadrant pain.CT abdomen and pelvis done 05/24/2025 scattered sigmoid diverticulosis without CT evidence of diverticulitis, this changes can be a source of chronic left-sided abdominal sy mptoms. We will repeat CT abdomen and pelvis without oral or IV contrast, we will request GI consultation. The meantime continue with torsemide 20 mg p.o. daily. Continue daily weight, monitor intake and output, monitor creatinine a.m.. Discussed with the patient, in agreement. 05/31 patient remains admitted to medical floor, remains comfortably in bed, alert oriented x3 at time of my visit per my discussion with the RN, the patient had episode of hypoglycemia last night with a blood glucose drop into the low 50s, responded to D50. Dose of long-acting insulin adjusted from 35 units of Lantus to 30 units subcutaneously daily. Regular insulin decreased from 8 units subcutaneously t.i.d. to 70 patient was take units subcutaneously t.i.d. per endocrinology recommendations. Patient was scheduled for colonoscopy today, however in view of poor preparation, this has been rescheduled for tomorrow. Repeat CT abdomen pelvis done 05/30/2025, no acute findings. Discussed with the patient. Follow a.m. labs. REVIEW OF SYSTEMS CONSTITUTIONAL: Denies fevers, chills, or night sweats. No unintentional weight loss reported. NEUROLOGICAL: Denies headache, amaurosis fugax, motor weakness, sensory defici t, vertigo/spinning sensation, or tremors. Positive for gait abnormality ENT: No hearing loss, otalgia, otorrhea, rhinitis, rhinorrhea, hoarseness, or sore throat. CARDIOVASCULAR: Denies any exertional angina, dyspnea on exertion, orthopnea, paroxysmal nocturnal dyspnea, palpitations, life-threatening arrhythmias, claudication. PULMONARY: Denies any shortness of breath, cough, phlegm/sputum, hemoptysis, pleuritic chest pain. GASTROINTESTINAL: Denies any type of dysphagia to either liquids or solids. Denies nausea, vomiting, pyrosis, early satiety, abdominal pain, diarrhea, constipation, or changes in stool consistency or caliber. Denies coffee-ground emesis, hematemesis, hematochezia, or melanotic stools. GENITOURINARY: Denies frequency, urgency, nocturia, hematuria or incontinence (Storage/Irritative symptoms.) Low urinary stream, straining to void, urinary intermittency or hesitancy, splitting of the voiding stream, terminal dribbling. ENDOCRINOLOGIC: Denies polyuria, polydipsia, polyphagia or heat/cold intolerances. HEMATOLOGIC: Denies thrombophilia/previous clots, or coagulopathy/bleeding disorders. ONCOLOGIC: Denies personal history of malignancy. DERMATOLOGIC: Denies rashes or pruritus. PSYCHIATRIC: Denies any suicidal or homicidal ideation. Denies hallucinations. Musculoskeletal: positive for pain in the lower extremity, positive for lower back pain PHYSICAL EXAM GENERAL APPEARANCE: The patient is awake, alert, and oriented, in no acute cardiopulmonary distress. NEUROLOGICAL: Cranial nerves II-XII grossly intact. Motor is 5/5 in bilateral upper and lower extremities proximal to distal. No sensory deficits. HEENT: Face is symmetric. Pupils are equal and reactive. Extraocular movements are intact. Patient was unable to see from the left eye. Visual acuity on the right eye was 20/40, visual acuity in both eyes was 20 NECK: Supple. No JVD. No thyromegaly. No submental, submandibular, pre- /postauricular, occipital or supraclavicular lymphadenopathy. CHEST: Normal chest expansion. No Telemetry. LUNGS: Absence of any rales, rhonchi or any wheezing. CARDIOVASCULAR: Regular. S1 and S2 normal. No appreciable rubs, murmurs or gallops. ABDOMEN: Soft, mild tenderness in the l left lower quadrant, and nondistended. There is no rebound, voluntary guarding, or rigidity. : Deferred. No Crowe. EXTREMITIES: Non-edematous and not cyanotic. No clubbing. Good capillary refill. SKIN: No skin breakdown. Vital Signs (last 8hr) Date Time Temp Pulse Resp B/P (MAP) Pulse Ox O2 Delivery O2 Flow Rate FiO2 05/31/25 08:05 97.9 78 18 156/83 96 Room Air LABS: Laboratory: Test 05/31/25 10:29 05/31/25 08:44 05/30/25 03:21 Range/Units Whole Blood Glucose 108 70-110 MG/DL White Blood Count 6.8 4.8-10.8 K/uL Red Blood Count 4.19 L 4.50-6.20 MIL/uL Hemoglobin 13.3 L 14.0-18.0 g/dL Hematocrit 38.6 L 42-54 % Mean Corpuscular Volume 92.1 79-99 fL Mean Corpuscular Hemoglobin 31.7 27.0-33.0 pg Mean Corpuscular Hemoglobin Concent 34.5 32.0-36.0 g/dL Red Cell Distribution Width 11.8 11.0-15.5 % Platelet Count 196 130-400 K/uL Mean Platelet Volume 11.3 H 7.5-10.5 fL Nucleated Red Blood Cells 0.0 0.0-0.19 % Sodium Level 138 136-145 mmol/L Potassium Level 3.7 3.5-5.1 mmol/L Chloride Level 100 L 101-111 mmol/L Carbon Dioxide Level 34 H 21-32 mmol/L Blood Urea Nitrogen 18 7-18 mg/dL Creatinine 1.4 H 0.5-1.3 mg/dL Glomerular Filtration Rate Calc 61 >90 mL/min Random Glucose 109 H 70-105 mg/dL Total Calcium 8.1 L 8.5-10.1 mg/dL Phosphorus Level 3.6 2.5-4.9 mg/dL Magnesium Level 1.70 L 1.80-2.40 mg/dL Total Bilirubin 0.3 0.2-1.0 mg/dL Aspartate Amino Transf (AST/SGOT) 30 10-37 U/L Alanine Aminotransferase (ALT/SGPT) 37 12-78 U/L Alkaline Phosphatase 87 50-136 U/L Total Protein 6.7 6.0-8.3 g/dL Albumin 2.1 L 3.5-5.0 g/dL Immature Granulocyte % (Auto) 0.2 0-1 % Neutrophils (%) (Auto) 56.8 40.0-77.0 % Lymphocytes (%) (Auto) 23.6 21.0-51.0 % Monocytes (%) (Auto) 13.0 3.0-13.0 % Eosinophils (%) (Auto) 5.8 0.0-8.0 % Basophils (%) (Auto) 0.6 0.0-5.0 % Neutrophils # (Auto) 3.1 1.8-7.7 K/uL Lymphocytes # (Auto) 1.3 1.0-4.8 K/uL Monocytes # (Auto) 0.7 0.1-1.0 K/uL Eosinophils # (Auto) 0.31 0.00-0.70 K/uL Basophils # (Auto) 0.03 0.00-0.20 K/uL Absolute Immature Granulocyte (auto 0.01 0-1 K/uL Current Medications Medications (Trade) Dose Ordered Sig/Darcie Route PRN Reason Start Time Stop Time Status Last Admin Dose Admin Acetaminophen/ Codeine Phosphate (TYLenol-coDEINE TAB) 1 tab Q6H PRN PO MODERATE PAIN (4-6) 05/26/25 13:00 06/25/25 12:59 05/30/25 21:55 1 TAB Amlodipine Besylate (NorvASC 5MG TAB) 5 mg DAILY PO 05/25/25 09:00 05/26/25 12:57 DC 05/26/25 09:10 5 MG Amlodipine Besylate (NorvASC 5MG TAB) 10 mg DAILY PO 05/27/25 09:00 06/26/25 08:59 05/31/25 11:41 10 MG Amoxicillin (Amoxicillin 500mg Cap) 500 mg TID PO 05/26/25 14:00 05/26/25 13:20 DC Aspirin (Aspirin 81mg Ec Tab) 81 mg DAILY PO 05/27/25 09:00 06/26/25 08:59 05/31/25 11:41 81 MG Atorvastatin Calcium (LIPItor 40MG) 40 mg HS PO 05/26/25 21:00 06/25/25 20:59 05/31/25 11:40 40 MG Clopidogrel Bisulfate (plaVIX 75MG) 75 mg DAILY PO 05/27/25 09:00 06/26/25 08:59 05/31/25 11:41 75 MG Enoxaparin Sodium (Lovenox) 30 mg DAILY SQ 05/25/25 09:00 06/24/25 08:59 05/31/25 11:38 30 MG Famotidine (Pepcid 20mg Vial) 20 mg Q24H IV 05/24/25 21:00 06/23/25 20:59 05/31/25 11:39 20 MG Furosemide (LASix 20MG TAB) 20 mg DAILY PO 05/28/25 09:00 05/27/25 17:57 DC Gabapentin (NEURontin 100 mg CAP) 100 mg TID PO 05/26/25 14:00 06/25/25 13:59 05/31/25 11:40 100 MG Hydralazine HCl (APRESOLine 20MG INJ) 5 mg Q6H PRN IV ADMINISTER FOR SBP > 160 05/26/25 13:00 06/25/25 12:59 05/27/25 00:14 5 MG Hydralazine HCl (APRESOLine 20MG INJ) 10 mg Q6H PRN IV ADMINISTER FOR SBP > 180 05/24/25 12:30 06/23/25 12:29 05/24/25 15:08 10 MG Hydromorphone HCl (DiLAUDid 0.5MG INJ) 0.5 mg Q6H PRN IVP SEVERE PAIN (7-10) 05/24/25 12:30 05/29/25 12:29 DC 05/29/25 08:54 0.5 MG Insulin Glargine (LANtus 100 UNITS/ML 10 ML VIAL) 20 units DAILY SQ 05/25/25 09:00 05/25/25 19:40 DC 05/25/25 09:47 20 UNITS Insulin Glargine (LANtus 100 UNITS/ML 10 ML VIAL) 30 units DAILY SQ 05/26/25 09:00 05/28/25 07:17 DC 05/27/25 09:19 30 UNITS Insulin Glargine (LANtus 100 UNITS/ML 10 ML VIAL) 30 units DAILY SQ 05/31/25 09:00 06/30/25 08:59 Insulin Glargine (LANtus 100 UNITS/ML 10 ML VIAL) 35 units DAILY SQ 05/28/25 09:00 05/31/25 05:54 DC 05/30/25 12:40 35 UNITS Insulin Human Regular (humuLIN R 100 UNIT/ML 3ML) 5 unit TIDAC SQ 05/25/25 07:30 05/25/25 19:40 DC 05/25/25 16:50 5 UNIT Insulin Human Regular (humuLIN R 100 UNIT/ML 3ML) 7 unit TIDAC SQ 05/31/25 07:30 06/30/25 07:29 Insulin Human Regular (humuLIN R 100 UNIT/ML 3ML) 8 unit TIDAC SQ 05/26/25 07:30 05/26/25 12:55 NC 05/26/25 12:36 8 UNIT Insulin Human Regular (humuLIN R 100 UNIT/ML 3ML) 8 unit TIDAC SQ 05/29/25 07:30 05/31/25 05:54 DC 05/30/25 18:52 8 UNIT Insulin Human Regular (humuLIN R 100 UNIT/ML 3ML) 10 unit TIDAC SQ 05/28/25 07:30 05/29/25 06:36 DC 05/28/25 08:08 10 UNIT Insulin Human Regular (humuLIN R 100 UNIT/ML 3ML) 12 unit TIDAC SQ 05/26/25 17:00 05/27/25 20:50 DC 05/27/25 11:52 12 UNIT Insulin Human Regular (humuLIN R 100 UNIT/ML 3ML) INSULIN SLIDING SCAL... ACHS SQ 05/25/25 07:30 06/24/25 07:29 05/30/25 21:40 4 UNIT Insulin Human Regular (humuLIN R 100 UNIT/ML 3ML) INSULIN SLIDING SCAL... Q6H6 SQ 05/24/25 18:00 05/25/25 05:19 DC 05/25/25 00:07 7 UNIT Magnesium Sulfate 50 ml @ 0 mls/hr PROTOCOL IV 05/31/25 10:30 06/30/25 10:29 05/31/25 11:57 25 MLS/HR Ondansetron HCl (zoFRAN 4MG INJ) 4 mg Q6H PRN IVP NAUSEA/VOMITING 05/24/25 12:30 06/23/25 12:29 Torsemide (Demadex) 20 mg DAILY PO 05/27/25 18:00 06/26/25 17:59 05/31/25 11:41 20 MG Vitamin B Complex/ Vit C/Folic Acid (Nephrovite Tablet) 1 cap DAILY PO 05/25/25 09:00 06/24/25 08:59 05/31/25 11:40 1 CAP DIAGNOSTICS / RADIOLOGY: [ ] ASSESSMENT: 1. Symptomatic hyperglycemia, POA No DKA. Hyperglycemia is improving with insulin adjustments. 2. Uncontrolled diabetes mellitus type 2 HgbA1c 12.2%. Home regimen: glargine 30 units daily, insulin aspart 10 units before meals. Glucose >200 mg/dL. Endocrinology recommends further insulin titration. 3. Diabetic retinopathy Recently diagnosed, planning for eye injections. Bilateral blurred vision, left eye with profound vision loss. 4. Lower back pain with concern for radiculopathy MRI shows mild multilevel spondylosis, disc desiccation at L5-S1, mild bulging indenting the anterior thecal sac at L5-S1. 5. Proteinuria 6. Acute kidney injury or underlying chronic kidney disease Likely from diabet ic nephropathy. 7. Bilateral lower extremity edema and numbness Multifactorial: consider diabetic neuropathy, mild nerve root impingement at L5-S1, and history of May- Thurner syndrome. 8. Hypertensive urgency 9. History of right great toe amputation, peripheral angiogram, and iliac stent placement PLAN: patient remains admitted to medical floor, remains comfortably in bed, alert oriented x3 at time of my visit per my discussion with the RN, the patient had episode of hypoglycemia last night with a blood glucose drop into the low 50s, responded to D50. Dose of long-acting insulin adjusted from 35 units of Lantus to 30 units subcutaneously daily. Regular insulin decreased from 8 units subcutaneously t.i.d. to 70 patient was take units subcutaneously t.i.d. per endocrinology recommendations. Patient was scheduled for colonoscopy today, however in view of poor preparation, this has been rescheduled for tomorrow. Repeat CT abdomen pelvis done 05/30/2025, no acute findings. Discussed with the patient. Follow a.m. labs. NEURO: Minimize central acting medications as possible. Fall Precautions. Well lighted room through the day and minimize interruptions through the night to prevent acute delirium. PULMONARY: Supplemental 02 as needed BiPAP as necessary, for respiratory distress Titrate Fio2 to keep Spo2 > or = 90% DuoNebs and CPT as needed IS hourly while awake for pulmonary hygiene prn Out of bed to chair as tolerated Maintain aspiration precautions at all times CARDIOVASCULAR: Follow hemodynamics. Vital signs per facility protocol GI & NUTRITION: Continue nutritional support Aspirations precautions Prokinetic agents and laxatives as needed KIDNEYS & ELECTROLYTES: Strict monitoring of intake and output Daily weights Avoid nephrotoxic agents Monitor electrolytes and replace as needed Goal urine output of 30mL/hr or 0.5mL/kg/hr Medications to be dosed according to renal function. Avoid contrast if possible ENDOCRINE: Maintain blood glucose between 100-180 at all times. Insulin sliding scale for blood glucose management Hypoglycemia and hyperglycemia protocol in place INFECTIOUS DISEASE: Trend temperature, WBC and procalcitonin level Follow cultures, deescalate antibiotics as soon as possible. Panculture if new onset fever HEMATOLOGY & COAGULATION: Monitor H&H. Keep Hgb > 7 Transfuse 1 unit of PRBC for Hgb < 7 Transfuse 1 pack of platelets of platelets < 20, 000 Watch for any signs and symptoms of bleeding SKIN: Pressure ulcer prevention per facility protocol Specialty mattress as needed ORTHO/REHAB Continue PT/OT PRN: MEDICATIONS Tylenol 650 mg po every 4 hrs for fever zofran 4 mg IV every 6 hrs for n/v Hydralazine 5 mg IV every 4 hrs systolic pressure > 160 bowel regiment: lactulose 20 gm PO BID PRN constipation Supportive measures: Continue GI and DVT prophylaxis Disposition: Pending improvement in clinical condition All questions answered time spent: > 35 min JANETTE THAYER MD May 31, 2025 12:34
--- NOTE | 2025-05-31 13:43 | PN ---
NEPHROLOGY PROGRESS NOTE Date/Time Patient Seen: May 31, 2025 SUBJECTIVE: This is a 49-year-old male with past medical history of hypertension, diabetes mellitus type 2 presented to hospital secondary to blurry vision He is found to have severe hypertension. He does not take his medicine. He has been on insulin also. The patient has unsteadiness also. The patient is generally weak. He has been found to have low sodium as well as multiple other comorbidities including blurry vision. We has been consulted for renal failure Renal function and electrolytes are stable. Continues torsemide 20 mg PO daily Urine output was noted Daily weights are noted He continues to be followed by endocrinology Imaging studies were noted Pending colonoscopy tomorrow He was seen in the medical floor, in no acute distress REVIEW OF SYSTEMS: GENERAL: Positive for lower extremity edema NEUROLOGIC: Negative for any blurry vision, blind spots, double vision, facial asymmetry, dysphagia, dysarthria, hemiparesis, hemisensory deficits, vertigo, ataxia. HEENT: Negative for any head trauma, neck trauma, neck stiffness, photophobia, phonophobia, sinusitis, rhinitis. CARDIAC: Negative for any chest pain, dyspnea on exertion, paroxysmal nocturnal dyspnea, peripheral edema. PULMONARY: Negative for any shortness of breath, wheezing, COPD, or TB exposure. GASTROINTESTINAL: Negative for any abdominal pain, nausea, vomiting, bright red blood per rectum, melena. GENITOURINARY: Negative for any dysuria, hematuria, incontinence. INTEGUMENTARY: Negative for any rashes, cuts, insect bites. RHEUMATOLOGIC: Negative for any joint pains, photosensitive rashes, history of vasculitis or kidney problems. HEMATOLOGIC: Negative for any abnormal bruising, frequent infections or bleeding. Vital Signs (last 8hr) Date Time Temp Pulse Resp B/P (MAP) Pulse Ox O2 Delivery O2 Flow Rate FiO2 05/31/25 08:05 97.9 78 18 156/83 96 Room Air PHYSICAL EXAM: GENERAL: Alert and oriented x 3. No acute distress. Well-nourished. EYES: EOMI. Anicteric. HENT: Moist mucous membranes. No scleral icterus. No cervical lymphadenopathy. LUNGS: Clear to auscultation bilaterally. No accessory muscle use. CARDIOVASCULAR: Regular rate and rhythm. No murmur. No JVD. ABDOMEN: Soft, non-tender and non-distended. No palpable masses. EXTREMITIES: 2+ edema. Non-tender. SKIN: No rashes or lesions. Warm. NEUROLOGIC: No focal neurological deficits. CN II-XII grossly intact, but not individually tested. PSYCHIATRIC: Cooperative. Appropriate mood and affect. Current Medications Medications (Trade) Dose Ordered Sig/Darcie Route Start Time Stop Time Status Last Admin Dose Admin Amlodipine Besylate (NorvASC 5MG TAB) 5 mg DAILY PO 05/25/25 09:00 05/26/25 12:57 DC 05/26/25 09:10 5 MG Amlodipine Besylate (NorvASC 5MG TAB) 10 mg DAILY PO 05/27/25 09:00 06/26/25 08:59 05/28/25 08:09 10 MG Amoxicillin (Amoxicillin 500mg Cap) 500 mg TID PO 05/26/25 14:00 05/26/25 13:20 DC Aspirin (Aspirin 81mg Ec Tab) 81 mg DAILY PO 05/27/25 09:00 06/26/25 08:59 05/28/25 08:09 81 MG Atorvastatin Calcium (LIPItor 40MG) 40 mg HS PO 05/26/25 21:00 06/25/25 20:59 05/27/25 20:42 40 MG Clopidogrel Bisulfate (plaVIX 75MG) 75 mg DAILY PO 05/27/25 09:00 06/26/25 08:59 05/28/25 08:10 75 MG Enoxaparin Sodium (Lovenox) 30 mg DAILY SQ 05/25/25 09:00 06/24/25 08:59 05/28/25 08:21 30 MG Famotidine (Pepcid 20mg Vial) 20 mg Q24H IV 05/24/25 21:00 06/23/25 20:59 05/27/25 20:42 20 MG Furosemide (LASix 20MG TAB) 20 mg DAILY PO 05/28/25 09:00 05/27/25 17:57 DC Gabapentin (NEURontin 100 mg CAP) 100 mg TID PO 05/26/25 14:00 06/25/25 13:59 05/28/25 13:18 100 MG Insulin Glargine (LANtus 100 UNITS/ML 10 ML VIAL) 20 units DAILY SQ 05/25/25 09:00 05/25/25 19:40 DC 05/25/25 09:47 20 UNITS Insulin Glargine (LANtus 100 UNITS/ML 10 ML VIAL) 30 units DAILY SQ 05/26/25 09:00 05/28/25 07:17 DC 05/27/25 09:19 30 UNITS Insulin Glargine (LANtus 100 UNITS/ML 10 ML VIAL) 35 units DAILY SQ 05/28/25 09:00 06/27/25 08:59 05/28/25 08:09 35 UNITS Insulin Human Regular (humuLIN R 100 UNIT/ML 3ML) 5 unit TIDAC SQ 05/25/25 07:30 05/25/25 19:40 DC 05/25/25 16:50 5 UNIT Insulin Human Regular (humuLIN R 100 UNIT/ML 3ML) 8 unit TIDAC SQ 05/26/25 07:30 05/26/25 12:55 DC 05/26/25 12:36 8 UNIT Insulin Human Regular (humuLIN R 100 UNIT/ML 3ML) 10 unit TIDAC SQ 05/28/25 07:30 06/27/25 07:29 05/28/25 08:08 10 UNIT Insulin Human Regular (humuLIN R 100 UNIT/ML 3ML) 12 unit TIDAC SQ 05/26/25 17:00 05/27/25 20:50 DC 05/27/25 11:52 12 UNIT Insulin Human Regular (humuLIN R 100 UNIT/ML 3ML) INSULIN SLIDING SCAL... ACHS SQ 05/25/25 07:30 06/24/25 07:29 05/28/25 06:52 4 UNIT Insulin Human Regular (humuLIN R 100 UNIT/ML 3ML) INSULIN SLIDING SCAL... Q6H6 SQ 05/24/25 18:00 05/25/25 05:19 DC 05/25/25 00:07 7 UNIT Torsemide (Demadex) 20 mg DAILY PO 05/27/25 18:00 06/26/25 17:59 05/28/25 08:09 20 MG Vitamin B Complex/ Vit C/Folic Acid (Nephrovite Tablet) 1 cap DAILY PO 05/25/25 09:00 06/24/25 08:59 05/28/25 08:09 1 CAP LABORATORY: [ ] Hematology Labs: Test 05/31/25 08:44 05/30/25 03:21 Range/Units White Blood Count 6.8 4.8-10.8 K/uL Red Blood Count 4.19 L 4.50-6.20 MIL/uL Hemoglobin 13.3 L 14.0-18.0 g/dL Hematocrit 38.6 L 42-54 % Mean Corpuscular Volume 92.1 79-99 fL Mean Corpuscular Hemoglobin 31.7 27.0-33.0 pg Mean Corpuscular Hemoglobin Concent 34.5 32.0-36.0 g/dL Red Cell Distribution Width 11.8 11.0-15.5 % Platelet Count 196 130-400 K/uL Mean Platelet Volume 11.3 H 7.5-10.5 fL Nucleated Red Blood Cells 0.0 0.0-0.19 % Immature Granulocyte % (Auto) 0.2 0-1 % Neutrophils (%) (Auto) 56.8 40.0-77.0 % Lymphocytes (%) (Auto) 23.6 21.0-51.0 % Monocytes (%) (Auto) 13.0 3.0-13.0 % Eosinophils (%) (Auto) 5.8 0.0-8.0 % Basophils (%) (Auto) 0.6 0.0-5.0 % Neutrophils # (Auto) 3.1 1.8-7.7 K/uL Lymphocytes # (Auto) 1.3 1.0-4.8 K/uL Monocytes # (Auto) 0.7 0.1-1.0 K/uL Eosinophils # (Auto) 0.31 0.00-0.70 K/uL Basophils # (Auto) 0.03 0.00-0.20 K/uL Absolute Immature Granulocyte (auto 0.01 0-1 K/uL Chemistry Labs: Test 05/31/25 10:29 05/31/25 08:44 Range/Units Whole Blood Glucose 108 70-110 MG/DL Sodium Level 138 136-145 mmol/L Potassium Level 3.7 3.5-5.1 mmol/L Chloride Level 100 L 101-111 mmol/L Carbon Dioxide Level 34 H 21-32 mmol/L Blood Urea Nitrogen 18 7-18 mg/dL Creatinine 1.4 H 0.5-1.3 mg/dL Glomerular Filtration Rate Calc 61 >90 mL/min Random Glucose 109 H 70-105 mg/dL Total Calcium 8.1 L 8.5-10.1 mg/dL Phosphorus Level 3.6 2.5-4.9 mg/dL Magnesium Level 1.70 L 1.80-2.40 mg/dL Total Bilirubin 0.3 0.2-1.0 mg/dL Aspartate Amino Transf (AST/SGOT) 30 10-37 U/L Alanine Aminotransferase (ALT/SGPT) 37 12-78 U/L Alkaline Phosphatase 87 50-136 U/L Total Protein 6.7 6.0-8.3 g/dL Albumin 2.1 L 3.5-5.0 g/dL DIAGNOSTICS / RADIOLOGY: [facility] [id number] [place] [address] IMAGING REPORT Signed PATIENT: QASIM GOMEZ MR#: [id number] : 1975 SEX: M AGE: 49 LOCATION: [facility] ORDER 1153 STATUS: ADM IN REPORT#: [id number] SERVICE 1149 REASON: LLQ PAIN ORDERING PHYSICIAN: JANETTE THAYER MD PROCEDURE: ABD PEL WO - CT ABDOMEN/PELVIS W/O CONTRAST EXAM: CT Abdomen and Pelvis without Intravenous Contrast CLINICAL HISTORY: Left lower quadrant pain. TECHNIQUE: Axial computed tomography images of the abdomen and pelvis without intravenous contrast. Dose reduction technique was used including one or more of the following: automated exposure control, adjustment of mA and kV according to patient size, and/or iterative reconstruction. Total exam DLP is 1565. Total CTDI: 39.3. CONTRAST: Without. COMPARISON: Prior CT scan of the abdomen and pelvis without contrast dated 05/24/2025. FINDINGS: LUNG BASES: No basilar airspace consolidation or pleural effusion. LIVER: Unremarkable. GALLBLADDER AND BILE DUCTS: Unremarkable. No calcified stone. No ductal dilation. PANCREAS: Unremarkable. SPLEEN: Unremarkable. There is a splenule measuring 1.3 cm. ADRENAL GLANDS: Unremarkable. KIDNEYS, URETERS, AND BLADDER: No renal or ureteric calculi, or hydroureteronephrosis. There is mild prostatomegaly with diffuse thickening of the urinary bladder wall measuring up to 5 mm, which may represent sequelae of chronic bladder outflow obstruction. STOMACH AND BOWEL: No obstruction. No wall thickening. A moderate amount of fecal material is present in the colon. There are scattered colonic diverticula, without diverticulitis. No CT evidence of colitis. APPENDIX: The appendix is unremarkable, series 2, image 63/136. PERITONEUM: No free fluid. No free air. LYMPH NODES: No lymphadenopathy. REPRODUCTIVE: Unremarkable as visualized. VASCULATURE: There is minimal coronary arterial calcifications. There are aortic valve annulus calcifications. The abdominal aorta demonstrates atheromatous calcification without aneurysm or dissection. There is a left common iliac vein stent metallic stent visualized. ABDOMINAL WALL AND SOFT TISSUES: There is a tiny fat containing umbilical hernia, defect measuring 0.7 cm. BONES: Degenerative changes in the spine. No fracture or suspicious osseous abnormality. IMPRESSION: 1. No acute intra-abdominal or pelvic abnormality. 2. Mild prostatomegaly with diffuse urinary bladder wall thickening measuring up to 5 mm, which may represent sequelae of chronic bladder outflow obstruction. 3. Scattered colonic diverticula, without diverticulitis. 4. Tiny fat-containing umbilical hernia, defect measuring 0.7 cm. 5. As compared to the prior CT scan of the abdomen and pelvis dated May 24, 2025, there is no interval change. /[place] DICTATED BY: AUSTIN DOMINGUEZ MD DATE: 05/31/25326 ELECTRONICALLY SIGNED BY: AUSTIN DOMINGUEZ MD DATE: 05/31/25326 PATIENT: QASIM GOMEZ MR#: [id number] : 1975 SEX: M AGE: 49 LOCATION: [facility] ORDER 121 STATUS: [facility]M [facility] REPORT#: [id number] SERVICE 1210 REASON: Asssess for lumbar stenosis ORDERING PHYSICIAN: KILO MAHAN MD PROCEDURE: L SPN WO - MR SPINAL CANAL, LUMBAR WO CON EXAM: MR Lumbar Spine Without Intravenous Contrast. CLINICAL HISTORY: Assess for lumbar stenosis. TECHNIQUE: Magnetic resonance images of the lumbar spine in multiple planes. CONTRAST: None. COMPARISON: Radiograph dated 05/24/25. FINDINGS: For this examination, spinal levels were labeled assuming five non-rib bearing, lumbar-type vertebrae with the inferior labeled L5. No acute fracture. Normal lordotic curvature. Mild multilevel spondylosis is evident by small marginal osteophytes. Disc desiccation at the L5-S1 level. Normal vertebral body and disc heights. Normal marrow signal of the vertebrae. Conus medullaris terminates at the T12 level. No abnormal epidural masses. Small, simple cortical cyst in the lower pole of left kidney. Mild subcutaneous edema in the lower back. Individual spinal levels are described as follows: T12-L1: No disc bulge or herniation. No neural foraminal, lateral recess or spinal canal stenosis. L1-L2: No disc bulge or herniation. No neural foraminal, lateral recess or spinal canal stenosis. L2-L3: No disc bulge or herniation. No neural foraminal, lateral recess or spinal canal stenosis. L3-L4: No disc bulge or herniation. No neural foraminal, lateral recess or spinal canal stenosis. L4-L5: No disc bulge or herniation. No neural foraminal, lateral recess or spinal canal stenosis. L5-S1: 4 mm disc osteophyte complex bulge causing mild indentation on the anterior thecal sac. No neural foraminal or lateral recess stenosis. IMPRESSION: Mild multilevel spondylosis. Disc desiccation at the L5-S1 level. Mild indentation on the anterior thecal sac at the L5-S1 level. /[place] DICTATED BY: JERICHO DICKERSON Jr., MD DATE: 05/26/25632 ELECTRONICALLY SIGNED BY: JERICHO DICKERSON Jr., MD DATE: 05/26/25632 PATIENT: QASIM GOMEZ MR#: [id number] : 1975 SEX: M AGE: 49 LOCATION: [facility] ORDER 16 STATUS: ADM IN [facility] REPORT#: [id number] SERVICE 0000 REASON: assess for CHF ORDERING PHYSICIAN: KILO MAHAN MD PROCEDURE: ECHO CMP - ECHO 2-D COMPLETE APPROVED REPORT EXAM: Two-dimensional and M-mode echocardiogram with Doppler and color Doppler. INDICATION ICD: Assess for congestive heart failure 2D Dimensions RVDd 3.9 cm LVEF(%) 40.6 (>50%) LVED Vol(simp.) 113.0 mL IVSd 1.6 (0.7-1.1cm) FS(%) 20 % LVES Vol(simp.) 53.0 mL LVDd 4.9 (3.8-5.6cm) LA (2D) 4.6 (1.6-4.0cm) LVEF(%, simp.) 53 % PWd 1.2 (0.7-1.1cm) Ao Root(2D) 3.2 (2.0-3.7cm) LA ESV INDEX (BP) 30.26 mL/m2 IVSs 1.5 cm LVOT diam 2.4 (1.8-2.4cm) LVDs 3.9 (2.5-4.0cm) IVC diam 2.2 cm PWs 2.0 cm Deformation Strain Apical 4 -18.2 % Apical 2 -18.1 % Apical 3 -17.1 % Global Strain -17.8 % M-Mode Dimensions EPSS 1.1 cm LA (MM) 5.3 (1.6-4.0cm) Ao Root(MM) 3.8 (2.0-3.7cm) Aortic Valve AoV Vmax 1.1 m/s Ao Peak GR 5.2 mmHg LVOT Vmax 1.0 m/s AoV VTI 0.2 m Ao Mean GR 3.0 mmHg LVOT VTI 0.17 m JOSHUA (VMAX) 4.06 cm2 JOSHUA (VTI) 3.6 cm2 Mitral Valve MV E Vmax 64.9 cm/s DECEL Time 230 ms MV A Vmax 110.6 cm/s P 1/2 T 56 ms E/A ratio 0.6 MVA (PHT) 3.9 cm2 TDI E/E' Medial 12.8 E/E' Lateral 16.9 Medial E' Peak V 5.09 cm/s Lateral E' Peak V 3.85 cm/s Pulmonary Valve PV Vmax 1.4 m/s PV Mean GR 4.4 mmHg PV Peak GR 7.7 mmHg Tricuspid Valve TR Vmax 1.0 m/s RAP (EST) 3 mmHg RVSP 6.9 mmHg TR Peak GR 3.9 mmHg Left Ventricle The left ventricle is normal size. No regional wall motion abnormalities noted. Mild concentric left ventricular hypertrophy. Left ventricle systolic function is low normal, estimated LVEF is 50 to 55%. Stage I diastolic dysfunction. Right Ventricle The right ventricle is normal size. The right ventricular systolic function is normal. Atria The left atrium size is normal. The right atrium size is normal. Aortic Valve Aortic valve is trileaflet. The leaflets are mildly thickened and calcified. No aortic regurgitation is present. There is no aortic valvular stenosis. Mitral Valve Mild mitral annular calcification is noted. The leaflets are mildly thickened and calcified. Trace mitral regurgitation. There is no mitral valve stenosis. Tricuspid Valve The tricuspid valve is normal in structure. Trace tricuspid regurgitation. RVSP is normal. Pulmonic Valve Pulmonic valve is not well visualized. Great Vessels The aortic root is normal in size. The IVC is normal in size and collapses >50% with inspiration. Pericardium There is no pericardial effusion. Other Information Quality : Adequate Conclusion Mild concentric left ventricular hypertrophy. No regional wall motion abnormalities noted. Left ventricle systolic function is low normal, estimated LVEF is 50 to 55%. Stage I diastolic dysfunction. Trace mitral regurgitation. Trace tricuspid regurgitation. PASP is normal. There is no pericardial effusion. DICTATED BY: HUMBERTO CABALLERO MD DATE: 05/25/25 09 ELECTRONICALLY SIGNED BY: HUMBERTO CABALLERO MD DATE: 05/25/25 8203 PATIENT: QASIM GOMEZ MR#: [id number] : 1975 SEX: M AGE: 49 LOCATION: [facility] ORDER 1217 STATUS: [facility]M [facility] REPORT#: [id number] SERVICE 1210 REASON: assess for DVT ORDERING PHYSICIAN: KILO MAHAN MD PROCEDURE: VENOUS MARIAJOSE - US VENOUS DOPPLER BILATERAL EXAM: US for Deep Venous Thrombosis, bilateral Lower Extremity. CLINICAL HISTORY: Leg Pain and Swelling TECHNIQUE: Real-time ultrasound scan of the veins of the bilateral lower extremity with color Doppler flow, spectral waveform analysis and compression. COMPARISON: None provided. FINDINGS: DEEP VEINS: The common femoral, superficial femoral, and popliteal veins are echolucent and compressible. There is normal color Doppler flow throughout. The visualized calf veins appear patent. SOFT TISSUES: No popliteal fossa cyst or other abnormalities. IMPRESSION: 1. No evidence of deep venous thrombosis in the bilateral lower extremities. /[place] DICTATED BY: JERICHO DICKERSON Jr., MD DATE: 05/24/251619 ELECTRONICALLY SIGNED BY: JERICHO DICKERSNO Jr., MD DATE: 05/24/251619 PATIENT: QASIM GOMEZ MR#: [id number] : 1975 SEX: M AGE: 49 LOCATION: [facility] ORDER 121 STATUS: [facility]M [facility] REPORT#: [id number] SERVICE 1210 REASON: Assess for carotid stenosis ORDERING PHYSICIAN: KILO MAHAN MD PROCEDURE: CAROTID - US CAROTID DUPLEX EXAM: US Duplex Bilateral Carotid and Vertebral Arteries. CLINICAL HISTORY: Assess for carotid stenosis. TECHNIQUE: Real-time ultrasound scan of the bilateral carotid and vertebral arteries, 2-D hutson scale, with color Doppler flow and spectral waveform analysis. COMPARISON: None provided. FINDINGS: RIGHT COMMON CAROTID ARTERY: Peak systolic velocity approximately 72 cm/s. No occlusion or hemodynamically significant stenosis. RIGHT INTERNAL CAROTID ARTERY: Peak systolic velocity approximately 70 cm/s with ICA/CCA ratio of 1.0. No occlusion or hemodynamically significant stenosis. RIGHT EXTERNAL CAROTID ARTERY: Peak systolic velocity approximately 108 cm/s. No occlusion. RIGHT VERTEBRAL ARTERY: Antegrade flow with peak systolic velocity approximately 32 cm/s. RIGHT ICA/CCA RATIO: Approximately 1.0. LEFT COMMON CAROTID ARTERY: Peak systolic velocity approximately 69 cm/s. No occlusion or hemodynamically significant stenosis. LEFT INTERNAL CAROTID ARTERY: Peak systolic velocity approximately 73 cm/s with ICA/CCA ratio of approximately 1.1. No occlusion or hemodynamically significant stenosis. LEFT EXTERNAL CAROTID ARTERY: Peak systolic velocity approximately 135 cm/s. No occlusion. LEFT VERTEBRAL ARTERY: Antegrade flow with peak systolic velocity approximately 39 cm/s. LEFT ICA/CCA RATIO: Approximately 1.1. SOFT TISSUES: No incidental abnormalities. IMPRESSION: * No hemodynamically significant carotid artery stenosis by Doppler velocity criteria or ICA/CCA ratios. * Bilateral vertebral arteries demonstrate normal antegrade flow without hemodynamically significant stenosis. /[place] DICTATED BY: AIRAM BINGHAM DO DATE: 05/24/251634 ELECTRONICALLY SIGNED BY: AIRAM BINGHAM DO DATE: 05/24/251634 PATIENT: QASIM GOMEZ MR#: [id number] : 1975 SEX: M AGE: 49 LOCATION: [facility] ORDER 1217 STATUS: [facility]M [facility] REPORT#: [id number] SERVICE 1210 REASON: assess for PVD ORDERING PHYSICIAN: KILO MAHAN MD PROCEDURE: ART B LE - US ARTERIAL BILAT LOW EXT DUPL EXAM: US Duplex bilateral Lower Extremity Arteries. CLINICAL HISTORY: Assess for peripheral vascular disease. TECHNIQUE: Real-time ultrasound scan of the arteries of the bilateral lower extremities with 2-D hutson scale, color Doppler flow and spectral waveform analysis. COMPARISON: None provided. FINDINGS: RIGHT LOWER EXTREMITY: COMMON FEMORAL ARTERY: Peak systolic velocity approximately 115 cm/sec with triphasic waveform. No occlusion or hemodynamically significant stenosis. SUPERFICIAL FEMORAL ARTERY: Proximal peak systolic velocity approximately 65 cm/sec and distal peak systolic velocity approximately 70 cm/sec with triphasic waveforms. No occlusion or hemodynamically significant stenosis. POPLITEAL ARTERY: Peak systolic velocity approximately 71 cm/sec with triphasic waveform. No occlusion or hemodynamically significant stenosis. CALF ARTERIES: Posterior tibial artery distal peak systolic velocity approximately 59 cm/sec with triphasic waveform. Dorsalis pedis artery peak systolic velocity approximately 79 cm/sec with triphasic waveform. No occlusion or hemodynamically significant stenosis. LEFT LOWER EXTREMITY: COMMON FEMORAL ARTERY: Peak systolic velocity approximately 103 cm/sec with triphasic waveform. No occlusion or hemodynamically significant stenosis. SUPERFICIAL FEMORAL ARTERY: Proximal peak systolic velocity approximately 109 cm/sec, mid peak systolic velocity approximately 121 cm/sec, and distal peak systolic velocity approximately 40 cm/sec with predominantly triphasic waveforms. No focal velocity elevation to suggest hemodynamically significant stenosis. POPLITEAL ARTERY: Proximal peak systolic velocity approximately 50 cm/sec and distal peak systolic velocity approximately 78 cm/sec with triphasic waveforms. No occlusion or hemodynamically significant stenosis. CALF ARTERIES: Posterior tibial artery peak systolic velocity approximately 53 cm/sec and anterior tibial/distal peak systolic velocity approximately 64 cm/sec with triphasic waveforms. Dorsalis pedis artery peak systolic velocity approximately 100 cm/sec with triphasic waveform. No occlusion or hemodynamically significant stenosis. IMPRESSION: * Multifocal atherosclerotic changes of the bilateral lower extremity arteries without duplex evidence of hemodynamically significant stenosis or occlusion. /[place] DICTATED BY: THIERNO NEVILLE MD DATE: 05/24/251700 ELECTRONICALLY SIGNED BY: THIERNO NEVILLE MD DATE: 05/24/251700 PATIENT: QASIM GOMEZ MR#: [id number] : 1975 SEX: M AGE: 49 LOCATION: [facility] ORDER 1217 STATUS: ADM IN REPORT#: [id number] SERVICE 1210 REASON: LLQ pain. Also assess lumbar spine ORDERING PHYSICIAN: KILO MAHAN MD PROCEDURE: ABD PEL WO - CT ABDOMEN/PELVIS W/O CONTRAST EXAM: CT SCAN OF THE ABDOMEN AND PELVIS WITHOUT CONTRAST Clinical statement: Left lower quadrant pain and lower back pain; evaluate abdomen and lumbar spine. STUDY PROTOCOL: CT radiation dose protocol was performed in accordance with the principles of ALARA. A multislice CT scan of the abdomen and pelvis was performed without intravenous contrast. Sections were obtained from the diaphragms to the inguinal region. RADIATION DOSE: CTDIvol 19.90 mGy; DLP 1365.70 mGycm. CONTRAST: No intravenous contrast administered. COMPARISON: None provided. FINDINGS: LUNG BASE: No pleural effusion, collapse, or consolidation in the visualized lung bases. Mild thickening of the posterior pleura of the left lower lobe. LIVER: Normal morphology and attenuation with smooth margins. No focal hepatic lesion or calcification. No intrahepatic or extrahepatic biliary dilatation. Vance hepatis structures are unremarkable. GALL BLADDER: Gallbladder wall thickness and contour are normal. The gallbladder is contracted with a possible tiny calculus measuring approximately 1 mm (series 2, image 28/129). No pericholecystic fat stranding is seen on this noncontrast study. The cystic duct and surrounding fat appear normal. PANCREAS: Normal in size, contour, and attenuation. No pancreatic ductal dilatation or peripancreatic inflammatory change. SPLEEN: Normal size and attenuation. A small accessory spleen is present. No acute splenic abnormality. KIDNEYS: Both kidneys are normal in size, shape, position, and attenuation. No renal mass, calculus, or hydronephrosis. Mild perinephric fat stranding bilaterally. A simple cyst measuring approximately 1.1 cm is noted in the lower pole of the left kidney. No evidence of obstructive uropathy. GIT /T/ PERITONEAL CAVITY: Stomach is distended but otherwise unremarkable. Gastroesophageal junction, pylorus, and duodenum appear normal. Jejunal and ileal loops are normal in caliber and distribution with preserved wall thickness and mucosal pattern. No CT evidence of acute appendicitis. Scattered sigmoid diverticulosis is present without adjacent inflammatory stranding or abscess. Rectum and colonic loops are well distended with fecal material, consistent with constipation. No free intraperitoneal fluid or free air. Mesenteric fat and omentum are unremarkable. LYMPHNODES: No pathologically enlarged abdominopelvic lymph nodes are identified. RETROPERITONEUM: Both adrenal glands are normal in morphology and attenuation. The abdominal aorta and IVC are normal in course and caliber with mild atherosclerotic calcification in the aortoiliac segment. A vascular stent is present in the left common iliac vein. PELVIS: Urinary bladder shows normal wall thickness and contour. Prostate appears normal on CT. No pelvic mass or free fluid. MUSCULOSKELETAL: Early degenerative changes in the dorsolumbar spine with multilevel endplate osteophytic spurring. Mild reduction in L5S1 disc height with a small posterior disc protrusion measuring approximately 3 mm at L5S1. No acute fracture or listhesis. OTHER: Extra-abdominal and paraspinal soft tissues are unremarkable. Tiny fat-containing umbilical hernia. IMPRESSION: * No CT evidence of acute intra-abdominal pathology such as appendicitis, diverticulitis, bowel obstruction, or obstructive uropathy to clearly explain left lower quadrant pain. Clinical management should be guided by examination and laboratory findings. * Scattered sigmoid diverticulosis without CT evidence of diverticulitis. These changes can be a source of chronic left-sided abdominal symptoms; if symptoms persist or there are red-flag features (e.g., anemia, change in bowel habits, weight loss), gastroenterology evaluation and consideration of colonoscopy are advised. * Constipation with fecal loading of the colon and rectum, which may contribute to the patients abdominal pain; treatment should be tailored to clinical assessment and bowel habit history. * Degenerative changes of the lower lumbar spine with mild L5S1 disc height loss and a small posterior disc protrusion at L5S1, which may contribute to lower back pain and possibly radicular symptoms if present. Correlation with neurologic examination is recommended, and lumbar spine MRI may be considered if there is radiculopathy or persistent, function-limiting pain. * Mild bilateral perinephric fat stranding with a small simple left renal cyst (1.1 cm) and no hydronephrosis or stones. Findings are nonspecific and more in keeping with mild chronic or incidental change; correlation with urine studies and clinical features is recommended if there is concern for renal infection. * Contracted gallbladder with a possible tiny calculus. There is no CT evidence of acute cholecystitis on this noncontrast study; if biliary-type symptoms develop, targeted right upper quadrant ultrasound could be considered for further evaluation. * Mild atherosclerotic calcification of the aortoiliac segment with a left common iliac vein stent, and tiny fat-containing umbilical hernia, both likely incidental in the context of the current presentation. /[place] DICTATED BY: AUSTIN DOMINGUEZ MD DATE: 05/24/251403 ELECTRONICALLY SIGNED BY: AUSTIN DOMINGUEZ MD DATE: 05/24/251403 PATIENT: QASIM GOMEZ MR#: [id number] : 1975 SEX: M AGE: 49 LOCATION: [facility] ORDER [id number] STATUS: ADM IN REPORT#: [id number] SERVICE 1153 REASON: weakness ORDERING PHYSICIAN: KILO MAHAN MD PROCEDURE: HEAD WO - CT HEAD/BRAIN W/O CONTRAST EXAM: CT Head Without IV contrast. CLINICAL HISTORY: weakness TECHNIQUE: Axial computed tomography images of the head/brain without intravenous contrast. COMPARISON: None provided. FINDINGS: BRAIN: No evidence of acute hemorrhage. No mass lesion. No CT evidence for acute territorial infarct. No midline shift or extra-axial collections. VENTRICLES: No hydrocephalus. ORBITS: The orbits are unremarkable. SINUSES AND MASTOIDS: The paranasal sinuses and mastoid air cells are clear. BONES: No fracture. SOFT TISSUES: Unremarkable. IMPRESSION: No acute intracranial abnormality. /[place] DICTATED BY: AIRAM BINGHAM DO DATE: 05/24/25 1356 ELECTRONICALLY SIGNED BY: AIRAM BINGHAM DO DATE: 05/24/25 1356 PATIENT: QASIM GOEMZ MR#: [id number] : 1975 SEX: M AGE: 49 LOCATION: [facility] ORDER 1038 STATUS: REG REPORT#: [id number] SERVICE 1032 REASON: straight leg positive and lumbar pain ORDERING PHYSICIAN: STACI DAVIS MD PROCEDURE: LUMB 2 3VW - LUMBAR SPINE 2-3VWS EXAM: CR Lumbar Spine, 3 View. CLINICAL HISTORY: straight leg positive and lumbar pain COMPARISON: None provided. FINDINGS: BONES: No acute fracture or aggressive appearing osseous lesion. ALIGNMENT: Alignment is within normal limits. No significant scoliosis. DISCS / DEGENERATIVE CHANGES: The disc spaces are preserved. SOFT TISSUES: The soft tissues are unremarkable. Left iliac vascular stent IMPRESSION: No acute lumbar spine abnormality evident. If there is clinical concern for nerve root compression, MRI is suggested. /[place] DICTATED BY: AIRAM BINGHAM DO DATE: 05/24/25 1238 ELECTRONICALLY SIGNED BY: AIRAM BINGHAM DO DATE: 05/24/25 1238 ASSESSMENT: Symptomatic hyperglycemia Uncontrolled diabetes mellitus type 2 Lower back pain Proteinuria Acute on chronic kidney disease Diabetic nephropathy Bilateral lower extremities edema History of May-Thurner syndrome Blurred vision bilaterally Hypertensive urgency PLAN: Labs, diagnostic, radiologic exams reviewed and interpreted by myself and supervising physician. We have reviewed external records in detail Pending colonoscopy Continue with torsemide 20 mg po daily Require close monitoring of renal function and electrolytes Order CBC, CMP, and electrolytes in am BiPAP as necessary, for respiratory distress Monitor blood pressure adjust medication doses as needed Avoid hypotensive episodes May use Dilaudid 0.5 mg IV every 6 hours as needed for severe pain Monitor blood sugars Strict intake, output, and daily weight should be monitored Please renally adjust medications Avoid nephrotoxic and nonsteroidal drugs Avoid contrast if possible Will continue to monitor renal function, anemia, electrolytes Treatment plan discussed with patient Questions were answered We have discussed with the other team physicians in detail about the care plan We will continue to monitor the patient closely ATTESTATION BY PHYSICIAN I have seen and examined the patient. I reviewed the documentation, medical decision making, and treatment plan as noted by the mid-level provider above. I agree with the findings and plan of care. EMA LOERA MD, [facility] May 31, 2025 13:43
--- NOTE | 2025-05-31 16:39 | PN ---
GASTROENTEROLOGY PROGRESS NOTE Date of Visit: May 31, 2025 Time of Visit: 16:39 Events / Notes: [ ] Review of Systems: CONSTITUTIONAL: No malaise or change in sensation of wellbeing. ENMT: No rhinorrhea, otorrhea, sinus pain, ear ache. CARDIOVASCULAR: No angina, palpitations, orthopnea or paroxysmal dyspnea. RESPIRATORY: No SOB. GASTROINTESTINAL: No abdominal pain, nausea, vomiting, diarrhea, hematemesis, melena or change in the patient's habitual bowel movements consistency/number. GENITOURINARY: No dysuria, hematuria or change in bladder continence. MUSCULOSKELETAL: No new muscle pain or decrease in muscular strength. No new joint swelling, redness or tenderness. SKIN: No new rash. Physical Exam: GEN: Awake, alert, oriented in person, time and place, and in no acute distress. HEENT: No sinus tenderness. Tympanic membranes were not examined. No rhinorrhea. Oral pharyngeal mucosa is pink, moist and within normal limits. Neck is supple with no cervical lymphadenopathy, thyromegaly or JVD. CHEST: Inspection, palpation and percussion of the chest were unremarkable. Lung auscultation revealed normal breath sounds bilaterally. CARDIAC: PMI is within normal limits. Heart sounds are regular. Normal S1, S2. No gallop or murmur. ABD: Soft, non-tender and not distended. No peritoneal signs on palpation. No organomegaly. Normal bowel sounds. EXT: No cyanosis or clubbing. No edema. SKIN: Intact. No rashes. JOINTS: No evidence of synovitis or acute arthritis. NEURO: Alert and oriented to name, place and person. Cranial nerve examination is unremarkable. No focal motor deficits. Normal speech. Gait is normal. Strength is normal. Vital Signs (last 8hr) Date Time Temp Pulse Resp B/P (MAP) Pulse Ox O2 Delivery O2 Flow Rate FiO2 05/31/25 11:25 97.5 82 18 166/94 95 Room Air Laboratory: [ ] Laboratory: Test 05/31/25 15:54 05/31/25 08:44 05/30/25 03:21 Range/Units Whole Blood Glucose 157 H 70-110 MG/DL White Blood Count 6.8 4.8-10.8 K/uL Red Blood Count 4.19 L 4.50-6.20 MIL/uL Hemoglobin 13.3 L 14.0-18.0 g/dL Hematocrit 38.6 L 42-54 % Mean Corpuscular Volume 92.1 79-99 fL Mean Corpuscular Hemoglobin 31.7 27.0-33.0 pg Mean Corpuscular Hemoglobin Concent 34.5 32.0-36.0 g/dL Red Cell Distribution Width 11.8 11.0-15.5 % Platelet Count 196 130-400 K/uL Mean Platelet Volume 11.3 H 7.5-10.5 fL Nucleated Red Blood Cells 0.0 0.0-0.19 % Sodium Level 138 136-145 mmol/L Potassium Level 3.7 3.5-5.1 mmol/L Chloride Level 100 L 101-111 mmol/L Carbon Dioxide Level 34 H 21-32 mmol/L Blood Urea Nitrogen 18 7-18 mg/dL Creatinine 1.4 H 0.5-1.3 mg/dL Glomerular Filtration Rate Calc 61 >90 mL/min Random Glucose 109 H 70-105 mg/dL Total Calcium 8.1 L 8.5-10.1 mg/dL Phosphorus Level 3.6 2.5-4.9 mg/dL Magnesium Level 1.70 L 1.80-2.40 mg/dL Total Bilirubin 0.3 0.2-1.0 mg/dL Aspartate Amino Transf (AST/SGOT) 30 10-37 U/L Alanine Aminotransferase (ALT/SGPT) 37 12-78 U/L Alkaline Phosphatase 87 50-136 U/L Total Protein 6.7 6.0-8.3 g/dL Albumin 2.1 L 3.5-5.0 g/dL Immature Granulocyte % (Auto) 0.2 0-1 % Neutrophils (%) (Auto) 56.8 40.0-77.0 % Lymphocytes (%) (Auto) 23.6 21.0-51.0 % Monocytes (%) (Auto) 13.0 3.0-13.0 % Eosinophils (%) (Auto) 5.8 0.0-8.0 % Basophils (%) (Auto) 0.6 0.0-5.0 % Neutrophils # (Auto) 3.1 1.8-7.7 K/uL Lymphocytes # (Auto) 1.3 1.0-4.8 K/uL Monocytes # (Auto) 0.7 0.1-1.0 K/uL Eosinophils # (Auto) 0.31 0.00-0.70 K/uL Basophils # (Auto) 0.03 0.00-0.20 K/uL Absolute Immature Granulocyte (auto 0.01 0-1 K/uL Current Medications Medications (Trade) Dose Ordered Sig/Darcie Route PRN Reason Start Time Stop Time Status Last Admin Dose Admin Acetaminophen/ Codeine Phosphate (TYLenol-coDEINE TAB) 1 tab Q6H PRN PO MODERATE PAIN (4-6) 05/26/25 13:00 06/25/25 12:59 05/30/25 21:55 1 TAB Amlodipine Besylate (NorvASC 5MG TAB) 5 mg DAILY PO 05/25/25 09:00 05/26/25 12:57 DC 05/26/25 09:10 5 MG Amlodipine Besylate (NorvASC 5MG TAB) 10 mg DAILY PO 05/27/25 09:00 06/26/25 08:59 05/31/25 11:41 10 MG Amoxicillin (Amoxicillin 500mg Cap) 500 mg TID PO 05/26/25 14:00 05/26/25 13:20 DC Aspirin (Aspirin 81mg Ec Tab) 81 mg DAILY PO 05/27/25 09:00 06/26/25 08:59 05/31/25 11:41 81 MG Atorvastatin Calcium (LIPItor 40MG) 40 mg HS PO 05/26/25 21:00 06/25/25 20:59 05/31/25 11:40 40 MG Clopidogrel Bisulfate (plaVIX 75MG) 75 mg DAILY PO 05/27/25 09:00 06/26/25 08:59 05/31/25 11:41 75 MG Enoxaparin Sodium (Lovenox) 30 mg DAILY SQ 05/25/25 09:00 06/24/25 08:59 05/31/25 11:38 30 MG Famotidine (Pepcid 20mg Vial) 20 mg Q24H IV 05/24/25 21:00 06/23/25 20:59 05/31/25 11:39 20 MG Furosemide (LASix 20MG TAB) 20 mg DAILY PO 05/28/25 09:00 05/27/25 17:57 DC Gabapentin (NEURontin 100 mg CAP) 100 mg TID PO 05/26/25 14:00 06/25/25 13:59 05/31/25 15:59 100 MG Hydralazine HCl (APRESOLine 20MG INJ) 5 mg Q6H PRN IV ADMINISTER FOR SBP > 160 05/26/25 13:00 06/25/25 12:59 05/27/25 00:14 5 MG Hydralazine HCl (APRESOLine 20MG INJ) 10 mg Q6H PRN IV ADMINISTER FOR SBP > 180 05/24/25 12:30 06/23/25 12:29 05/24/25 15:08 10 MG Hydromorphone HCl (DiLAUDid 0.5MG INJ) 0.5 mg Q6H PRN IVP SEVERE PAIN (7-10) 05/24/25 12:30 05/29/25 12:29 DC 05/29/25 08:54 0.5 MG Insulin Glargine (LANtus 100 UNITS/ML 10 ML VIAL) 20 units DAILY SQ 05/25/25 09:00 05/25/25 19:40 DC 05/25/25 09:47 20 UNITS Insulin Glargine (LANtus 100 UNITS/ML 10 ML VIAL) 30 units DAILY SQ 05/26/25 09:00 05/28/25 07:17 DC 05/27/25 09:19 30 UNITS Insulin Glargine (LANtus 100 UNITS/ML 10 ML VIAL) 30 units DAILY SQ 05/31/25 09:00 06/30/25 08:59 Insulin Glargine (LANtus 100 UNITS/ML 10 ML VIAL) 35 units DAILY SQ 05/28/25 09:00 05/31/25 05:54 DC 05/30/25 12:40 35 UNITS Insulin Human Regular (humuLIN R 100 UNIT/ML 3ML) 5 unit TIDAC SQ 05/25/25 07:30 05/25/25 19:40 DC 05/25/25 16:50 5 UNIT Insulin Human Regular (humuLIN R 100 UNIT/ML 3ML) 7 unit TIDAC SQ 05/31/25 07:30 06/30/25 07:29 Insulin Human Regular (humuLIN R 100 UNIT/ML 3ML) 8 unit TIDAC SQ 05/26/25 07:30 05/26/25 12:55 DC 05/26/25 12:36 8 UNIT Insulin Human Regular (humuLIN R 100 UNIT/ML 3ML) 8 unit TIDAC SQ 05/29/25 07:30 05/31/25 05:54 DC 05/30/25 18:52 8 UNIT Insulin Human Regular (humuLIN R 100 UNIT/ML 3ML) 10 unit TIDAC SQ 05/28/25 07:30 05/29/25 06:36 DC 05/28/25 08:08 10 UNIT Insulin Human Regular (humuLIN R 100 UNIT/ML 3ML) 12 unit TIDAC SQ 05/26/25 17:00 05/27/25 20:50 DC 05/27/25 11:52 12 UNIT Insulin Human Regular (humuLIN R 100 UNIT/ML 3ML) INSULIN SLIDING SCAL... ACHS SQ 05/25/25 07:30 06/24/25 07:29 05/30/25 21:40 4 UNIT Insulin Human Regular (humuLIN R 100 UNIT/ML 3ML) INSULIN SLIDING SCAL... Q6H6 SQ 05/24/25 18:00 05/25/25 05:19 DC 05/25/25 00:07 7 UNIT Magnesium Sulfate 50 ml @ 0 mls/hr PROTOCOL IV 05/31/25 10:30 06/30/25 10:29 05/31/25 11:57 25 MLS/HR Ondansetron HCl (zoFRAN 4MG INJ) 4 mg Q6H PRN IVP NAUSEA/VOMITING 05/24/25 12:30 06/23/25 12:29 Torsemide (Demadex) 20 mg DAILY PO 05/27/25 18:00 06/26/25 17:59 05/31/25 11:41 20 MG Vitamin B Complex/ Vit C/Folic Acid (Nephrovite Tablet) 1 cap DAILY PO 05/25/25 09:00 06/24/25 08:59 05/31/25 11:40 1 CAP Diagnostics / Radiology: [COPY/PASTE HERE IF NO REPORTS PLEASE DELETE SECTION] Assessment: Lower abdominal pain Diverticulosis HTN DM Plan: 1. NPO after MN 2. Colonoscopy in AM. I have discussed the risks, benefits, alternatives and potential complications. Questions were answered and the patient agrees to proceed. 3. Golytely 4 L po starting at 1700 4. Clear liquid diet avoiding red and purple colored liquids 5. Tap water enema in AM as needed 6. Please check Hg every 6 hours and transfuse to goal Hg 7-8. Please do not overtransfuse Thank you for allowing us to participate in the care of this patient! [facility] May 31, 2025 16:39
[2025-05-31] MEDS: PEG 3350/NA SULF,BICARB,CL/KCL 4000 ML SOLN PO STA (17:14)
--- NOTE | 2025-05-31 19:58 | PN ---
Endocrinology progress note DOS:05/31/25 subjective: Home diabetic regimen: glargine 30 units daily and novolog 10 units qac before meals. Hba1c 12.2% reports that he was recently diagnosed with diabetic retinopathy and planning eye injections. glucose are improving. PAST MEDICAL HISTORY: Hypertension, diabetes mellitus type two PAST SURGICAL HISTORY: History of right foot great toe amputation, history of peripheral angiogram, history of iliac stent placement PAST SOCIAL HISTORY: Denied any smoking, alcohol, drug use. The patient works with [email or web address] FAMILY HISTORY: Denied any pertinent family history Coded Allergies: No Known Allergies (Unverified Allergy, Unknown, 07/08/23) ASSESSMENT: Symptomatic hyperglycemia POA no dka. hyperglycemia is improving Home diabetic regimen: glargine 30 units daily and novolog 10 units qac before meals. Hba1c 12.2% reports that he was recently diagnosed with diabetic retinopathy and planning eye injections. glucose runs <180 mg/dl. Uncontrolled diabetes mellitus type 2 with hemoglobin A1c of 12.2 Lower back pain with concern for radiculopathy Proteinuria Acute kidney injury or underlying chronic kidney disease likely from diabetic nephropathy Bilateral lower extremities edema History of May-Thurner syndrome Blurred vision bilaterally differential secondary to diabetic retinopathy versus symptomatic hyperglycemia Hypertensive urgency PLAN: continue Lantus 30 units daily and on hold today as he is onc clear and will be npo after MN for colonoscopy continue Regular insulin 7 units three times before meals continue medium dose sliding scale insulin. Monitor glucose q x 6 hourly. Continue carb consistent diet. Keep glucose less than 180 mg/dl. Vitals/Labs Vital Signs Date Time Temp Pulse Resp B/P (MAP) Pulse Ox O2 Delivery O2 Flow Rate FiO2 05/31/25 11:25 97.5 82 18 166/94 95 Room Air 05/30/25 20:00 0 21 Laboratory Tests 05/31/25 08:44 Medications Current Medications Insulin Human Regular 5 unit ONCE ONCE IV Last administered on 05/24/25at 11:17; Start 05/24/25 at 11:00; Stop 05/24/25 at 11:01; Status DC Sodium Chloride 1,000 ml @ 0 mls/hr ONCE ONCE IV Last administered on 05/24/25at 11:08; Start 05/24/25 at 11:00; Stop 05/24/25 at 11:01; Status DC Famotidine 20 mg Q24H IV Last administered on 05/31/25at 11:39; Start 05/24/25 at 21:00; Stop 06/23/25 at 20:59 Amlodipine Besylate 5 mg ONCE ONCE PO Last administered on 05/24/25at 13:50; Start 05/24/25 at 12:30; Stop 05/24/25 at 12:31; Status DC Amlodipine Besylate 5 mg DAILY PO Last administered on 05/26/25at 09:10; Start 05/25/25 at 09:00; Stop 05/26/25 at 12:57; Status DC Hydralazine HCl 10 mg Q6H PRN IV Last administered on 05/24/25at 15:08; Start 05/24/25 at 12:30; Stop 06/23/25 at 12:29 Insulin Human Regular INSULIN SLIDING SCAL... Q6H6 SQ Last administered on 05/25/25at 00:07; Start 05/24/25 at 18:00; Stop 05/25/25 at 05:19; Status DC Hydromorphone HCl 0.5 mg Q6H PRN IVP Last administered on 05/29/25at 08:54; Start 05/24/25 at 12:30; Stop 05/29/25 at 12:29; Status DC Ondansetron HCl 4 mg Q6H PRN IVP; Start 05/24/25 at 12:30; Stop 06/23/25 at 12:29 Sodium Chloride 1,000 ml @ 75 mls/hr [id number] ONCE IV; Start 05/24/25 at 13:00; Stop 05/24/25 at 12:41; Status DC Insulin Glargine 15 units ONCE ONCE SQ Last administered on 05/24/25at 13:52; Start 05/24/25 at 13:30; Stop 05/24/25 at 13:31; Status DC Vitamin B Complex/ Vit C/Folic Acid 1 cap DAILY PO Last administered on 05/31/25at 11:40; Start 05/25/25 at 09:00; Stop 06/24/25 at 08:59 Insulin Glargine 20 units DAILY SQ Last administered on 05/25/25at 09:47; Start 05/25/25 at 09:00; Stop 05/25/25 at 19:40; Status DC Insulin Human Regular 5 unit TIDAC SQ Last administered on 05/25/25at 16:50; Start 05/25/25 at 07:30; Stop 05/25/25 at 19:40; Status DC Insulin Human Regular INSULIN SLIDING SCAL... ACHS SQ Last administered on 05/30/25at 21:40; Start 05/25/25 at 07:30; Stop 06/24/25 at 07:29 Potassium Chloride 20 meq ONCE ONCE PO Last administered on 05/25/25at 06:37; Start 05/25/25 at 06:00; Stop 05/25/25 at 06:01; Status DC Enoxaparin Sodium 30 mg DAILY SQ Last administered on 05/31/25at 11:38; Start 05/25/25 at 09:00; Stop 06/24/25 at 08:59 Insulin Glargine 30 units DAILY SQ Last administered on 05/27/25at 09:19; Start 05/26/25 at 09:00; Stop 05/28/25 at 07:17; Status DC Insulin Human Regular 8 unit TIDAC SQ Last administered on 05/26/25at 12:36; Start 05/26/25 at 07:30; Stop 05/26/25 at 12:55; Status DC Insulin Human Regular 12 unit TIDAC SQ Last administered on 05/27/25at 11:52; Start 05/26/25 at 17:00; Stop 05/27/25 at 20:50; Status DC Acetaminophen/ Codeine Phosphate 1 tab Q6H PRN PO Last administered on 05/30/25at 21:55; Start 05/26/25 at 13:00; Stop 06/25/25 at 12:59 Amlodipine Besylate 10 mg DAILY PO Last administered on 05/31/25at 11:41; Start 05/27/25 at 09:00; Stop 06/26/25 at 08:59 Amoxicillin 500 mg TID PO; Start 05/26/25 at 14:00; Stop 05/26/25 at 13:20; Status DC Aspirin 81 mg DAILY PO Last administered on 05/31/25at 11:41; Start 05/27/25 at 09:00; Stop 06/26/25 at 08:59 Atorvastatin Calcium 40 mg HS PO Last administered on 05/31/25at 11:40; Start 05/26/25 at 21:00; Stop 06/25/25 at 20:59 Clopidogrel Bisulfate 75 mg DAILY PO Last administered on 05/31/25at 11:41; Start 05/27/25 at 09:00; Stop 06/26/25 at 08:59 Gabapentin 100 mg TID PO Last administered on 05/31/25at 15:59; Start 05/26/25 at 14:00; Stop 06/25/25 at 13:59 Hydralazine HCl 5 mg Q6H PRN IV Last administered on 05/27/25at 00:14; Start 05/26/25 at 13:00; Stop 06/25/25 at 12:59 Furosemide 20 mg DAILY PO; Start 05/28/25 at 09:00; Stop 05/27/25 at 17:57; Status DC Furosemide 20 mg ONCE ONCE PO; Start 05/27/25 at 16:30; Stop 05/27/25 at 16:31; Status DC Torsemide 20 mg DAILY PO Last administered on 05/31/25at 11:41; Start 05/27/25 at 18:00; Stop 06/26/25 at 17:59 Insulin Human Regular 10 unit TIDAC SQ Last administered on 05/28/25at 08:08; Start 05/28/25 at 07:30; Stop 05/29/25 at 06:36; Status DC Insulin Glargine 35 units DAILY SQ Last administered on 05/30/25at 12:40; Start 05/28/25 at 09:00; Stop 05/31/25 at 05:54; Status DC Insulin Human Regular 8 unit TIDAC SQ Last administered on 05/30/25at 18:52; Start 05/29/25 at 07:30; Stop 05/31/25 at 05:54; Status DC Polyethylene Glycol/ Electrolytes 4,000 ml ONCE ONCE PO Last administered on 05/30/25at 18:45; Start 05/30/25 at 16:00; Stop 05/30/25 at 16:01; Status DC Dextrose 50 ml STK-MED ONCE IV; Start 05/30/25 at 23:25; Stop 05/30/25 at 23:25; Status DC Insulin Glargine 30 units DAILY SQ; Start 05/31/25 at 09:00; Stop 06/30/25 at 08:59 Insulin Human Regular 7 unit TIDAC SQ Last administered on 05/31/25at 17:18; Start 05/31/25 at 07:30; Stop 06/30/25 at 07:29 Magnesium Sulfate 50 ml @ 0 mls/hr PROTOCOL IV Last administered on 05/31/25at 11:57; Start 05/31/25 at 10:30; Stop 06/30/25 at 10:29 Polyethylene Glycol/ Electrolytes 4,000 ml ONCE STAT PO Last administered on 05/31/25at 17:14; Start 05/31/25 at 16:38; Stop 05/31/25 at 16:40; Status DC ANITRA CARTER MD May 31, 2025 19:58
--- NOTE | 2025-05-31 22:00 | NUR ---
BOWEL MOVEMENT Patient with clear bowel movement and almost done drinking golytely. Denies pain. Fall precautions in place.
[2025-06-01] VITALS (14 sets, daily range): BP systolic 111–168; BP diastolic 77–99; PULSE 60–87; RESP 15–19; TEMP 97.1–98.8; O2SAT 97
[2025-06-01 04:27] LABS: NUCLEATED RED BLOOD CELLS 0.0 % (0.0-0.19); PLATELET COUNT (AUTO) 183.0 K/uL (130-400); RED BLOOD CELL COUNT(AUTO) 4.13 MIL/uL (4.50-6.20); RED CELL DISTRIBUTION WIDTH 11.6 % (11.0-15.5); WHITE BLOOD COUNT (AUTO) 6.7 K/uL (4.8-10.8)
[2025-06-01 04:51] LABS: ASPARTATE AMINOTRANSFERASE 31.0 U/L (10-37); CREATININE 1.4 mg/dL (0.5-1.3); GLOMERULAR FILTR. RATE CALC 61.0 mL/min (>90); GLUCOSE,RANDOM 92.0 mg/dL (70-105); SODIUM SERUM 139.0 mmol/L (136-145); TOTAL PROTEIN, SERUM 6.5 g/dL (6.0-8.3); UREA NITROGEN, BLOOD 15.0 mg/dL (7-18)
[2025-06-01] MEDS ORDERED: MAGNESIUM 2GM PREMIX 50ML 50 ML IV SCH (10:00)
--- NOTE | 2025-06-01 10:52 | PN ---
NEPHROLOGY PROGRESS NOTE Date/Time Patient Seen: Jun 01, 2025 SUBJECTIVE: This is a 49-year-old male with past medical history of hypertension, diabetes mellitus type 2 presented to hospital secondary to blurry vision He is found to have severe hypertension. He does not take his medicine. He has been on insulin also. The patient has unsteadiness also. The patient is generally weak. He has been found to have low sodium as well as multiple other comorbidities including blurry vision. We has been consulted for renal failure Renal function and electrolytes are stable. Continues torsemide 20 mg PO daily, daily weights are deceasing Urine output was noted He continues to be followed by endocrinology Imaging studies were noted Pending colonoscopy today He was seen in the medical floor, in no acute distress REVIEW OF SYSTEMS: GENERAL: Positive for lower extremity edema NEUROLOGIC: Negative for any blurry vision, blind spots, double vision, facial asymmetry, dysphagia, dysarthria, hemiparesis, hemisensory deficits, vertigo, ataxia. HEENT: Negative for any head trauma, neck trauma, neck stiffness, photophobia, phonophobia, sinusitis, rhinitis. CARDIAC: Negative for any chest pain, dyspnea on exertion, paroxysmal nocturnal dyspnea, peripheral edema. PULMONARY: Negative for any shortness of breath, wheezing, COPD, or TB exposure. GASTROINTESTINAL: Negative for any abdominal pain, nausea, vomiting, bright red blood per rectum, melena. GENITOURINARY: Negative for any dysuria, hematuria, incontinence. INTEGUMENTARY: Negative for any rashes, cuts, insect bites. RHEUMATOLOGIC: Negative for any joint pains, photosensitive rashes, history of vasculitis or kidney problems. HEMATOLOGIC: Negative for any abnormal bruising, frequent infections or bleeding. Vital Signs (last 8hr) Date Time Temp Pulse Resp B/P (MAP) Pulse Ox O2 Delivery O2 Flow Rate FiO2 06/01/25 10:35 79 17 132/82 96 Room Air 06/01/25 10:30 78 16 133/86 99 Nasal Cannula 3.0 06/01/25 10:25 97.2 83 16 111/77 99 Nasal Cannula 3.0 06/01/25 07:36 98.8 87 19 145/89 97 Room Air 21 06/01/25 04:07 98.2 87 19 164/96 96 Room Air 21 06/01/25 03:32 87 164/96 PHYSICAL EXAM: GENERAL: Alert and oriented x 3. No acute distress. Well-nourished. EYES: EOMI. Anicteric. HENT: Moist mucous membranes. No scleral icterus. No cervical lymphadenopathy. LUNGS: Clear to auscultation bilaterally. No accessory muscle use. CARDIOVASCULAR: Regular rate and rhythm. No murmur. No JVD. ABDOMEN: Soft, non-tender and non-distended. No palpable masses. EXTREMITIES: 2+ edema. Non-tender. SKIN: No rashes or lesions. Warm. NEUROLOGIC: No focal neurological deficits. CN II-XII grossly intact, but not individually tested. PSYCHIATRIC: Cooperative. Appropriate mood and affect. Current Medications Medications (Trade) Dose Ordered Sig/Darcie Route Start Time Stop Time Status Last Admin Dose Admin Amlodipine Besylate (NorvASC 5MG TAB) 5 mg DAILY PO 05/25/25 09:00 05/26/25 12:57 DC 05/26/25 09:10 5 MG Amlodipine Besylate (NorvASC 5MG TAB) 10 mg DAILY PO 05/27/25 09:00 06/26/25 08:59 05/28/25 08:09 10 MG Amoxicillin (Amoxicillin 500mg Cap) 500 mg TID PO 05/26/25 14:00 05/26/25 13:20 DC Aspirin (Aspirin 81mg Ec Tab) 81 mg DAILY PO 05/27/25 09:00 06/26/25 08:59 05/28/25 08:09 81 MG Atorvastatin Calcium (LIPItor 40MG) 40 mg HS PO 05/26/25 21:00 06/25/25 20:59 05/27/25 20:42 40 MG Clopidogrel Bisulfate (plaVIX 75MG) 75 mg DAILY PO 05/27/25 09:00 06/26/25 08:59 05/28/25 08:10 75 MG Enoxaparin Sodium (Lovenox) 30 mg DAILY SQ 05/25/25 09:00 06/24/25 08:59 05/28/25 08:21 30 MG Famotidine (Pepcid 20mg Vial) 20 mg Q24H IV 05/24/25 21:00 06/23/25 20:59 05/27/25 20:42 20 MG Furosemide (LASix 20MG TAB) 20 mg DAILY PO 05/28/25 09:00 05/27/25 17:57 DC Gabapentin (NEURontin 100 mg CAP) 100 mg TID PO 05/26/25 14:00 06/25/25 13:59 05/28/25 13:18 100 MG Insulin Glargine (LANtus 100 UNITS/ML 10 ML VIAL) 20 units DAILY SQ 05/25/25 09:00 05/25/25 19:40 DC 05/25/25 09:47 20 UNITS Insulin Glargine (LANtus 100 UNITS/ML 10 ML VIAL) 30 units DAILY SQ 05/26/25 09:00 05/28/25 07:17 DC 05/27/25 09:19 30 UNITS Insulin Glargine (LANtus 100 UNITS/ML 10 ML VIAL) 35 units DAILY SQ 05/28/25 09:00 06/27/25 08:59 05/28/25 08:09 35 UNITS Insulin Human Regular (humuLIN R 100 UNIT/ML 3ML) 5 unit TIDAC SQ 05/25/25 07:30 05/25/25 19:40 DC 05/25/25 16:50 5 UNIT Insulin Human Regular (humuLIN R 100 UNIT/ML 3ML) 8 unit TIDAC SQ 05/26/25 07:30 05/26/25 12:55 DC 05/26/25 12:36 8 UNIT Insulin Human Regular (humuLIN R 100 UNIT/ML 3ML) 10 unit TIDAC SQ 05/28/25 07:30 06/27/25 07:29 05/28/25 08:08 10 UNIT Insulin Human Regular (humuLIN R 100 UNIT/ML 3ML) 12 unit TIDAC SQ 05/26/25 17:00 05/27/25 20:50 DC 05/27/25 11:52 12 UNIT Insulin Human Regular (humuLIN R 100 UNIT/ML 3ML) INSULIN SLIDING SCAL... ACHS SQ 05/25/25 07:30 06/24/25 07:29 05/28/25 06:52 4 UNIT Insulin Human Regular (humuLIN R 100 UNIT/ML 3ML) INSULIN SLIDING SCAL... Q6H6 SQ 05/24/25 18:00 05/25/25 05:19 DC 05/25/25 00:07 7 UNIT Torsemide (Demadex) 20 mg DAILY PO 05/27/25 18:00 06/26/25 17:59 05/28/25 08:09 20 MG Vitamin B Complex/ Vit C/Folic Acid (Nephrovite Tablet) 1 cap DAILY PO 05/25/25 09:00 06/24/25 08:59 05/28/25 08:09 1 CAP LABORATORY: [ ] Hematology Labs: Test 06/01/25 04:20 Range/Units White Blood Count 6.7 4.8-10.8 K/uL Red Blood Count 4.13 L 4.50-6.20 MIL/uL Hemoglobin 12.9 L 14.0-18.0 g/dL Hematocrit 38.6 L 42-54 % Mean Corpuscular Volume 93.5 79-99 fL Mean Corpuscular Hemoglobin 31.2 27.0-33.0 pg Mean Corpuscular Hemoglobin Concent 33.4 32.0-36.0 g/dL Red Cell Distribution Width 11.6 11.0-15.5 % Platelet Count 183 130-400 K/uL Mean Platelet Volume 11.3 H 7.5-10.5 fL Nucleated Red Blood Cells 0.0 0.0-0.19 % Chemistry Labs: Test 06/01/25 05:39 06/01/25 04:20 05/31/25 08:44 Range/Units Whole Blood Glucose 103 70-110 MG/DL Sodium Level 139 136-145 mmol/L Potassium Level 3.9 3.5-5.1 mmol/L Chloride Level 101 101-111 mmol/L Carbon Dioxide Level 32 21-32 mmol/L Blood Urea Nitrogen 15 7-18 mg/dL Creatinine 1.4 H 0.5-1.3 mg/dL Glomerular Filtration Rate Calc 61 >90 mL/min Random Glucose 92 70-105 mg/dL Total Calcium 8.1 L 8.5-10.1 mg/dL Magnesium Level 1.70 L 1.80-2.40 mg/dL Total Bilirubin 0.3 0.2-1.0 mg/dL Aspartate Amino Transf (AST/SGOT) 31 10-37 U/L Alanine Aminotransferase (ALT/SGPT) 37 12-78 U/L Alkaline Phosphatase 85 50-136 U/L Total Protein 6.5 6.0-8.3 g/dL Albumin 2.0 L 3.5-5.0 g/dL Phosphorus Level 3.6 2.5-4.9 mg/dL DIAGNOSTICS / RADIOLOGY: [facility] [address] [place] [address] IMAGING REPORT Signed PATIENT: QASIM GOMEZ MR#: [id number] : 1975 SEX: M AGE: 49 LOCATION: [facility]BH ORDER 1153 STATUS: ADM IN REPORT#: [id number] SERVICE 1149 REASON: LLQ PAIN ORDERING PHYSICIAN: JANETTE THAYER MD PROCEDURE: ABD PEL WO - CT ABDOMEN/PELVIS W/O CONTRAST EXAM: CT Abdomen and Pelvis without Intravenous Contrast CLINICAL HISTORY: Left lower quadrant pain. TECHNIQUE: Axial computed tomography images of the abdomen and pelvis without intravenous contrast. Dose reduction technique was used including one or more of the following: automated exposure control, adjustment of mA and kV according to patient size, and/or iterative reconstruction. Total exam DLP is 1565. Total CTDI: 39.3. CONTRAST: Without. COMPARISON: Prior CT scan of the abdomen and pelvis without contrast dated 05/24/2025. FINDINGS: LUNG BASES: No basilar airspace consolidation or pleural effusion. LIVER: Unremarkable. GALLBLADDER AND BILE DUCTS: Unremarkable. No calcified stone. No ductal dilation. PANCREAS: Unremarkable. SPLEEN: Unremarkable. There is a splenule measuring 1.3 cm. ADRENAL GLANDS: Unremarkable. KIDNEYS, URETERS, AND BLADDER: No renal or ureteric calculi, or hydroureteronephrosis. There is mild prostatomegaly with diffuse thickening of the urinary bladder wall measuring up to 5 mm, which may represent sequelae of chronic bladder outflow obstruction. STOMACH AND BOWEL: No obstruction. No wall thickening. A moderate amount of fecal material is present in the colon. There are scattered colonic diverticula, without diverticulitis. No CT evidence of colitis. APPENDIX: The appendix is unremarkable, series 2, image 63/136. PERITONEUM: No free fluid. No free air. LYMPH NODES: No lymphadenopathy. REPRODUCTIVE: Unremarkable as visualized. VASCULATURE: There is minimal coronary arterial calcifications. There are aortic valve annulus calcifications. The abdominal aorta demonstrates atheromatous calcification without aneurysm or dissection. There is a left common iliac vein stent metallic stent visualized. ABDOMINAL WALL AND SOFT TISSUES: There is a tiny fat containing umbilical hernia, defect measuring 0.7 cm. BONES: Degenerative changes in the spine. No fracture or suspicious osseous abnormality. IMPRESSION: 1. No acute intra-abdominal or pelvic abnormality. 2. Mild prostatomegaly with diffuse urinary bladder wall thickening measuring up to 5 mm, which may represent sequelae of chronic bladder outflow obstruction. 3. Scattered colonic diverticula, without diverticulitis. 4. Tiny fat-containing umbilical hernia, defect measuring 0.7 cm. 5. As compared to the prior CT scan of the abdomen and pelvis dated May 24, 2025, there is no interval change. /[place] DICTATED BY: AUSTIN DOMINGUEZ MD DATE: 05/31/25326 ELECTRONICALLY SIGNED BY: AUSTIN DOMINGUEZ MD DATE: 05/31/25326 PATIENT: QASIM GOMEZ MR#: [id number] : 1975 SEX: M AGE: 49 LOCATION: [facility] ORDER 121 STATUS: ADM IN [facility] REPORT#: [id number] SERVICE 1210 REASON: Asssess for lumbar stenosis ORDERING PHYSICIAN: KILO MAHAN MD PROCEDURE: L SPN WO - MR SPINAL CANAL, LUMBAR WO CON EXAM: MR Lumbar Spine Without Intravenous Contrast. CLINICAL HISTORY: Assess for lumbar stenosis. TECHNIQUE: Magnetic resonance images of the lumbar spine in multiple planes. CONTRAST: None. COMPARISON: Radiograph dated 05/24/25. FINDINGS: For this examination, spinal levels were labeled assuming five non-rib bearing, lumbar-type vertebrae with the inferior labeled L5. No acute fracture. Normal lordotic curvature. Mild multilevel spondylosis is evident by small marginal osteophytes. Disc desiccation at the L5-S1 level. Normal vertebral body and disc heights. Normal marrow signal of the vertebrae. Conus medullaris terminates at the T12 level. No abnormal epidural masses. Small, simple cortical cyst in the lower pole of left kidney. Mild subcutaneous edema in the lower back. Individual spinal levels are described as follows: T12-L1: No disc bulge or herniation. No neural foraminal, lateral recess or spinal canal stenosis. L1-L2: No disc bulge or herniation. No neural foraminal, lateral recess or spinal canal stenosis. L2-L3: No disc bulge or herniation. No neural foraminal, lateral recess or spinal canal stenosis. L3-L4: No disc bulge or herniation. No neural foraminal, lateral recess or spinal canal stenosis. L4-L5: No disc bulge or herniation. No neural foraminal, lateral recess or spinal canal stenosis. L5-S1: 4 mm disc osteophyte complex bulge causing mild indentation on the anterior thecal sac. No neural foraminal or lateral recess stenosis. IMPRESSION: Mild multilevel spondylosis. Disc desiccation at the L5-S1 level. Mild indentation on the anterior thecal sac at the L5-S1 level. /[place] DICTATED BY: JERICHO DICKERSON Jr., MD DATE: 05/26/25632 ELECTRONICALLY SIGNED BY: JERICHO DICKERSON Jr., MD DATE: 05/26/25632 PATIENT: QASIM GOMEZ MR#: [id number] : 1975 SEX: M AGE: 49 LOCATION: [facility] ORDER 16 STATUS: ADM IN [facility] REPORT#: [id number] SERVICE 0000 REASON: assess for CHF ORDERING PHYSICIAN: KILO MAHAN MD PROCEDURE: ECHO CMP - ECHO 2-D COMPLETE APPROVED REPORT EXAM: Two-dimensional and M-mode echocardiogram with Doppler and color Doppler. INDICATION ICD: Assess for congestive heart failure 2D Dimensions RVDd 3.9 cm LVEF(%) 40.6 (>50%) LVED Vol(simp.) 113.0 mL IVSd 1.6 (0.7-1.1cm) FS(%) 20 % LVES Vol(simp.) 53.0 mL LVDd 4.9 (3.8-5.6cm) LA (2D) 4.6 (1.6-4.0cm) LVEF(%, simp.) 53 % PWd 1.2 (0.7-1.1cm) Ao Root(2D) 3.2 (2.0-3.7cm) LA ESV INDEX (BP) 30.26 mL/m2 IVSs 1.5 cm LVOT diam 2.4 (1.8-2.4cm) LVDs 3.9 (2.5-4.0cm) IVC diam 2.2 cm PWs 2.0 cm Deformation Strain Apical 4 -18.2 % Apical 2 -18.1 % Apical 3 -17.1 % Global Strain -17.8 % M-Mode Dimensions EPSS 1.1 cm LA (MM) 5.3 (1.6-4.0cm) Ao Root(MM) 3.8 (2.0-3.7cm) Aortic Valve AoV Vmax 1.1 m/s Ao Peak GR 5.2 mmHg LVOT Vmax 1.0 m/s AoV VTI 0.2 m Ao Mean GR 3.0 mmHg LVOT VTI 0.17 m JOSHUA (VMAX) 4.06 cm2 JOSHUA (VTI) 3.6 cm2 Mitral Valve MV E Vmax 64.9 cm/s DECEL Time 230 ms MV A Vmax 110.6 cm/s P 1/2 T 56 ms E/A ratio 0.6 MVA (PHT) 3.9 cm2 TDI E/E' Medial 12.8 E/E' Lateral 16.9 Medial E' Peak V 5.09 cm/s Lateral E' Peak V 3.85 cm/s Pulmonary Valve PV Vmax 1.4 m/s PV Mean GR 4.4 mmHg PV Peak GR 7.7 mmHg Tricuspid Valve TR Vmax 1.0 m/s RAP (EST) 3 mmHg RVSP 6.9 mmHg TR Peak GR 3.9 mmHg Left Ventricle The left ventricle is normal size. No regional wall motion abnormalities noted. Mild concentric left ventricular hypertrophy. Left ventricle systolic function is low normal, estimated LVEF is 50 to 55%. Stage I diastolic dysfunction. Right Ventricle The right ventricle is normal size. The right ventricular systolic function is normal. Atria The left atrium size is normal. The right atrium size is normal. Aortic Valve Aortic valve is trileaflet. The leaflets are mildly thickened and calcified. No aortic regurgitation is present. There is no aortic valvular stenosis. Mitral Valve Mild mitral annular calcification is noted. The leaflets are mildly thickened and calcified. Trace mitral regurgitation. There is no mitral valve stenosis. Tricuspid Valve The tricuspid valve is normal in structure. Trace tricuspid regurgitation. RVSP is normal. Pulmonic Valve Pulmonic valve is not well visualized. Great Vessels The aortic root is normal in size. The IVC is normal in size and collapses >50% with inspiration. Pericardium There is no pericardial effusion. Other Information Quality : Adequate Conclusion Mild concentric left ventricular hypertrophy. No regional wall motion abnormalities noted. Left ventricle systolic function is low normal, estimated LVEF is 50 to 55%. Stage I diastolic dysfunction. Trace mitral regurgitation. Trace tricuspid regurgitation. PASP is normal. There is no pericardial effusion. DICTATED BY: HUMBERTO CABALLERO MD DATE: 05/25/25 0913 ELECTRONICALLY SIGNED BY: HUMBERTO CABALLERO MD DATE: 05/25/25 230 PATIENT: QASIM GOMEZ MR#: [id number] : 1975 SEX: M AGE: 49 LOCATION: [facility] ORDER 1217 STATUS: ADM IN [facility] REPORT#: [id number] SERVICE 1210 REASON: assess for DVT ORDERING PHYSICIAN: KILO MAHAN MD PROCEDURE: VENOUS MARIAJOSE - US VENOUS DOPPLER BILATERAL EXAM: US for Deep Venous Thrombosis, bilateral Lower Extremity. CLINICAL HISTORY: Leg Pain and Swelling TECHNIQUE: Real-time ultrasound scan of the veins of the bilateral lower extremity with color Doppler flow, spectral waveform analysis and compression. COMPARISON: None provided. FINDINGS: DEEP VEINS: The common femoral, superficial femoral, and popliteal veins are echolucent and compressible. There is normal color Doppler flow throughout. The visualized calf veins appear patent. SOFT TISSUES: No popliteal fossa cyst or other abnormalities. IMPRESSION: 1. No evidence of deep venous thrombosis in the bilateral lower extremities. /[place] DICTATED BY: JERICHO DICKERSON Jr., MD DATE: 05/24/25 162 ELECTRONICALLY SIGNED BY: JERICHO DICKERSON Jr., MD DATE: 05/24/25 162 PATIENT: QASIM GOMEZ MR#: [id number] : 1975 SEX: M AGE: 49 LOCATION: [facility] ORDER 1217 STATUS: ADM IN [facility] REPORT#: [id number] SERVICE 1210 REASON: Assess for carotid stenosis ORDERING PHYSICIAN: KILO MAHAN MD PROCEDURE: CAROTID - US CAROTID DUPLEX EXAM: US Duplex Bilateral Carotid and Vertebral Arteries. CLINICAL HISTORY: Assess for carotid stenosis. TECHNIQUE: Real-time ultrasound scan of the bilateral carotid and vertebral arteries, 2-D hutson scale, with color Doppler flow and spectral waveform analysis. COMPARISON: None provided. FINDINGS: RIGHT COMMON CAROTID ARTERY: Peak systolic velocity approximately 72 cm/s. No occlusion or hemodynamically significant stenosis. RIGHT INTERNAL CAROTID ARTERY: Peak systolic velocity approximately 70 cm/s with ICA/CCA ratio of 1.0. No occlusion or hemodynamically significant stenosis. RIGHT EXTERNAL CAROTID ARTERY: Peak systolic velocity approximately 108 cm/s. No occlusion. RIGHT VERTEBRAL ARTERY: Antegrade flow with peak systolic velocity approximately 32 cm/s. RIGHT ICA/CCA RATIO: Approximately 1.0. LEFT COMMON CAROTID ARTERY: Peak systolic velocity approximately 69 cm/s. No occlusion or hemodynamically significant stenosis. LEFT INTERNAL CAROTID ARTERY: Peak systolic velocity approximately 73 cm/s with ICA/CCA ratio of approximately 1.1. No occlusion or hemodynamically significant stenosis. LEFT EXTERNAL CAROTID ARTERY: Peak systolic velocity approximately 135 cm/s. No occlusion. LEFT VERTEBRAL ARTERY: Antegrade flow with peak systolic velocity approximately 39 cm/s. LEFT ICA/CCA RATIO: Approximately 1.1. SOFT TISSUES: No incidental abnormalities. IMPRESSION: * No hemodynamically significant carotid artery stenosis by Doppler velocity criteria or ICA/CCA ratios. * Bilateral vertebral arteries demonstrate normal antegrade flow without hemodynamically significant stenosis. /[place] DICTATED BY: AIRAM BINGHAM DO DATE: 05/24/251634 ELECTRONICALLY SIGNED BY: AIRAM BINGHAM DO DATE: 05/24/251634 PATIENT: QASIM GOMEZ MR#: [id number] : 1975 SEX: M AGE: 49 LOCATION: [facility] ORDER 1217 STATUS: ADM IN [facility] REPORT#: [id number] SERVICE 1210 REASON: assess for PVD ORDERING PHYSICIAN: KILO MAHAN MD PROCEDURE: ART B LE - US ARTERIAL BILAT LOW EXT DUPL EXAM: US Duplex bilateral Lower Extremity Arteries. CLINICAL HISTORY: Assess for peripheral vascular disease. TECHNIQUE: Real-time ultrasound scan of the arteries of the bilateral lower extremities with 2-D hutson scale, color Doppler flow and spectral waveform analysis. COMPARISON: None provided. FINDINGS: RIGHT LOWER EXTREMITY: COMMON FEMORAL ARTERY: Peak systolic velocity approximately 115 cm/sec with triphasic waveform. No occlusion or hemodynamically significant stenosis. SUPERFICIAL FEMORAL ARTERY: Proximal peak systolic velocity approximately 65 cm/sec and distal peak systolic velocity approximately 70 cm/sec with triphasic waveforms. No occlusion or hemodynamically significant stenosis. POPLITEAL ARTERY: Peak systolic velocity approximately 71 cm/sec with triphasic waveform. No occlusion or hemodynamically significant stenosis. CALF ARTERIES: Posterior tibial artery distal peak systolic velocity approximately 59 cm/sec with triphasic waveform. Dorsalis pedis artery peak systolic velocity approximately 79 cm/sec with triphasic waveform. No occlusion or hemodynamically significant stenosis. LEFT LOWER EXTREMITY: COMMON FEMORAL ARTERY: Peak systolic velocity approximately 103 cm/sec with triphasic waveform. No occlusion or hemodynamically significant stenosis. SUPERFICIAL FEMORAL ARTERY: Proximal peak systolic velocity approximately 109 cm/sec, mid peak systolic velocity approximately 121 cm/sec, and distal peak systolic velocity approximately 40 cm/sec with predominantly triphasic waveforms. No focal velocity elevation to suggest hemodynamically significant stenosis. POPLITEAL ARTERY: Proximal peak systolic velocity approximately 50 cm/sec and distal peak systolic velocity approximately 78 cm/sec with triphasic waveforms. No occlusion or hemodynamically significant stenosis. CALF ARTERIES: Posterior tibial artery peak systolic velocity approximately 53 cm/sec and anterior tibial/distal peak systolic velocity approximately 64 cm/sec with triphasic waveforms. Dorsalis pedis artery peak systolic velocity approximately 100 cm/sec with triphasic waveform. No occlusion or hemodynamically significant stenosis. IMPRESSION: * Multifocal atherosclerotic changes of the bilateral lower extremity arteries without duplex evidence of hemodynamically significant stenosis or occlusion. /[place] DICTATED BY: THIERNO NEVILLE MD DATE: 12/02/25 1701 ELECTRONICALLY SIGNED BY: THIERNO NEVILLE MD DATE: 05/24/251700 PATIENT: QASIM GOMEZ MR#: [id number] : 1975 SEX: M AGE: 49 LOCATION: [facility] ORDER 1217 STATUS: ADM IN REPORT#: [id number] SERVICE 1210 REASON: LLQ pain. Also assess lumbar spine ORDERING PHYSICIAN: KILO MAHAN MD PROCEDURE: ABD PEL WO - CT ABDOMEN/PELVIS W/O CONTRAST EXAM: CT SCAN OF THE ABDOMEN AND PELVIS WITHOUT CONTRAST Clinical statement: Left lower quadrant pain and lower back pain; evaluate abdomen and lumbar spine. STUDY PROTOCOL: CT radiation dose protocol was performed in accordance with the principles of ALARA. A multislice CT scan of the abdomen and pelvis was performed without intravenous contrast. Sections were obtained from the diaphragms to the inguinal region. RADIATION DOSE: CTDIvol 19.90 mGy; DLP 1365.70 mGycm. CONTRAST: No intravenous contrast administered. COMPARISON: None provided. FINDINGS: LUNG BASE: No pleural effusion, collapse, or consolidation in the visualized lung bases. Mild thickening of the posterior pleura of the left lower lobe. LIVER: Normal morphology and attenuation with smooth margins. No focal hepatic lesion or calcification. No intrahepatic or extrahepatic biliary dilatation. Vance hepatis structures are unremarkable. GALL BLADDER: Gallbladder wall thickness and contour are normal. The gallbladder is contracted with a possible tiny calculus measuring approximately 1 mm (series 2, image 28/129). No pericholecystic fat stranding is seen on this noncontrast study. The cystic duct and surrounding fat appear normal. PANCREAS: Normal in size, contour, and attenuation. No pancreatic ductal dilatation or peripancreatic inflammatory change. SPLEEN: Normal size and attenuation. A small accessory spleen is present. No acute splenic abnormality. KIDNEYS: Both kidneys are normal in size, shape, position, and attenuation. No renal mass, calculus, or hydronephrosis. Mild perinephric fat stranding bilaterally. A simple cyst measuring approximately 1.1 cm is noted in the lower pole of the left kidney. No evidence of obstructive uropathy. GIT /T/ PERITONEAL CAVITY: Stomach is distended but otherwise unremarkable. Gastroesophageal junction, pylorus, and duodenum appear normal. Jejunal and ileal loops are normal in caliber and distribution with preserved wall thickness and mucosal pattern. No CT evidence of acute appendicitis. Scattered sigmoid diverticulosis is present without adjacent inflammatory stranding or abscess. Rectum and colonic loops are well distended with fecal material, consistent with constipation. No free intraperitoneal fluid or free air. Mesenteric fat and omentum are unremarkable. LYMPHNODES: No pathologically enlarged abdominopelvic lymph nodes are identified. RETROPERITONEUM: Both adrenal glands are normal in morphology and attenuation. The abdominal aorta and IVC are normal in course and caliber with mild atherosclerotic calcification in the aortoiliac segment. A vascular stent is present in the left common iliac vein. PELVIS: Urinary bladder shows normal wall thickness and contour. Prostate appears normal on CT. No pelvic mass or free fluid. MUSCULOSKELETAL: Early degenerative changes in the dorsolumbar spine with multilevel endplate osteophytic spurring. Mild reduction in L5S1 disc height with a small posterior disc protrusion measuring approximately 3 mm at L5S1. No acute fracture or listhesis. OTHER: Extra-abdominal and paraspinal soft tissues are unremarkable. Tiny fat-containing umbilical hernia. IMPRESSION: * No CT evidence of acute intra-abdominal pathology such as appendicitis, diverticulitis, bowel obstruction, or obstructive uropathy to clearly explain left lower quadrant pain. Clinical management should be guided by examination and laboratory findings. * Scattered sigmoid diverticulosis without CT evidence of diverticulitis. These changes can be a source of chronic left-sided abdominal symptoms; if symptoms persist or there are red-flag features (e.g., anemia, change in bowel habits, weight loss), gastroenterology evaluation and consideration of colonoscopy are advised. * Constipation with fecal loading of the colon and rectum, which may contribute to the patients abdominal pain; treatment should be tailored to clinical assessment and bowel habit history. * Degenerative changes of the lower lumbar spine with mild L5S1 disc height loss and a small posterior disc protrusion at L5S1, which may contribute to lower back pain and possibly radicular symptoms if present. Correlation with neurologic examination is recommended, and lumbar spine MRI may be considered if there is radiculopathy or persistent, function-limiting pain. * Mild bilateral perinephric fat stranding with a small simple left renal cyst (1.1 cm) and no hydronephrosis or stones. Findings are nonspecific and more in keeping with mild chronic or incidental change; correlation with urine studies and clinical features is recommended if there is concern for renal infection. * Contracted gallbladder with a possible tiny calculus. There is no CT evidence of acute cholecystitis on this noncontrast study; if biliary-type symptoms develop, targeted right upper quadrant ultrasound could be considered for further evaluation. * Mild atherosclerotic calcification of the aortoiliac segment with a left common iliac vein stent, and tiny fat-containing umbilical hernia, both likely incidental in the context of the current presentation. /[place] DICTATED BY: AUSTIN DOMINGUEZ MD DATE: 05/24/251403 ELECTRONICALLY SIGNED BY: AUSTIN DOMINGUEZ MD DATE: 05/24/251403 PATIENT: QASIM GOMEZ MR#: [id number] : 1975 SEX: M AGE: 49 LOCATION: [facility] ORDER 115 STATUS: ADM IN REPORT#: [id number] SERVICE 1153 REASON: weakness ORDERING PHYSICIAN: KILO MAHAN MD PROCEDURE: HEAD WO - CT HEAD/BRAIN W/O CONTRAST EXAM: CT Head Without IV contrast. CLINICAL HISTORY: weakness TECHNIQUE: Axial computed tomography images of the head/brain without intravenous contrast. COMPARISON: None provided. FINDINGS: BRAIN: No evidence of acute hemorrhage. No mass lesion. No CT evidence for acute territorial infarct. No midline shift or extra-axial collections. VENTRICLES: No hydrocephalus. ORBITS: The orbits are unremarkable. SINUSES AND MASTOIDS: The paranasal sinuses and mastoid air cells are clear. BONES: No fracture. SOFT TISSUES: Unremarkable. IMPRESSION: No acute intracranial abnormality. /[place] DICTATED BY: AIRAM BINGHAM DO DATE: 05/24/25 135 ELECTRONICALLY SIGNED BY: AIRAM BINGHAM DO DATE: 05/24/25 135 PATIENT: QASIM GOMEZ MR#: [id number] : 1975 SEX: M AGE: 49 LOCATION: [facility] ORDER 1038 STATUS: REG ER REPORT#: [id number] SERVICE 1032 REASON: straight leg positive and lumbar pain ORDERING PHYSICIAN: STACI DAVIS MD PROCEDURE: LUMB 2 3VW - LUMBAR SPINE 2-3VWS EXAM: CR Lumbar Spine, 3 View. CLINICAL HISTORY: straight leg positive and lumbar pain COMPARISON: None provided. FINDINGS: BONES: No acute fracture or aggressive appearing osseous lesion. ALIGNMENT: Alignment is within normal limits. No significant scoliosis. DISCS / DEGENERATIVE CHANGES: The disc spaces are preserved. SOFT TISSUES: The soft tissues are unremarkable. Left iliac vascular stent IMPRESSION: No acute lumbar spine abnormality evident. If there is clinical concern for nerve root compression, MRI is suggested. /[place] DICTATED BY: AIRAM BINGHAM DO DATE: 05/24/25 1238 ELECTRONICALLY SIGNED BY: AIRAM BINGHAM DO DATE: 05/24/25 1238 ASSESSMENT: Symptomatic hyperglycemia Uncontrolled diabetes mellitus type 2 Lower back pain Proteinuria Acute on chronic kidney disease Diabetic nephropathy Bilateral lower extremities edema History of May-Thurner syndrome Blurred vision bilaterally Hypertensive urgency PLAN: Labs, diagnostic, radiologic exams reviewed and interpreted by myself and supervising physician. We have reviewed external records in detail Pending colonoscopy Continue with torsemide 20 mg po daily Require close monitoring of renal function and electrolytes Order CBC, CMP, and electrolytes in am BiPAP as necessary, for respiratory distress Monitor blood pressure adjust medication doses as needed Avoid hypotensive episodes May use Dilaudid 0.5 mg IV every 6 hours as needed for severe pain Monitor blood sugars Strict intake, output, and daily weight should be monitored Please renally adjust medications Avoid nephrotoxic and nonsteroidal drugs Avoid contrast if possible Will continue to monitor renal function, anemia, electrolytes Treatment plan discussed with patient Questions were answered We have discussed with the other team physicians in detail about the care plan We will continue to monitor the patient closely ATTESTATION BY PHYSICIAN I have seen and examined the patient. I reviewed the documentation, medical decision making, and treatment plan as noted by the mid-level provider above. I agree with the findings and plan of care. EMA LOERA MD, [facility] Jun 01, 2025 10:52
[2025-06-01] MEDS: PoTASSium chloRIDE 20MEQ ER 20 MEQ ERTAB PO ONE (11:54)
--- NOTE | 2025-06-01 13:21 | DS ---
Discharge Summary Hospital Course Summary: The patient initially admitted to the hospital 05/24/2025 with the following history of the present illness: This is a 49-year-old male with past medical history of hypertension, diabetes mellitus type 2 presented to hospital secondary to blurry vision. Patient states he has noted that he has been having vision blurriness for the past two months. He is unable to see from his left eye and does symptoms got worse two days ago. The is able to somewhat see from from his right eye but is not able to see centrally. He wears glasses at home. He has not seen ground host/hostess. He saw his primary care provider who is recommended him to go to the emergency room for further evaluation. Additionally has a history of hypertension and currently has not been prescribed any antihypertensives. He takes Lantus 30 units at night and NovoLog 10 units with meals. Additionally states that he has been having lower back pain and has noted swelling in the lower extremities bilaterally. He has noted indent kerr from his socks and shoes. Denies any shortness of breath, chest pain, fever, chills. He has a history of peripheral vascular disease and had a previous history of stent placement. He has not followed up with the Cardiology recently. Furthermore patient endorses episodes of unsteady gait at home. He currently ambulates independently and does not use a cane or a walker. Patient has noted pain in the left lower quadrant which has been present chronically. Denied any changes in his bowel. Denied any melena, hematochezia, hematemesis. Denied any changes in his urination. Secondary to non improving symptoms patient was thereafter referred to the ED for further evaluation. Labs were notable for white count of 7.0, hemoglobin was 13.8, platelet count was 205 K, sodium was 127, potassium was 4.8, creatinine was 1.8, blood glucose was 520, On presentation to the ED patient's temperature was 97.9, heart rate was in the 80s, respiratory rate was 18, blood pressure was 180/93 Patient underwent lumbar x-ray which showed no abnormality. ER physician tried contacting Ophthalmology but they were unable to reach the ground host/hostess. HOSPITAL COURSE 05/25 the patient has been seen and examined at bedside, case discussed with the RN, no acute events overnight, at the time my visit the patient is comfortably in bed, alert oriented x3, following commands, still admits blurry vision of the (per my discussion with the patient this has been ongoing for the last few weeks. He was seen at the office of store shopper Dr. Donald Damon, as outpatient due to blurry vision to the left eye, he was advised to go to the emergency room, however the patient did not seek medical attention because he was afraid about COVID. Patient did not seek evaluation by ground host/hostess as an outpatient). He denies headache, no chest pain, no shortness a breath, no nausea, no vomiting, no abdominal discomfort. At the time of admission blood glucose was greater than 400, patient placed on insulin glargine 20 units subcutaneously daily, blood glucose better, in the range of 180-200. Consultation with the wind turbine machinist requested, input noted and appreciated. Patient with proteinuria, concern for nephrotic syndrome, nephrology consultation requested, follow input recommendation. Follow a.m. labs. We will downgraded the patient to the medical floor. Patient has been advised not to drive or use heavy machinery until he gets evaluated by ground host/hostess upon discharge due to high risk for injuries and accidents secondary to his blurry vision. Patient alert oriented x3, he agreed and understood the information provided. Radiology tests reviewed, discussed findings with the patient. 05/26 the patient has been seen and examined at bedside, discussed with the RN, no acute events overnight, patient admitted with hyperglycemia, blurry vision f or last few weeks, at the time of my visit comfortably in bed, he feels very weak. No worsening of blurry vision noted. Complaining of mild headache. BP 151/98, afebrile, saturating normal on room air. All imaging tests to include echocardiogram, venous Doppler, carotid artery, CT head as well as CT abdomen and pelvis and lumbar spine MRI no major acute findings noted. Home medications reviewed and reconciled. Insulin Lantus increased to 30 units subcutaneously daily, continue insulin sliding scale. Anticipate discharge home in the next 24 hours. If patient goes home, advised not to drive or use heavy machines to two blurry vision, he needs to follow up as an outpatient with ground host/hostess. Patient agreed and understood the information provided. 05/27 Patient was evaluated today at bedside with his present. He continues to report inability to see from the left eye and blurred vision in the right eye, which has been ongoing for several weeks. He states he was recently diagnosed with diabetic retinopathy and is planning to start eye injections. He reports his home glucose readings have been consistently >200 mg/dL. He describes persistent bilateral lower extremity edema and numbness in both legs, and continues to feel very weak. He denies chest pain, shortness of breath, or abdominal discomfort, but does complain of mild headache. He is aware of his recent admission for symptomatic hyperglycemia and understands that his diabetes remains uncontrolled (recent hemoglobin A1c 12.2%). He acknowledges his history of hypertension, May-Thurner syndrome, proteinuria, and recent findings of acute kidney injury or possible underlying chronic kidney disease, likely secondary to diabetic nephropathy. He is aware of his prior right great toe amputation, peripheral angiogram, and iliac stent placement. He denies any smoking, alcohol, or drug use. 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 He understands the importance of not driving or operating heavy machinery due to his visual impairment and agrees to follow up with ophthalmology after discharge. All questions were addressed with both patient and at bedside. 05/28/2025: Over the past 24 hours no major events reported. Patient continues to experience some blurred vision to bilateral eyes. Continues to complain of BLE edema, initiated on p.o. torsemide. He is being followed closely by Nephrology and Endocrinology. Morning labs reviewed, serum creatinine 1.6, glucometers ranging 206-256. 05/29/2025: Patient reports improvement in BLE edema, remains on p.o. torsemide. Patient continues to be followed closely by Nephrology and Endocrinology. Morning labs serum creatinine improved to 1.4. 05/30 patient remains admitted to the medical floor, comfortably in bed, alert oriented x3, still complaining of left lower quadrant pain.CT abdomen and pelvis done 05/24/2025 scattered sigmoid diverticulosis without CT evidence of diverticulitis, this changes can be a source of chronic left-sided abdominal symptoms. We will repeat CT abdomen and pelvis without oral or IV contrast, we will request GI consultation. The meantime continue with torsemide 20 mg p.o. daily. Continue daily weight, monitor intake and output, monitor creatinine a.m.. Discussed with the patient, in agreement. 05/31 patient remains admitted to medical floor, remains comfortably in bed, alert oriented x3 at time of my visit per my discussion with the RN, the patient had episode of hypoglycemia last night with a blood glucose drop into the low 50s, responded to D50. Dose of long-acting insulin adjusted from 35 units of Lantus to 30 units subcutaneously daily. Regular insulin decreased from 8 units subcutaneously t.i.d. to 70 patient was take units subcutaneously t.i.d. per endocrinology recommendations. Patient was scheduled for colonoscopy today, however in view of poor preparation, this has been rescheduled for tomorrow. Repeat CT abdomen pelvis done 05/30/2025, no acute findings. Discussed with the patient. Follow a.m. labs. 06/01 patient back in the room from having colonoscopy, tolerated procedure well, alert oriented x3 at time my visit, no chest pain, shortness for breath, no nausea, no vomiting. Colonoscopy findings as follows: -the perianal and digital rectal examination were normal. -transfer colon, ascending colon, cecum and ileocecal valve appeared normal. -multiple small and large mouth diverticula were found in the left colon. There was no evidence of diverticular bleeding. -nonbleeding internal hemorrhoids were found during retroflexion. The hemorrhoids were grade 1, no prolapse. -no specimen collected. Above finding discussed in detail with the patient, all questions answered, recommended fiber diet and supplementation. Patient to be discharged home today. Patient in agreement with plan of action. Senior It Assistant(s): GI Services, wind turbine machinist services. Assessment/Plan: Final diagnosis 1. Symptomatic hyperglycemia, POA No DKA. Hyperglycemia is improving with insulin adjustments. 2. Uncontrolled diabetes mellitus type 2 HgbA1c 12.2%. Home regimen: glargine 30 units daily, insulin aspart 10 units before meals. Glucose >200 mg/dL. Endocrinology recommends further insulin titration. 3. Diabetic retinopathy Recently diagnosed, planning for eye injections. Bilateral blurred vision, left eye with profound vision loss. 4. Lower back pain with concern for radiculopathy MRI shows mild multilevel spondylosis, disc desiccation at L5-S1, mild bulging indenting the anterior thecal sac at L5-S1. 5. Proteinuria 6. Acute kidney injury or underlying chronic kidney disease Likely from diabetic nephropathy. 7. Bilateral lower extremity edema and numbness Multifactorial: consider diabetic neuropathy, mild nerve root impingement at L5-S1, and history of May- Thurner syndrome. 8. Hypertensive urgency 9. History of right great toe amputation, peripheral angiogram, and iliac stent placement 10. Colonic diverticulosis Discharge Instructions: The patient to be discharged home today. To follow with the primary care physician as an outpatient. Discussed with the wind turbine machinist, patient to continue dose of Lantus that he was taking at home 12 units subcutaneously b.i.d. if he eats two meals in a day, advised to use the Lantus 3 times a day if he eats three meals in a day. Patient already has NovoLog at home as well. Patient was advised not to drive, or use heavy machines until he gets evaluated by ground host/hostess. Patient was advised to get [id number] fiber supplement to have a high-fiber diet. Patient was advised to return to the hospital if condition changes. Patient alert oriented x3, agreed and understood all the information provided. Home Medications: Active Scripts Acetaminophen with Codeine (Acetaminophen-Cod #3 Tablet) 300 Mg-30 Mg Tablet, 1 EACH PO Q8HR PRN for PAIN LEVEL 6 TO 10 for 7 Days, #10 TAB Prov:HELDER MULLINSP 07/15/23 Amoxicillin (Amoxicillin) 500 Mg Capsule, 500 MG PO TID for 10 Days, #30 [facility] Insulin Glargine,Hum.rec.anlog (Lantus) 100 Unit/Ml Inj, 12 UNITS SQ BID for 30 Days, #1 VIAL 2 Refills Prov:HELDER MULLINS 07/15/23 Gabapentin (Neurontin) 100 Mg Capsule, 100 MG PO TID for 30 Days, #90 CAP Prov:HELDER MULLINSP 07/15/23 Aspirin (ASPIRIN 81 MG ECTAB) 81 Mg Ectab, 81 MG PO DAILY for 30 Days, #30 TAB.EC 2 Refills Prov:HELDER MULLINSP 07/15/23 Clopidogrel Bisulfate (Plavix) 75 Mg Tablet, 75 MG PO DAILY for 30 Days, #30 TAB 2 Refills Prov:HELDER MULLINSP 07/15/23 Atorvastatin Calcium (LIPITOR) 40 Mg Tablet, 40 MG PO HS for 30 Days, #30 TAB Prov:HELDER MULLINSCNP 07/15/23 Amlodipine Besylate (Norvasc 5Mg Tab) 5 Mg Tablet, 10 MG PO Q24H for 30 Days, #30 TAB Prov:HELDER MULLINS AGACNPietro 07/15/23 Time spent arranging discharge: 31-60 minutes JANETTE THAYER MD Jun 01, 2025 13:21
--- NOTE | 2025-06-01 14:00 | NUR ---
PT sitting in bed w/ eyes open A&Ox4 able to make needs known. Discharge instructions given to PT written and verbally in [place] language. PT verbally acknowledged understanding. I.V. removed intact w/o complications. PT escorted to POV via WC by [employer]YLB[employer] OXIDIZER w/o complications.
--- NOTE | 2025-06-01 19:49 | PN ---
Endocrinology progress note DOS:06/01/25 subjective: Home diabetic regimen: glargine 30 units daily and novolog 10 units qac before meals. Hba1c 12.2% reports that he was recently diagnosed with diabetic retinopathy and planning eye injections. glucose are improving. PAST MEDICAL HISTORY: Hypertension, diabetes mellitus type two PAST SURGICAL HISTORY: History of right foot great toe amputation, history of peripheral angiogram, history of iliac stent placement PAST SOCIAL HISTORY: Denied any smoking, alcohol, drug use. The patient works with [employer] FAMILY HISTORY: Denied any pertinent family history Coded Allergies: No Known Allergies (Unverified Allergy, Unknown, 07/08/23) ASSESSMENT: Symptomatic hyperglycemia POA no dka. hyperglycemia is improving Home diabetic regimen: glargine 30 units daily and novolog 10 units qac before meals. Hba1c 12.2% reports that he was recently diagnosed with diabetic retinopathy and planning eye injections. glucose runs <180 mg/dl. 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 Monitor glucose q x 6 hourly. Continue carb consistent diet. Keep glucose less than 180 mg/dl. Vitals/Labs Vital Signs Date Time Temp Pulse Resp B/P (MAP) Pulse Ox O2 Delivery O2 Flow Rate FiO2 06/01/25 11:45 60 160/99 96 Room Air 21 06/01/25 11:00 98.4 18 06/01/25 10:30 3.0 Laboratory Tests 06/01/25 04:20 Medications Current Medications Insulin Human Regular 5 unit ONCE ONCE IV Last administered on 05/24/25at 11:17; Start 05/24/25 at 11:00; Stop 05/24/25 at 11:01; Status DC Sodium Chloride 1,000 ml @ 0 mls/hr ONCE ONCE IV Last administered on 05/24/25at 11:08; Start 05/24/25 at 11:00; Stop 05/24/25 at 11:01; Status DC Famotidine 20 mg Q24H IV Last administered on 05/31/25at 11:39; Start 05/24/25 at 21:00; Stop 06/01/25 at 14:05; Status DC Amlodipine Besylate 5 mg ONCE ONCE PO Last administered on 05/24/25at 13:50; Start 05/24/25 at 12:30; Stop 05/24/25 at 12:31; Status DC Amlodipine Besylate 5 mg DAILY PO Last administered on 05/26/25at 09:10; Start 05/25/25 at 09:00; Stop 05/26/25 at 12:57; Status DC Hydralazine HCl 10 mg Q6H PRN IV Last administered on 05/24/25at 15:08; Start 05/24/25 at 12:30; Stop 06/01/25 at 14:05; Status DC Insulin Human Regular INSULIN SLIDING SCAL... Q6H6 SQ Last administered on 05/25/25at 00:07; Start 05/24/25 at 18:00; Stop 05/25/25 at 05:19; Status DC Hydromorphone HCl 0.5 mg Q6H PRN IVP Last administered on 05/29/25at 08:54; Start 05/24/25 at 12:30; Stop 05/29/25 at 12:29; Status DC Ondansetron HCl 4 mg Q6H PRN IVP; Start 05/24/25 at 12:30; Stop 06/01/25 at 14:05; Status DC Sodium Chloride 1,000 ml @ 75 mls/hr [id number] ONCE IV; Start 05/24/25 at 13:00; Stop 05/24/25 at 12:41; Status DC Insulin Glargine 15 units ONCE ONCE SQ Last administered on 05/24/25at 13:52; Start 05/24/25 at 13:30; Stop 05/24/25 at 13:31; Status DC Vitamin B Complex/ Vit C/Folic Acid 1 cap DAILY PO Last administered on 05/31/25at 11:40; Start 05/25/25 at 09:00; Stop 06/01/25 at 14:05; Status DC Insulin Glargine 20 units DAILY SQ Last administered on 05/25/25at 09:47; Start 05/25/25 at 09:00; Stop 05/25/25 at 19:40; Status DC Insulin Human Regular 5 unit TIDAC SQ Last administered on 05/25/25at 16:50; Start 05/25/25 at 07:30; Stop 05/25/25 at 19:40; Status DC Insulin Human Regular INSULIN SLIDING SCAL... ACHS SQ Last administered on 05/30/25at 21:40; Start 05/25/25 at 07:30; Stop 06/01/25 at 14:05; Status DC Potassium Chloride 20 meq ONCE ONCE PO Last administered on 05/25/25at 06:37; Start 05/25/25 at 06:00; Stop 05/25/25 at 06:01; Status DC Enoxaparin Sodium 30 mg DAILY SQ Last administered on 05/31/25at 11:38; Start 05/25/25 at 09:00; Stop 06/01/25 at 14:05; Status DC Insulin Glargine 30 units DAILY SQ Last administered on 05/27/25at 09:19; Start 05/26/25 at 09:00; Stop 05/28/25 at 07:17; Status DC Insulin Human Regular 8 unit TIDAC SQ Last administered on 05/26/25at 12:36; Start 05/26/25 at 07:30; Stop 05/26/25 at 12:55; Status DC Insulin Human Regular 12 unit TIDAC SQ Last administered on 05/27/25at 11:52; Start 05/26/25 at 17:00; Stop 05/27/25 at 20:50; Status DC Acetaminophen/ Codeine Phosphate 1 tab Q6H PRN PO Last administered on 05/30/25at 21:55; Start 05/26/25 at 13:00; Stop 06/01/25 at 14:05; Status DC Amlodipine Besylate 10 mg DAILY PO Last administered on 05/31/25at 11:41; Start 05/27/25 at 09:00; Stop 06/01/25 at 14:05; Status DC Amoxicillin 500 mg TID PO; Start 05/26/25 at 14:00; Stop 05/26/25 at 13:20; Status DC Aspirin 81 mg DAILY PO Last administered on 05/31/25at 11:41; Start 05/27/25 at 09:00; Stop 06/01/25 at 14:05; Status DC Atorvastatin Calcium 40 mg HS PO Last administered on 05/31/25at 11:40; Start 05/26/25 at 21:00; Stop 06/01/25 at 14:05; Status DC Clopidogrel Bisulfate 75 mg DAILY PO Last administered on 05/31/25at 11:41; Start 05/27/25 at 09:00; Stop 06/01/25 at 14:05; Status DC Gabapentin 100 mg TID PO Last administered on 05/31/25at 21:17; Start 05/26/25 at 14:00; Stop 06/01/25 at 14:05; Status DC Hydralazine HCl 5 mg Q6H PRN IV Last administered on 06/01/25at 03:32; Start 05/26/25 at 13:00; Stop 06/01/25 at 14:05; Status DC Furosemide 20 mg DAILY PO; Start 05/28/25 at 09:00; Stop 05/27/25 at 17:57; Status DC Furosemide 20 mg ONCE ONCE PO; Start 05/27/25 at 16:30; Stop 05/27/25 at 16:31; Status DC Torsemide 20 mg DAILY PO Last administered on 05/31/25at 11:41; Start 05/27/25 at 18:00; Stop 06/01/25 at 14:05; Status DC Insulin Human Regular 10 unit TIDAC SQ Last administered on 05/28/25at 08:08; Start 05/28/25 at 07:30; Stop 05/29/25 at 06:36; Status DC Insulin Glargine 35 units DAILY SQ Last administered on 05/30/25at 12:40; Start 05/28/25 at 09:00; Stop 05/31/25 at 05:54; Status DC Insulin Human Regular 8 unit TIDAC SQ Last administered on 05/30/25at 18:52; Start 05/29/25 at 07:30; Stop 05/31/25 at 05:54; Status DC Polyethylene Glycol/ Electrolytes 4,000 ml ONCE ONCE PO Last administered on 05/30/25at 18:45; Start 05/30/25 at 16:00; Stop 05/30/25 at 16:01; Status DC Dextrose 50 ml STK-MED ONCE IV; Start 05/30/25 at 23:25; Stop 05/30/25 at 23:25; Status DC Insulin Glargine 30 units DAILY SQ; Start 05/31/25 at 09:00; Stop 06/01/25 at 06:56; Status DC Insulin Human Regular 7 unit TIDAC SQ Last administered on 05/31/25at 17:18; Start 05/31/25 at 07:30; Stop 06/01/25 at 06:56; Status DC Magnesium Sulfate 50 ml @ 0 mls/hr PROTOCOL IV Last administered on 05/31/25at 11:57; Start 05/31/25 at 10:30; Stop 06/01/25 at 14:05; Status DC Polyethylene Glycol/ Electrolytes 4,000 ml ONCE STAT PO Last administered on 05/31/25at 17:14; Start 05/31/25 at 16:38; Stop 05/31/25 at 16:40; Status DC Insulin Glargine 15 units DAILY SQ; Start 06/01/25 at 09:00; Stop 06/01/25 at 14:05; Status DC Insulin Human Regular 5 unit TIDAC SQ; Start 06/01/25 at 07:30; Stop 06/01/25 at 14:05; Status DC Potassium Chloride 100 ml @ 50 mls/hr ONCE ONCE IV; Start 06/01/25 at 10:00; Stop 06/01/25 at 11:04; Status DC Magnesium Sulfate 50 ml @ 0 mls/hr PROTOCOL IV; Start 06/01/25 at 10:00; Stop 06/01/25 at 09:52; Status DC Acetaminophen 100 ml @ As Directed STK-MED ONCE .ROUTE; Start 06/01/25 at 10:02; Stop 06/01/25 at 10:02; Status DC Potassium Chloride 40 meq ONCE ONCE PO Last administered on 06/01/25at 11:54; Start 06/01/25 at 11:30; Stop 06/01/25 at 11:31; Status DC ANITRA CARTER MD Jun 01, 2025 19:49
== END 2025-06-01 14:00 | disposition home or self-care (01) | DRG 638 ==
LOC: EDH 09:43 → EDHIP 09:44 → 2AH 14:57 → 4BH 05-26 00:51
PROVIDERS: ADMIT Internal Medicine; ATTEND Internal Medicine
PROC: 0DJD8ZZ Inspection of Lower Intestinal Tract, Via Natural or Artificial Opening Endoscopic (ICD-10-PCS; principal; 2025-06-01)
DX: E11.65 Type 2 diabetes mellitus with hyperglycemia (principal); E87.1 Hypo-osmolality and hyponatremia; E88.09 Other disorders of plasma-protein metabolism, not elsewhere classified; I16.0 Hypertensive urgency; D64.9 Anemia, unspecified; E11.22 Type 2 diabetes mellitus with diabetic chronic kidney disease; N17.9 Acute kidney failure, unspecified; I12.9 Hypertensive chronic kidney disease with stage 1 through stage 4 chronic kidney disease, or unspecified chronic kidney disease; N18.9 Chronic kidney disease, unspecified; I87.1 Compression of vein; E11.319 Type 2 diabetes mellitus with unspecified diabetic retinopathy without macular edema; E11.51 Type 2 diabetes mellitus with diabetic peripheral angiopathy without gangrene; E11.43 Type 2 diabetes mellitus with diabetic autonomic (poly)neuropathy; H54.7 Unspecified visual loss; K57.30 Diverticulosis of large intestine without perforation or abscess without bleeding; Z79.4 Long term (current) use of insulin; Z79.899 Other long term (current) drug therapy; Z89.411 Acquired absence of right great toe; Z91.148 Patient's other noncompliance with medication regimen for other reason
CPT/HCPCS: 36415; 45378; 70450; 72100; 72148; 74176; 80048; 80051; 80053; 80076; 80305; 81001; 82010; 82088; 82550; 82570; 82948; 83036; 83735; 83880; 83935; 84100; 84156; 84244; 84443; 84550; 85025; 85027; 93306; 93356; 93880; 93925; 93970; 96374; 99291; A4606; G0378; J0360; J1171; J1650; J1815; J3475; J7030; J7070; A4215; A4222; A4223; A4620; J1308